=== PATIENT | male | born 1970 | race Two or more races ===

== ENCOUNTER 2024-07-15 14:35 | Inpatient (IN) | payer MEDICAID, OTHER ==
[~2024-07-15] VITALS: Ht 180.3 cm; Wt 121.4 kg
[2024-07-15 14:35] VITALS: PULSE 90; RESP 20; O2SAT 99
--- NOTE | 2024-07-15 16:02 | ED.PDOC ---
History of Present Illness HPI Comments 54Y M with PMHx DM and CABG x3 presents to ED via EMS for chief complaint hyperglycemia. Additional symptoms include headache, nausea, fatigue, intermittent chest pain, and weakness x1wk. Upon EMS arrival, pt's BP was 505. Pt is currently taking Metformin and insulin 45U tid. Pt states it seems he is "unable to control his blood sugar". Chief Complaint: Hyperglycemia Time Seen by MD: 15:46 Reviewed Notes: Medications, Allergies Allergies: Coded Allergies: NO KNOWN ALLERGIES (Unverified , 07/15/24) Information Source: Patient, Emergency Med Personnel Mode of Arrival: EMS Severity: Moderate Timing: Hours Duration: Hours Prehospital treatment: Other Past Medical History PAST MEDICAL HISTORY: DM Surgical History: CABG Family History Family History: Unknown Social History Smoker: Unknown Alcohol: Sober Drugs: Unknown Lives In: Home Constitutional: reports: fatigue, weakness; denies: chills, diaphoresis, fever, malaise, sweats, others EENTM: denies: blurred vision, double vision, ear bleeding, ear discharge, ear drainage, ear pain, ear ringing, eye pain, eye redness, hearing loss, mouth pain, mouth swelling, nasal discharge, nose bleeding, nose congestion, nose pain, photophobia, tearing, throat pain, throat swelling, voice changes, others Respiratory: denies: cough, hemoptysis, orthopnea, SOB at rest, shortness of breath, SOB with excertion, stridor, wheezing, others Cardiovascular: reports: chest pain; denies: dizzy spells, diaphoresis, Dyspnea on exertion, edema, irregular heart beat, left arm pain, lightheadedness, palpitations, PND, syncope, others Gastrointestinal: reports: nausea; denies: abdomen distended, abdominal pain, blood streaked bowels, constipated, diarrhea, dysphagia, difficulty swallowing, hematemesis, melena, poor appetite, poor fluid intake, rectal bleeding, rectal pain, vomiting, others Genitourinary: denies: burning, dysuria, flank pain, frequency, hematuria, incontinence, penile discharge, penile sore, pain, testicle pain, testicle swelling, urgency, others Neurological: reports: headache; denies: dizziness, fainting, left sided numbness, left sided weakness, numbness, paresthesia, pre-existing deficit, right sided numbness, right sided weakness, seizure, speech problems, tingling, tremors, weakness, others Musculoskeletal: denies: back pain, gout, joint pain, joint swelling, muscle pain, muscle stiffness, neck pain, others Integumetry: denies: bruises, change in color, change in hair/nails, dryness, laceration, lesions, lumps, rash, wounds, others Allergic/Immunocompromised: denies: Difficulty Healing, Frequent Infections, Hives, Itching, others Hematologic/Lymphatic: denies: anemia, blood clots, easy bleeding, easy bruising, swollen glands, others Endocrine: denies: excessive hunger, excessive sweating, excessive thirst, excessive urination, flushing, intolerance to cold, intolerance to heat, unexplained weight gain, unexplained weight loss, others Psychiatric: denies: anxiety, bipolar disorder, depression, hopeless, panic disorder, schizophrenia, sleepless, suicidal, others All Other Systems: Reviewed and Negative Physical Exam General Appearance: No Apparent Distress, Normal HEENT: Normal ENT Inspection, Pharynx Normal, TMs Normal Neck: Full Range of Motion, Non-Tender, Normal, Normal Inspection Respiratory: Chest Non-Tender, Lungs Clear, No Accessory Muscle Use, No Respiratory Distress, Normal Breath Sounds Cardiovascular: No Edema, No JVD, No Murmur, No Gallop, Normal Peripheral Pulses, Regular Rate/Rhythm Breast Exam: Deferred Gastrointestinal: No Organomegaly, Non Tender, No Pulsatile Mass, Normal Bowel Sounds, Soft Genitalia: Deferred Pelvic: Deferred Rectal: Deferred Extremities: No calf tenderness, Normal capillary refill, Normal inspection, Normal range of motion, Non-tender, No pedal edema Musculoskeletal : Apperance: Normal Neurologic: Alert, 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 Was a procedure done?: No Differential Dx Considerations may include: DKA, HHONC, poorly controlled DM X-Ray, Labs, Meds, VS Vital Signs Date Time Temp Pulse Resp B/P (MAP) Pulse Ox O2 Delivery O2 Flow Rate FiO2 07/15/24 15:37 98.5 90 20 123/74 (90) 99 07/15/24 14:35 90 20 99 Room Air* 0 21 07/15/24 14:35 98.5 90 20 123/74 (90) 99 98.5 Lab Test 07/15/24 16:46 07/15/24 16:30 Range/Units Blood Gas Specimen Type Arterial Blood Gas Sample Site Right radial Blood Gas Patient Temperature 37.0 Arterial Blood Date Drawn [id number] Arterial Blood pH 7.421 7.350-7.450 Arterial Blood Partial Pressure CO2 36.7 35.0-48.0 mmHg Arterial Blood Partial Pressure O2 69.5 L 83.0-108.0 mmHg Arterial Blood HCO3 23.3 21.0-28.0 mmol/L Arterial Blood Oxygen Saturation 94.5 94.0-98.0 % Arterial Blood Base Excess -0.7 -2.0-3.0 mmol/L Arterial Blood Oxyhemoglobin 88.6 L 94.0-98.0 % Arterial Blood Carboxyhemoglobin 5.9 H 0.5-1.5 % Arterial Blood Methemoglobin 0.3 0.0-1.5 % Óscar Test Yes Blood Gas Total Hemoglobin 15.80 13.5-17.5 g/dL Blood Gas Modality Room air FiO2 % 21.0 White Blood Count 7.1 4.4-10.8 10^3/uL Red Blood Count 5.45 4.5-5.90 10^6/uL Hemoglobin 15.5 13.5-17.5 g/dL Hematocrit 46.5 41.0-53.0 % Mean Corpuscular Volume 85.3 80.0-100.0 fL Mean Corpuscular Hemoglobin 28.5 28.0-32.0 pg Mean Corpuscular Hemoglobin Concent 33.4 32.0-36.0 g/dL Red Cell Distribution Width 14.8 H 11.8-14.3 % Platelet Count 200 140-450 10^3/uL Mean Platelet Volume 9.6 6.9-10.8 fL Neutrophils (%) (Auto) 46.1 37.0-80.0 % Lymphocytes (%) (Auto) 37.4 10.0-50.0 % Monocytes (%) (Auto) 7.2 0.0-12.0 % Eosinophils (%) (Auto) 8.8 H 0.0-7.0 % Basophils (%) (Auto) 0.5 0.0-2.0 % Neutrophils # (Auto) 3.2 1.6-8.6 10 ^3/uL Lymphocytes # (Auto) 2.6 0.4-5.4 10 ^3/uL Monocytes # (Auto) 0.5 0-1.3 10 ^3/uL Eosinophils # (Auto) 0.6 0-0.8 10 ^3/uL Basophils # (Auto) 0 0-0.2 10 ^3/uL Nucleated Red Blood Cells 0.0 % Prothrombin Time 10.9 9.3-11.8 sec Prothrombin Time INR 1.03 0.9-1.15 Activated Partial Thromboplast Time 28.2 24.5-34.5 SEC D-Dimer, Quantitative 0.19 0.0-0.49 mg/L FEU Sodium Level 134 L 136-145 mmol/L Potassium Level 4.4 3.5-5.1 mmol/L Chloride Level 101 98-107 mmol/L Carbon Dioxide Level 27 20-31 mmol/L Anion Gap 6 5-15 Blood Urea Nitrogen 9 9-23 mg/dL Creatinine 0.99 0.700-1.30 mg/dL Glomerular Filtration Rate Calc 89 >90 mL/min BUN/Creatinine Ratio 9.1 L 10.0-20.0 Serum Glucose 403 *H 74-106 mg/dL Calcium Level 9.7 8.7-10.4 mg/dL Magnesium Level 1.7 1.6-2.6 mg/dL Total Bilirubin 0.4 0.2-1.0 mg/dL Aspartate Amino Transferase (AST) 15 13-40 U/L Alanine Aminotransferase (ALT) 36 7-40 U/L Alkaline Phosphatase 153 H 46-116 U/L Troponin I High Sensitivity 7 </=54 ng/L B-Type Natriuretic Peptide Pending Total Protein 6.1 5.7-8.2 g/dL Albumin 3.8 3.2-4.8 g/dL Beta-Hydroxybutyric Acid 0.079 < 0.4 mmol/L Blood Oxycodone Screen Pending Blood Methadone Screen Pending Blood Amphetamines Screen Pending Drugs of Abuse Source Pending Plasma/Serum Blood Alcohol 4.7 <10 mg/dL Current Medications Medications (Trade) Dose Ordered Sig/Lj Route Start Time Stop Time Status Last Admin Sodium Chloride 1,000 ml @ 1,000 mls/hr Q1H ONCE IV 07/15/24 16:15 07/15/24 17:14 DC 07/15/24 16:24 Gabapentin (Neurontin Capsule) 300 mg ONCE ONCE PO 07/15/24 17:15 07/15/24 17:16 DC 07/15/24 17:[address] [address] Ph: [phone] DIAGNOSTIC IMAGING Diagnostic Imaging Report : [id number] Signed PATIENT: MITZY MOORE ACCT: [id number] UNIT: [id number] : 1970 LOC: ER ROOM / BED: / AGE / SEX: 54 / M ADM STATUS: REG ER SERVICE 1602 ORDERING PHYSICIAN: BRUNILDA SELBY MD PROCEDURE(s): CXRP - CHEST PORTABLE REASON: chest pain and cough ORDER NUMBER(s): [id number], ACCESSION NUMBER(s): [id number] CHEST RADIOGRAPH Indication: chest pain and cough Technique: Single frontal view of the chest was obtained Comparison: None FINDINGS: Lines and Tubes: None Lungs: No focal consolidation. Pleura: No effusion. No pneumothorax. Cardiomediastinal contours: Unremarkable Bones: No acute osseous abnormality. IMPRESSION: No acute cardiopulmonary disease. ATED BY: MERCEDES MAIN MD DICTATED DATE/TIME: 07/15/24 1630 SIGNED BY: MERCEDES MAIN MD SIGNED DATE/TIME: 07/15/24 1630 CC: X-Ray, Labs, Meds, VS Comment This 54-year-old male presents emergency room secondary to hyperglycemia, and general malaise. He states he is on 40 units of insulin multiple times a day. Since despite the high amount of insulin, he was unable to get his diabetes under control. He states he was trying. However, he feels as if issues give up and just . He denies SI or HI but endorses being frustrated with his poorly controlled diabetes. Here, he was noted to have blood glucose in the 400s. His CO2 is within normal limits. He had a normal pH/ABG and normal serum hydroxybutyrate. However, secondary to his poorly controlled diabetes mellitus despite maximum temperature control, the patient for improved management. Time of 1ST Reevaluation: :16 Reevaluation 1ST: Unchanged Patient Education/Counseling: Diagnosis, Treatment Family Education/Counseling: No Family Present Departure 1 Departure Time of Disposition: 17:46 Impression: Primary Impression: Hyperglycemia due to diabetes mellitus Additional Impressions: Malaise and fatigue Depression Disposition: 09 ADMITTED INPATIENT Admit to: Med Surg Condition: Serious Critical Care Note Critical Care Time?: No Stability Stability form required: No Heart Score Heart Score: Heart Score Response (Comments) Value History N/A 0 EKG N/A 0 Age N/A 0 Risk Factors N/A 0 Troponin N/A 0 Total 0 I personally scribed for BRUNILDA SELBY MD ([email or web address]) on 07/15/24 at 16:02. Electronically submitted by Hallie Bird ([facility]). I personally scribed for BRUNILDA SELBY MD ([email or web address]) on 07/15/24 at 16:58. Electronically submitted by Hallie Bird ([facility]). BRUNILDA SELBY MD Jul 15, 2024 16:02
[2024-07-15] MEDS: SODIUM CHLORIDE 0.9% 1,000 ML IV ONE ×2 (16:24→18:01)
--- NOTE | 2024-07-15 16:33 | DVH ---
CHEST RADIOGRAPH Indication: chest pain and cough Technique: Single frontal view of the chest was obtained Comparison: None FINDINGS: Lines and Tubes: None Lungs: No focal consolidation. Pleura: No effusion. No pneumothorax. Cardiomediastinal contours: Unremarkable Bones: No acute osseous abnormality. IMPRESSION: No acute cardiopulmonary disease.
[2024-07-15 16:45] LABS: Basophils # (auto) 0 10 ^3/uL (0-0.2); Basophils % (auto) 0.5 % (0.0-2.0); Eosinophils # (auto) 0.6 10 ^3/uL (0-0.8); Eosinophils % (auto) 8.8 % (0.0-7.0); Hematocrit 46.5 % (41.0-53.0); Hemoglobin 15.5 g/dL (13.5-17.5); Lymphocytes # (auto) 2.6 10 ^3/uL (0.4-5.4); Lymphocytes % (auto) 37.4 % (10.0-50.0); Mean Corpuscular Hemoglobin 28.5 pg (28.0-32.0); Mean Corpuscular Hgb Conc. 33.4 g/dL (32.0-36.0); Mean Corpuscular Volume 85.3 fL (80.0-100.0); Monocytes # (auto) 0.5 10 ^3/uL (0-1.3); Monocytes % (auto) 7.2 % (0.0-12.0); Neutrophils # (auto) 3.2 10 ^3/uL (1.6-8.6); Neutrophils % (auto) 46.1 % (37.0-80.0); Platelet Count (auto) 200 10^3/uL (140-450); Red Blood Cells 5.45 10^6/uL (4.5-5.90); Red Cell Distribution Width 14.8 % (11.8-14.3); White Blood Cell 7.1 10^3/uL (4.4-10.8)
[2024-07-15 16:51] LABS: Base Excess -0.7 mmol/L (-2.0-3.0)
[2024-07-15 17:03] LABS: INR 1.03 (0.9-1.15); Partial Thromboplastin Time 28.2 SEC (24.5-34.5); Prothrombin Time 10.9 sec (9.3-11.8)
[2024-07-15 17:04] LABS: Alanine Aminotransferase 36 U/L (7-40); Albumin 3.8 g/dL (3.2-4.8); Anion Gap 6 (5-15); Aspartate Aminotransferase 15 U/L (13-40); BUN/Creatinine Ratio 9.1 (10.0-20.0); Bilirubin, Total 0.4 mg/dL (0.2-1.0); Blood Alcohol 4.7 mg/dL (<10); Blood Urea Nitrogen 9 mg/dL (9-23); Calcium 9.7 mg/dL (8.7-10.4); Carbon Dioxide 27 mmol/L (20-31); Chloride 101 mmol/L (98-107); Magnesium 1.7 mg/dL (1.6-2.6); Potassium 4.4 mmol/L (3.5-5.1); Total Protein 6.1 g/dL (5.7-8.2)
[2024-07-15 17:19] LABS: Alkaline Phosphatase 153 U/L (46-116); Sodium 134 mmol/L (136-145)
[2024-07-15 17:31] LABS: Glucose 403 mg/dL (74-106)
[2024-07-15] MEDS: GABAPENTIN 300 MG CAP PO ONE (17:32)
[2024-07-15 18:20] LABS: Urine Bacteria None Seen /hpf (None Seen)
[2024-07-15 18:54] LABS: Urine Blood Negative /uL (Negative); Urine Clarity Clear (Clear); Urine Color Light-Yellow (Yellow); Urine Protein, UAD Negative (Negative); Urine Specific Gravity 1.029 (1.001-1.035); Urine Urobilinogen Normal (Negative); Urine WBC <1 /hpf (0 - 3); Urine pH 6.5 (5.0-9.0)
--- NOTE | 2024-07-15 19:14 | DVHHP2 ---
History of Present Illness Reason for Visit: weakness History of Present Illness 54-year-old morbidly obese male with a past medical history of diabetes CABG comes to the ED with symptoms described with hyperglycemia patient on evaluation had glucose greater than 500 states that he is currently taking insulin 3 times a day and also takes metformin but he is unable to control his blood pressure unable to confirm if patient is actually compliant with medications however patient is grossly hyperglycemic and was recommended for admission and further evaluation and management Cardiovascular: HTN Endocrine: Diabetes Review of Systems Constitutional: Yes: Weakness Eyes: No: Pain, Vision change, Conjunctivae inflammation, Eyelid inflammation, Other, Redness ENT: No: Ear pain, Ear discharge, Nose pain, Nose discharge, Nose congestion, Mouth pain, Mouth swelling, Throat pain, Throat swelling, Other Respiratory: No: Cough, Dry, Shortness of breath, SOB with excertion, Wheezing, Hemoptysis, Pleuritic Pain, Sputum, Wheezing, Other Cardiovascular: Palpitations; No: Chest Pain, Orthopnea, Paroxysmal Noc. Dyspnea, Edema, Lt Headedness, Other Gastrointestinal: Nausea, Vomiting; No: Abdominal Pain, Diarrhea, Constipation, Melena, Hematochezia, Other Musculoskeletal: No: other, neck pain, shoulder pain, arm pain, back pain, hand pain, leg pain, foot pain Skin: No: Rash, Lesions, Jaundice, Bruising, Other Neurological: No: Weakness, Numbness, Incoordination, Change in speech, Confusion, Seizures, Other Allergies: Coded Allergies: NO KNOWN ALLERGIES (Unverified , 07/15/24) Exam Vital Signs Vital Signs Date Time Temp Pulse Resp B/P (MAP) Pulse Ox O2 Delivery O2 Flow Rate FiO2 07/15/24 15:37 98.5 90 20 123/74 (90) 99 07/15/24 14:35 Room Air* 0 21 General Appearance: Alert, Oriented X3, Cooperative HEENT: Atraumatic, PERRLA, EOMI Respiratory: Clear to auscultation, Normal air movement Cardiovascular: Regular rate, Normal S1, Normal S2 Abdominal: Normal bowel sounds, Soft, No tenderness Extremities: No clubbing, No cyanosis, No edema Skin: No rashes, No breakdown, No significant lesion Neuro: Normal gait, Normal speech Psych/Mental Status: Mood NL Labs/Xrays Labs Test 07/15/24 17:28 07/15/24 16:46 07/15/24 16:30 07/15/24 16:20 Range/Units Troponin I High Sensitivity 8 </=54 ng/L Blood Gas Specimen Type Arterial Blood Gas Sample Site Right radial Blood Gas Patient Temperature 37.0 Arterial Blood Date Drawn [id number] Arterial Blood pH 7.421 7.350-7.450 Arterial Blood Partial Pressure CO2 36.7 35.0-48.0 mmHg Arterial Blood Partial Pressure O2 69.5 L 83.0-108.0 mmHg Arterial Blood HCO3 23.3 21.0-28.0 mmol/L Arterial Blood Oxygen Saturation 94.5 94.0-98.0 % Arterial Blood Base Excess -0.7 -2.0-3.0 mmol/L Arterial Blood Oxyhemoglobin 88.6 L 94.0-98.0 % Arterial Blood Carboxyhemoglobin 5.9 H 0.5-1.5 % Arterial Blood Methemoglobin 0.3 0.0-1.5 % Óscar Test Yes Blood Gas Total Hemoglobin 15.80 13.5-17.5 g/dL Blood Gas Modality Room air FiO2 % 21.0 White Blood Count 7.1 4.4-10.8 10^3/uL Red Blood Count 5.45 4.5-5.90 10^6/uL Hemoglobin 15.5 13.5-17.5 g/dL Hematocrit 46.5 41.0-53.0 % Mean Corpuscular Volume 85.3 80.0-100.0 fL Mean Corpuscular Hemoglobin 28.5 28.0-32.0 pg Mean Corpuscular Hemoglobin Concent 33.4 32.0-36.0 g/dL Red Cell Distribution Width 14.8 H 11.8-14.3 % Platelet Count 200 140-450 10^3/uL Mean Platelet Volume 9.6 6.9-10.8 fL Neutrophils (%) (Auto) 46.1 37.0-80.0 % Lymphocytes (%) (Auto) 37.4 10.0-50.0 % Monocytes (%) (Auto) 7.2 0.0-12.0 % Eosinophils (%) (Auto) 8.8 H 0.0-7.0 % Basophils (%) (Auto) 0.5 0.0-2.0 % Neutrophils # (Auto) 3.2 1.6-8.6 10 ^3/uL Lymphocytes # (Auto) 2.6 0.4-5.4 10 ^3/uL Monocytes # (Auto) 0.5 0-1.3 10 ^3/uL Eosinophils # (Auto) 0.6 0-0.8 10 ^3/uL Basophils # (Auto) 0 0-0.2 10 ^3/uL Nucleated Red Blood Cells 0.0 % Prothrombin Time 10.9 9.3-11.8 sec Prothrombin Time INR 1.03 0.9-1.15 Activated Partial Thromboplast Time 28.2 24.5-34.5 SEC D-Dimer, Quantitative 0.19 0.0-0.49 mg/L FEU Sodium Level 134 L 136-145 mmol/L Potassium Level 4.4 3.5-5.1 mmol/L Chloride Level 101 98-107 mmol/L Carbon Dioxide Level 27 20-31 mmol/L Anion Gap 6 5-15 Blood Urea Nitrogen 9 9-23 mg/dL Creatinine 0.99 0.700-1.30 mg/dL Glomerular Filtration Rate Calc 89 >90 mL/min BUN/Creatinine Ratio 9.1 L 10.0-20.0 Serum Glucose 403 *H 74-106 mg/dL Calcium Level 9.7 8.7-10.4 mg/dL Magnesium Level 1.7 1.6-2.6 mg/dL Total Bilirubin 0.4 0.2-1.0 mg/dL Aspartate Amino Transferase (AST) 15 13-40 U/L Alanine Aminotransferase (ALT) 36 7-40 U/L Alkaline Phosphatase 153 H 46-116 U/L B-Type Natriuretic Peptide 47.81 0-100 pg/mL Total Protein 6.1 5.7-8.2 g/dL Albumin 3.8 3.2-4.8 g/dL Beta-Hydroxybutyric Acid 0.079 < 0.4 mmol/L Plasma/Serum Blood Alcohol 4.7 <10 mg/dL Urine Color Light-yellow Yellow Urine Clarity Clear Clear Urine pH 6.5 5.0-9.0 Urine Specific [place] 1.029 1.001-1.035 Urine Protein Negative Negative Urine Ketones Negative Negative Urine Blood Negative Negative /uL Urine Nitrite Negative Negative Urine Bilirubin Negative Negative Urine Urobilinogen Normal Negative mg/dL Urine Leukocyte Esterase Negative Negative /uL Urine RBC 1 0 - 3 /hpf Urine WBC <1 0 - 3 /hpf Urine Squamous Epithelial Cells None seen <5 /hpf Urine Bacteria None seen None Seen /hpf Urine Glucose 4+ H Normal mg/dL Assessment/Plan Assessment/Plan Admit to [facility] Severe hyperglycemia due to type 2 diabetes uncontrolled Insulin sliding scale aggressive Insulin t.i.d. with 15 units 3 Long-acting insulin per night Adjust as required utilizing all insulin plus insulin sliding scale Aggressive IV hydration No acute signs of infection noted at this point in time Patient with severe hyperglycemia Suspected noncompliance to any medications ABG completed with a normal pH in no anion gap noted we will continue to monitor patient closely Plan discussed with: Patient My Orders Orders - ERICKA ADAMES MD Procedure Category Date Status Time Glucose Blood PHA 07/16/24 Verified (Accu-Chek Comfort 00:00 Agressive Insulin Ss PHA 07/16/24 Verified 00:00 Dextrose 50% Syringe PHA 07/15/24 Verified 19:15 Insulin Lispro PHA 07/16/24 Verified (Human) (Humalog) 07:00 Insulin Lantus PHA 07/15/24 Verified (Glargine) (Lantus) 22:00 Gabapentin Capsule PHA 07/15/24 Verified (Neurontin Capsule) 22:00 Admit ADMIT 07/15/24 Verified 19:06 Code Status CODE 07/15/24 Verified 19:06 Vital Signs [facility] 07/15/24 Verified 19:06 Review Orders With GABBY 07/15/24 Verified Adm. 19:06 Consistent DIET 07/16/24 Verified Carb(Ccho)Diabetes Breakfast Sodium Chloride 0.9% PHA 07/15/24 Verified 19:15 Lorazepam Tablet PHA 07/15/24 Verified (Ativan Tablet) 19:15 Alum & Mag PHA 07/15/24 Verified Hydrox-Simethicone 19:15 Docusate Sodium PHA 07/15/24 Verified Capsule (Colace 19:15 Acetaminophen Tablet PHA 07/15/24 Verified (Tylenol Tablet) 19:15 Temazepam (Restoril) PHA 07/15/24 Verified 19:15 Notify Of Changes [facility] 07/15/24 Verified From Base 19:06 Advance Directive [facility] 07/15/24 Verified 19:06 Basic Metabolic Panel LAB 07/16/24 Verified 04:00 Complete Blood Count LAB 07/16/24 Verified 04:00 Patient Condition ORDERS 07/15/24 Verified 19:06 Allergies [facility] 07/15/24 Verified 19:06 Hydrocodone-Acet PHA 07/15/24 Verified 5/325mg Tab ([place] 19:15 Ondansetron Hcl PHA 07/15/24 Verified (Zofran) 19:15 Morphine 2mg Iv Q4hprn PHA 07/15/24 Verified 19:15 Notify Md Of Changes GABBY 07/15/24 Verified From Base 19:06 Oxygen By Nasal RT 07/15/24 Verified Cannula 19:06 Problem List: (1) Malaise and fatigue (2) Hyperglycemia due to diabetes mellitus Date of Service: Jul 15, 2024 Billing Provider: ERICKA ADAMES MD Common Visit Codes: [id number] INP/OBS CARE (HIGH) ERICKA ADAMES MD Jul 15, 2024 19:14
[2024-07-15] MEDS ORDERED: DOCUSATE SOD 100 MG CAP PO PRN (19:15)
[2024-07-15] MEDS ORDERED: ONDANSETRON HCL 4 MG/2 ML VIAL IV PRN (19:15)
[2024-07-15] MEDS ORDERED: MAALOX PLUS or MAALOX 30 ML PO PRN (19:15)
[2024-07-15] MEDS ORDERED: ACETAMINOPHEN 325 MG TAB PO PRN (19:15)
[2024-07-15] MEDS ORDERED: LORazepam 0.5 MG TAB PO PRN (19:15)
[2024-07-15] MEDS ORDERED: DEXTROSE (50%) 50ML SYRG IV PRN (19:15)
[2024-07-15] MEDS ORDERED: TEMAZEPAM 15 MG CAP PO PRN (19:15)
[2024-07-15 19:30] VITALS: PULSE 79; RESP 20; O2SAT 93
[2024-07-15] MEDS: SODIUM CHLORIDE 0.9% 1,000 ML IV SCH (19:37)
[2024-07-15 22:04] LABS: COVID19 ANTIGEN SOFIA FIA NEGATIVE (NEGATIVE)
[2024-07-15 22:05] LABS: Rapid Influenza A Negative (Negative); Rapid Influenza B Negative (Negative)
[2024-07-15] MEDS: INSULIN LANTUS (GLARGINE) 1 /0.01ml (100units/ml) SC SCH (22:14)
[2024-07-15] MEDS: GABAPENTIN 300 MG CAP PO SCH (22:14)
[2024-07-15] MEDS: ACCU-CHEK COMFORT CURVE STRIP VI SCH (23:52)
[2024-07-15] MEDS: InsuLIN REG 1unit/0.01ml Soln (100units/ml) SC SCH (23:56)
[2024-07-16] VITALS (7 sets, daily range): BP systolic 102–144; BP diastolic 57–88; PULSE 71–80; RESP 17–20; TEMP 97.2–98.5; O2SAT 93–95
[2024-07-16] MEDS: MORPHINE SULFATE INJ 2 MG/ml SYRG IV PRN (06:16)
[2024-07-16] MEDS: INSULIN LISPRO (HUMAN) 100 UNITS/ML ML SC SCH (06:18)
[2024-07-16 08:19] LABS: Chloride 105 mmol/L (98-107); Potassium 4.2 mmol/L (3.5-5.1); Sodium 138 mmol/L (136-145)
[2024-07-16 08:20] LABS: Anion Gap 4 (5-15); Calcium 9.4 mg/dL (8.7-10.4); Carbon Dioxide 29 mmol/L (20-31)
[2024-07-16 08:25] LABS: BUN/Creatinine Ratio 8.7 (10.0-20.0); Blood Urea Nitrogen 8 mg/dL (9-23); Glucose 203 mg/dL (74-106)
[2024-07-16 08:26] LABS: Basophils # (auto) 0.1 10 ^3/uL (0-0.2); Basophils % (auto) 1.2 % (0.0-2.0); Eosinophils # (auto) 0.6 10 ^3/uL (0-0.8); Eosinophils % (auto) 10.6 % (0.0-7.0); Hematocrit 45.7 % (41.0-53.0); Hemoglobin 15.6 g/dL (13.5-17.5); Lymphocytes # (auto) 2.3 10 ^3/uL (0.4-5.4); Lymphocytes % (auto) 41.6 % (10.0-50.0); Mean Corpuscular Hemoglobin 29.2 pg (28.0-32.0); Mean Corpuscular Hgb Conc. 34.2 g/dL (32.0-36.0); Mean Corpuscular Volume 85.5 fL (80.0-100.0); Monocytes # (auto) 0.4 10 ^3/uL (0-1.3); Monocytes % (auto) 6.6 % (0.0-12.0); Neutrophils # (auto) 2.2 10 ^3/uL (1.6-8.6); Platelet Count (auto) 194 10^3/uL (140-450); Red Blood Cells 5.35 10^6/uL (4.5-5.90); Red Cell Distribution Width 14.9 % (11.8-14.3); White Blood Cell 5.4 10^3/uL (4.4-10.8)
--- NOTE | 2024-07-16 18:20 | DVHPN2 ---
Subjective I am assuming the care of the patient from today onwards. Detailed sign out obtained. This is a 54-year-old male with a known history of CAD status post CABG, diabetes mellitus type 2 insulin dependent presented to the hospital with a high blood sugars. Patient is complaining of muscle soreness. Reviewed: Care Plan Changes from previous H/P or p: No Changes Eyes: No Pain, No Vision change, No Conjunctivae inflammation, No Eyelid inflammation, No Other, No Redness ENT: No Ear pain, No Ear discharge, No Nose pain, No Nose discharge, No Nose congestion, No Mouth pain, No Mouth swelling, No Throat pain, No Throat swelling, No Other Cardiovascular: No Chest Pain; Palpitations; No Orthopnea, No Paroxysmal Noc. Dyspnea, No Edema, No Lt Headedness, No Other Respiratory: No Cough, No Dry, No Shortness of breath, No SOB with excertion, No Wheezing, No Hemoptysis, No Pleuritic Pain, No Sputum, No Other Gastrointestinal: Nausea, Vomiting; No Abdominal Pain, No Diarrhea, No Constipation, No Melena, No Hematochezia, No Other Musculoskeletal: No other, No neck pain, No shoulder pain, No arm pain, No back pain, No hand pain, No leg pain, No foot pain Skin: No Rash, No Lesions, No Jaundice, No Bruising, No Other Objective Vitals Vital Signs Date Time Temp Pulse Resp B/P (MAP) Pulse Ox O2 Delivery O2 Flow Rate FiO2 07/16/24 17:34 71 17 127/60 07/16/24 17:00 97.2 95 97.2 07/16/24 08:00 Room Air* 0 21 Intake/Output Intake and Output 07/16/24 07:00 Intake Total 600 ml Output Total 0 ml Balance 600 ml Intake Oral 0 ml IV Total 600 ml Output Urine Total 0 ml Exam HEENT pupils are reactive Neck is supple CV is S1-S2 regular rate and rhythm Respiratory bilateral clear GI positive bowel sound Extremity no edema [employer]INTE[employer]CE [employer]CH[employer] 2ND SHIFT no motor deficit Medications Current Medications Medications Dose Ordered Sig/Lj Route Start Time Stop Time Status Last Admin Dose Admin Diagnostic Test (Pha) 1 strip Q6HR 07/16/24 00:00 07/16/24 17:47 1 STRIP Insulin Human Regular Q6HR SC 07/16/24 00:00 07/16/24 17:33 12 UNITS Dextrose 50 ml UD PRN IV 07/15/24 19:15 Insulin Human Lispro 15 units AC SC 07/16/24 07:00 07/16/24 17:00 15 UNITS Insulin Glargine 20 units HS SC 07/15/24 22:00 07/15/24 22:14 20 UNITS Gabapentin 300 mg Q8HR PO 07/15/24 22:00 07/16/24 14:00 300 MG Sodium Chloride 1,000 ml @ 200 mls/hr Q5H IV 07/15/24 19:15 07/16/24 10:15 200 MLS/HR Lorazepam 0.5 mg Q6HP PRN PO 07/15/24 19:15 Al Hydrox/Mg Hydrox/Simethicone 30 ml Q6HP PRN PO 07/15/24 19:15 Docusate Sodium 100 mg BIDPRN PRN PO 07/15/24 19:15 Acetaminophen 650 mg Q6HP PRN PO 07/15/24 19:15 Temazepam 15 mg QHSP PRN PO 07/15/24 19:15 Acetaminophen/ Hydrocodone Bitart 1 tab Q4HP PRN PO 07/15/24 19:15 Ondansetron HCl 4 mg Q4HP PRN IV 07/15/24 19:15 Morphine Sulfate 2 mg Q4HPRN PRN IV 07/15/24 19:15 07/16/24 17:34 2 MG Laboratory Results Laboratory Tests 07/16/24 07:35 Chemistry Test 07/16/24 07:35 Calcium Level 9.4 mg/dL (8.7-10.4) HgA1c, TSH Test 07/16/24 07:35 Hemoglobin A1c 9.5 % A1C (<5.7) H Urinalysis Test 07/15/24 16:20 Urine Color Light-yellow (Yellow) Urine Clarity Clear (Clear) Urine pH 6.5 (5.0-9.0) Urine Specific [place] 1.029 (1.001-1.035) Urine Protein Negative (Negative) Urine Ketones Negative (Negative) Urine Blood Negative /uL (Negative) Urine Nitrite Negative (Negative) Urine Bilirubin Negative (Negative) Urine Urobilinogen Normal mg/dL (Negative) Urine Leukocyte Esterase Negative /uL (Negative) Urine RBC 1 /hpf (0 - 3) Urine WBC <1 /hpf (0 - 3) Urine Squamous Epithelial Cells None seen /hpf (<5) Urine Bacteria None seen /hpf (None Seen) Urine Glucose 4+ mg/dL (Normal) H Assessment/Plan Assessment/Plan 54-year-old male with a known history of coronary artery disease status post CABG, insulin-dependent diabetes mellitus presented to the hospital with a high blood sugar found to have 1. Uncontrolled hyperglycemia in the setting of diabetes mellitus type 2, hemoglobin A1c 9.5 2. Insulin-dependent diabetes mellitus type 2 3. Coronary artery disease status post CABG 4. Generalized body soreness -long-acting insulin, insulin sliding scale, discharge plan. Plan discussed with: Patient Problem List: (1) Hyperglycemia due to diabetes mellitus Date of Service: Jul 16, 2024 Billing Provider: MARK KABA MD Common Visit Codes: [id number] INP/OBS CARE(HIGH) MARK KABA MD Jul 16, 2024 18:20
[2024-07-16] MEDS: HYDROcodone-ACET 5/325MG TAB PO PRN (20:33)
[2024-07-17 05:00] VITALS: BP 184/81; PULSE 63; RESP 20; TEMP 98; O2SAT 93
[2024-07-17 08:00] VITALS: PULSE 87; RESP 18; O2SAT 96
[2024-07-17 08:27] VITALS: BP 144/86; PULSE 87; RESP 20; TEMP 98.2; O2SAT 96
== END 2024-07-17 09:54 | disposition left against medical advice (07) | DRG 420 ==
LOC: ER 14:35 → EDBD 14:35 → OVERFLOW 19:16 → EAST 07-16 02:25
PROVIDERS: ADMIT Hospitalist; ATTEND Hospitalist
DX: E11.65 Type 2 diabetes mellitus with hyperglycemia (principal); E66.01 Morbid (severe) obesity due to excess calories; Z20.822 Contact with and (suspected) exposure to COVID-19; I25.10 Atherosclerotic heart disease of native coronary artery without angina pectoris; I10 Essential (primary) hypertension; Z53.29 Procedure and treatment not carried out because of patient's decision for other reasons; F32.A Depression, unspecified; Z95.1 Presence of aortocoronary bypass graft; Z79.4 Long term (current) use of insulin; Z68.37 Body mass index [BMI] 37.0-37.9, adult; Z79.84 Long term (current) use of oral hypoglycemic drugs
CPT/HCPCS: 36415; 36600; 71045; 80048; 80053; 80307; 80320; 81001; 82010; 82805; 82962; 83036; 83735; 83880; 84484; 85025; 85379; 85610; 85730; 87426; 87804; 96360; 96361; G0378; J1815

== ENCOUNTER 2024-12-26 14:34 | Inpatient (IN) | payer MEDICAID ==
[~2024-12-26] VITALS: Ht 180.3 cm; Wt 99.2 kg
[~2024-12-26 14:34] MED LIST: ARIP20TA4 PO; ATOR20TA50 PO; CHL25C PO; FOLI-119 PO; GABA-1250 PO; HYDR-4069 PO; INSU100I49 SC; INSU100I51 SC; INSU1INJ19 SC; LISI20TA56 PO; LORA-1123 PO; METF-370 PO; MIRT1TAB38 PO; MULTTAB99 PO; PREG75CA PO; QUET1TAB11 PO; SERT50TA PO; THIA100T10 PO; TRAZ1TAB12 PO
[2024-12-26] MEDS: MIDAZOLAM HCL 5 MG/ML-1ML VIAL ONE ×2 (14:41→15:19)
[2024-12-26] MEDS: MIDAZOLAM HCL 5 MG/ML-1ML VIAL IV ONE ×2 (14:45→14:57)
[2024-12-26] MEDS: ROCURONIUM 10MG/ML 10ML VIAL IV ONE ×2 (14:46→14:58)
[2024-12-26] MEDS: MIDAZOLAM DRIP 50 mg/50mL 50 ML IV ONE (14:46)
[2024-12-26] MEDS: NOREPINEPHRINE 8 MG/250ML KIT 250 ML IV ONE (14:46)
[2024-12-26] MEDS: PROPOFOL 100 ML IV ONE (14:46)
[2024-12-26] MEDS: NOREPINEPHRINE 8 MG/250ML KIT 250 ML IV SCH (14:52)
--- NOTE | 2024-12-26 14:54 | ED.PDOC ---
Altered Mental Status HPI Comments 54 year old male presents to the ED with a chief complaint of ALOC onset today (12/26/24). Per EMS, patient is from a group him, was shaking, unresponsive, 911 was called. Upon EMS arrival, patient was bradycardic, hypotensive, 500 cc fluids were given in route. Patient became agitated, pulled out his IV, appears confused. No other symptoms or modifying factors present at this time. Chief Complaint: ALOC Time Seen by MD: 14:35 Reviewed Notes: Medications, Allergies Allergies: Coded Allergies: NO KNOWN ALLERGIES (Unverified , 07/15/24) Information Source: Emergency Med Personnel Mode of Arrival: EMS Severity: Moderate Timing: Hours Duration: Since onset Prehospital treatment: IVF Quality: Decreased Alertness, Change in Behavior Past Medical History PAST MEDICAL HISTORY: DM, Unknown Surgical History: CABG, Unknown Family History Family History: Unknown Social History Smoker: Unknown Alcohol: Heavy Drugs: Unknown Lives In: Home Neurological: reports: others (syncope) Unable to Obtain due to: Altered Mental Status Physical Exam General Appearance: Moderate Distress HEENT: Normal ENT Inspection, Pharynx Normal, TMs Normal Neck: Full Range of Motion, Non-Tender, Normal, Normal Inspection Respiratory: Chest Non-Tender, Lungs Clear, No Accessory Muscle Use, No Respiratory Distress, Normal Breath Sounds Cardiovascular: No Edema, No JVD, No Murmur, No Gallop, Normal Peripheral Pulses, Regular Rate/Rhythm Breast Exam: Deferred Gastrointestinal: No Organomegaly, Non Tender, No Pulsatile Mass, Normal Bowel Sounds, Soft Genitalia: Deferred Pelvic: Deferred Rectal: Deferred Extremities: No calf tenderness, Normal capillary refill, Normal inspection, Normal range of motion, Non-tender, No pedal edema Musculoskeletal : Apperance: Normal Neurologic: Other (Patient is minimally responsive, not tolerating secretions) Cerebellar Function: NOT DONE Reflexes: Normal Skin: Dry, Normal Color, Warm Lymphatic: No Adenopathy Was a procedure done? Was a procedure done?: Yes Sedation Sedation?: No Sedation total time: Central Line Recorder of insertion practice: Meeting Specialist Occupation of design inserter: Attending Physician Indication: Hypotension Room prepared for procedure: Yes Meeting Specialist performed hand hygien: Yes Maximal sterile barrier precau: Mask/Eye shield, Sterile gown, Cap, Sterlie gloves, Large sterlie drape Skin Preparation: Chlorhexidine gluconate, Providine iodine, Alcohol Skin preparation completely dr: Yes Insertion site: Right, Femoral Central line catheter type: Wqg-vjulhmhz-lgu dialysis Number of lumens: 3 Antiseptic ointment applied to: Yes Post Assessment: Chest X-Ray, Proper placement Intubation Indication: Altered Mental Status Prep: Preoxygenation Pretreated with: Sedation Medicated with: Other (versed 20 mg, Rocuronium 100 mg) Differential Diagnosis (ALOC) Differential Diagnosis: Hypoglycemia, Encephalopathy, Sepsis, CVA, Mass Lesion, SAH, Drug Overdose, ETOH Intoxication X-Ray, Labs, Meds, VS Vital Signs Date Time Temp Pulse Resp B/P (MAP) Pulse Ox O2 Delivery O2 Flow Rate FiO2 12/26/24 17:16 130/75 12/26/24 17:10 49 12/26/24 16:49 65 16 145/89 (107) 99 100 12/26/24 16:30 67 16 121/83 (96) 95 12/26/24 16:15 65 16 110/68 (82) 97 12/26/24 16:00 62 16 137/86 (103) 99 12/26/24 15:45 66 16 109/70 (83) 99 12/26/24 15:30 60 16 136/77 (96) 99 12/26/24 15:26 62 16 213/105 (141) 99 100 12/26/24 15:20 60 16 101/67 (78) 99 12/26/24 15:00 137/60 12/26/24 14:58 137/60 12/26/24 14:52 80/41 12/26/24 14:35 66 17 86/40 (55) 93 12/26/24 14:34 66 Lab Test 12/26/24 16:56 12/26/24 16:45 12/26/24 15:56 12/26/24 15:20 Range/Units Lactic Acid Level 2.9 *H 3.1 *H 0.4-2.0 mmol/L Troponin I High Sensitivity 7 4 </=54 ng/L Urine Color Yellow Yellow Urine Clarity Turbid H Clear Urine pH 5.5 5.0-9.0 Urine Specific [place] 1.025 1.001-1.035 Urine Protein Trace H Negative Urine Ketones 1+ H Negative Urine Blood Negative Negative /uL Urine Nitrite Negative Negative Urine Bilirubin Negative Negative Urine Urobilinogen 4 H Negative mg/dL Urine Leukocyte Esterase Trace Negative /uL Urine RBC 1 0 - 3 /hpf Urine Microscopic WBC 9 H 0-3 /HPF Urine Squamous Epithelial Cells Few <5 /hpf Urine Bacteria None seen None Seen /hpf Urine Hyaline Casts Mod 0 - 2 /lpf Urine Mucus Moderate None Seen Urine Glucose 1+ H Normal mg/dL Urine Opiates Screen Neg NEGATIVE Urine Fentanyl Screen Neg NEGATIVE Urine Barbiturates Screen Neg NEGATIVE Urine Phencyclidine Screen Neg NEGATIVE Urine Amphetamines Screen Neg NEGATIVE Urine Benzodiazepines Screen Pos NEGATIVE Urine Cocaine Screen Neg NEGATIVE Urine Cannabinoids Screen Pos NEGATIVE Blood Gas Specimen Type Arterial Blood Gas Sample Site Left radial Blood Gas Patient Temperature 37.0 Arterial Blood Date Drawn [id number] Arterial Blood pH 7.295 L 7.350-7.450 Arterial Blood Partial Pressure CO2 33.6 L 35.0-48.0 mmHg Arterial Blood Partial Pressure O2 464.6 *H 83.0-108.0 mmHg Arterial Blood HCO3 16.0 L 21.0-28.0 mmol/L Arterial Blood Oxygen Saturation 99.9 H 94.0-98.0 % Arterial Blood Base Excess -9.3 L -2.0-3.0 mmol/L Arterial Blood Oxyhemoglobin 95.0 94.0-98.0 % Arterial Blood Carboxyhemoglobin 4.1 H 0.5-1.5 % Arterial Blood Methemoglobin 0.8 0.0-1.5 % Óscar Test Modified Blood Gas Total Hemoglobin 16.90 13.5-17.5 g/dL Blood Gas Set Respiration Rate 16.0 Blood Gas Modality Vent - ac FiO2 % 100.0 Blood Gas Tidal Volume 500.0 Blood Gas PEEP or CPAP 5.0 Blood Gas Critical Value Read Back Yes Blood Gas Notified Whom Dr. gomes Blood Gas Notified Time [id number] Blood Gas Notified By Robbin roy, mukesh White Blood Count 8.6 4.4-10.8 10^3/uL Red Blood Count 5.59 4.5-5.90 10^6/uL Hemoglobin 17.1 13.5-17.5 g/dL Hematocrit 50.5 41.0-53.0 % Mean Corpuscular Volume 90.5 80.0-100.0 fL Mean Corpuscular Hemoglobin 30.7 28.0-32.0 pg Mean Corpuscular Hemoglobin Concent 33.9 32.0-36.0 g/dL Red Cell Distribution Width 16.1 H 11.8-14.3 % Platelet Count 201 140-450 10^3/uL Mean Platelet Volume 10.6 6.9-10.8 fL Neutrophils (%) (Auto) 41.5 37.0-80.0 % Lymphocytes (%) (Auto) 44.3 10.0-50.0 % Monocytes (%) (Auto) 6.8 0.0-12.0 % Eosinophils (%) (Auto) 6.1 0.0-7.0 % Basophils (%) (Auto) 1.3 0.0-2.0 % Neutrophils # (Auto) 3.6 1.6-8.6 10 ^3/uL Lymphocytes # (Auto) 3.8 0.4-5.4 10 ^3/uL Monocytes # (Auto) 0.6 0-1.3 10 ^3/uL Eosinophils # (Auto) 0.5 0-0.8 10 ^3/uL Basophils # (Auto) 0.1 0-0.2 10 ^3/uL Nucleated Red Blood Cells 0.3 % D-Dimer, Quantitative 0.72 H 0.0-0.49 mg/L FEU Sodium Level 139 136-145 mmol/L Potassium Level 3.0 L 3.5-5.1 mmol/L Chloride Level 106 98-107 mmol/L Carbon Dioxide Level 20 20-31 mmol/L Anion Gap 13 5-15 Blood Urea Nitrogen 7 L 9-23 mg/dL Creatinine 0.96 0.700-1.30 mg/dL Glomerular Filtration Rate Calc 93 >90 mL/min BUN/Creatinine Ratio 7.3 L 10.0-20.0 Serum Glucose 221 H 74-106 mg/dL Calcium Level 9.2 8.7-10.4 mg/dL Magnesium Level 1.8 1.6-2.6 mg/dL Total Bilirubin 0.5 0.2-1.0 mg/dL Aspartate Amino Transferase (AST) 16 13-40 U/L Alanine Aminotransferase (ALT) 19 7-40 U/L Alkaline Phosphatase 107 46-116 U/L Total Protein 6.8 5.7-8.2 g/dL Albumin 4.2 3.2-4.8 g/dL Plasma/Serum Blood Alcohol 276.4 H <10 mg/dL Current Medications Medications (Trade) Dose Ordered Sig/Lj Route Start Time Stop Time Status Last Admin Propofol 100 ml @ 2.85 mls/hr Q24H IV 12/26/24 15:15 12/26/24 15:00 Fentanyl Citrate 250 ml @ 2.5 mls/hr Q24H IV 12/26/24 15:15 12/26/24 17:16 Norepinephrine Bitartrate 250 ml @ 3.75 mls/hr Q24H IV 12/26/24 15:15 12/26/24 14:52 Midazolam HCl (Versed Injection) 10 mg ONCE ONCE IV 12/26/24 15:15 12/26/24 15:16 DC 12/26/24 14:45 Midazolam HCl (Versed Injection) 10 mg ONCE ONCE IV 12/26/24 15:15 12/26/24 15:16 DC 12/26/24 14:57 Rocuronium Douglas 100 mg ONCE ONCE IV 12/26/24 15:15 12/26/24 15:16 DC 12/26/24 14:58 Sodium Chloride 1,000 ml @ 60 mls/hr [id number] IV 12/26/24 16:45 12/26/24 17:00 Atropine Sulfate (Atropine Sulfate) 1 mg ONCE ONCE IV 12/26/24 17:12 12/26/24 17:16 DC 12/26/24 17:14 [place] [id number] Ph: [phone] DIAGNOSTIC IMAGING Diagnostic Imaging Report : [id number] Signed PATIENT: MITZY MOORE ACCT: [id number] UNIT: [id number] : 1970 LOC: ER ROOM / BED: / AGE / SEX: 54 / M ADM STATUS: REG ER SERVICE 2332 ORDERING PHYSICIAN: SHAI GOMES MD PROCEDURE(s): CXRP - CHEST PORTABLE REASON: POST INTUBATION ORDER NUMBER(s): [id number], ACCESSION NUMBER(s): [id number] CHEST RADIOGRAPH Indication: POST INTUBATION Technique: Single frontal view of the chest was obtained COMPARISON: XY CHEST PORTABLE on DOS: 07/15/24 FINDINGS: Lines and Tubes: Median sternotomy. Endotracheal tube and enteric catheter in satisfactory position. Lungs: Congestion Pleura: No effusion. No pneumothorax. Cardiomediastinal contours: Unremarkable Bones: Unremarkable IMPRESSION: Endotracheal tube and enteric catheter in satisfactory position. ATED BY: FRANKO VASQUEZ MD DICTATED DATE/TIME: 12/26/241528 SIGNED BY: FRANKO VASQUEZ MD SIGNED DATE/TIME: 12/26/241528 CC: Time of 1ST Reevaluation: 15:05 Reevaluation 1ST: Unchanged Patient Education/Counseling: Diagnosis, Treatment, Prognosis Family Education/Counseling: No Family Present Additional Information The following tests were ordered, and results were reviewed by me: TROP-x3, CBC, CMP, LA W/ RELFEX, UA, XY CHEST, DRUG SCREEEN, D-DIMER, BLOOD CULTURE, URINE BACTERIAL CULTURE, MAGNESIUM, EKG, BLOOD ALCOHOL Additional Information was gathered from interviewing the following independent historians: EMS I reviewed and agreed with the following test results read by other providers: XY CHEST I discussed treatment and results with medical personnel and: patient Comprehensive systems review obtained and negative except for what is stated in the HPI. Departure 1 Departure Time of Disposition: 17:43 (Patient presented after a syncopal episode with hypotension, bradycardia, and unresponsiveness and patient has not tolerating secretions and began aspirate. Patient was intubated and central line was placed. Patient was started on pressors. Patient will be admitted to the ICU for further workup) Impression: Primary Impression: Metabolic encephalopathy Additional Impressions: Bradycardia Hypokalemia Alcohol intoxication Qualified Codes: F10.921 - Alcohol use, unspecified with intoxication delirium Hypotension Qualified Codes: I95.9 - Hypotension, unspecified Syncope and collapse Disposition: ADMITTED INPATIENT Admit to: ICU Condition: Critical Critical Care Note Critical Care Time?: Yes Critical care comment: Unresponsive patient Authorized and Performed by: Shai Gomes MD Total critical care time: Approximately 47 minutes Due to a high probability of clinically significant, life threatening deterioration, the patient required my highest level of preparedness to intervene emergently and I personally spent this critical care time directly and personally managing the patient. This critical care time included obtaining a history; examining the patient; pulse oximetry; ordering and review of studies; arranging urgent treatment with development of a management plan; evaluation of patient's response to treatment; frequent reassessment; and, discussions with other providers. This critical care time was performed to assess and manage the high probability of imminent, life-threatening deterioration that could result in multi-organ failure. It was exclusive of separately billable procedures and treating other patients and teaching time. Please see my other sections and the rest of the note for further information on patient assessment and treatment. Stability Stability form required: No I personally scribed for SHAI GOMES MD ([email or web address]) on 12/26/24 at 14:54. Electronically submitted by Alina Salinas ([email or web address]). I personally scribed for SHAI GOMES MD ([email or web address]) on 12/26/24 at 15:03. Electronically submitted by Alina Salinas ([email or web address]). I personally scribed for SHAI GOMES MD ([email or web address]) on 12/26/24 at 15:05. Electronically submitted by Alina Salinas ([email or web address]). I personally scribed for SHAI GOMES MD ([email or web address]) on 12/26/24 at 15:07. Electronically submitted by Alina Salinas ([email or web address]). I personally scribed for SHAI GOMES MD ([email or web address]) on 12/26/24 at 15:42. E lectronically submitted by Alina Salinas ([email or web address]). I personally scribed for SHAI GOMES MD ([email or web address]) on 12/26/24 at 15:48. Elect ronically submitted by Alina Salinas ([email or web address]). SHAI GOMES MD December 26, 2024 14:54
[2024-12-26] MEDS: PROPOFOL 100 ML IV SCH (15:00)
--- NOTE | 2024-12-26 15:13 | ECG ---
[facility] Test Date: 2024-12-26 Test Time: 14:33:44 Pat Name: MITZY MOORE Department: ED Room: [address] [place] [address] Gender: M Principal Strategist: CRISTINE : 1970 Requested By: SHAI PARIKH Order Number: [id number] Reading MD: Shahid Baker Measurements Intervals [place] Rate: 66 P: 6 [place]: 135 QRS: 91 QRSD: 112 T: -13 QT: 430 QTc: 451 Interpretive Statements Sinus rhythm Inferior infarct, age indeterminate Lateral leads are also involved Electronically Signed On 01-02-2025 11:08:44 PDT by Shahid Baker Please click the below link to view image of tracing.
[2024-12-26] MEDS: fentaNYL Drip 2500mCg/250mlNS 250 ML IV ONE (15:19)
--- NOTE | 2024-12-26 15:32 | DVH ---
CHEST RADIOGRAPH Indication: POST INTUBATION Technique: Single frontal view of the chest was obtained COMPARISON: XY CHEST PORTABLE on DOS: 07/15/24 FINDINGS: Lines and Tubes: Median sternotomy. Endotracheal tube and enteric catheter in satisfactory position. Lungs: Congestion Pleura: No effusion. No pneumothorax. Cardiomediastinal contours: Unremarkable Bones: Unremarkable IMPRESSION: Endotracheal tube and enteric catheter in satisfactory position.
[2024-12-26] MEDS: MIDAZOLAM DRIP 50 mg/50mL 50 ML IV SCH (15:35)
[2024-12-26 15:40] LABS: Basophils # (auto) 0.1 10 ^3/uL (0-0.2); Basophils % (auto) 1.3 % (0.0-2.0); Eosinophils # (auto) 0.5 10 ^3/uL (0-0.8); Eosinophils % (auto) 6.1 % (0.0-7.0); Hematocrit 50.5 % (41.0-53.0); Hemoglobin 17.1 g/dL (13.5-17.5); Lymphocytes # (auto) 3.8 10 ^3/uL (0.4-5.4); Lymphocytes % (auto) 44.3 % (10.0-50.0); Mean Corpuscular Hemoglobin 30.7 pg (28.0-32.0); Mean Corpuscular Hgb Conc. 33.9 g/dL (32.0-36.0); Mean Corpuscular Volume 90.5 fL (80.0-100.0); Monocytes # (auto) 0.6 10 ^3/uL (0-1.3); Monocytes % (auto) 6.8 % (0.0-12.0); Neutrophils # (auto) 3.6 10 ^3/uL (1.6-8.6); Neutrophils % (auto) 41.5 % (37.0-80.0); Nucleated Red Blood Cells % 0.3 %; Platelet Count (auto) 201 10^3/uL (140-450); Red Blood Cells 5.59 10^6/uL (4.5-5.90); Red Cell Distribution Width 16.1 % (11.8-14.3); White Blood Cell 8.6 10^3/uL (4.4-10.8)
[2024-12-26 15:58] LABS: Alanine Aminotransferase 19 U/L (7-40); Albumin 4.2 g/dL (3.2-4.8); Alkaline Phosphatase 107 U/L (46-116); Anion Gap 13 (5-15); Aspartate Aminotransferase 16 U/L (13-40); BUN/Creatinine Ratio 7.3 (10.0-20.0); Bilirubin, Total 0.5 mg/dL (0.2-1.0); Blood Alcohol 276.4 mg/dL (<10); Calcium 9.2 mg/dL (8.7-10.4); Carbon Dioxide 20 mmol/L (20-31); Chloride 106 mmol/L (98-107); Magnesium 1.8 mg/dL (1.6-2.6); Sodium 139 mmol/L (136-145); Total Protein 6.8 g/dL (5.7-8.2)
[2024-12-26 15:59] LABS: Blood Urea Nitrogen 7 mg/dL (9-23); Glucose 221 mg/dL (74-106)
[2024-12-26 16:00] LABS: Lactic Acid w/Reflex 3.1 mmol/L (0.4-2.0)
[2024-12-26 16:02] LABS: Base Excess -9.3 mmol/L (-2.0-3.0)
[2024-12-26] MEDS ORDERED: MORPHINE SULFATE INJ 2 MG/ml SYRG IV PRN (16:45)
[2024-12-26] MEDS ORDERED: POTASSIUM CHL 20MEQ/100ML 100 ML IV SCH (16:45)
[2024-12-26] MEDS ORDERED: NITROGLYCERIN 0.4 MG SL TAB SL PRN (16:45)
[2024-12-26] MEDS ORDERED: DEXTROSE (50%) 50ML SYRG IV PRN (16:45)
[2024-12-26] MEDS ORDERED: ONDANSETRON HCL 4 MG/2 ML VIAL IV PRN (16:45)
[2024-12-26 16:53] LABS: Urine Bacteria None Seen /hpf (None Seen)
[2024-12-26] MEDS: SODIUM CHLORIDE 0.9% 1,000 ML IV SCH (17:00)
[2024-12-26 17:02] LABS: Urine Blood Negative /uL (Negative); Urine Clarity Turbid (Clear); Urine Color Yellow (Yellow); Urine Hyaline Cast MOD /lpf (0 - 2); Urine Mucus MODERATE (None Seen); Urine Protein, UAD TRACE (Negative); Urine Specific Gravity 1.025 (1.001-1.035); Urine Squamous Epithelial Cell FEW /hpf (<5); Urine Urobilinogen 4 mg/dL (Negative); Urine WBC 9 /HPF (0-3); Urine pH 5.5 (5.0-9.0)
[2024-12-26] MEDS: fentaNYL Drip 2500mCg/250mlNS 250 ML IV SCH (17:05)
[2024-12-26] MEDS: ATROPINE SULF 1 MG/10ml SYR IV ONE (17:14)
[2024-12-26] MEDS: ATROPINE SULF 1 MG/10ml SYR ONE (17:16)
--- NOTE | 2024-12-26 17:17 | DVHHP2 ---
History of Present Illness Reason for Visit: Altered level of consciousness History of Present Illness The patient is a 54-year-old male with past medical history of hyperlipidemia and diabetes mellitus who presented to [facility] ED for evaluation of altered level of consciousness. As reported by EMS, patient is from a custodial, was shaking, unresponsive so 911 was called. When EMS arrived on the scene, the patient was bradycardia, hypotensive, and was given 500 cc of normal saline fluid EN route to our facility ED. Patient was seen and evaluated in the ED appears confused, agitated, pulling out his IV line, desaturating on oxygen at 86%, hypotensive 86/40, and was subsequently intubated. Laboratory data shows WBC 8.6, platelets 201, sodium 139, potassium 3.0, BUN 7, creatinine 0.96, GFR 93, glucose 221, D-dimer 0.72, lactic acid 3.1, troponin 4, serum alcohol 276.4, blood pressure improved to 121/83, heart rate 68, temperature 97.6 F, O2 saturation 99% on ventilator. Patient was given banana bag, please see medication orders section in the computer. On my assessment, patient remains fully intubated, no diaphoresis, no vomiting, no diarrhea, no fever, no chills. Patient was admitted for further evaluation and medical management. Past Medical History Diabetes mellitus, HLD. Past Surgical History CABG Family History Reviewed, noncontributory to the management of this case. Past Social History Patient lives at home, drinks alcohol heavily, no history of smoking or illicit drugs abuse on file Review of Systems Constitutional: Yes: Weakness; No: Fever, Chills, Sweats, Malaise, Other Eyes: No: Pain, Vision change, Conjunctivae inflammation, Eyelid inflammation, Other, Redness ENT: No: Ear pain, Ear discharge, Nose pain, Nose discharge, Nose congestion, Mouth pain, Mouth swelling, Throat pain, Throat swelling, Other Respiratory: Shortness of breath; No: Cough, Dry, SOB with excertion, Wheezing, Hemoptysis, Pleuritic Pain, Sputum, Wheezing, Other Cardiovascular: No: Chest Pain, Palpitations, Orthopnea, Paroxysmal Noc. Dyspnea, Edema, Lt Headedness, Other Gastrointestinal: No: Nausea, Vomiting, Abdominal Pain, Diarrhea, Constipation, Melena, Hematochezia, Other Genitourinary: No Dysuria, No Frequency, No Incontinence, No Hematuria, No Retention; Other (Perkins catheter in place) Musculoskeletal: No: other, neck pain, shoulder pain, arm pain, back pain, hand pain, leg pain, foot pain Skin: No: Rash, Lesions, Jaundice, Bruising, Other Neurological: Confusion, Other (Altered level of consciousness); No: Weakness, Numbness, Incoordination, Change in speech, Seizures Allergies: Coded Allergies: NO KNOWN ALLERGIES (Unverified , 07/15/24) Medications Current Medications Medications Dose Ordered Sig/Lj Route Start Time Stop Time Status Last Admin Dose Admin Propofol 100 ml @ 2.85 mls/hr Q24H IV 12/26/24 15:15 UNV Midazolam HCl 50 ml @ 1 mls/hr Q24H IV 12/26/24 15:15 UNV Fentanyl Citrate 250 ml @ 2.5 mls/hr Q24H IV 12/26/24 15:15 UNV Norepinephrine Bitartrate 250 ml @ 3.75 mls/hr Q24H IV 12/26/24 15:15 UNV Exam Vital Signs Vital Signs Date Time Temp Pulse Resp B/P (MAP) Pulse Ox O2 Delivery O2 Flow Rate FiO2 12/26/24 16:30 67 16 121/83 (96) 95 12/26/24 15:26 100 General Appearance: No acute distress, Other (Fully intubated) HEENT: Atraumatic, PERRLA, EOMI, Mucous membr. moist/pink Respiratory: Normal air movement, Other (On ventilator) Cardiovascular: Regular rate, Normal S1, Normal S2, No murmurs Abdominal: Normal bowel sounds, Soft, No tenderness, No hepatospenomegaly, No masses Extremities: No clubbing, No cyanosis, No edema, Normal pulses, No tenderness/swelling Skin: No rashes, No breakdown Neuro: Normal tone, Other (Generalized weakness) Psych/Mental Status: Other (Altered mental status) Labs/Xrays Labs Test 12/26/24 15:56 12/26/24 15:20 Range/Units Blood Gas Specimen Type Arterial Blood Gas Sample Site Left radial Blood Gas Patient Temperature 37.0 Arterial Blood Date Drawn [id number] Arterial Blood pH 7.295 L 7.350-7.450 Arterial Blood Partial Pressure CO2 33.6 L 35.0-48.0 mmHg Arterial Blood Partial Pressure O2 464.6 *H 83.0-108.0 mmHg Arterial Blood HCO3 16.0 L 21.0-28.0 mmol/L Arterial Blood Oxygen Saturation 99.9 H 94.0-98.0 % Arterial Blood Base Excess -9.3 L -2.0-3.0 mmol/L Arterial Blood Oxyhemoglobin 95.0 94.0-98.0 % Arterial Blood Carboxyhemoglobin 4.1 H 0.5-1.5 % Arterial Blood Methemoglobin 0.8 0.0-1.5 % Óscar Test Modified Blood Gas Total Hemoglobin 16.90 13.5-17.5 g/dL Blood Gas Set Respiration Rate 16.0 Blood Gas Modality Vent - ac FiO2 % 100.0 Blood Gas Tidal Volume 500.0 Blood Gas PEEP or CPAP 5.0 Blood Gas Critical Value Read Back Yes Blood Gas Notified Whom Dr. gomes Blood Gas Notified Time [id number] Blood Gas Notified By Robbin roy rrt White Blood Count 8.6 4.4-10.8 10^3/uL Red Blood Count 5.59 4.5-5.90 10^6/uL Hemoglobin 17.1 13.5-17.5 g/dL Hematocrit 50.5 41.0-53.0 % Mean Corpuscular Volume 90.5 80.0-100.0 fL Mean Corpuscular Hemoglobin 30.7 28.0-32.0 pg Mean Corpuscular Hemoglobin Concent 33.9 32.0-36.0 g/dL Red Cell Distribution Width 16.1 H 11.8-14.3 % Platelet Count 201 140-450 10^3/uL Mean Platelet Volume 10.6 6.9-10.8 fL Neutrophils (%) (Auto) 41.5 37.0-80.0 % Lymphocytes (%) (Auto) 44.3 10.0-50.0 % Monocytes (%) (Auto) 6.8 0.0-12.0 % Eosinophils (%) (Auto) 6.1 0.0-7.0 % Basophils (%) (Auto) 1.3 0.0-2.0 % Neutrophils # (Auto) 3.6 1.6-8.6 10 ^3/uL Lymphocytes # (Auto) 3.8 0.4-5.4 10 ^3/uL Monocytes # (Auto) 0.6 0-1.3 10 ^3/uL Eosinophils # (Auto) 0.5 0-0.8 10 ^3/uL Basophils # (Auto) 0.1 0-0.2 10 ^3/uL Nucleated Red Blood Cells 0.3 % D-Dimer, Quantitative 0.72 H 0.0-0.49 mg/L FEU Sodium Level 139 136-145 mmol/L Potassium Level 3.0 L 3.5-5.1 mmol/L Chloride Level 106 98-107 mmol/L Carbon Dioxide Level 20 20-31 mmol/L Anion Gap 13 5-15 Blood Urea Nitrogen 7 L 9-23 mg/dL Creatinine 0.96 0.700-1.30 mg/dL Glomerular Filtration Rate Calc 93 >90 mL/min BUN/Creatinine Ratio 7.3 L 10.0-20.0 Serum Glucose 221 H 74-106 mg/dL Lactic Acid Level 3.1 *H 0.4-2.0 mmol/L Calcium Level 9.2 8.7-10.4 mg/dL Magnesium Level 1.8 1.6-2.6 mg/dL Total Bilirubin 0.5 0.2-1.0 mg/dL Aspartate Amino Transferase (AST) 16 13-40 U/L Alanine Aminotransferase (ALT) 19 7-40 U/L Alkaline Phosphatase 107 46-116 U/L Troponin I High Sensitivity 4 </=54 ng/L Total Protein 6.8 5.7-8.2 g/dL Albumin 4.2 3.2-4.8 g/dL Plasma/Serum Blood Alcohol 276.4 H <10 mg/dL PATIENT: MITZY MOORE ACCT: [id number] UNIT: [id number] : 1970 LOC: ER ROOM / BED: / AGE / SEX: 54 / M ADM STATUS: REG ER SERVICE 1502 ORDERING PHYSICIAN: SHAI GOMES MD PROCEDURE(s): CXRP - CHEST PORTABLE REASON: POST INTUBATION ORDER NUMBER(s): [id number], ACCESSION NUMBER(s): [id number] CHEST RADIOGRAPH Indication: POST INTUBATION Technique: Single frontal view of the chest was obtained COMPARISON: XY CHEST PORTABLE on DOS: 07/15/24 FINDINGS: Lines and Tubes: Median sternotomy. Endotracheal tube and enteric catheter in satisfactory position. Lungs: Congestion Pleura: No effusion. No pneumothorax. Cardiomediastinal contours: Unremarkable Bones: Unremarkable IMPRESSION: Endotracheal tube and enteric catheter in satisfactory position. Assessment/Plan Assessment/Plan Altered level of consciousness Acute respiratory failure Alcohol intoxication Hypokalemia Elevated lactic acid level Elevated D-dimer Hyperglycemia due to diabetes mellitus Generalized weakness Plan 1. Admit to intensive care unit 2. Breathing treatment 3. Pain control management 4. IV antibiotic management 5. Management of fluids and electrolytes 6. Consultation for pulmonology/hospitalist 7. Diagnostic test chest x-ray 8. DVT prophylaxis-on SCDs 9. Repeat labs CBC, CMP in a.m. 10. Home medication reviewed and reconciled 11. Continue with current medical management 12. Treatment plan discussed with patient and RN. Patient will need reinstatement of information given mental status. Plan discussed with: Patient, Other (RN) My Orders Orders - LINDA NDIAYE DNP Procedure Category Date Status Time Thiamine Inj PHA 12/27/24 Transmitted 10:00 Thiamine Inj PHA 12/26/24 Transmitted 16:45 Folic Acid Ivpb PHA 12/27/24 Transmitted 10:00 Folic Acid Ivpb PHA 12/26/24 Transmitted 16:45 Multiple Vitamin PHA 12/26/24 Transmitted Tablet (Mvi Tab) 16:45 Multiple Vitamin PHA 12/27/24 Transmitted Tablet (Mvi Tab) 10:00 Glucose Blood PHA 12/26/24 Transmitted (Accu-Chek Comfort 18:00 Mild Sliding Scale PHA 12/26/24 Transmitted Npo - Q6hr 18:00 Dextrose 50% Syringe PHA 12/26/24 Transmitted 16:45 Admit ADMIT 12/26/24 Transmitted 16:36 Allergies GABBY 12/26/24 Transmitted 16:36 Code Status CODE 12/26/24 Transmitted 16:36 0.9% Ns 1000 Ml PHA 12/26/24 Transmitted 16:45 Oxygen Per Hour RT 12/26/24 Transmitted 16:36 Ondansetron Hcl PHA 12/26/24 Transmitted (Zofran) 16:45 Fall Risk Precautions GABBY 12/26/[address] 16:36 Complete Blood Count LAB 12/27/24 Verified 04:00 Comprehensive LAB 12/27/24 Verified Metabolic Panel 04:00 Npo (Nothing By DIET 12/26/24 Transmitted Mouth) Diet Dinner Condition: Critical GABBY 12/26/24 Transmitted 16:36 Maintain Bed Rest GABBY 12/26/24 Transmitted 16:36 Sequential GABBY 12/26/24 Transmitted Compression Device Nitroglycerin [facility] 12/26/24 Transmitted Sublingual (Ntrostat 16:45 Morphine Sulfate [facility] 12/26/24 Transmitted Injection 16:45 Stat Ekg For Chest [facility] 12/26/24 Transmitted Pain 16:36 Notify Md Of Changes [facility] 12/26/24 Transmitted From Base 16:36 Busgirl For [facility] 12/26/24 Transmitted 24 Hours 16:36 Emergency Dysrhythmia [facility] 12/26/24 Transmitted Protocol 16:36 Rhythm Strips Once [facility] 12/26/24 Transmitted Every Shift 16:36 Oxygen By Nasal 12/26/24 Transmitted Cannula 16:36 Potassium Chl Salbador [facility] 12/26/24 Transmitted KCL 16:45 Problem List: (1) Altered level of consciousness (2) Acute respiratory failure (3) Elevated lactic acid level (4) Alcohol intoxication (5) Hypokalemia (6) Elevated d-dimer (7) Hyperglycemia due to diabetes mellitus (8) Generalized weakness Date of Service: December 26, 2024 Billing Provider: LINDA NDIAYE DNP Common Visit Codes: [id number] INP/OBS CARE (HIGH) LINDA NDIAYE DNP December 26, 2024 17:17
[2024-12-26 17:33] LABS: Amphetamine Screen, Urine Neg (NEGATIVE)
[2024-12-26 17:34] LABS: Barbiturate Scree,Urine Neg (NEGATIVE); Benzodiazephine Screen, Urine Pos (NEGATIVE); Cannabinoid Screen, Urine Pos (NEGATIVE); Cocaine Screen, Urine Neg (NEGATIVE); Opiate Scree,Urine Neg (NEGATIVE); Phencyclidine Screen, Urine Neg (NEGATIVE)
--- NOTE | 2024-12-26 17:59 | DVH ---
CT HEAD WITHOUT CONTRAST INDICATION: ams COMPARISON: None TECHNIQUE: CT of the head without intravenous contrast. RADIATION DOSE: CTDIvol: 65.26 mGy, DLP: 1285.81 mGy*cm FINDINGS: There is no evidence of acute intracranial hemorrhage, extra-axial collection, mass effect, midline s hift, herniation or hydrocephalus. The ventricles, sulci and cisterns are age appropriate. The barcenas -white differentiation is intact. Scattered opacification of the ethmoid air cells The surrounding s oft tissues and osseous structures are unremarkable. IMPRESSION: 1. No evidence of acute intracranial hemorrhage, mass effect or hydrocephalus.
[2024-12-26 18:00] VITALS: BP 120/60; PULSE 61; RESP 23; O2SAT 97
--- NOTE | 2024-12-26 18:09 | DVH ---
CTA Chest with intravenous contrast INDICATION: Rule out pulmonary embolism COMPARISON: None TECHNIQUE: Multidetector spiral CTA of the chest was performed of the chest with intravenous contrast . PULMONARY ANGIOGRAPHY PROTOCOL was utilized using a bolus-tracking technique centered on the main p ulmonary artery. Axial, coronal and sagittal multiplanar and MIP reformats were performed. Radiation Dose : 1. Chest: CTDI volume is 27.1 mGy. Dose-length product is 807.62 mGy*cm The dose indicators for CT are the volume Computed Tomography (CT) Dose Index (CTDIvol) and the Dose Length Product (DLP), and are measured in units of mGy and mGy-cm, respectively. These indicators are not patient dose, but values generated from the CT scanner acquisition factors. The report includes radiation exposure data for exposures received during this examination. Findings: Pulmonary artery: No pulmonary embolism Lower neck: Normal thyroid. Lungs: Dense left lower lobe pneumonia Heart/Vascular Structures: Normal heart size. No pericardial effusion. Lymph Nodes: Mediastinum lymphadenopathy, likely reactive Pleura: No pleural effusion or significant pneumothorax. Musculoskeletal: No acute osseous abnormality. Soft tissues: Normal. Upper abdomen: Limited portions of the upper abdomen are unremarkable. IMPRESSION: 1. No pulmonary embolism. 2. Dense left lower lobe pneumonia. 3. Mediastinal lymphadenopathy, likely reactive
[2024-12-26] MEDS: ACCU-CHEK COMFORT CURVE STRIP VI SCH (18:24)
[2024-12-26 20:00] VITALS: BP 132/78; PULSE 50; RESP 17; TEMP 97.6; O2SAT 97; O2SAT 99
[2024-12-26] MEDS: POTASSIUM CHL 20MEQ/100ML 100 ML IV SCH (20:30)
[2024-12-26 21:13] LABS: Lactic Acid w/Reflex 2.4 mmol/L (0.4-2.0)
[2024-12-26 21:47] VITALS: PULSE 95; RESP 18; O2SAT 97
[2024-12-26 22:08] VITALS: BP 118/68; PULSE 51; RESP 17; O2SAT 98
[2024-12-26] MEDS: SODIUM CHLORIDE 0.9% 500 ML IV ONE (22:52)
[2024-12-26] MEDS: THIAMINE 100mg/ml INJ (200mg/2ml VIAL) IV ONE (23:04)
[2024-12-26] MEDS: cefTRIAXone 1GM/50ML D5W 50 ML IV ONE (23:05)
[2024-12-26] MEDS: InsuLIN REG 1unit/0.01ml Soln (100units/ml) SC SCH (23:53)
[2024-12-27] VITALS (73 sets, daily range): BP systolic 88–140; BP diastolic 7–82; PULSE 46–96; RESP 16–61; TEMP 98.1–99.2; O2SAT 90–97
[2024-12-27] MEDS: FOLIC ACID 1 MG in D5W 5% 50 ML INJ ONE (03:21)
[2024-12-27] MEDS: MULTIPLE VITAMIN TAB NG ONE (03:21)
[2024-12-27] MEDS: POTASSIUM CHL 20MEQ/100ML 100 ML IV SCH (06:03)
[2024-12-27 06:27] LABS: Basophils # (auto) 0.1 10 ^3/uL (0-0.2); Basophils % (auto) 1.4 % (0.0-2.0); Eosinophils # (auto) 0.8 10 ^3/uL (0-0.8); Eosinophils % (auto) 9.8 % (0.0-7.0); Hematocrit 49.7 % (41.0-53.0); Hemoglobin 16.9 g/dL (13.5-17.5); Lymphocytes % (auto) 38.5 % (10.0-50.0); Mean Corpuscular Hemoglobin 30.8 pg (28.0-32.0); Mean Corpuscular Hgb Conc. 33.9 g/dL (32.0-36.0); Mean Corpuscular Volume 90.8 fL (80.0-100.0); Monocytes # (auto) 0.7 10 ^3/uL (0-1.3); Monocytes % (auto) 9.3 % (0.0-12.0); Neutrophils # (auto) 3.2 10 ^3/uL (1.6-8.6); Nucleated Red Blood Cells % 0.1 %; Platelet Count (auto) 228 10^3/uL (140-450); Red Blood Cells 5.48 10^6/uL (4.5-5.90); White Blood Cell 7.8 10^3/uL (4.4-10.8)
[2024-12-27 06:45] LABS: Alanine Aminotransferase 23 U/L (7-40); Alkaline Phosphatase 103 U/L (46-116); Anion Gap 12 (5-15); Carbon Dioxide 21 mmol/L (20-31); Potassium 4.1 mmol/L (3.5-5.1); Sodium 143 mmol/L (136-145); Total Protein 6.5 g/dL (5.7-8.2)
[2024-12-27 06:46] LABS: Albumin 3.9 g/dL (3.2-4.8); Aspartate Aminotransferase 25 U/L (13-40)
[2024-12-27 06:54] LABS: BUN/Creatinine Ratio 6.1 (10.0-20.0); Bilirubin, Total 0.3 mg/dL (0.2-1.0); Blood Urea Nitrogen < 5 mg/dL (9-23); Calcium 8.6 mg/dL (8.7-10.4); Chloride 110 mmol/L (98-107); Glucose 178 mg/dL (74-106)
[2024-12-27 08:35] LABS: Base Excess -8.5 mmol/L (-2.0-3.0)
[2024-12-27] MEDS: cefTRIAXone 1GM/50ML D5W 50 ML IV SCH (08:39)
[2024-12-27] MEDS: THIAMINE 100mg/ml INJ (200mg/2ml VIAL) IV SCH (09:49)
[2024-12-27] MEDS: MULTIPLE VITAMIN TAB NG SCH (09:49)
[2024-12-27] MEDS: FOLIC ACID 1 MG in D5W 5% 50 ML INJ SCH (10:00)
--- NOTE | 2024-12-27 17:13 | DVHPN2 ---
Subjective Chemically sedated Reviewed: Care Plan, H&P, Medications Changes from previous H/P or p: No Changes General: Per HPI Eyes: No Pain, No Vision change, No Conjunctivae inflammation, No Eyelid inflammation, No Other, No Redness ENT: No Ear pain, No Ear discharge, No Nose pain, No Nose discharge, No Nose congestion, No Mouth pain, No Mouth swelling, No Throat pain, No Throat swelling, No Other Cardiovascular: No Chest Pain, No Palpitations, No Orthopnea, No Paroxysmal Noc. Dyspnea, No Edema, No Lt Headedness, No Other Respiratory: No Cough, No Dry; Shortness of breath; No SOB with excertion, No Wheezing, No Hemoptysis, No Pleuritic Pain, No Sputum, No Other Gastrointestinal: No Nausea, No Vomiting, No Abdominal Pain, No Diarrhea, No Constipation, No Melena, No Hematochezia, No Other Genitourinary: No Dysuria, No Frequency, No Incontinence, No Hematuria, No Retention; Other (Perkins catheter in place) Musculoskeletal: No other, No neck pain, No shoulder pain, No arm pain, No back pain, No hand pain, No leg pain, No foot pain Skin: No Rash, No Lesions, No Jaundice, No Bruising, No Other Objective Vitals Vital Signs Date Time Temp Pulse Resp B/P (MAP) Pulse Ox O2 Delivery O2 Flow Rate FiO2 12/27/24 16:30 56 16 101/61 (74) 94 12/27/24 16:00 30 12/27/24 16:00 98.3 98.3 12/27/24 16:00 Mechanical Ventilator+ Intake/Output Intake and Output 12/27/24 07:00 Intake Total 1740.7331 ml Balance 1740.7331 ml Intake IV Total 1740.7331 ml General Appearance: Other (Unable to assess) HEENT: Atraumatic, PERRLA Cardiovascular: Normal S1, Normal S2 Musculoskeletal: Normal sensory function, Normal motor function Skin: Dry Psych/Mental Status: Mental status NL, Mood NL Medications Current Medications Medications Dose Ordered Sig/Lj Route Start Time Stop Time Status Last Admin Dose Admin Propofol 100 ml @ 2.85 mls/hr Q24H IV 12/26/24 15:15 12/27/24 12:20 14.25 MLS/HR Midazolam HCl 50 ml @ 1 mls/hr Q24H IV 12/26/24 15:15 12/27/24 13:44 12 MLS/HR Fentanyl Citrate 250 ml @ 2.5 mls/hr Q24H IV 12/26/24 15:15 12/26/24 17:16 2.5 MLS/HR Norepinephrine Bitartrate 250 ml @ 3.75 mls/hr Q24H IV 12/26/24 15:15 12/27/24 15:03 7.5 MLS/HR Thiamine HCl 100 mg DAILY IV 12/27/24 10:00 12/27/24 09:49 100 MG Folic Acid 1 mg/ Dextrose 50.2 ml @ 200.8 mls/ hr DAILY INJ 12/27/24 10:00 12/27/24 10:00 200.8 MLS/HR Multivitamins 1 tab DAILY NG 12/27/24 10:00 12/27/24 09:49 1 TAB Diagnostic Test (Pha) 1 strip Q6HR 12/26/24 18:00 12/27/24 16:53 1 STRIP Insulin Human Regular Q6HR SC 12/26/24 18:00 12/27/24 16:53 2 UNITS Dextrose 50 ml UD PRN IV 12/26/24 16:45 Sodium Chloride 1,000 ml @ 60 mls/hr [id number] IV 12/26/24 16:45 12/26/24 20:35 60 MLS/HR Ondansetron HCl 4 mg Q4HP PRN IV 12/26/24 16:45 Nitroglycerin 0.4 mg Q5MINP PRN SL 12/26/24 16:45 Morphine Sulfate 2 mg Q30M PRN IV 12/26/24 16:45 Acetaminophen 650 mg Q6HP PRN NV 12/26/24 17:00 Ceftriaxone Sodium 50 ml @ 100 mls/hr DAILY@09 IV 12/27/24 09:00 12/27/24 08:39 100 MLS/HR Laboratory Results Laboratory Tests 12/27/24 05:12 Chemistry Test 12/27/24 05:12 Albumin 3.9 g/dL (3.2-4.8) Calcium Level 8.6 mg/dL (8.7-10.4) L Total Protein 6.5 g/dL (5.7-8.2) LFT Test 12/27/24 05:12 Alanine Aminotransferase (ALT) 23 U/L (7-40) Alkaline Phosphatase 103 U/L (46-116) Aspartate Amino Transferase (AST) 25 U/L (13-40) Total Bilirubin 0.3 mg/dL (0.2-1.0) Urinalysis Test 12/26/24 16:45 Urine Color Yellow (Yellow) Urine Clarity Turbid (Clear) H Urine pH 5.5 (5.0-9.0) Urine Specific [place] 1.025 (1.001-1.035) Urine Protein Trace (Negative) H Urine Ketones 1+ (Negative) H Urine Blood Negative /uL (Negative) Urine Nitrite Negative (Negative) Urine Bilirubin Negative (Negative) Urine Urobilinogen 4 mg/dL (Negative) H Urine Leukocyte Esterase Trace /uL (Negative) Urine RBC 1 /hpf (0 - 3) Urine Microscopic WBC 9 /HPF (0-3) H Urine Squamous Epithelial Cells Few /hpf (<5) Urine Bacteria None seen /hpf (None Seen) Urine Hyaline Casts Mod /lpf (0 - 2) Urine Mucus Moderate (None Seen) Urine Glucose 1+ mg/dL (Normal) H Blood Gas Results Test 12/27/24 07:53 Arterial Blood pH 7.291 (7.350-7.450) FiO2 % 30.0 Microbiology Microbiology Date/Time Source Procedure Growth Status 12/26/24 16:45 Voided Urine Urine Culture - Preliminary Resulted 12/26/24 15:50 Sputum Gram Stain Pending Resulted 12/26/24 15:50 Sputum Respiratory Culture - Preliminary Resulted 12/26/24 15:29 Blood Blood Culture - Preliminary NO GROWTH AFTER 24 HOURS OF INCUBATION. Resulted Labs and/or images reviewed: Labs reviewed by me, Image(s) reviewed by me Assessment/Plan Assessment/Plan Impression: -acute hypoxic respiratory failure with mechanical ventilation -toxic metabolic encephalopathy with ETOH and benzodiazepines -history of CAD with previous CABG -history of alcoholism -diabetes mellitus -dyslipidemia -peripheral neuropathy Plan: -continue current ventilator settings -continue thiamine, MVI -regular insulin sliding scale -empiric antibiotic therapy -PUD, DVT prophylaxis -repeat labs, chest x-ray, ABG in a.m. Critical care time spent with patient discussing and formulating plan of care: 40 minutes. This does not include time spent performing procedures. This medical document was created using an electronic medical record system with Dragon computerized dictation system. Although this document has been carefully reviewed, there may still be some phonetic and typographical errors. These areas are purely typographical due to imperfections of the software programs, and do not reflect any compromise in the patient's medical care. Plan discussed with: Patient, Other (RN) My Orders Orders - MARLENY MEDINA NP Procedure Category Date Status Time Basic Metabolic Panel LAB 12/28/24 Verified 04:00 Chest Portable XY 12/28/24 Logged 04:00 Abg W/ Co-Ox RT 12/28/24 Logged 04:00 Complete Blood Count LAB 12/28/24 Verified 04:00 Date of Service: December 27, 2024 Billing Provider: MARLENY MEDINA NP Common Visit Codes: [id number] CARE 30-74 MIN MARLENY MEDINA NP December 27, 2024 17:13
--- NOTE | 2024-12-27 20:00 | DVHINCON2 ---
Date of service: December 26, 2024 Referring Physician Delfino Franz Dnp Reason for Consultation Acute respiratory failure History of Present Illness History Source: Patient, RN Notes, MD Notes Exam Limitations: Clinical condition HPI Patient is a 54-year old gentleman with a history of diabetes and hyperlipidemia who presented with altered mental status and tremors. Was seen in the emergency room where he was intubated for airway protection and placed on mechanical ventilation. CT of the brain was negative for acute abnormalities and chest x- ray demonstrated right lower lobe infiltrates consistent with pneumonia. Pulmono logy was consulted to assist in management. Past Medical History Cardiac: Hyperlipidemia Pulmonary: No pertinent Hx Central Nervous System: No pertinent Hx GI: No pertinent Hx Hemotology/Oncology: No pertinent Hx Hepatobiliary: No pertinent Hx Psychiatric: No pertinent Hx Musculoskeletal: No pertinent Hx Rheumotologic: No pertinent Hx Infectious Disease: No peritnent Hx ENT: No pertinent Hx Renal/: No pertinent Hx Endocrine: NIDDM Dermatology: No pertinent Hx Past Surgical History: No pertinent Hx Family History: No pertinent Hx Patient Family History: Patient reports no known family medical history. Smoker: No Hx (Negative) Alocohol: None Drugs: None Lives with: With family Domestic Violence: Neg Review of Systems Comments unable to perform due to patient being intubated and sedated H&P Exam Vital Signs Vital Signs Date Time Temp Pulse Resp B/P (MAP) Pulse Ox O2 Delivery O2 Flow Rate FiO2 12/27/24 19:00 55 16 105/64 (78) 95 12/27/24 18:15 35 12/27/24 18:00 Mechanical Ventilator+ 12/27/24 16:00 98.3 98.3 General Appeara: Well developed, Well nourished, Normal Appearance Head Exam: Normal inspection Neck Exam: Normal inspection, Non-tender, Normal alignment Eye Exam: bilateral eye Normal inspection, bilateral eye PERRL, bilateral eye EOMI Ear Exam: bilateral ear Auricle normal, bilateral ear Canal normal, bilateral ear TM normal Nasal Exam: Normal inspection Mouth: Normal Inspection Pulmonary/Respiratory: Decreased breath sounds Cardiovascular/Chest: Normal inspection, Regular rate, Normal Rhythm Peripheral Pulses: 4+ Radial (R), 4+ Radial (L), 4+ Brachial (R), 4+ Brachial (L) Abdominal Exam: Normal bowel sounds Labs/Xrays Labs Test 12/27/24 16:45 12/27/24 07:53 12/27/24 05:12 12/26/24 20:17 Range/Units POC Glucose 137 H 70-106 mg/dl Blood Gas Specimen Type Arterial Blood Gas Sample Site Left radial Blood Gas Patient Temperature 37.0 Arterial Blood Date Drawn [id number] Arterial Blood pH 7.291 L 7.350-7.450 Arterial Blood Partial Pressure CO2 36.4 35.0-48.0 mmHg Arterial Blood Partial Pressure O2 77.7 L 83.0-108.0 mmHg Arterial Blood HCO3 17.1 L 21.0-28.0 mmol/L Arterial Blood Oxygen Saturation 94.4 94.0-98.0 % Arterial Blood Base Excess -8.5 L -2.0-3.0 mmol/L Arterial Blood Oxyhemoglobin 92.4 L 94.0-98.0 % Arterial Blood Carboxyhemoglobin 1.5 0.5-1.5 % Arterial Blood Methemoglobin 0.6 0.0-1.5 % Óscar Test Modified Blood Gas Total Hemoglobin 17.40 13.5-17.5 g/dL Blood Gas Set Respiration Rate 16.0 Blood Gas Modality Vent - ac FiO2 % 30.0 Blood Gas Tidal Volume 500.0 Blood Gas PEEP or CPAP 5.0 White Blood Count 7.8 4.4-10.8 10^3/uL Red Blood Count 5.48 4.5-5.90 10^6/uL Hemoglobin 16.9 13.5-17.5 g/dL Hematocrit 49.7 41.0-53.0 % Mean Corpuscular Volume 90.8 80.0-100.0 fL Mean Corpuscular Hemoglobin 30.8 28.0-32.0 pg Mean Corpuscular Hemoglobin Concent 33.9 32.0-36.0 g/dL Red Cell Distribution Width 16.0 H 11.8-14.3 % Platelet Count 228 140-450 10^3/uL Mean Platelet Volume 10.5 6.9-10.8 fL Neutrophils (%) (Auto) 41.0 37.0-80.0 % Lymphocytes (%) (Auto) 38.5 10.0-50.0 % Monocytes (%) (Auto) 9.3 0.0-12.0 % Eosinophils (%) (Auto) 9.8 H 0.0-7.0 % Basophils (%) (Auto) 1.4 0.0-2.0 % Neutrophils # (Auto) 3.2 1.6-8.6 10 ^3/uL Lymphocytes # (Auto) 3.0 0.4-5.4 10 ^3/uL Monocytes # (Auto) 0.7 0-1.3 10 ^3/uL Eosinophils # (Auto) 0.8 0-0.8 10 ^3/uL Basophils # (Auto) 0.1 0-0.2 10 ^3/uL Nucleated Red Blood Cells 0.1 % Sodium Level 143 136-145 mmol/L Potassium Level 4.1 3.5-5.1 mmol/L Chloride Level 110 H 98-107 mmol/L Carbon Dioxide Level 21 20-31 mmol/L Anion Gap 12 5-15 Blood Urea Nitrogen < 5 L 9-23 mg/dL Creatinine 0.82 0.700-1.30 mg/dL Glomerular Filtration Rate Calc 103 >90 mL/min BUN/Creatinine Ratio 6.1 L 10.0-20.0 Serum Glucose 178 H 74-106 mg/dL Calcium Level 8.6 L 8.7-10.4 mg/dL Total Bilirubin 0.3 0.2-1.0 mg/dL Aspartate Amino Transferase (AST) 25 13-40 U/L Alanine Aminotransferase (ALT) 23 7-40 U/L Alkaline Phosphatase 103 46-116 U/L Total Protein 6.5 5.7-8.2 g/dL Albumin 3.9 3.2-4.8 g/dL Lactic Acid Level 2.4 *H 0.4-2.0 mmol/L Test 12/26/24 18:47 12/26/24 16:45 12/26/24 15:56 12/26/24 15:20 Range/Units Troponin I High Sensitivity 19 </=54 ng/L Urine Color Yellow Yellow Urine Clarity Turbid H Clear Urine pH 5.5 5.0-9.0 Urine Specific [place] 1.025 1.001-1.035 Urine Protein Trace H Negative Urine Ketones 1+ H Negative Urine Blood Negative Negative /uL Urine Nitrite Negative Negative Urine Bilirubin Negative Negative Urine Urobilinogen 4 H Negative mg/dL Urine Leukocyte Esterase Trace Negative /uL Urine RBC 1 0 - 3 /hpf Urine Microscopic WBC 9 H 0-3 /HPF Urine Squamous Epithelial Cells Few <5 /hpf Urine Bacteria None seen None Seen /hpf Urine Hyaline Casts Mod 0 - 2 /lpf Urine Mucus Moderate None Seen Urine Glucose 1+ H Normal mg/dL Urine Opiates Screen Neg NEGATIVE Urine Fentanyl Screen Neg NEGATIVE Urine Barbiturates Screen Neg NEGATIVE Urine Phencyclidine Screen Neg NEGATIVE Urine Amphetamines Screen Neg NEGATIVE Urine Benzodiazepines Screen Pos NEGATIVE Urine Cocaine Screen Neg NEGATIVE Urine Cannabinoids Screen Pos NEGATIVE Blood Gas Critical Value Read Back Yes Blood Gas Notified Whom Dr. gomes Blood Gas Notified Time [id number] Blood Gas Notified By Robbin roy, mukesh D-Dimer, Quantitative 0.72 H 0.0-0.49 mg/L FEU Magnesium Level 1.8 1.6-2.6 mg/dL Plasma/Serum Blood Alcohol 276.4 H <10 mg/dL Microbiology Date/Time Source Procedure Growth Status 12/26/24 16:45 Voided Urine Urine Culture - Preliminary Resulted 12/26/24 15:50 Sputum Gram Stain Pending Resulted 12/26/24 15:50 Sputum Respiratory Culture - Preliminary Resulted 12/26/24 15:29 Blood Blood Culture - Preliminary NO GROWTH AFTER 24 HOURS OF INCUBATION. Resulted Assessment/Plan Plan Impression Acute hypoxemic respiratory failure Altered mental status Pneumonia Atelectasis Patient seen and examined Events On mechanical ventilation S/p intubation PEEP 5, FiO2 100% Labs and imaging reviewed CT of the brain negative for acute abnormalities Chest x-ray shows right lower lobe infiltrates consistent with pneumonia Serum alcohol level 276 ABG reviewed pH 7.29, pCO2 33, pO2 464 Management Vent support Titrate to maintain sats 90% or above Sedation for vent synchrony Antibiotics Bronchodilators Monitor renal function Monitor electrolytes Supplement as needed Pressors as needed for hemodynamic support To maintain a mean arterial pressure of 65 mmHg DVT prophylaxis Critical care time 35 minutes Plan discussed with: Other (Rn) AMANDO WHITE MD December 27, 2024 20:00
--- NOTE | 2024-12-27 20:02 | DVHPN2 ---
Progress Note - Dictate Date Seen: December 27, 2024 Medical Necessity Reason Pt with a Central, PICC or Fol: Yes The following are medically ne: Central Line vital signs Vital Sign Date Time Temp Pulse Resp B/P (MAP) Pulse Ox O2 Delivery O2 Flow Rate FiO2 12/27/24 19:00 55 16 105/64 (78) 95 12/27/24 18:15 35 12/27/24 18:00 Mechanical Ventilator+ 12/27/24 16:00 98.3 98.3 Total Intake and Output 12/26/24 12/26/24 12/27/24 15:00 23:00 07:00 Intake Total 697.9331 ml 1042.80 ml Balance 697.9331 ml 1042.80 ml medications Current Medications Medications Dose Ordered Sig/Lj Route Start Time Stop Time Status Last Admin Dose Admin Propofol 100 ml @ 2.85 mls/hr Q24H IV 12/26/24 15:15 12/27/24 17:34 14.25 MLS/HR Midazolam HCl 50 ml @ 1 mls/hr Q24H IV 12/26/24 15:15 12/27/24 17:31 10 MLS/HR Fentanyl Citrate 250 ml @ 2.5 mls/hr Q24H IV 12/26/24 15:15 12/26/24 17:16 2.5 MLS/HR Norepinephrine Bitartrate 250 ml @ 3.75 mls/hr Q24H IV 12/26/24 15:15 12/27/24 15:03 7.5 MLS/HR Thiamine HCl 100 mg DAILY IV 12/27/24 10:00 12/27/24 09:49 100 MG Folic Acid 1 mg/ Dextrose 50.2 ml @ 200.8 mls/ hr DAILY INJ 12/27/24 10:00 12/27/24 10:00 200.8 MLS/HR Multivitamins 1 tab DAILY NG 12/27/24 10:00 12/27/24 09:49 1 TAB Diagnostic Test (Pha) 1 strip Q6HR 12/26/24 18:00 12/27/24 16:53 1 STRIP Insulin Human Regular Q6HR SC 12/26/24 18:00 12/27/24 16:53 2 UNITS Dextrose 50 ml UD PRN IV 12/26/24 16:45 Sodium Chloride 1,000 ml @ 60 mls/hr [id number] IV 12/26/24 16:45 12/26/24 20:35 60 MLS/HR Ondansetron HCl 4 mg Q4HP PRN IV 12/26/24 16:45 Nitroglycerin 0.4 mg Q5MINP PRN SL 12/26/24 16:45 Morphine Sulfate 2 mg Q30M PRN IV 12/26/24 16:45 Acetaminophen 650 mg Q6HP PRN OR 12/26/24 17:00 Ceftriaxone Sodium 50 ml @ 100 mls/hr DAILY@09 IV 12/27/24 09:00 12/27/24 08:39 100 MLS/HR laboratory and microbiology Laboratory Tests 12/27/24 05:12 Test 12/27/24 05:12 Range/Units Serum Glucose 178 H 74-106 mg/dL Assessment/Plan Impression Acute hypoxemic respiratory failure Altered mental status Pneumonia Atelectasis Patient seen and examined in the ER Events On mechanical ventilation S/p intubation PEEP 5, FiO2 30% Labs and imaging reviewed CT of the brain negative for acute abnormalities Chest x-ray shows right lower lobe infiltrates consistent with pneumonia ABG reviewed Management Vent support Titrate to maintain sats 90% or above Sedation holiday daily If patient follows commands, proceed to weaning trial Pressure support 02/11, extubate when ready Okay to use Precedex as needed Continue antibiotics F/u cultures Bronchodilators Monitor renal function Monitor electrolytes Supplement as needed Pressors as needed for hemodynamic support To maintain a mean arterial pressure of 65 mmHg Start Librium 25mg BID to help facilitate weaning from ventilator DVT prophylaxis Critical care time 35 minutes Plan discussed with: Other (Rn) AMANDO WHITE MD December 27, 2024 20:02
[2024-12-28] VITALS (111 sets, daily range): BP systolic 84–230; BP diastolic 49–198; PULSE 43–191; RESP 13–32; TEMP 98.7–99.2; O2SAT 30–100
[2024-12-28] MEDS: chlordiazePOXIDE HCL 25 MG CAP PO ONE (01:02)
[2024-12-28 05:00] LABS: Basophils # (auto) 0.1 10 ^3/uL (0-0.2); Basophils % (auto) 1.2 % (0.0-2.0); Eosinophils # (auto) 0.6 10 ^3/uL (0-0.8); Eosinophils % (auto) 7.7 % (0.0-7.0); Hematocrit 48.1 % (41.0-53.0); Hemoglobin 15.8 g/dL (13.5-17.5); Lymphocytes # (auto) 2.5 10 ^3/uL (0.4-5.4); Lymphocytes % (auto) 30.5 % (10.0-50.0); Mean Corpuscular Hemoglobin 30.5 pg (28.0-32.0); Mean Corpuscular Hgb Conc. 32.9 g/dL (32.0-36.0); Mean Corpuscular Volume 92.6 fL (80.0-100.0); Monocytes # (auto) 0.7 10 ^3/uL (0-1.3); Monocytes % (auto) 8.2 % (0.0-12.0); Neutrophils # (auto) 4.2 10 ^3/uL (1.6-8.6); Neutrophils % (auto) 52.4 % (37.0-80.0); Nucleated Red Blood Cells % 0.4 %; Platelet Count (auto) 167 10^3/uL (140-450); Red Cell Distribution Width 16.8 % (11.8-14.3); White Blood Cell 8.1 10^3/uL (4.4-10.8)
[2024-12-28 05:01] LABS: Potassium 3.9 mmol/L (3.5-5.1); Sodium 143 mmol/L (136-145)
[2024-12-28 05:02] LABS: Anion Gap 9 (5-15); Carbon Dioxide 24 mmol/L (20-31)
[2024-12-28 05:04] LABS: Calcium 8.6 mg/dL (8.7-10.4); Chloride 110 mmol/L (98-107)
[2024-12-28 05:51] LABS: BUN/Creatinine Ratio 6.1 (10.0-20.0); Blood Urea Nitrogen < 5 mg/dL (9-23); Glucose 144 mg/dL (74-106)
[2024-12-28 06:31] LABS: Base Excess -4.1 mmol/L (-2.0-3.0)
--- NOTE | 2024-12-28 06:37 | DVH ---
EXAM: XR Chest, 1 View CLINICAL INDICATION: pna TECHNIQUE: Frontal view of the chest. COMPARISON: XY CHEST PORTABLE on DOS: 12/26/24, XY CHEST PORTABLE on DOS: 07/15/24 FINDINGS: LUNGS AND PLEURAL SPACES: Stable interstitial and patchy airspace disease. No consolidation. No p neumothorax. HEART: Unremarkable. No cardiomegaly. MEDIASTINUM: Unremarkable. Normal mediastinal contour. BONES/JOINTS: Unremarkable. No acute fracture. TUBES, LINES AND DEVICES: Stable tubes and lines. OTHER FINDINGS: . . . IMPRESSION: No significant change from the prior exam.
--- NOTE | 2024-12-28 08:36 | DVHPN2 ---
Subjective Chemically sedated Reviewed: Care Plan, H&P, Medications Changes from previous H/P or p: No Changes General: Per HPI Eyes: No Pain, No Vision change, No Conjunctivae inflammation, No Eyelid inflammation, No Other, No Redness ENT: No Ear pain, No Ear discharge, No Nose pain, No Nose discharge, No Nose congestion, No Mouth pain, No Mouth swelling, No Throat pain, No Throat swelling, No Other Cardiovascular: No Chest Pain, No Palpitations, No Orthopnea, No Paroxysmal Noc. Dyspnea, No Edema, No Lt Headedness, No Other Respiratory: No Cough, No Dry; Shortness of breath; No SOB with excertion, No Wheezing, No Hemoptysis, No Pleuritic Pain, No Sputum, No Other Gastrointestinal: No Nausea, No Vomiting, No Abdominal Pain, No Diarrhea, No Constipation, No Melena, No Hematochezia, No Other Genitourinary: No Dysuria, No Frequency, No Incontinence, No Hematuria, No Retention; Other (Perkins catheter in place) Musculoskeletal: No other, No neck pain, No shoulder pain, No arm pain, No back pain, No hand pain, No leg pain, No foot pain Skin: No Rash, No Lesions, No Jaundice, No Bruising, No Other Objective Vitals Vital Signs Date Time Temp Pulse Resp B/P (MAP) Pulse Ox O2 Delivery O2 Flow Rate FiO2 12/28/24 07:00 55 16 102/61 (75) 96 12/28/24 06:00 Mechanical Ventilator+ 30 30 12/28/24 00:00 99.0 99.0 Intake/Output Intake and Output 12/28/24 07:00 Intake Total 2399.00 ml Output Total 1100 ml Balance 1299.00 ml Intake Oral 20 ml IV Total 2379.00 ml Output Urine Total 1100 ml Stool Total 0 ml General Appearance: Other (Unable to assess) HEENT: Atraumatic, PERRLA Cardiovascular: Normal S1, Normal S2, Other (Sinus bradycardia) Musculoskeletal: Normal sensory function, Normal motor function Skin: Dry Psych/Mental Status: Mental status NL, Mood NL Medications Current Medications Medications Dose Ordered Sig/Lj Route Start Time Stop Time Status Last Admin Dose Admin Propofol 100 ml @ 2.85 mls/hr Q24H IV 12/26/24 15:15 12/28/24 05:04 8.55 MLS/HR Midazolam HCl 50 ml @ 1 mls/hr Q24H IV 12/26/24 15:15 12/28/24 05:04 8 MLS/HR Fentanyl Citrate 250 ml @ 2.5 mls/hr Q24H IV 12/26/24 15:15 12/27/24 19:50 2.5 MLS/HR Norepinephrine Bitartrate 250 ml @ 3.75 mls/hr Q24H IV 12/26/24 15:15 12/27/24 15:03 7.5 MLS/HR Thiamine HCl 100 mg DAILY IV 12/27/24 10:00 12/27/24 09:49 100 MG Folic Acid 1 mg/ Dextrose 50.2 ml @ 200.8 mls/ hr DAILY INJ 12/27/24 10:00 12/27/24 10:00 200.8 MLS/HR Multivitamins 1 tab DAILY NG 12/27/24 10:00 12/27/24 09:49 1 TAB Diagnostic Test (Pha) 1 strip Q6HR 12/26/24 18:00 12/28/24 05:56 1 STRIP Insulin Human Regular Q6HR SC 12/26/24 18:00 12/28/24 06:09 2 UNITS Dextrose 50 ml UD PRN IV 12/26/24 16:45 Sodium Chloride 1,000 ml @ 60 mls/hr [id number] IV 12/26/24 16:45 12/28/24 05:05 60 MLS/HR Ondansetron HCl 4 mg Q4HP PRN IV 12/26/24 16:45 Nitroglycerin 0.4 mg Q5MINP PRN SL 12/26/24 16:45 Morphine Sulfate 2 mg Q30M PRN IV 12/26/24 16:45 Acetaminophen 650 mg Q6HP PRN [place] 12/26/24 17:00 Ceftriaxone Sodium 50 ml @ 100 mls/hr DAILY@09 IV 12/27/24 09:00 12/27/24 08:39 100 MLS/HR Laboratory Results Laboratory Tests 12/28/24 03:34 Chemistry Test 12/28/24 03:34 Calcium Level 8.6 mg/dL (8.7-10.4) L Urinalysis Test 12/26/24 16:45 Urine Color Yellow (Yellow) Urine Clarity Turbid (Clear) H Urine pH 5.5 (5.0-9.0) Urine Specific [place] 1.025 (1.001-1.035) Urine Protein Trace (Negative) H Urine Ketones 1+ (Negative) H Urine Blood Negative /uL (Negative) Urine Nitrite Negative (Negative) Urine Bilirubin Negative (Negative) Urine Urobilinogen 4 mg/dL (Negative) H Urine Leukocyte Esterase Trace /uL (Negative) Urine RBC 1 /hpf (0 - 3) Urine Microscopic WBC 9 /HPF (0-3) H Urine Squamous Epithelial Cells Few /hpf (<5) Urine Bacteria None seen /hpf (None Seen) Urine Hyaline Casts Mod /lpf (0 - 2) Urine Mucus Moderate (None Seen) Urine Glucose 1+ mg/dL (Normal) H Blood Gas Results Test 12/28/24 06:25 Arterial Blood pH 7.343 (7.350-7.450) FiO2 % 35.0 Microbiology Microbiology Date/Time Source Procedure Growth Status 12/26/24 16:45 Voided Urine Urine Culture - Preliminary Resulted 12/26/24 15:50 Sputum Gram Stain Pending Resulted 12/26/24 15:50 Sputum Respiratory Culture - Preliminary Resulted 12/26/24 15:29 Blood Blood Culture - Preliminary NO GROWTH AFTER 24 HOURS OF INCUBATION. Resulted Labs and/or images reviewed: Labs reviewed by me, Image(s) reviewed by me Assessment/Plan Assessment/Plan Impression: -acute hypoxic respiratory failure with mechanical ventilation -toxic metabolic encephalopathy with ETOH and benzodiazepines -history of CAD with previous CABG -history of alcoholism -diabetes mellitus -dyslipidemia -peripheral neuropathy Plan: Events: Weaned sedation and proceed with spontaneous breathing trial once appropriate -continue current ventilator settings -continue thiamine, MVI -regular insulin sliding scale -empiric antibiotic therapy -PUD, DVT prophylaxis -repeat labs, chest x-ray, ABG in a.m. Critical care time spent with patient discussing and formulating plan of care: 40 minutes. This does not include time spent performing procedures. This medical document was created using an electronic medical record system with [employer] dictation system. Although this document has been carefully reviewed, there may still be some phonetic and typographical errors. These areas are purely typographical due to imperfections of the software programs, and do not reflect any compromise in the patient's medical care. Plan discussed with: Patient, Other (RN) My Orders Orders - MARLENY MEDINA BOARD DESIGN ENGINEER Procedure Category Date Status Time Chest Portable XY 5/21/25 Resulted 04:00 Abg W/ Co-Ox RT 12/28/24 Logged 04:00 Cpap/Sed Vacation Med ORDERS 12/28/24 Transmitted Weaning 07:34 Basic Metabolic Panel LAB 12/29/24 Verified 04:00 Chest Portable XY 12/29/24 Logged 04:00 Abg W/ Co-Ox RT 12/29/24 Logged 04:00 Date of Service: December 28, 2024 Billing Provider: MARLENY MEDINA NP Common Visit Codes: [id number] CARE 30-74 MIN MARLENY MEDINA NP December 28, 2024 08:36
[2024-12-28] MEDS: DEXMEDETOMIDINE HCL IN D5W 100 ML IV SCH ×2 (10:15→15:15)
--- NOTE | 2024-12-28 10:39 | DVHPN2 ---
Progress Note - Dictate Date Seen: December 28, 2024 Medical Necessity Reason Pt with a Central, PICC or Fol: Yes The following are medically ne: Central Line vital signs Vital Sign Date Time Temp Pulse Resp B/P (MAP) Pulse Ox O2 Delivery O2 Flow Rate FiO2 12/28/24 07:00 55 16 102/61 (75) 96 12/28/24 06:00 Mechanical Ventilator+ 30 30 12/28/24 00:00 99.0 99.0 Total Intake and Output 12/27/24 12/27/24 12/28/24 15:00 23:00 07:00 Intake Total 845.00 ml 854.20 ml 699.80 ml Output Total 800 ml 300 ml Balance 845.00 ml 54.20 ml 399.80 ml medications Current Medications Medications Dose Ordered Sig/Lj Route Start Time Stop Time Status Last Admin Dose Admin Propofol 100 ml @ 2.85 mls/hr Q24H IV 12/26/24 15:15 12/28/24 05:04 8.55 MLS/HR Midazolam HCl 50 ml @ 1 mls/hr Q24H IV 12/26/24 15:15 12/28/24 05:04 8 MLS/HR Fentanyl Citrate 250 ml @ 2.5 mls/hr Q24H IV 12/26/24 15:15 12/27/24 19:50 2.5 MLS/HR Norepinephrine Bitartrate 250 ml @ 3.75 mls/hr Q24H IV 12/26/24 15:15 12/27/24 15:03 7.5 MLS/HR Thiamine HCl 100 mg DAILY IV 12/27/24 10:00 12/28/24 10:06 100 MG Folic Acid 1 mg/ Dextrose 50.2 ml @ 200.8 mls/ hr DAILY INJ 12/27/24 10:00 12/27/24 10:00 200.8 MLS/HR Multivitamins 1 tab DAILY NG 12/27/24 10:00 12/28/24 10:05 1 TAB Diagnostic Test (Pha) 1 strip Q6HR 12/26/24 18:00 12/28/24 05:56 1 STRIP Insulin Human Regular Q6HR SC 12/26/24 18:00 12/28/24 06:09 2 UNITS Dextrose 50 ml UD PRN IV 12/26/24 16:45 Sodium Chloride 1,000 ml @ 60 mls/hr [id number] IV 12/26/24 16:45 12/28/24 05:05 60 MLS/HR Ondansetron HCl 4 mg Q4HP PRN IV 12/26/24 16:45 Nitroglycerin 0.4 mg Q5MINP PRN SL 12/26/24 16:45 Morphine Sulfate 2 mg Q30M PRN IV 12/26/24 16:45 Acetaminophen 650 mg Q6HP PRN [place] 12/26/24 17:00 Ceftriaxone Sodium 50 ml @ 100 mls/hr DAILY@09 IV 12/27/24 09:00 12/28/24 10:06 100 MLS/HR Chlordiazepoxide HCl 25 mg Q6HR PO 12/28/24 12:00 laboratory and microbiology Laboratory Tests 12/28/24 03:34 Test 12/28/24 03:34 Range/Units Serum Glucose 144 H 74-106 mg/dL Assessment/Plan Impression Acute hypoxemic respiratory failure Altered mental status Pneumonia Atelectasis Patient seen and examined in the ER Events PT withdrawing shivers requires sedation started on librium On mechanical ventilation S/p intubation PEEP 5, FiO2 30% Labs and imaging reviewed CT of the brain negative for acute abnormalities Chest x-ray shows right lower lobe infiltrates consistent with pneumonia ABG reviewed Management continue Vent support Titrate to maintain sats 90% or above librium for withdrawal vitamins/banana bag Continue antibiotics F/u cultures Bronchodilators Monitor renal function Monitor electrolytes Supplement as needed Pressors as needed for hemodynamic support To maintain a mean arterial pressure of 65 mmHg DVT prophylaxis Critical care time 35 minutes Plan discussed with: Other (rn) AMANDO WHITE MD December 28, 2024 10:39
[2024-12-28] MEDS: chlordiazePOXIDE HCL 25 MG CAP PO SCH (12:14)
[2024-12-28] MEDS: EPINEPHrine HCL 250 ML IV ONE (13:27)
[2024-12-28 13:33] LABS: Base Excess -18.6 mmol/L (-2.0-3.0)
[2024-12-28] MEDS: SODIUM BICARB 8.4% 50Meq/50ml SYR INJ ONE (13:39)
--- NOTE | 2024-12-28 13:39 | ECG ---
[facility] Test Date: 2024-12-28 Test Time: 13:38:56 Pat Name: MITZY MOORE Department: ER Room: [address] [place] [address] Gender: M Recenterer: CRISTINE : 1970 Requested By: MARLENY MEDINA Order Number: [id number] Reading MD: Shahid Baker Measurements Intervals [place] Rate: 75 P: 0 CO: 0 QRS: 112 QRSD: 168 T: 11 QT: 391 QTc: 437 Interpretive Statements Accelerated junctional rhythm RBBB and LPFB Electronically Signed On 01-02-2025 11:41:07 PDT by Shahid Baker Please click the below link to view image of tracing.
[2024-12-28] MEDS ORDERED: DOPamine 1600MCG/ML D5W 250 ML IV SCH (13:45)
[2024-12-28 13:51] LABS: Basophils # (auto) 0.1 10 ^3/uL (0-0.2); Basophils % (auto) 0.7 % (0.0-2.0); Eosinophils # (auto) 0.4 10 ^3/uL (0-0.8); Eosinophils % (auto) 3.6 % (0.0-7.0); Hematocrit 47.4 % (41.0-53.0); Hemoglobin 15.4 g/dL (13.5-17.5); Lymphocytes # (auto) 4.3 10 ^3/uL (0.4-5.4); Mean Corpuscular Hemoglobin 30.7 pg (28.0-32.0); Mean Corpuscular Hgb Conc. 32.4 g/dL (32.0-36.0); Mean Corpuscular Volume 94.6 fL (80.0-100.0); Monocytes # (auto) 0.9 10 ^3/uL (0-1.3); Neutrophils % (auto) 50.7 % (37.0-80.0); Nucleated Red Blood Cells % 0.2 %; Platelet Count (auto) 133 10^3/uL (140-450); Red Blood Cells 5.02 10^6/uL (4.5-5.90); Red Cell Distribution Width 17.1 % (11.8-14.3); White Blood Cell 11.8 10^3/uL (4.4-10.8)
[2024-12-28 13:58] LABS: Alanine Aminotransferase 26 U/L (7-40); Albumin 3.4 g/dL (3.2-4.8); Alkaline Phosphatase 119 U/L (46-116); Anion Gap 13 (5-15); Aspartate Aminotransferase 32 U/L (13-40); BUN/Creatinine Ratio 9.3 (10.0-20.0); Bilirubin, Total 0.5 mg/dL (0.2-1.0); Blood Urea Nitrogen 8 mg/dL (9-23); Calcium 8.7 mg/dL (8.7-10.4); Carbon Dioxide 19 mmol/L (20-31); Chloride 113 mmol/L (98-107); Glucose 162 mg/dL (74-106); Potassium 4.9 mmol/L (3.5-5.1); Sodium 145 mmol/L (136-145); Total Protein 5.7 g/dL (5.7-8.2)
[2024-12-28] MEDS: DOPamine 1600MCG/ML D5W 250 ML IV SCH ×2 (14:00→15:21)
[2024-12-28] MEDS: SODIUM BICARB 50mEq/50ml Vial 150 ML in D5W 5% 1,000 ML IV SCH (14:20)
--- NOTE | 2024-12-28 14:30 | CODING ---
Date of Service: December 28, 2024 Billing Provider: MARLENY MEDINA NP Common Visit Codes: PROCEDURE ONLY Procedure Codes: [id number] CODE MARLENY MCGRAW NP December 28, 2024 14:30
--- NOTE | 2024-12-28 14:38 | DVH ---
EXAM: XY CHEST XRAY 1 VIEW Indication: HYPOXIA, PNA Technique: Single frontal view of the chest was obtained Comparison: XY CHEST PORTABLE on DOS: 12/28/24, XY CHEST PORTABLE on DOS: 12/26/24, XY CHEST PORTABLE o n DOS: 07/15/24 FINDINGS: Lines and Tubes: Endotracheal tube projects 4.1 cm above the donavan. Enteric tube tip projects over the expected region of the stomach. Lungs: No focal consolidation. Pleura: No effusion. No pneumothorax. Cardiomediastinal contours: Unremarkable Bones: No acute osseous abnormality. IMPRESSION: No significant change compared to prior exam.
[2024-12-28] MEDS: EPINEPHrine HCL 250 ML IV SCH (14:44)
--- NOTE | 2024-12-28 15:01 | DVH ---
EXAM: US BILAT LOWER DVT Clinical History: dvt Comparison: None Technique: Duplex Doppler evaluation of the deep venous systems of both lower extremities from the co mmon femoral veins to the popliteal veins including color Doppler and spectral/pulsed waveform analys is was performed. Findings: RIGHT SIDE: The common femoral vein demonstrates appropriate compressibility and waveform variability. There is compressibility/patency of the great saphenous vein at the proximal thigh. The femoral vein demonstrates appropriate compressibility and waveform variability. The popliteal vein demonstrates appropriate compressibility and waveform variability. There is color flow at the tibioperoneal trunk and in the posterior tibial vein. LEFT SIDE: The common femoral vein demonstrates appropriate compressibility and waveform variability. There is compressibility/patency of the great saphenous vein at the proximal thigh. The proximal femoral vein demonstrates appropriate compressibility and waveform variability. There is lack of compressibility, augmentation and flow in mid femoral to popliteal veins. Vascular flow is not identified in the tibioperoneal trunk posterior tibialis vein. Impression: Right lower extremity: No DVT. Left lower extremity: Acute occlusive DVT in the calf extending to the popliteal and mid femoral vein s. The common femoral vein is patent. The findings were related to the nurse in charge of the patient, Ash by the radiographic technologist upon completion of the exam.
[2024-12-28 15:30] LABS: Base Excess -8.3 mmol/L (-2.0-3.0)
[2024-12-28] MEDS ORDERED: HEPARIN SODIUM (PORCINE) 5000 UNITS/ML 1ML VIAL IV ONE (15:30)
[2024-12-28] MEDS: HEPARIN DRIP/D5W 100UNITS/ML 250 ML IV SCH (16:28)
[2024-12-28] MEDS: HEPARIN SODIUM (PORCINE) 5000 UNITS/ML 1ML VIAL IV ONE (16:29)
[2024-12-28 16:43] LABS: INR 1.19 (0.9-1.15); Partial Thromboplastin Time 30.5 SEC (24.5-34.5); Prothrombin Time 12.4 sec (9.3-11.8)
--- NOTE | 2024-12-28 16:56 | CONS ---
Pharmacy Clinical Information: HEPARIN PER PHARMACY SPOKE TO LUCINDA GARCIA REGARDING NEW heparin DRIP ORDER CURRENT aPTT: 30.5 on 12/28/24 at 16:09 BOLUS: 5000 UNITS INITIAL HEPARIN DRIP RATE: 1900 UNITS/HR STARTED ON 12/28 AT 1628 BY LUCINDA GARCIA Next aPTT: 12/28/2024 AT 22:30 LUCINDA GARCIA READ BACK HEAPRIN DOSE: BOLUS 5000 UNITS IVP X1, THEN HEPARIN DRIP RATE 1900 UNITS/HR ALLISON Villanueva December 28, 2024 16:56
[2024-12-28] MEDS: IOHEXOL 350 MG/ML 100ML IJ ONE (19:10)
--- NOTE | 2024-12-28 21:43 | RESUS ---
CODE BLUE ASSESSSMENT History of Events History of Events: The patient is a 54-year-old male with past medical history of hyperlipidemia and diabetes mellitus who presented to [facility] ED for evaluation of altered level of consciousness. Patient was seen and evaluated in the ED appears confused, agitated, pulling out his IV line, desaturating on oxygen at 86%, hypotensive 86/40, and was subsequently intubated. Initial Information Date: December 28, 2024 Time: 13:07 Location of Arrest: ER Arrest Witnessed: Yes CPR started by whom: Hospital Staff Type of arrest: Cardiac, Respiratory Spontaneous Respirations: No Pulse Present: No Monitoring: ECG, Pulse Oximetry, Telemetry Airway Ventilation Breathing at Onset: Assisted O2 Sat by Pulse Oximetry: 52 Oxygen Delivery Method: Ambu-Bag Oxygen 100% Artificial Ventilation: Bag/Endo tube Intubation Size: 8.0 cuffed Tube secured at: 24 Comments: Patient already intubated prior to Code Blue Circulation Circulation #1: Time: 13:10 Pulse Rate (adult): 25 Blood Pressure Systolic: 0 Blood Pressure Diastolic: 0 Temperature (Fahrenheit): 98.6 Circulation #2: Time: 13:12 Pulse Rate (adult): 0 Blood Pressure Systolic: 0 Blood Pressure Diastolic: 0 Circulation #3: Time: 13:14 Pulse Rate (adult): 220 Blood Pressure Systolic: 0 Blood Pressure Diastolic: 0 Circulation #4: Time: 13:18 Pulse Rate (adult): 0 Blood Pressure Systolic: 0 Blood Pressure Diastolic: 0 Circulation #5: Time: 13:20 Pulse Rate (adult): 84 Blood Pressure Systolic: 66 Circulation Comment: obtained ROSC Circulation #6: Time: 13:26 Pulse Rate (adult): 88 Blood Pressure Systolic: 126 Blood Pressure Diastolic: 96 Defibrillation Defbrillation #1: Time Defibrillator Applied: 13:10 EKG Rhythm: PEA Compressions: Manual Compressions Hold/Resume: 5 seconds Time Defibrillator Shocked Pt.: 13:15 Defib. Joules: 120 Pulse Present: No EKG Rhythm: V-Fibrillation Defbrillation #2: EKG Rhythm: V-Fibrillation Compressions: Manual Compressions Hold/Resume: 5 sec Time Defibrillator Shocked Pt.: 13:18 Defib. Joules: 200 Pulse Present: Yes EKG Rhythm: Sinus Rhythm Medications & Response Medications and Responses #1: Medication Time: 13:10 ADULT Medications Given ADULT: Atropine 1 mg Route of Administration: IV Heart Rate: 25 EKG Rhythm: Agonal Blood Pressure Systolic: 0 Blood Pressure Diastolic: 0 O2 Sat by Pulse Oximetry: 77 EKG Rhythm: Agonal Medications and Responses #2: ADULT Medications Given ADULT: Epinephrine 1 mg Route of Administration: IV Heart Rate: 0 EKG Rhythm: PEA Blood Pressure Systolic: 0 Blood Pressure Diastolic: 0 O2 Sat by Pulse Oximetry: 55 EKG Rhythm: PEA Medications and Responses #3: Medication Time: 13:12 ADULT Medications Given ADULT: 2 Amps Na Bicarb Route of Administration: IV Heart Rate: 0 EKG Rhythm: PEA Blood Pressure Systolic: 0 Blood Pressure Diastolic: 0 O2 Sat by Pulse Oximetry: 52 Medications and Responses #4: Medication Time: 13:14 ADULT Medications Given ADULT: Epinephrine 1 mg Route of Administration: IV Heart Rate: 220 EKG Rhythm: V-Fibrillation Blood Pressure Systolic: 0 Blood Pressure Diastolic: 0 EKG Rhythm: V-Fibrillation Medications and Responses #5: Medication Time: 13:16 ADULT Medications Given ADULT: Epinephrine 1 mg Route of Administration: IV Heart Rate: 220 EKG Rhythm: V-Fibrillation Blood Pressure Systolic: 0 Blood Pressure Diastolic: 0 O2 Sat by Pulse Oximetry: 50 Medications and Responses #6: Medication Time: 13:17 ADULT Medications Given ADULT: Amiodarone 300 mg Route of Administration: IV Heart Rate: 220 EKG Rhythm: V-Fibrillation Blood Pressure Systolic: 0 Blood Pressure Diastolic: 0 EKG Rhythm: V-Fibrillation Medications and Responses #7: Medication Time: 13:24 ADULT Medications Given ADULT: Epinephrine 1 mg Route of Administration: IV Heart Rate: 70 EKG Rhythm: Sinus Rhythm Blood Pressure Systolic: 126 Blood Pressure Diastolic: 96 O2 Sat by Pulse Oximetry: 90 EKG Rhythm: Sinus Rhythm Medications and Responses #8: Medication Time: 13:28 ADULT Medications Given ADULT: 2 Amps Na Bicarb Route of Administration: IV Heart Rate: 72 EKG Rhythm: Sinus Rhythm Medications and Responses #9: Medication Time: 13:30 ADULT Medications Given ADULT: Epinephrine 1 mg Route of Administration: IV Heart Rate: 71 EKG Rhythm: Sinus Rhythm EKG Rhythm: Sinus Rhythm Medications and Responses #10: Medication Time: 13:32 ADULT Medications Given ADULT: Epinephrine Gtt Route of Administration: IV Medication Comment: maxxed at 10mcg Heart Rate: 72 EKG Rhythm: Sinus Rhythm Procedure - NG/OG Tube Procedure - NG/OG Tube : Type of gastric tube placed: OG GI Tube Secured: Yes Gastric Tube Suction Type/Desc: Low, Wall, Intermittant Gastric Content Description: None Comment OG tube already in place prior to Code Blue Procedure - Central Venous Cat Central venous catheter site: Rt Femoral Comment: right fem TLC already in place prior to Code Blue Procedure - Perkins Catheter Urinary Catheter Type/Location: Uretheral (Perkins) Urine Appearance: Cloudy Urine Color: Yellow Comment: Perkins catheter already in place prior to Code Blue Nurses Notes Lakshmi Coma Scale Eye Opening: None (1) [place] Coma Scale Verbal: None (1) Lakshmi Coma Scale Motor: None (1) Pupil Reaction: Non Reactive Bedside Blood Glucose: 136 Time Code Ended Time Code Ended: 13:34 Post Arrest Status: Ventilated Outcome of code: Successful Code Team Present: Laz Jones VALVER, Cailin RN, Abigail RN, Luis King RN, Ekaterina Ibarra RN, Landen ERT, Carrie RN ROSC Time of ROSC: 13:24 Pt Meets Criteria for Therapeu: Tasia Soto December 28, 2024 21:43
[2024-12-28 23:12] LABS: INR 1.25 (0.9-1.15)
[2024-12-28 23:15] LABS: Partial Thromboplastin Time > 139.0 SEC (24.5-34.5)
[2024-12-29] VITALS (115 sets, daily range): BP systolic 84–161; BP diastolic 58–97; PULSE 61–85; RESP 9–28; TEMP 97–100.4; O2SAT 92–100
[2024-12-29] MEDS: HEPARIN DRIP/D5W 100UNITS/ML 250 ML IV SCH ×2 (00:34→08:57)
[2024-12-29] MEDS: ACETAMINOPHEN 650 MG RECT SUPP PR PRN (00:35)
[2024-12-29] MEDS: SODIUM BICARB 50mEq/50ml Vial 150 ML in SOD CHL 0.45% 1,000 ML IV SCH (01:55)
[2024-12-29] MEDS: SODIUM BICARB 8.4% 50Meq/50ml SYR INJ ONE (01:55)
[2024-12-29 04:36] LABS: Anion Gap 9 (5-15); Carbon Dioxide 28 mmol/L (20-31); Chloride 104 mmol/L (98-107); Potassium 3.8 mmol/L (3.5-5.1); Sodium 141 mmol/L (136-145)
[2024-12-29 04:43] LABS: BUN/Creatinine Ratio 9.5 (10.0-20.0); Blood Urea Nitrogen 13 mg/dL (9-23)
[2024-12-29 04:49] LABS: Calcium 8.3 mg/dL (8.7-10.4)
[2024-12-29 04:50] LABS: Glucose 430 mg/dL (74-106)
--- NOTE | 2024-12-29 05:38 | DVH ---
EXAM: XR Chest, 1 View CLINICAL INDICATION: line placement TECHNIQUE: Frontal view of the chest. COMPARISON: XY CHEST XRAY 1 VIEW on DOS: 12/28/24, XY CHEST PORTABLE on DOS: 12/28/24, XY CHEST TEJAS BLE on DOS: 12/26/24, XY CHEST PORTABLE on DOS: 07/15/24 FINDINGS: LUNGS AND PLEURAL SPACES: Pulmonary venous congestion. No consolidation. No pneumothorax. HEART: Unremarkable. No cardiomegaly. MEDIASTINUM: Unremarkable. Normal mediastinal contour. BONES/JOINTS: Unremarkable. No acute fracture. TUBES, LINES AND DEVICES: The endotracheal tube (ETT) is in satisfactory position. Enteric tube ti p in the stomach. OTHER FINDINGS: . . . IMPRESSION: Pulmonary venous congestion.
[2024-12-29 07:23] LABS: INR 1.25 (0.9-1.15)
[2024-12-29 07:29] LABS: Partial Thromboplastin Time 113.5 SEC (24.5-34.5)
[2024-12-29 08:04] LABS: Base Excess 3.2 mmol/L (-2.0-3.0)
[2024-12-29] MEDS ORDERED: DEXTROSE (50%) 50ML SYRG IV PRN (08:30)
[2024-12-29 08:34] LABS: Basophils # (auto) 0 10 ^3/uL (0-0.2); Basophils % (auto) 0.4 % (0.0-2.0); Eosinophils # (auto) 0 10 ^3/uL (0-0.8); Eosinophils % (auto) 0.1 % (0.0-7.0); Hematocrit 46.6 % (41.0-53.0); Hemoglobin 15.5 g/dL (13.5-17.5); Lymphocytes # (auto) 0.6 10 ^3/uL (0.4-5.4); Lymphocytes % (auto) 10.1 % (10.0-50.0); Mean Corpuscular Hemoglobin 30.6 pg (28.0-32.0); Mean Corpuscular Hgb Conc. 33.3 g/dL (32.0-36.0); Mean Corpuscular Volume 91.7 fL (80.0-100.0); Monocytes # (auto) 0.5 10 ^3/uL (0-1.3); Neutrophils # (auto) 4.9 10 ^3/uL (1.6-8.6); Neutrophils % (auto) 81.4 % (37.0-80.0); Nucleated Red Blood Cells % 0.3 %; Platelet Count (auto) 107 10^3/uL (140-450); Red Blood Cells 5.08 10^6/uL (4.5-5.90); Red Cell Distribution Width 16.3 % (11.8-14.3)
--- NOTE | 2024-12-29 09:26 | CONS ---
Pharmacy Clinical Information: HEP RATE DECREASED FROM 1600 UNITS/HR TO 1300 UNITS/HR OR 13 ML/HR SINCE APTT = 113.5 @0630 12/29. NEXT APTT KEN @1500 12/29 PER RX PROTOCOL LA JANE AWARE AND REPEAT BACK ORDER 13 ML/HR BLAISE CANCINO PHARMACIST December 29, 2024 09:26
[2024-12-29] MEDS: PANTOPRAZOLE 40 MG/10 ML VIAL INJ IV SCH (09:42)
--- NOTE | 2024-12-29 09:51 | DVHPN2 ---
Subjective Encephalopathic Reviewed: Care Plan, H&P, Medications Changes from previous H/P or p: Changes General: Per HPI Eyes: No Pain, No Vision change, No Conjunctivae inflammation, No Eyelid inflammation, No Other, No Redness ENT: No Ear pain, No Ear discharge, No Nose pain, No Nose discharge, No Nose congestion, No Mouth pain, No Mouth swelling, No Throat pain, No Throat swelling, No Other Cardiovascular: No Chest Pain, No Palpitations, No Orthopnea, No Paroxysmal Noc. Dyspnea, No Edema, No Lt Headedness, No Other Respiratory: No Cough, No Dry; Shortness of breath; No SOB with excertion, No Wheezing, No Hemoptysis, No Pleuritic Pain, No Sputum, No Other Gastrointestinal: No Nausea, No Vomiting, No Abdominal Pain, No Diarrhea, No Constipation, No Melena, No Hematochezia, No Other Genitourinary: No Dysuria, No Frequency, No Incontinence, No Hematuria, No Retention; Other (Perkins catheter in place) Musculoskeletal: No other, No neck pain, No shoulder pain, No arm pain, No back pain, No hand pain, No leg pain, No foot pain Skin: No Rash, No Lesions, No Jaundice, No Bruising, No Other Objective Vitals Vital Signs Date Time Temp Pulse Resp B/P (MAP) Pulse Ox O2 Delivery O2 Flow Rate FiO2 12/29/24 06:57 67 26 112/73 (86) 100 30 12/29/24 06:00 Mechanical Ventilator+ 12/29/24 04:10 98.7 98.7 Intake/Output Intake and Output 12/29/24 07:00 Intake Total 2873.95 ml Output Total 525 ml Balance 2348.95 ml Intake Oral 0 ml IV Total 2873.95 ml Tube Feeding 0 ml Output Urine Total 525 ml Stool Total 0 ml General Appearance: Other (Unable to assess) HEENT: Atraumatic, PERRLA Cardiovascular: Normal S1, Normal S2, Other (Sinus bradycardia) Musculoskeletal: Normal sensory function, Normal motor function Skin: Dry Psych/Mental Status: Mental status NL, Mood NL Medications Current Medications Medications Dose Ordered Sig/Lj Route Start Time Stop Time Status Last Admin Dose Admin Propofol 100 ml @ 2.85 mls/hr Q24H IV 12/26/24 15:15 12/28/24 05:04 8.55 MLS/HR Midazolam HCl 50 ml @ 1 mls/hr Q24H IV 12/26/24 15:15 12/28/24 12:04 6 MLS/HR Fentanyl Citrate 250 ml @ 2.5 mls/hr Q24H IV 12/26/24 15:15 12/28/24 12:05 10 MLS/HR Norepinephrine Bitartrate 250 ml @ 3.75 mls/hr Q24H IV 12/26/24 15:15 12/27/24 15:03 7.5 MLS/HR Thiamine HCl 100 mg DAILY IV 12/27/24 10:00 12/29/24 09:03 100 MG Folic Acid 1 mg/ Dextrose 50.2 ml @ 200.8 mls/ hr DAILY INJ 12/27/24 10:00 12/28/24 10:53 200.8 MLS/HR Multivitamins 1 tab DAILY NG 12/27/24 10:00 12/29/24 09:03 1 TAB Dextrose 50 ml UD PRN IV 12/26/24 16:45 Cancel Nitroglycerin 0.4 mg Q5MINP PRN SL 12/26/24 16:45 Morphine Sulfate 2 mg Q30M PRN IV 12/26/24 16:45 Acetaminophen 650 mg Q6HP PRN [place] 12/26/24 17:00 12/29/24 00:35 650 MG Ceftriaxone Sodium 50 ml @ 100 mls/hr DAILY@09 IV 12/27/24 09:00 12/29/24 09:04 100 MLS/HR Epinephrine HCl 250 ml @ 7.5 mls/hr Q24H IV 12/28/24 14:15 12/28/24 14:44 37.5 MLS/HR Dopamine HCl/ Dextrose 250 ml @ 19.444 mls/ hr [id number] IV 12/28/24 15:15 12/28/24 15:21 19.444 MLS/HR Heparin Sodium/ Dextrose 250 ml @ 13 mls/hr [id number] IV 12/29/24 08:30 12/29/24 08:57 13 MLS/HR Diagnostic Test (Pha) 1 strip IQ4HR 12/29/24 12:00 Insulin Human Regular IQ4HR SC 12/29/24 12:00 Dextrose 50 ml UD PRN IV 12/29/24 08:30 Pantoprazole Sodium 40 mg BID IV 12/29/24 10:00 12/29/24 09:42 40 MG Laboratory Results Laboratory Tests 12/29/24 03:19 Chemistry Test 12/28/24 13:14 12/29/24 03:19 Albumin 3.4 g/dL (3.2-4.8) Calcium Level 8.7 mg/dL (8.7-10.4) 8.3 mg/dL (8.7-10.4) L Total Protein 5.7 g/dL (5.7-8.2) Coagulation Test 12/28/24 13:14 12/28/24 16:09 12/28/24 22:26 12/29/24 06:30 D-Dimer, Quantitative 22.37 mg/L FEU (0.0-0.49) H Prothrombin Time 12.4 sec (9.3-11.8) H 13.0 sec (9.3-11.8) H 13.0 sec (9.3-11.8) H Prothrombin Time INR 1.19 (0.9-1.15) H 1.25 (0.9-1.15) H 1.25 (0.9-1.15) H Activated Partial Thromboplast Time 30.5 SEC (24.5-34.5) > 139.0 SEC (24.5-34.5) *H 113.5 SEC (24.5-34.5) *H LFT Test 12/28/24 13:14 Alanine Aminotransferase (ALT) 26 U/L (7-40) Alkaline Phosphatase 119 U/L (46-116) H Aspartate Amino Transferase (AST) 32 U/L (13-40) Total Bilirubin 0.5 mg/dL (0.2-1.0) Urinalysis Test 12/26/24 16:45 Urine Color Yellow (Yellow) Urine Clarity Turbid (Clear) H Urine pH 5.5 (5.0-9.0) Urine Specific [place] 1.025 (1.001-1.035) Urine Protein Trace (Negative) H Urine Ketones 1+ (Negative) H Urine Blood Negative /uL (Negative) Urine Nitrite Negative (Negative) Urine Bilirubin Negative (Negative) Urine Urobilinogen 4 mg/dL (Negative) H Urine Leukocyte Esterase Trace /uL (Negative) Urine RBC 1 /hpf (0 - 3) Urine Microscopic WBC 9 /HPF (0-3) H Urine Squamous Epithelial Cells Few /hpf (<5) Urine Bacteria None seen /hpf (None Seen) Urine Hyaline Casts Mod /lpf (0 - 2) Urine Mucus Moderate (None Seen) Urine Glucose 1+ mg/dL (Normal) H Blood Gas Results Test 12/28/24 13:25 12/28/24 15:17 12/29/24 07:53 Arterial Blood pH 6.902 (7.350-7.450) 7.239 (7.350-7.450) 7.471 (7.350-7.450) FiO2 % 100.0 100.0 30.0 Microbiology Microbiology Date/Time Source Procedure Growth Status 12/26/24 16:45 Voided Urine Urine Culture - Final Complete 12/26/24 15:50 Sputum Gram Stain - Final Resulted 12/26/24 15:50 Sputum Respiratory Culture - Preliminary Resulted 12/26/24 15:29 Blood Blood Culture - Preliminary NO GROWTH AFTER 48 HOURS OF INCUBATION. Resulted Labs and/or images reviewed: Labs reviewed by me, Image(s) reviewed by me Assessment/Plan Assessment/Plan Impression: -acute hypoxic respiratory failure with mechanical ventilation -toxic metabolic encephalopathy with ETOH and benzodiazepines -history of CAD with previous CABG -history of alcoholism -diabetes mellitus -dyslipidemia -peripheral neuropathy Plan: Events: Patient had cardiopulmonary arrest yesterday. ROSC successful. Off vasopressors today. Dopamine gtt for bradycardia -12 lead ECG -DVT study of lower extremity positive for DVT. Patient was placed on heparin drip yesterday. -start Glucerna tube feeding -FiO2 now down to 30%. Patient no longer acidotic. Stop sodium bicarbonate drip. -cardiology consultation for bradycardia and VFib during arrest -continue current ventilator settings -continue thiamine, MVI -regular insulin sliding scale -empiric antibiotic therapy -PUD, DVT prophylaxis -repeat labs, chest x-ray, ABG in a.m. Critical care time spent with patient discussing and formulating plan of care: 40 minutes. This does not include time spent performing procedures. This medical document was created using an electronic medical record system with [employer] system. Although this document has been carefully reviewed, there may still be some phonetic and typographical errors. These areas are purely typographical due to imperfections of the software programs, and do not reflect any compromise in the patient's medical care. Plan discussed with: Patient, Other (RN) My Orders Orders - MARLENY MEDINA NP Procedure Category Date Status Time Abg W/ Co-Ox RT 12/28/24 Logged 12:59 Ventilator Orders RT 12/28/24 Transmitted 13:35 Abg W/ Co-Ox RT 12/28/24 Logged 14:30 Bilat Lower Dvt US 12/28/24 Resulted 13:35 Chest Xray 1 View XY 12/28/24 Resulted 13:37 Epinephrine Hcl PHA 12/28/24 In Process 14:15 Communication Order ORDERS 12/28/24 Transmitted 14:09 Mrsa Screen MICHELLE 12/28/24 In Process 14:53 Dopamine 1600mcg/Ml PHA 12/28/24 In Process D5W 15:15 Platelet Monitoring GABBY 12/28/24 In Process 15:24 Vte Protocol Initiated GABBY 12/28/24 In Process 15:24 Heparin Per GABBY 12/28/24 In Process Standardized Proce 15:24 Discontinue All Im GABBY 12/28/24 In Process Injections 15:24 Heparin Protocol GABBY 12/28/24 In Process 23:49 Heparin Drip/D5w PHA 12/29/24 In Process 100units/Ml 08:30 Glucose Blood PHA 12/29/24 In Process (Accu-Chek Comfort 12:00 Insulin R (Human) PHA 12/29/24 In Process (Insulin R) 12:00 Dextrose 50% Syringe PHA 12/29/24 In Process 08:30 Basic Metabolic Panel LAB 12/30/24 Verified 05:00 Basic Metabolic Panel LAB 12/31/24 Verified 05:00 Basic Metabolic Panel LAB 01/01/25 Verified 05:00 Complete Blood Count LAB 12/30/24 Verified 05:00 Complete Blood Count LAB 12/31/24 Verified 05:00 Complete Blood Count LAB 01/01/25 Verified 05:00 Chest Portable XY 12/30/24 Logged 05:00 Chest Portable XY 12/31/24 Logged 05:00 Chest Portable XY 01/01/25 Logged 05:00 Abg W/ Co-Ox RT 12/30/24 Logged 05:00 Abg W/ Co-Ox RT 12/31/24 Logged 05:00 Abg W/ Co-Ox RT 01/01/25 Logged 05:00 Pantoprazole PHA 5/22/25 In Process (Protonix) 10:00 PTPTT LAB 12/29/24 Logged 15:00 Heparin Per Pharmacy GABBY 12/29/24 In Process Protocol 09:22 Date of Service: December 29, 2024 Billing Provider: MARLENY MEDINA NP Common Visit Codes: [id number] CARE 30-74 MIN MARLENY MEDINA NP December 29, 2024 09:51
[2024-12-29] MEDS ORDERED: ENOXAPARIN SOD 30 MG/0.3 ML SYRINGE SC SCH (10:00)
--- NOTE | 2024-12-29 11:11 | DVHINCON2 ---
Date Seen: December 29, 2024 Referring Physician PAZ Jones Reason for Consultation Status post cardiac arrest History of Present Illness This is a 54-year-old male with past medical history of hypertension, dyslipidemia, diabetes, CAD (status post CABG in July 2024 at [facility]), bipolar disorder, and alcohol use disorder brought to the hospital 4 days back due to altered mental status (possible alcohol intoxication). Yesterday, patient collapsed (PEA and subsequently VFib, defibrillated 3 times) CPR was performed for 17 minutes and the patient gain ROSC. Cardiology consulted due to cardiac arrest. PMHx: hypertension, dyslipidemia, diabetes, CAD (status post CABG in July 2024 at [facility]), bipolar disorder, and alcohol use disorder PSHx: Status post CABG Family history: Noncontributory Social history: Current smoker, vaping, alcohol use disorder, marijuana use disorder Home medication: Aspirin, carvedilol, metformin, atorvastatin, gabapentin and bipolar medicine, but the patient is nonadherence with the medicine Allergic history: No known allergy Patient seen and examined at the bedside. Patient is intubated and on mechanical ventilation. Patient is off from sedation. Past Medical History Per H&P Past Surgical History Per H&P Family History: Patient reports no known family medical history. Family History Per H&P Social History Per H&P Allergies: Coded Allergies: NO KNOWN ALLERGIES (Unverified , 07/15/24) Allergies Per H&P Home Meds Per H&P Current Medications Current Medications Medications (Trade) Dose Ordered Sig/Lj Route PRN Reason Start Time Stop Time Status Last Admin Chlordiazepoxide HCl (Librium Capsule) 25 mg Q6HR PO 12/28/24 12:00 12/28/24 15:26 DC 12/28/24 12:14 Sodium Bicarbonate 150 ml/Dextrose 1,150 ml @ 100 mls/hr [id number] IV 12/28/24 13:45 12/29/24 01:26 DC 12/28/24 14:20 Dopamine HCl/ Dextrose 250 ml @ 90.375 mls/ hr Q2H46M IV 12/28/24 13:45 12/28/24 14:35 DC Enoxaparin Sodium (Lovenox) 30 mg DAILY SC 12/29/24 10:00 12/28/24 15:26 DC Dopamine HCl/ Dextrose 250 ml @ 90.375 mls/ hr Q2H46M IV 12/28/24 14:00 12/28/24 15:13 DC 12/28/24 14:00 Epinephrine HCl 250 ml @ 7.5 mls/hr Q24H IV 12/28/24 14:15 12/28/24 14:44 Dopamine HCl/ Dextrose 250 ml @ 19.444 mls/ hr [id number] IV 12/28/24 15:15 12/28/24 15:21 Heparin Sodium/ Dextrose 250 ml @ 19 mls/hr [id number] IV 12/28/24 15:30 12/28/24 23:28 DC 12/28/24 16:28 Heparin Sodium/ Dextrose 250 ml @ 16 mls/hr [id number] IV 12/29/24 00:30 12/29/24 08:16 DC 12/29/24 00:34 Sodium Bicarbonate 150 ml/Sodium Chloride 1,150 ml @ 100 mls/hr [id number] IV 12/29/24 01:15 12/29/24 09:12 DC 12/29/24 01:55 Heparin Sodium/ Dextrose 250 ml @ 13 mls/hr [id number] IV 12/29/24 08:30 12/29/24 08:57 Diagnostic Test (Pha) (Accu-Chek Comfort Curve T) 1 strip IQ4HR 12/29/24 12:00 Insulin Human Regular (InsuLIN R) IQ4HR SC 12/29/24 12:00 Dextrose 50 ml UD PRN IV Blood Sugar LESS THAN 60 12/29/24 08:30 Pantoprazole Sodium (Protonix) 40 mg BID IV 12/29/24 10:00 12/29/24 09:42 Enteral Nutritional Formula (Glucerna 1.2 Vasquez) 1,000 ml 30ML/HR GT 12/29/24 09:45 Review of Systems Per H&P Vital Signs Vital Signs Date Time Temp Pulse Resp B/P (MAP) Pulse Ox O2 Delivery O2 Flow Rate FiO2 12/29/24 10:10 71 26 117/74 (88) 99 30 12/29/24 06:00 Mechanical Ventilator+ 12/29/24 04:10 98.7 98.7 Physical Exam General: RASS -4, afebrile, mucosae are moist Cardiovascular: Normal S1 and S2. No murmurs, gallops or rubs Respiratory: Mechanically assisted ventilation, sluggish bilateral pupil response. Clear lung sounds on auscultation Abdomen: Soft, nontender, no organomegaly, normal bowel sounds MSK/skin: Mobilization of limbs cannot be evaluated. Skin is dry and warm. Neurological: Orientation cannot be assessed. No apparent motor no sensitive deficits. Pupils are isocoric and has sluggish response to the light, gag reflex present Labs/Diagnostic Data Labs Test 12/29/24 07:53 12/29/24 06:30 12/29/24 05:03 12/29/24 03:19 Range/Units Blood Gas Specimen Type Arterial Blood Gas Sample Site Left radial Blood Gas Patient Temperature 37.0 Arterial Blood Date Drawn [id number] Arterial Blood pH 7.471 H 7.350-7.450 Arterial Blood Partial Pressure CO2 37.5 35.0-48.0 mmHg Arterial Blood Partial Pressure O2 70.2 L 83.0-108.0 mmHg Arterial Blood HCO3 26.7 21.0-28.0 mmol/L Arterial Blood Oxygen Saturation 94.4 94.0-98.0 % Arterial Blood Base Excess 3.2 H -2.0-3.0 mmol/L Arterial Blood Oxyhemoglobin 93.7 L 94.0-98.0 % Arterial Blood Carboxyhemoglobin 0.2 L 0.5-1.5 % Arterial Blood Methemoglobin 0.5 0.0-1.5 % Óscar Test Modified Blood Gas Total Hemoglobin 16.80 13.5-17.5 g/dL Blood Gas Set Respiration Rate 26.0 Blood Gas Modality Vent - ac Blood Gas Spontaneous Rate 26 FiO2 % 30.0 Blood Gas Tidal Volume 500.0 Blood Gas PEEP or CPAP 10.0 Prothrombin Time 13.0 H 9.3-11.8 sec Prothrombin Time INR 1.25 H 0.9-1.15 Activated Partial Thromboplast Time 113.5 *H 24.5-34.5 SEC POC Glucose 351 H 70-106 mg/dl White Blood Count 6.0 # 4.4-10.8 10^3/uL Red Blood Count 5.08 4.5-5.90 10^6/uL Hemoglobin 15.5 13.5-17.5 g/dL Hematocrit 46.6 41.0-53.0 % Mean Corpuscular Volume 91.7 80.0-100.0 fL Mean Corpuscular Hemoglobin 30.6 28.0-32.0 pg Mean Corpuscular Hemoglobin Concent 33.3 32.0-36.0 g/dL Red Cell Distribution Width 16.3 H 11.8-14.3 % Platelet Count 107 L 140-450 10^3/uL Mean Platelet Volume 11.3 H 6.9-10.8 fL Neutrophils (%) (Auto) 81.4 H 37.0-80.0 % Lymphocytes (%) (Auto) 10.1 10.0-50.0 % Monocytes (%) (Auto) 8.0 0.0-12.0 % Eosinophils (%) (Auto) 0.1 0.0-7.0 % Basophils (%) (Auto) 0.4 0.0-2.0 % Neutrophils # (Auto) 4.9 1.6-8.6 10 ^3/uL Lymphocytes # (Auto) 0.6 0.4-5.4 10 ^3/uL Monocytes # (Auto) 0.5 0-1.3 10 ^3/uL Eosinophils # (Auto) 0 0-0.8 10 ^3/uL Basophils # (Auto) 0 0-0.2 10 ^3/uL Nucleated Red Blood Cells 0.3 % Sodium Level 141 136-145 mmol/L Potassium Level 3.8 3.5-5.1 mmol/L Chloride Level 104 98-107 mmol/L Carbon Dioxide Level 28 20-31 mmol/L Anion Gap 9 5-15 Blood Urea Nitrogen 13 9-23 mg/dL Creatinine 1.37 H 0.700-1.30 mg/dL Glomerular Filtration Rate Calc 61 >90 mL/min BUN/Creatinine Ratio 9.5 L 10.0-20.0 Serum Glucose 430 #*H 74-106 mg/dL Calcium Level 8.3 L 8.7-10.4 mg/dL Magnesium Level 1.5 L 1.6-2.6 mg/dL Test 12/28/24 15:17 12/28/24 13:14 12/26/24 20:17 12/26/24 16:45 Range/Units Blood Gas Critical Value Read Back Yes Blood Gas Notified Whom Robert delgado Blood Gas Notified Time [id number] Blood Gas Notified By Ceci mayorga D-Dimer, Quantitative 22.37 H 0.0-0.49 mg/L FEU Total Bilirubin 0.5 0.2-1.0 mg/dL Aspartate Amino Transferase (AST) 32 13-40 U/L Alanine Aminotransferase (ALT) 26 7-40 U/L Alkaline Phosphatase 119 H 46-116 U/L Total Protein 5.7 5.7-8.2 g/dL Albumin 3.4 3.2-4.8 g/dL Lactic Acid Level 2.4 *H 0.4-2.0 mmol/L Urine Color Yellow Yellow Urine Clarity Turbid H Clear Urine pH 5.5 5.0-9.0 Urine Specific [place] 1.025 1.001-1.035 Urine Protein Trace H Negative Urine Ketones 1+ H Negative Urine Blood Negative Negative /uL Urine Nitrite Negative Negative Urine Bilirubin Negative Negative Urine Urobilinogen 4 H Negative mg/dL Urine Leukocyte Esterase Trace Negative /uL Urine RBC 1 0 - 3 /hpf Urine Microscopic WBC 9 H 0-3 /HPF Urine Squamous Epithelial Cells Few <5 /hpf Urine Bacteria None seen None Seen /hpf Urine Hyaline Casts Mod 0 - 2 /lpf Urine Mucus Moderate None Seen Urine Glucose 1+ H Normal mg/dL Urine Opiates Screen Neg NEGATIVE Urine Fentanyl Screen Neg NEGATIVE Urine Barbiturates Screen Neg NEGATIVE Urine Phencyclidine Screen Neg NEGATIVE Urine Amphetamines Screen Neg NEGATIVE Urine Benzodiazepines Screen Pos NEGATIVE Urine Cocaine Screen Neg NEGATIVE Urine Cannabinoids Screen Pos NEGATIVE Test 12/26/24 15:20 Range/Units Plasma/Serum Blood Alcohol 276.4 H <10 mg/dL Microbiology Date/Time Source Procedure Growth Status 12/26/24 16:45 Voided Urine Urine Culture - Final Complete 12/26/24 15:50 Sputum Gram Stain - Final Resulted 12/26/24 15:50 Sputum Respiratory Culture - Preliminary Resulted 12/26/24 15:29 Blood Blood Culture - Preliminary NO GROWTH AFTER 48 HOURS OF INCUBATION. Resulted Assessment Acute toxic encephalopathy, likely due to alcohol intoxication/aspiration pneumonia Acute hypoxic respiratory failure, likely due to aspiration pneumonia/alcohol intoxication, on mechanical ventilation Status post cardiac arrest (PEA and VFib) ? Pulmonary emboli NSTEMI, likely type 2, due to above Left lower extremity DVT History of coronary artery disease (status post CABG) Hypertension Dyslipidemia Diabetes mellitus KADI, likely VMN Bipolar disorder Alcohol use disorder Obesity Nonadherence to medication * Echocardiogram shows hypokinetic, dilated right ventricle with doming of interventricular septum, suggestive of pressure overload * EKGs shows, ST depression and T-wave inversion at inferior leads * Trop I is raised at at 1100s * Ultrasound shows acute occlusive DVT in the calf extending to the popliteal and mid femoral vein Plan/Recommendation (Case discussed with Dr. Jiang) * Considering patient's current clinical status, we recommend medical management, once patient's wake up we may perform mechanical thrombectomy/further cardiology workup * Anticoagulation, therapeutic Lovenox * Aspirin * Keep K above 4, and Mag above 2 * Rest of plan, per primary team Patient's status discussed with patient's ex-, daughter, and stepdaughter. Thank you for allowing us to participate in this patient's care. Please call if you have any questions or concerns. Plan discussed with: Patient, Spouse, Daughter (RN), Other NYHA Physical activity limitations: NA Date of Service: December 29, 2024 Billing Provider: BROOKLYN JIANG Sr., MD Cardiology Common Codes: [id number] INP/OBS CARE (High) JEREMY OCONNOR RESDIENT December 29, 2024 11:10
[2024-12-29] MEDS: ACCU-CHEK COMFORT CURVE STRIP VI SCH (11:40)
[2024-12-29] MEDS: InsuLIN REG 1unit/0.01ml Soln (100units/ml) SC SCH (11:40)
--- NOTE | 2024-12-29 14:45 | ECG ---
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
[2024-12-29] MEDS: MAGNESIUM SULFATE 1GM/100ML 100 ML IV SCH (14:52)
[2024-12-29] MEDS: ASPirin 81 mg TAB PO ONE (16:46)
[2024-12-29] MEDS: ENOXAPARIN SOD 120 MG/0.8 ML SYRINGE SC ONE (16:47)
--- NOTE | 2024-12-29 21:59 | DVHPN2 ---
Progress Note - Dictate Date Seen: December 29, 2024 Medical Necessity Reason Pt with a Central, PICC or Fol: Yes The following are medically ne: Central Line vital signs Vital Sign Date Time Temp Pulse Resp B/P (MAP) Pulse Ox O2 Delivery O2 Flow Rate FiO2 12/29/24 20:32 70 26 120/83 (95) 100 30 12/29/24 18:25 98.3 98.3 12/29/24 18:00 Mechanical Ventilator+ Total Intake and Output 12/28/24 12/28/24 12/29/24 15:00 23:00 07:00 Intake Total 891.75 ml 1124.15 ml 981.828 ml Output Total 25 ml 500 ml Balance 891.75 ml 1099.15 ml 481.828 ml medications Current Medications Medications Dose Ordered Sig/Lj Route Start Time Stop Time Status Last Admin Dose Admin Propofol 100 ml @ 2.85 mls/hr Q24H IV 12/26/24 15:15 12/28/24 05:04 8.55 MLS/HR Fentanyl Citrate 250 ml @ 2.5 mls/hr Q24H IV 12/26/24 15:15 12/28/24 12:05 10 MLS/HR Norepinephrine Bitartrate 250 ml @ 3.75 mls/hr Q24H IV 12/26/24 15:15 12/27/24 15:03 7.5 MLS/HR Thiamine HCl 100 mg DAILY IV 12/27/24 10:00 12/29/24 09:03 100 MG Folic Acid 1 mg/ Dextrose 50.2 ml @ 200.8 mls/ hr DAILY INJ 12/27/24 10:00 12/29/24 10:21 200.8 MLS/HR Multivitamins 1 tab DAILY NG 12/27/24 10:00 12/29/24 09:03 1 TAB Dextrose 50 ml UD PRN IV 12/26/24 16:45 Cancel Nitroglycerin 0.4 mg Q5MINP PRN SL 12/26/24 16:45 Morphine Sulfate 2 mg Q30M PRN IV 12/26/24 16:45 Acetaminophen 650 mg Q6HP PRN NM 12/26/24 17:00 12/29/24 00:35 650 MG Ceftriaxone Sodium 50 ml @ 100 mls/hr DAILY@09 IV 12/27/24 09:00 12/29/24 09:04 100 MLS/HR Epinephrine HCl 250 ml @ 7.5 mls/hr Q24H IV 12/28/24 14:15 12/28/24 14:44 37.5 MLS/HR Dopamine HCl/ Dextrose 250 ml @ 19.444 mls/ hr [id number] IV 12/28/24 15:15 12/29/24 14:44 7.778 MLS/HR Diagnostic Test (Pha) 1 strip IQ4HR 12/29/24 12:00 12/29/24 20:23 1 STRIP Insulin Human Regular IQ4HR SC 12/29/24 12:00 12/29/24 20:25 6 UNITS Dextrose 50 ml UD PRN IV 12/29/24 08:30 Pantoprazole Sodium 40 mg BID IV 12/29/24 10:00 12/29/24 09:42 40 MG Enteral Nutritional Formula 1,000 ml 30ML/HR GT 12/29/24 09:45 Enoxaparin Sodium 110 mg Q12HR SC 12/29/24 23:59 Aspirin 81 mg DAILY PO 12/30/24 10:00 laboratory and microbiology Laboratory Tests 12/29/24 03:19 Test 12/29/24 03:19 Range/Units Serum Glucose 430 #*H 74-106 mg/dL Assessment/Plan Impression Acute hypoxemic respiratory failure Altered mental status Pneumonia Atelectasis Patient seen and examined in the ER Events Patient observed overnight Developed episode of cardiac arrest requiring approximately 27 minutes of CPR per ACLS protocols Placed back on mechanical ventilation upon ROSC PEEP 5, FiO2 30% Concern raised for anoxic brain injury Labs and imaging reviewed Troponin trending up ABG reviewed Severe metabolic acidosis Several ventilator changes made Management Vent support Titrate to maintain sats 90% or above librium for withdrawal vitamins/banana bag Continue antibiotics F/u cultures Bronchodilators Monitor renal function Monitor electrolytes Supplement as needed Pressors as needed for hemodynamic support To maintain a mean arterial pressure of 65 mmHg F/u cardiology DVT prophylaxis Critical care time 35 minutes Dietary Evaluation Review Comments: 1) TF Vital AF 1.2 Vasquez @ 75ml/hr x 24 hr (goal). Start @ 20ml/hr, increase 10ml/hr Q4H until goal rate is reached. TF at goal volume provides 100% energy & protein needs - 2160 kcal, 135 gm protein, 1460ml free water 2) Water flush 200ml Q6H if allowed 3) TPN if NPO>7 days 4) Monitor BW, lab values and skin integrity Expected Outcomes/Goals: To meet >75% estimated needs lab values to improve Fu 2-3 days Plan discussed with: Other (RN) AMANDO WHITE MD December 29, 2024 21:59
[2024-12-29] MEDS: ENOXAPARIN SOD 120 MG/0.8 ML SYRINGE SC SCH (23:34)
[2024-12-30] VITALS (122 sets, daily range): BP systolic 97–220; BP diastolic 62–118; PULSE 51–77; RESP 0–30; TEMP 97.8–99.9; O2SAT 94–100
[2024-12-30] MEDS: Glucerna 1.2 Cal 1Liter BOTTLE GT SCH (00:52)
[2024-12-30 04:03] LABS: Chloride 105 mmol/L (98-107); Sodium 142 mmol/L (136-145)
[2024-12-30 04:04] LABS: Anion Gap 7 (5-15); Carbon Dioxide 30 mmol/L (20-31)
[2024-12-30 04:09] LABS: BUN/Creatinine Ratio 14.5 (10.0-20.0); Blood Urea Nitrogen 11 mg/dL (9-23)
[2024-12-30 04:12] LABS: Basophils # (auto) 0 10 ^3/uL (0-0.2); Basophils % (auto) 0.4 % (0.0-2.0); Eosinophils # (auto) 0.1 10 ^3/uL (0-0.8); Eosinophils % (auto) 0.7 % (0.0-7.0); Hematocrit 44.3 % (41.0-53.0); Hemoglobin 15.4 g/dL (13.5-17.5); Lymphocytes # (auto) 1.6 10 ^3/uL (0.4-5.4); Lymphocytes % (auto) 16.9 % (10.0-50.0); Mean Corpuscular Hemoglobin 31.1 pg (28.0-32.0); Mean Corpuscular Hgb Conc. 34.8 g/dL (32.0-36.0); Mean Corpuscular Volume 89.3 fL (80.0-100.0); Monocytes # (auto) 0.5 10 ^3/uL (0-1.3); Monocytes % (auto) 5.9 % (0.0-12.0); Neutrophils # (auto) 7.1 10 ^3/uL (1.6-8.6); Neutrophils % (auto) 76.1 % (37.0-80.0); Nucleated Red Blood Cells % 0.2 %; Platelet Count (auto) 128 10^3/uL (140-450); Red Blood Cells 4.97 10^6/uL (4.5-5.90); Red Cell Distribution Width 16.1 % (11.8-14.3); White Blood Cell 9.3 10^3/uL (4.4-10.8)
[2024-12-30 04:16] LABS: Calcium 8.3 mg/dL (8.7-10.4); Glucose 203 mg/dL (74-106); Potassium 3.3 mmol/L (3.5-5.1)
--- NOTE | 2024-12-30 05:51 | DVH ---
EXAM: XR Chest, 1 View CLINICAL INDICATION: chf TECHNIQUE: Frontal view of the chest. COMPARISON: XY CHEST PORTABLE on DOS: 12/29/24, XY CHEST XRAY 1 VIEW on DOS: 12/28/24, XY CHEST TEJAS BLE on DOS: 12/28/24, XY CHEST PORTABLE on DOS: 12/26/24, XY CHEST PORTABLE on DOS: 07/15/24 FINDINGS: LUNGS AND PLEURAL SPACES: Stable interstitial opacity. No pneumothorax. HEART: Unremarkable. No cardiomegaly. MEDIASTINUM: Unremarkable. Normal mediastinal contour. BONES/JOINTS: Unremarkable. No acute fracture. TUBES, LINES AND DEVICES: The endotracheal tube (ETT) is in satisfactory position. OTHER FINDINGS: . . . . IMPRESSION: No significant change from the prior exam.
[2024-12-30 06:11] LABS: Base Excess 2.2 mmol/L (-2.0-3.0)
[2024-12-30] MEDS ORDERED: DEXTROSE (50%) 50ML SYRG IV PRN (06:30)
--- NOTE | 2024-12-30 06:42 | DVHPN2 ---
Subjective Encephalopathic Reviewed: Care Plan, H&P, Medications Changes from previous H/P or p: No Changes General: Per HPI Eyes: No Pain, No Vision change, No Conjunctivae inflammation, No Eyelid inflammation, No Other, No Redness ENT: No Ear pain, No Ear discharge, No Nose pain, No Nose discharge, No Nose congestion, No Mouth pain, No Mouth swelling, No Throat pain, No Throat swelling, No Other Cardiovascular: No Chest Pain, No Palpitations, No Orthopnea, No Paroxysmal Noc. Dyspnea, No Edema, No Lt Headedness, No Other Respiratory: No Cough, No Dry; Shortness of breath; No SOB with excertion, No Wheezing, No Hemoptysis, No Pleuritic Pain, No Sputum, No Other Gastrointestinal: No Nausea, No Vomiting, No Abdominal Pain, No Diarrhea, No Constipation, No Melena, No Hematochezia, No Other Genitourinary: No Dysuria, No Frequency, No Incontinence, No Hematuria, No Retention; Other (Perkins catheter in place) Musculoskeletal: No other, No neck pain, No shoulder pain, No arm pain, No back pain, No hand pain, No leg pain, No foot pain Skin: No Rash, No Lesions, No Jaundice, No Bruising, No Other Objective Vitals Vital Signs Date Time Temp Pulse Resp B/P (MAP) Pulse Ox O2 Delivery O2 Flow Rate FiO2 12/30/24 06:00 107/73 12/30/24 05:51 65 26 100 30 12/30/24 04:00 Mechanical Ventilator+ 12/30/24 00:00 99.1 99.1 Intake/Output Intake and Output 12/30/24 07:00 Intake Total 1090.082 ml Output Total 475 ml Balance 615.082 ml Intake Oral 0 ml IV Total 1049.082 ml Tube Feeding 41 ml Output Urine Total 475 ml General Appearance: severe distress, Other (Encephalopathic. Noted to be over breathing the event, moving upper extremities.) HEENT: Atraumatic, PERRLA Cardiovascular: Normal S1, Normal S2, Other (Sinus bradycardia) Abdomen: Other (Hypoactive bowel sounds, increase residuals with tube feeding) Musculoskeletal: Normal sensory function, Normal motor function Skin: Dry Psych/Mental Status: Mental status NL, Mood NL Medications Current Medications Medications Dose Ordered Sig/Lj Route Start Time Stop Time Status Last Admin Dose Admin Propofol 100 ml @ 2.85 mls/hr Q24H IV 12/26/24 15:15 12/30/24 00:46 2.85 MLS/HR Fentanyl Citrate 250 ml @ 2.5 mls/hr Q24H IV 12/26/24 15:15 12/28/24 12:05 10 MLS/HR Norepinephrine Bitartrate 250 ml @ 3.75 mls/hr Q24H IV 12/26/24 15:15 12/27/24 15:03 7.5 MLS/HR Thiamine HCl 100 mg DAILY IV 12/27/24 10:00 12/29/24 09:03 100 MG Folic Acid 1 mg/ Dextrose 50.2 ml @ 200.8 mls/ hr DAILY INJ 12/27/24 10:00 12/29/24 10:21 200.8 MLS/HR Multivitamins 1 tab DAILY NG 12/27/24 10:00 12/29/24 09:03 1 TAB Dextrose 50 ml UD PRN IV 12/26/24 16:45 Cancel Nitroglycerin 0.4 mg Q5MINP PRN SL 12/26/24 16:45 Morphine Sulfate 2 mg Q30M PRN IV 12/26/24 16:45 Acetaminophen 650 mg Q6HP PRN SD 12/26/24 17:00 12/29/24 00:35 650 MG Ceftriaxone Sodium 50 ml @ 100 mls/hr DAILY@09 IV 12/27/24 09:00 12/29/24 09:04 100 MLS/HR Epinephrine HCl 250 ml @ 7.5 mls/hr Q24H IV 12/28/24 14:15 12/28/24 14:44 37.5 MLS/HR Dopamine HCl/ Dextrose 250 ml @ 19.444 mls/ hr [id number] IV 12/28/24 15:15 12/29/24 14:44 7.778 MLS/HR Pantoprazole Sodium 40 mg BID IV 12/29/24 10:00 12/29/24 22:03 40 MG Enteral Nutritional Formula 1,000 ml 30ML/HR GT 12/29/24 09:45 12/30/24 00:52 1,000 ML Enoxaparin Sodium 110 mg Q12HR SC 12/29/24 23:59 12/29/24 23:34 110 MG Aspirin 81 mg DAILY PO 12/30/24 10:00 Diagnostic Test (Pha) 1 strip Q6HR 12/30/24 12:00 Insulin Human Regular Q6HR SC 12/30/24 12:00 Dextrose 50 ml UD PRN IV 12/30/24 06:30 Laboratory Results Laboratory Tests 12/30/24 03:24 Chemistry Test 12/30/24 03:24 Calcium Level 8.3 mg/dL (8.7-10.4) L Magnesium Level Pending Urinalysis Test 12/26/24 16:45 Urine Color Yellow (Yellow) Urine Clarity Turbid (Clear) H Urine pH 5.5 (5.0-9.0) Urine Specific [place] 1.025 (1.001-1.035) Urine Protein Trace (Negative) H Urine Ketones 1+ (Negative) H Urine Blood Negative /uL (Negative) Urine Nitrite Negative (Negative) Urine Bilirubin Negative (Negative) Urine Urobilinogen 4 mg/dL (Negative) H Urine Leukocyte Esterase Trace /uL (Negative) Urine RBC 1 /hpf (0 - 3) Urine Microscopic WBC 9 /HPF (0-3) H Urine Squamous Epithelial Cells Few /hpf (<5) Urine Bacteria None seen /hpf (None Seen) Urine Hyaline Casts Mod /lpf (0 - 2) Urine Mucus Moderate (None Seen) Urine Glucose 1+ mg/dL (Normal) H Blood Gas Results Test 12/29/24 07:53 12/30/24 06:02 Arterial Blood pH 7.471 (7.350-7.450) 7.550 (7.350-7.450) FiO2 % 30.0 30.0 Microbiology Microbiology Date/Time Source Procedure Growth Status 12/28/24 14:50 Nose MRSA Screen - Final Complete 12/26/24 16:45 Voided Urine Urine Culture - Final Complete 12/26/24 15:50 Sputum Gram Stain - Final Resulted 12/26/24 15:50 Sputum Respiratory Culture - Preliminary Resulted 12/26/24 15:29 Blood Blood Culture - Preliminary NO GROWTH AFTER 72 HOURS OF INCUBATION. Resulted Labs and/or images reviewed: Labs reviewed by me, Image(s) reviewed by me Assessment/Plan Assessment/Plan Impression: -acute hypoxic respiratory failure with mechanical ventilation -toxic metabolic encephalopathy with ETOH and benzodiazepines -history of CAD with previous CABG -history of alcoholism -diabetes mellitus -dyslipidemia -peripheral neuropathy Plan: Events: No events overnight. Patient beginning to have neurological signs with upper extremity movement, tachypnea. Fentanyl drip restarted. Patient does have persistent bradycardia with dopamine being weaned down. Increase residuals -continue tube feeding, add IV Reglan -IV fluids with potassium replacement -decrease PEEP to eight Cardiology consultation: Recommendations reviewed -continue thiamine, MVI -continue full-dose anticoagulation with Lovenox -regular insulin sliding scale -empiric antibiotic therapy -PUD, DVT prophylaxis -repeat labs, chest x-ray, ABG in a.m. Critical care time spent with patient discussing and formulating plan of care: 40 minutes. This does not include time spent performing procedures. This medical document was created using an electronic medical record system with [employer] dictation system. Although this document has been carefully reviewed, there may still be some phonetic and typographical errors. These areas are purely typographical due to imperfections of the software programs, and do not reflect any compromise in the patient's medical care. Plan discussed with: Patient, Other (RN) My Orders Orders - MARLENY MEDINA BRAIDER TENDER Procedure Category Date Status Time Basic Metabolic Panel LAB 12/31/24 Verified 05:00 Basic Metabolic Panel LAB 01/01/25 Verified 05:00 Complete Blood Count LAB 12/31/24 Verified 05:00 Complete Blood Count LAB 01/01/25 Verified 05:00 Chest Portable XY 12/30/24 Resulted 05:00 Chest Portable XY 12/31/24 Logged 05:00 Chest Portable XY 01/01/25 Logged 05:00 Abg W/ Co-Ox RT 12/30/24 Logged 05:00 Abg W/ Co-Ox RT 12/31/24 Logged 05:00 Abg W/ Co-Ox RT 01/01/25 Logged 05:00 Pantoprazole PHA 12/29/24 In Process (Protonix) 10:00 * Cardiology Consult CONS 12/29/24 Transmitted 09:44 Nutritional PHA 12/29/24 In Process Supplements (Glucerna 09:45 Magnesium LAB 12/30/24 In Process 06:23 Glucose Blood PHA 12/30/24 In Process (Accu-Chek Comfort 12:00 Insulin R (Human) PHA 12/30/24 In Process (Insulin R) 12:00 Dextrose 50% Syringe PHA 12/30/24 In Process 06:30 Ventilator Orders RT 12/30/24 Verified 06:36 Date of Service: December 30, 2024 Billing Provider: MARLENY MEDINA NP Common Visit Codes: [id number] CARE 30-74 MIN MARLENY MEDINA NP December 30, 2024 06:42
[2024-12-30] MEDS: SOD CHL 0.9%/ KCL 40MEQ 1,000 ML IV ONE (08:50)
[2024-12-30] MEDS: ASPirin 81 mg TAB PO SCH (08:52)
--- NOTE | 2024-12-30 11:00 | DVHPNRES ---
Progress Note Date Seen: December 30, 2024 Resident Creating Document: JEREMY OCONNOR RESDIENT Medical Necessity Reason Pt with a Central, PICC or Fol: Yes The following are medically ne: Central Line Subjective Review of Systems Patient seen and examined at the bedside. Patient is sedated and on mechanical ventilation. Patient reports: No new complaints Changes from previous H/P or p: No Changes Objective vital signs Vital Sign Date Time Temp Pulse Resp B/P (MAP) Pulse Ox O2 Delivery O2 Flow Rate FiO2 12/30/24 10:03 61 28 124/78 (93) 98 12/30/24 09:04 30 12/30/24 09:02 99.3 99.3 12/30/24 08:00 Mechanical Ventilator+ Total Intake and Output 12/29/24 12/29/24 12/30/24 15:00 23:00 07:00 Intake Total 641.024 ml 364.724 ml 92.112 ml Output Total 250 ml 225 ml Balance 641.024 ml 114.724 ml -132.888 ml medications Current Medications Medications Dose Ordered Sig/Lj Route Start Time Stop Time Status Last Admin Dose Admin Propofol 100 ml @ 2.85 mls/hr Q24H IV 12/26/24 15:15 12/30/24 00:46 2.85 MLS/HR Fentanyl Citrate 250 ml @ 2.5 mls/hr Q24H IV 12/26/24 15:15 12/28/24 12:05 10 MLS/HR Norepinephrine Bitartrate 250 ml @ 3.75 mls/hr Q24H IV 12/26/24 15:15 12/27/24 15:03 7.5 MLS/HR Thiamine HCl 100 mg DAILY IV 12/27/24 10:00 12/30/24 08:51 100 MG Folic Acid 1 mg/ Dextrose 50.2 ml @ 200.8 mls/ hr DAILY INJ 12/27/24 10:00 12/30/24 09:48 200.8 MLS/HR Multivitamins 1 tab DAILY NG 12/27/24 10:00 12/30/24 08:51 1 TAB Dextrose 50 ml UD PRN IV 12/26/24 16:45 Cancel Nitroglycerin 0.4 mg Q5MINP PRN SL 12/26/24 16:45 Morphine Sulfate 2 mg Q30M PRN IV 12/26/24 16:45 Acetaminophen 650 mg Q6HP PRN RI 12/26/24 17:00 12/29/24 00:35 650 MG Ceftriaxone Sodium 50 ml @ 100 mls/hr DAILY@09 IV 12/27/24 09:00 12/30/24 08:50 100 MLS/HR Epinephrine HCl 250 ml @ 7.5 mls/hr Q24H IV 12/28/24 14:15 12/28/24 14:44 37.5 MLS/HR Dopamine HCl/ Dextrose 250 ml @ 19.444 mls/ hr [id number] IV 12/28/24 15:15 12/29/24 14:44 7.778 MLS/HR Pantoprazole Sodium 40 mg BID IV 12/29/24 10:00 12/30/24 08:51 40 MG Enteral Nutritional Formula 1,000 ml 30ML/HR GT 12/29/24 09:45 12/30/24 00:52 1,000 ML Enoxaparin Sodium 110 mg Q12HR SC 12/29/24 23:59 12/30/24 08:52 110 MG Aspirin 81 mg DAILY PO 12/30/24 10:00 12/30/24 08:52 81 MG Diagnostic Test (Pha) 1 strip Q6HR 12/30/24 12:00 Insulin Human Regular Q6HR SC 12/30/24 12:00 Dextrose 50 ml UD PRN IV 12/30/24 06:30 Metoclopramide HCl 10 mg Q8HR IV 12/30/24 14:00 12/31/24 06:01 Examination General: RASS -4, afebrile, mucosae are moist Cardiovascular: Normal S1 and S2. No murmurs, gallops or rubs Respiratory: Mechanically assisted ventilation, sluggish bilateral pupil response. Clear lung sounds on auscultation Abdomen: Soft, nontender, no organomegaly, normal bowel sounds MSK/skin: Mobilization of limbs cannot be evaluated. Skin is dry and warm. Neurological: Orientation cannot be assessed. No apparent motor no sensitive deficits. Pupils are isocoric and has sluggish response to the light, gag reflex present laboratory and microbiology Laboratory Tests 12/30/24 03:24 Test 12/30/24 03:24 Range/Units Serum Glucose 203 #H 74-106 mg/dL Microbiology Date/Time Source Procedure Growth Status 12/28/24 14:50 Nose MRSA Screen - Final Complete 12/26/24 16:45 Voided Urine Urine Culture - Final Complete 12/26/24 15:50 Sputum Gram Stain - Final Complete 12/26/24 15:50 Sputum Respiratory Culture - Final Complete 12/26/24 15:29 Blood Blood Culture - Preliminary NO GROWTH AFTER 72 HOURS OF INCUBATION. Resulted Labs and/or images reviewed: Labs reviewed by me, Image(s) reviewed by me Problem List/Assessment/Plan Problem List/Assessment/Plan Acute toxic encephalopathy, likely due to alcohol intoxication/aspiration pneumonia Acute hypoxic respiratory failure, likely due to aspiration pneumonia/alcohol intoxication, on mechanical ventilation Status post cardiac arrest (PEA and VFib) ? Pulmonary emboli NSTEMI, likely type 2, due to above Left lower extremity DVT History of coronary artery disease (status post CABG) Hypertension Dyslipidemia Diabetes mellitus KADI, likely VMN Bipolar disorder Alcohol use disorder Obesity Nonadherence to medication * Echocardiogram shows hypokinetic, dilated right ventricle with doming of interventricular septum, suggestive of pressure overload * EKGs shows, ST depression and T-wave inversion at inferior leads * Trop I is raised at at 1100s * Ultrasound shows acute occlusive DVT in the calf extending to the popliteal and mid femoral vein Plan/Recommendation (Case discussed with Dr. Baker) * Considering patient's current clinical status, we recommend medical management, once patient's wake up we may perform mechanical thrombectomy/further cardiology workup * Continue therapeutic Lovenox and aspirin * Keep K above 4, and Mag above 2 * Rest of plan, per primary team Thank you for allowing us to participate in this patient's care. Please call if you have any questions or concerns. Plan discussed with: Patient, Other (RN) My Orders My Orders Orders - JEREMY OCONNOR RESDIHEATHER Procedure Category Date Status Time Aspirin Tablet PHA 12/30/24 In Process 10:00 Enoxaparin Sodium PHA 12/29/24 In Process (Lovenox) 23:59 Dietary Evaluation Review Comments: 1) TF Vital AF 1.2 Vasquez @ 75ml/hr x 24 hr (goal). Start @ 20ml/hr, increase 10ml/hr Q4H until goal rate is reached. TF at goal volume provides 100% energy & protein needs - 2160 kcal, 135 gm protein, 1460ml free water 2) Water flush 200ml Q6H if allowed 3) TPN if NPO>7 days 4) Monitor BW, lab values and skin integrity Expected Outcomes/Goals: To meet >75% estimated needs lab values to improve Fu 2-3 days Visit Coding Cardiology RES Date of Service: December 30, 2024 Billing Provider: BROOKLYN BAKER Sr., MD Cardiology Common Codes: [id number] INP/OBS CARE (High) JEREMY OCONNOR RESDIENT December 30, 2024 11:00
[2024-12-30] MEDS: ACCU-CHEK COMFORT CURVE STRIP VI SCH (11:24)
[2024-12-30] MEDS: InsuLIN REG 1unit/0.01ml Soln (100units/ml) SC SCH (11:25)
[2024-12-30] MEDS: MIDAZOLAM DRIP 50 mg/50mL 50 ML IV SCH (12:05)
[2024-12-30] MEDS: MIDAZOLAM DRIP 50 mg/50mL 50 ML IV ONE (12:05)
--- NOTE | 2024-12-30 12:27 | ECG ---
[facility] Test Date: 2024-12-28 Test Time: 13:23:04 Pat Name: MITZY MOORE Department: ER Room: [address] [place] [address] A Gender: M Data Services Developer: CRISTINE : 1970 Requested By: MARLENY MEDINA Order Number: [id number] Reading MD: Shahid Baker Measurements Intervals [place] Rate: 77 P: 0 CA: 0 QRS: 106 QRSD: 214 T: -65 QT: 470 QTc: 533 Interpretive Statements Complete AV block with wide QRS complex RBBB and LPFB Electronically Signed On 01-02-2025 11:40:47 PDT by Shahid Baker Please click the below link to view image of tracing.
[2024-12-30] MEDS: METOCLOPRAMIDE HCL 5MG/ml INJ 2ml VIAL IV SCH (14:39)
--- NOTE | 2024-12-30 15:11 | DVHPN2 ---
Progress Note - Dictate Date Seen: December 30, 2024 Medical Necessity Reason Pt with a Central, PICC or Fol: Yes The following are medically ne: Central Line vital signs Vital Sign Date Time Temp Pulse Resp B/P (MAP) Pulse Ox O2 Delivery O2 Flow Rate FiO2 12/30/24 14:44 128/75 12/30/24 14:18 55 16 99 12/30/24 14:03 99.3 99.3 12/30/24 14:00 30 12/30/24 14:00 Mechanical Ventilator+ Total Intake and Output 12/29/24 12/29/24 12/30/24 15:00 23:00 07:00 Intake Total 641.024 ml 364.724 ml 104.890 ml Output Total 250 ml 225 ml Balance 641.024 ml 114.724 ml -120.110 ml medications Current Medications Medications Dose Ordered Sig/Lj Route Start Time Stop Time Status Last Admin Dose Admin Propofol 100 ml @ 2.85 mls/hr Q24H IV 12/26/24 15:15 12/30/24 00:46 2.85 MLS/HR Fentanyl Citrate 250 ml @ 2.5 mls/hr Q24H IV 12/26/24 15:15 12/30/24 14:44 12.5 MLS/HR Norepinephrine Bitartrate 250 ml @ 3.75 mls/hr Q24H IV 12/26/24 15:15 12/27/24 15:03 7.5 MLS/HR Thiamine HCl 100 mg DAILY IV 12/27/24 10:00 12/30/24 08:51 100 MG Folic Acid 1 mg/ Dextrose 50.2 ml @ 200.8 mls/ hr DAILY INJ 12/27/24 10:00 12/30/24 09:48 200.8 MLS/HR Multivitamins 1 tab DAILY NG 12/27/24 10:00 12/30/24 08:51 1 TAB Dextrose 50 ml UD PRN IV 12/26/24 16:45 Cancel Nitroglycerin 0.4 mg Q5MINP PRN SL 12/26/24 16:45 Morphine Sulfate 2 mg Q30M PRN IV 12/26/24 16:45 Acetaminophen 650 mg Q6HP PRN OK 12/26/24 17:00 12/29/24 00:35 650 MG Ceftriaxone Sodium 50 ml @ 100 mls/hr DAILY@09 IV 12/27/24 09:00 12/30/24 08:50 100 MLS/HR Epinephrine HCl 250 ml @ 7.5 mls/hr Q24H IV 12/28/24 14:15 12/28/24 14:44 37.5 MLS/HR Dopamine HCl/ Dextrose 250 ml @ 19.444 mls/ hr [id number] IV 12/28/24 15:15 12/30/24 14:39 7.778 MLS/HR Pantoprazole Sodium 40 mg BID IV 12/29/24 10:00 12/30/24 08:51 40 MG Enteral Nutritional Formula 1,000 ml 30ML/HR GT 12/29/24 09:45 12/30/24 00:52 1,000 ML Enoxaparin Sodium 110 mg Q12HR SC 12/29/24 23:59 12/30/24 08:52 110 MG Aspirin 81 mg DAILY PO 12/30/24 10:00 12/30/24 08:52 81 MG Diagnostic Test (Pha) 1 strip Q6HR 12/30/24 12:00 12/30/24 11:24 1 STRIP Insulin Human Regular Q6HR SC 12/30/24 12:00 12/30/24 11:25 3 UNITS Dextrose 50 ml UD PRN IV 12/30/24 06:30 Metoclopramide HCl 10 mg Q8HR IV 12/30/24 14:00 12/31/24 06:01 12/30/24 14:39 10 MG Midazolam HCl 50 ml @ 1 mls/hr Q24H IV 12/30/24 12:15 12/30/24 12:05 1 MLS/HR laboratory and microbiology Laboratory Tests 12/30/24 03:24 Test 12/30/24 03:24 Range/Units Serum Glucose 203 #H 74-106 mg/dL Assessment/Plan Impression Acute hypoxemic respiratory failure Altered mental status Pneumonia Atelectasis Patient seen and examined in the ICU Events On mechanical ventilation S/p cardiac arrest PEEP 5, FiO2 30% Patient off sedation Beginning to wake up Labs and imaging reviewed Echo shows concern for PE CTA of the chest from 12/26 shows no evidence of clots Ultrasound of the lower extremities shows extensive DVT of LLE ABG reviewed Management Vent support Titrate to maintain sats 90% or above librium for withdrawal vitamins/banana bag Sedation holiday daily If patient follows commands, proceed to weaning trial Pressure support 02/11, extubate when ready Continue antibiotics F/u cultures Bronchodilators Monitor renal function Monitor electrolytes Supplement as needed Pressors as needed for hemodynamic support To maintain a mean arterial pressure of 65 mmHg Echo report reviewed Suggestive of PE F/u cardiology F/u cardiology Critical care time 35 minutes Dietary Evaluation Review Comments: 1) TF Vital AF 1.2 Vasquez @ 75ml/hr x 24 hr (goal). Start @ 20ml/hr, increase 10ml/hr Q4H until goal rate is reached. TF at goal volume provides 100% energy & protein needs - 2160 kcal, 135 gm protein, 1460ml free water 2) Water flush 200ml Q6H if allowed 3) TPN if NPO>7 days 4) Monitor BW, lab values and skin integrity Expected Outcomes/Goals: To meet >75% estimated needs lab values to improve Fu 2-3 days Plan discussed with: Other (Rn) AMANDO WHITE MD December 30, 2024 15:11
--- NOTE | 2024-12-30 17:08 | DVHSR ---
APPROVED REPORT EXAM: LIMITED Two-dimensional and M-mode echocardiogram with Doppler and color Doppler. Blood Pressure: 119/64 mmHg INDICATION S/P Cardiopulmonary Arrest RISK FACTORS Height: 6' 5", Weight: 300 DIMENSIONS LVDd3.9 (3.8-5.7cm)LA (2D)3.6 (1.9-4.0cm)Aortic Root3.7 (2.0-3.7cm) LVDs2.5 (2.5-4.0cm)LA (MM) (1.9-4.0cm)Aortic Cusp Exc1.3 (1.5-2.0cm) EF (%) 66.0 (55-70%)Rt. Atrium4.3 (1.9-4.0cm)Asc. Aorta cm IVSd1.5 (0.7-1.1cm)RV (D) (1.8-2.4cm) PWd1.0 (0.7-1.1cm) Mitral Valve MitralMitral Stenosis E wave0.40m/sMV Mean GR.mmHg A wave0.90m/sMV Peak GR.mmHg E/A ratio0.42D MVAcm2 Aortic Valve Aortic ValveAortic Stenosis V10.90m/Rene Mean GR.3mmHg V21.20m/Rene Peak GR.6mmHg LVOT Diameter2.2 (1.8-2.4cm)Doppler AVA2.85cm2 Pulmonic Valve V20.60m/s Tricuspid Valve TR Velocity2.60m/s [id number] Other Information Quality : Technically LimitedRhythm : Technically limited study due to body habitus, patient position and on vent. Conclusion Sinus rhythm. Concentric LVH with a right atrial enlargement. Dilation of the sinuses of Valsalva. Mild aortic sclerosis. EF of 60% with normal RV function. Doppler reveals no significant regurgitant jets No pericardial effusion masses or vegetations.
--- NOTE | 2024-12-30 22:53 | DVHPN2 ---
Consult Progress Note Subjective Other Systems: Patient was seen and evaluated in follow-up in the ICU. Patient is intubated and sedated on ventilator. FiO2 30%. K 3.3, CA 8.3. Chest x-ray is unchanged. Objective vital signs Vital Sign Date Time Temp Pulse Resp B/P (MAP) Pulse Ox O2 Delivery O2 Flow Rate FiO2 12/30/24 21:07 125/81 12/30/24 20:11 56 16 100 30 12/30/24 18:40 Mechanical Ventilator+ 12/30/24 16:03 99.0 99.0 Total Intake and Output 12/29/24 12/29/24 12/30/24 15:00 23:00 07:00 Intake Total 641.024 ml 364.724 ml 104.890 ml Output Total 250 ml 225 ml Balance 641.024 ml 114.724 ml -120.110 ml medications Current Medications Medications Dose Ordered Sig/Lj Route Start Time Stop Time Status Last Admin Dose Admin Propofol 100 ml @ 2.85 mls/hr Q24H IV 12/26/24 15:15 12/30/24 00:46 2.85 MLS/HR Fentanyl Citrate 250 ml @ 2.5 mls/hr Q24H IV 12/26/24 15:15 12/30/24 14:44 12.5 MLS/HR Norepinephrine Bitartrate 250 ml @ 3.75 mls/hr Q24H IV 12/26/24 15:15 12/27/24 15:03 7.5 MLS/HR Thiamine HCl 100 mg DAILY IV 12/27/24 10:00 12/30/24 08:51 100 MG Folic Acid 1 mg/ Dextrose 50.2 ml @ 200.8 mls/ hr DAILY INJ 12/27/24 10:00 12/30/24 09:48 200.8 MLS/HR Multivitamins 1 tab DAILY NG 12/27/24 10:00 12/30/24 08:51 1 TAB Dextrose 50 ml UD PRN IV 12/26/24 16:45 Cancel Nitroglycerin 0.4 mg Q5MINP PRN SL 12/26/24 16:45 Morphine Sulfate 2 mg Q30M PRN IV 12/26/24 16:45 Acetaminophen 650 mg Q6HP PRN CA 12/26/24 17:00 12/29/24 00:35 650 MG Ceftriaxone Sodium 50 ml @ 100 mls/hr DAILY@09 IV 12/27/24 09:00 12/30/24 08:50 100 MLS/HR Epinephrine HCl 250 ml @ 7.5 mls/hr Q24H IV 12/28/24 14:15 12/28/24 14:44 37.5 MLS/HR Dopamine HCl/ Dextrose 250 ml @ 19.444 mls/ hr [id number] IV 12/28/24 15:15 12/30/24 14:39 7.778 MLS/HR Pantoprazole Sodium 40 mg BID IV 12/29/24 10:00 12/30/24 08:51 40 MG Enteral Nutritional Formula 1,000 ml 30ML/HR GT 12/29/24 09:45 12/30/24 00:52 1,000 ML Enoxaparin Sodium 110 mg Q12HR SC 12/29/24 23:59 12/30/24 08:52 110 MG Aspirin 81 mg DAILY PO 12/30/24 10:00 12/30/24 08:52 81 MG Diagnostic Test (Pha) 1 strip Q6HR 12/30/24 12:00 12/30/24 17:50 1 STRIP Insulin Human Regular Q6HR SC 12/30/24 12:00 12/30/24 17:52 2 UNITS Dextrose 50 ml UD PRN IV 12/30/24 06:30 Metoclopramide HCl 10 mg Q8HR IV 12/30/24 14:00 12/31/24 06:01 12/30/24 14:39 10 MG Midazolam HCl 50 ml @ 1 mls/hr Q24H IV 12/30/24 12:15 12/30/24 19:39 3 MLS/HR Examination: GENERAL:Abnormal (Intubated ), HEENT:Normal, LUNGS:Normal, ABDOMEN:Normal, SKIN:Normal, NEURO:Abnormal (Sedated ) laboratory and microbiology Laboratory Tests 12/30/24 03:24 Test 12/30/24 03:24 Range/Units Serum Glucose 203 #H 74-106 mg/dL Problem List/Assessment/Plan Problem List/Assessment/Plan Problem List/Assessment/Plan Acute toxic encephalopathy, likely due to alcohol intoxication/aspiration pneumonia. Acute hypoxic respiratory failure, likely due to aspiration pneumonia/alcohol intoxication, on mechanical ventilation. Status post cardiac arrest (PEA and VFib). ? Pulmonary emboli. NSTEMI, likely type 2, due to above. Left lower extremity DVT. History of coronary artery disease (status post CABG). Hypertension. Dyslipidemia. Diabetes mellitus. KADI, likely VMN. Bipolar disorder. Alcohol use disorder. Obesity. Nonadherence to medication. Plan/Recommendation Continued all current supportive medical care. Patient has been seen by Sissy Gottliebmiguel Resident, we have discussed the plan with the patient. Echocardiogram shows hypokinetic, dilated right ventricle with doming of interventricular septum, suggestive of pressure overload. EKGs shows, ST depression and T-wave inversion at inferior leads. Trop I is raised at at 1100s. Ultrasound shows acute occlusive DVT in the calf extending to the popliteal and mid femoral vein. Considering patient's current clinical status, we recommend medical management, once patient's wake up we may perform mechanical thrombectomy/further cardiology workup. Continue therapeutic Lovenox and aspirin. Keep K above 4, and Mag above 2. Rest of plan, per primary team . Additional plan as per the hospital course. Plan discussed with: Other Dietary Evaluation Review Comments: 1) TF Vital AF 1.2 Vasquez @ 75ml/hr x 24 hr (goal). Start @ 20ml/hr, increase 10ml/hr Q4H until goal rate is reached. TF at goal volume provides 100% energy & protein needs - 2160 kcal, 135 gm protein, 1460ml free water 2) Water flush 200ml Q6H if allowed 3) TPN if NPO>7 days 4) Monitor BW, lab values and skin integrity Expected Outcomes/Goals: To meet >75% estimated needs lab values to improve Fu 2-3 days Date of Service: December 30, 2024 Billing Provider: AMBER JACKSON MD Cardiology Common Codes: [id number] HOSPITAL CARE AMBER JACKSON MD December 30, 2024 21:47
[2024-12-31] VITALS (119 sets, daily range): BP systolic 81–168; BP diastolic 46–104; PULSE 51–104; RESP 11–25; TEMP 98–99.2; O2SAT 92–100
[2024-12-31 03:53] LABS: Basophils # (auto) 0 10 ^3/uL (0-0.2); Basophils % (auto) 0.6 % (0.0-2.0); Eosinophils # (auto) 0.3 10 ^3/uL (0-0.8); Eosinophils % (auto) 4.1 % (0.0-7.0); Hematocrit 43.9 % (41.0-53.0); Hemoglobin 14.7 g/dL (13.5-17.5); Lymphocytes % (auto) 25.8 % (10.0-50.0); Mean Corpuscular Hemoglobin 30.5 pg (28.0-32.0); Mean Corpuscular Hgb Conc. 33.5 g/dL (32.0-36.0); Mean Corpuscular Volume 91.1 fL (80.0-100.0); Monocytes # (auto) 0.5 10 ^3/uL (0-1.3); Monocytes % (auto) 6.9 % (0.0-12.0); Neutrophils # (auto) 4.9 10 ^3/uL (1.6-8.6); Neutrophils % (auto) 62.6 % (37.0-80.0); Nucleated Red Blood Cells % 0.1 %; Platelet Count (auto) 130 10^3/uL (140-450); Red Blood Cells 4.82 10^6/uL (4.5-5.90); Red Cell Distribution Width 16.3 % (11.8-14.3); White Blood Cell 7.9 10^3/uL (4.4-10.8)
[2024-12-31 04:07] LABS: Anion Gap 7 (5-15); Carbon Dioxide 30 mmol/L (20-31); Chloride 106 mmol/L (98-107); Potassium 3.4 mmol/L (3.5-5.1); Sodium 143 mmol/L (136-145)
[2024-12-31 04:09] LABS: Calcium 8.6 mg/dL (8.7-10.4)
[2024-12-31 04:13] LABS: BUN/Creatinine Ratio 17.5 (10.0-20.0); Blood Urea Nitrogen 10 mg/dL (9-23)
[2024-12-31 04:17] LABS: Glucose 138 mg/dL (74-106); Magnesium 1.4 mg/dL (1.6-2.6)
[2024-12-31] MEDS: MAGNESIUM SULFATE 1GM/100ML 100 ML IV ONE ×2 (05:43→14:54)
[2024-12-31] MEDS: POTASSIUM CHL 20MEQ/100ML 100 ML IV ONE (05:43)
--- NOTE | 2024-12-31 06:06 | DVH ---
EXAM: XY CHEST PORTABLE Indication: chf Technique: Single frontal view of the chest was obtained Comparison: XY CHEST PORTABLE on DOS: 12/30/24, XY CHEST PORTABLE on DOS: 12/29/24, XY CHEST XRAY 1 VIE W on DOS: 12/28/24, XY CHEST PORTABLE on DOS: 12/28/24, XY CHEST PORTABLE on DOS: 12/26/24 FINDINGS: Lines and Tubes: Lines and tubes are unchanged. Lungs: Slight worsening in pulmonary edema. Pleura: No effusion. No pneumothorax. Cardiomediastinal contours: Cardiomegaly. Bones: No acute osseous abnormality. IMPRESSION: Slight worsening of pulmonary edema compared to prior exam.
[2024-12-31 07:35] LABS: Base Excess -0.1 mmol/L (-2.0-3.0)
[2024-12-31] MEDS: POTASSIUM CHL 20MEQ/100ML 100 ML IV SCH (10:59)
--- NOTE | 2024-12-31 11:00 | ECG ---
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
--- NOTE | 2024-12-31 11:01 | ECG ---
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
--- NOTE | 2024-12-31 11:27 | DVHPN2 ---
Subjective INTUBATED AND SEDATED Reviewed: Care Plan, H&P, Medications, Previous Orders, Radiology, Other (Consultants) Changes from previous H/P or p: No Changes General: Per HPI Objective Vitals Vital Signs Date Time Temp Pulse Resp B/P (MAP) Pulse Ox O2 Delivery O2 Flow Rate FiO2 12/31/24 11:03 68 16 86/53 (64) 96 12/31/24 09:57 Mechanical Ventilator+ 30 30 12/31/24 08:03 98.8 98.8 Intake/Output Intake and Output 12/31/24 07:00 Intake Total 2419.492 ml Output Total 1275 ml Balance 1144.492 ml Intake Oral 110 ml IV Total 2062.492 ml Tube Feeding 247 ml Output Urine Total 1275 ml General Appearance: Other (Intubated and sedated) HEENT: Atraumatic, Other (Pupils equal round reactive to light) Lungs: Other (Few crackles bilateral lungs with good air entry) Cardiovascular: Regular rate Abdomen: Soft Medications Current Medications Medications Dose Ordered Sig/Lj Route Start Time Stop Time Status Last Admin Dose Admin Propofol 100 ml @ 2.85 mls/hr Q24H IV 12/26/24 15:15 12/31/24 10:25 2.85 MLS/HR Fentanyl Citrate 250 ml @ 2.5 mls/hr Q24H IV 12/26/24 15:15 12/31/24 05:44 17.5 MLS/HR Norepinephrine Bitartrate 250 ml @ 3.75 mls/hr Q24H IV 12/26/24 15:15 12/27/24 15:03 7.5 MLS/HR Thiamine HCl 100 mg DAILY IV 12/27/24 10:00 12/31/24 09:12 100 MG Folic Acid 1 mg/ Dextrose 50.2 ml @ 200.8 mls/ hr DAILY INJ 12/27/24 10:00 12/31/24 10:30 200.8 MLS/HR Multivitamins 1 tab DAILY NG 12/27/24 10:00 12/31/24 09:11 1 TAB Dextrose 50 ml UD PRN IV 12/26/24 16:45 Cancel Nitroglycerin 0.4 mg Q5MINP PRN SL 12/26/24 16:45 Morphine Sulfate 2 mg Q30M PRN IV 12/26/24 16:45 Acetaminophen 650 mg Q6HP PRN WA 12/26/24 17:00 12/29/24 00:35 650 MG Ceftriaxone Sodium 50 ml @ 100 mls/hr DAILY@09 IV 12/27/24 09:00 12/31/24 09:11 100 MLS/HR Epinephrine HCl 250 ml @ 7.5 mls/hr Q24H IV 12/28/24 14:15 12/28/24 14:44 37.5 MLS/HR Dopamine HCl/ Dextrose 250 ml @ 19.444 mls/ hr [id number] IV 12/28/24 15:15 12/30/24 14:39 7.778 MLS/HR Pantoprazole Sodium 40 mg BID IV 12/29/24 10:00 12/31/24 09:11 40 MG Enteral Nutritional Formula 1,000 ml 30ML/HR GT 12/29/24 09:45 12/30/24 00:52 1,000 ML Enoxaparin Sodium 110 mg Q12HR SC 12/29/24 23:59 12/31/24 09:11 110 MG Aspirin 81 mg DAILY PO 12/30/24 10:00 12/31/24 09:12 81 MG Diagnostic Test (Pha) 1 strip Q6HR 12/30/24 12:00 12/31/24 06:04 1 STRIP Insulin Human Regular Q6HR SC 12/30/24 12:00 12/31/24 06:04 2 UNITS Dextrose 50 ml UD PRN IV 12/30/24 06:30 Midazolam HCl 50 ml @ 1 mls/hr Q24H IV 12/30/24 12:15 12/31/24 07:28 5 MLS/HR Potassium Chloride 100 ml @ 50 mls/hr Q2H IV 12/31/24 10:15 12/31/24 14:14 12/31/24 10:59 50 MLS/HR Laboratory Results Laboratory Tests 12/31/24 03:02 Chemistry Test 12/31/24 03:02 Calcium Level 8.6 mg/dL (8.7-10.4) L Magnesium Level 1.4 mg/dL (1.6-2.6) L Urinalysis Test 12/26/24 16:45 Urine Color Yellow (Yellow) Urine Clarity Turbid (Clear) H Urine pH 5.5 (5.0-9.0) Urine Specific [place] 1.025 (1.001-1.035) Urine Protein Trace (Negative) H Urine Ketones 1+ (Negative) H Urine Blood Negative /uL (Negative) Urine Nitrite Negative (Negative) Urine Bilirubin Negative (Negative) Urine Urobilinogen 4 mg/dL (Negative) H Urine Leukocyte Esterase Trace /uL (Negative) Urine RBC 1 /hpf (0 - 3) Urine Microscopic WBC 9 /HPF (0-3) H Urine Squamous Epithelial Cells Few /hpf (<5) Urine Bacteria None seen /hpf (None Seen) Urine Hyaline Casts Mod /lpf (0 - 2) Urine Mucus Moderate (None Seen) Urine Glucose 1+ mg/dL (Normal) H Blood Gas Results Test 12/31/24 07:15 Arterial Blood pH 7.396 (7.350-7.450) FiO2 % 40.0 Microbiology Microbiology Date/Time Source Procedure Growth Status 12/28/24 14:50 Nose MRSA Screen - Final Complete 12/26/24 16:45 Voided Urine Urine Culture - Final Complete 12/26/24 15:50 Sputum Gram Stain - Final Complete 12/26/24 15:50 Sputum Respiratory Culture - Final Complete 12/26/24 15:29 Blood Blood Culture - Preliminary NO GROWTH AFTER 72 HOURS OF INCUBATION. Resulted Assessment/Plan Assessment/Plan Acute respiratory failure /pulmonary edema Altered level of consciousness Coronary artery disease and history of CABG Peripheral neuropathy Diabetes Dyslipidemia Hypokalemia Thrombocytopenia History of cannabinoid and alcohol and benzodiazepine use Plan: Replace potassium. Repeat chest x-ray and ABG. Monitor blood pressure and heart rate. Oxygenation. Further plan per orders. Total critical care time 40 minutes Plan discussed with: Other (Nursing) My Orders Orders - JEFFRY BERMUDEZ MD Procedure Category Date Status Time Chest Portable XY 01/01/25 Logged 06:00 Abg W/ Co-Ox RT 01/01/25 Logged 06:00 Potassium Chl PHA 12/31/24 In Process 20meq/100ml 10:15 Date of Service: December 31, 2024 Billing Provider: JEFFRY BERMUDEZ MD Common Visit Codes: [id number] CARE 30-74 MIN JEFFRY BERMUDEZ MD December 31, 2024 11:27
[2024-12-31 12:41] LABS: Potassium 4.2 mmol/L (3.5-5.1)
[2024-12-31 12:49] LABS: Magnesium 1.6 mg/dL (1.6-2.6)
--- NOTE | 2024-12-31 14:39 | DVHPN2 ---
Consult Progress Note Date Seen: December 31, 2024 Subjective Other Systems: No overnight cardiac events reported Objective vital signs Vital Sign Date Time Temp Pulse Resp B/P (MAP) Pulse Ox O2 Delivery O2 Flow Rate FiO2 12/31/24 14:30 85/64 12/31/24 12:48 75 16 97 12/31/24 12:36 30 12/31/24 12:03 98.7 98.7 12/31/24 12:00 Mechanical Ventilator+ Total Intake and Output 12/30/24 12/30/24 12/31/24 15:00 23:00 07:00 Intake Total 994.024 ml 980.224 ml 445.244 ml Output Total 650 ml 625 ml Balance 994.024 ml 330.224 ml -179.756 ml medications Current Medications Medications Dose Ordered Sig/Lj Route Start Time Stop Time Status Last Admin Dose Admin Propofol 100 ml @ 2.85 mls/hr Q24H IV 12/26/24 15:15 12/31/24 10:25 2.85 MLS/HR Fentanyl Citrate 250 ml @ 2.5 mls/hr Q24H IV 12/26/24 15:15 12/31/24 05:44 17.5 MLS/HR Norepinephrine Bitartrate 250 ml @ 3.75 mls/hr Q24H IV 12/26/24 15:15 12/31/24 14:30 3.75 MLS/HR Thiamine HCl 100 mg DAILY IV 12/27/24 10:00 12/31/24 09:12 100 MG Folic Acid 1 mg/ Dextrose 50.2 ml @ 200.8 mls/ hr DAILY INJ 12/27/24 10:00 12/31/24 10:30 200.8 MLS/HR Multivitamins 1 tab DAILY NG 12/27/24 10:00 12/31/24 09:11 1 TAB Dextrose 50 ml UD PRN IV 12/26/24 16:45 Cancel Nitroglycerin 0.4 mg Q5MINP PRN SL 12/26/24 16:45 Morphine Sulfate 2 mg Q30M PRN IV 12/26/24 16:45 Acetaminophen 650 mg Q6HP PRN [place] 12/26/24 17:00 12/29/24 00:35 650 MG Ceftriaxone Sodium 50 ml @ 100 mls/hr DAILY@09 IV 12/27/24 09:00 12/31/24 09:11 100 MLS/HR Epinephrine HCl 250 ml @ 7.5 mls/hr Q24H IV 12/28/24 14:15 12/28/24 14:44 37.5 MLS/HR Dopamine HCl/ Dextrose 250 ml @ 19.444 mls/ hr [id number] IV 12/28/24 15:15 12/30/24 14:39 7.778 MLS/HR Pantoprazole Sodium 40 mg BID IV 12/29/24 10:00 12/31/24 09:11 40 MG Enteral Nutritional Formula 1,000 ml 30ML/HR GT 12/29/24 09:45 12/30/24 00:52 1,000 ML Enoxaparin Sodium 110 mg Q12HR SC 12/29/24 23:59 12/31/24 09:11 110 MG Aspirin 81 mg DAILY PO 12/30/24 10:00 12/31/24 09:12 81 MG Diagnostic Test (Pha) 1 strip Q6HR 12/30/24 12:00 12/31/24 11:54 1 STRIP Insulin Human Regular Q6HR SC 12/30/24 12:00 12/31/24 06:04 2 UNITS Dextrose 50 ml UD PRN IV 12/30/24 06:30 Midazolam HCl 50 ml @ 1 mls/hr Q24H IV 12/30/24 12:15 12/31/24 07:28 5 MLS/HR Examination: GENERAL:Abnormal, LUNGS:Abnormal (Endotracheally intubated 30% FiO2 ), CVS:Abnormal (NSR. On dual low-dose vasopressor), NEURO:Abnormal (Chemically sedated) laboratory and microbiology Laboratory Tests 12/31/24 12:28 12/31/24 03:02 Test 12/31/24 03:02 Range/Units Serum Glucose 138 H 74-106 mg/dL Problem List/Assessment/Plan Problem List/Assessment/Plan Acute toxic encephalopathy, likely due to alcohol intoxication/benzodiazepines/aspiration pneumonia Acute hypoxic respiratory failure, likely due to aspiration pneumonia/alcohol intoxication, on mechanical ventilation Status post cardiac arrest (PEA and VFib) Extendive left lower extremity DVT Pulmonary emboli ruled out NSTEMI, likely type 2, due to above History of coronary artery disease (status post CABG) Hypertension Dyslipidemia Diabetes mellitus KADI, likely VMN Bipolar disorder Alcohol use disorder Obesity Nonadherence to medication * Echocardiogram shows hypokinetic, dilated right ventricle with doming of interventricular septum, suggestive of pressure overload * EKGs shows, ST depression and T-wave inversion at inferior leads * Trop I is raised at at 1100s * Ultrasound shows acute occlusive DVT in the calf extending to the popliteal and mid femoral vein Plan/Recommendation (Dr. Baker) * Considering patient's current clinical status, we recommend medical management, once patient's wake up we may perform mechanical thrombectomy/further cardiology workup. * Continue therapeutic Lovenox and aspirin * Continue dopamine drip for HR support * Keep K above 4, and Mag above 2 * Rest of plan, per primary team Please call once patient's status stable for invasive cardiac intervention if necessary. Thank you for allowing us to participate in this patient's care. Critical care time: 30 min. This medical document was created using an electronic medical record system with voice recognition software and computerized dictation system. Although this document has been carefully reviewed, there might still be some phonetic and typographical errors. Occasional wrong-word or ``sound-alike substitutions may have occurred due to the inherent limitations of voice recognition software. These areas are purely typographical due to imperfections of the software programs and do not reflect any compromise in the patient's medical care. Please read the chart carefully and recognize, using context, where these substitutions have occurred. Plan discussed with: Other Dietary Evaluation Review Comments: 1) TF Vital AF 1.2 Vasquez @ 75ml/hr x 24 hr (goal). Start @ 20ml/hr, increase 10ml/hr Q4H until goal rate is reached. TF at goal volume provides 100% energy & protein needs - 2160 kcal, 135 gm protein, 1460ml free water 2) Water flush 200ml Q6H if allowed 3) TPN if NPO>7 days 4) Monitor BW, lab values and skin integrity Expected Outcomes/Goals: To meet >75% estimated needs lab values to improve Fu 2-3 days Date of Service: December 31, 2024 Billing Provider: CAROL GONZALEZ Cardiology Common Codes: [id number] CARE 30-74 MIN CAROL GONZALEZ December 31, 2024 14:39
--- NOTE | 2024-12-31 17:22 | DVHPN2 ---
Progress Note - Dictate Date Seen: December 31, 2024 Medical Necessity Reason Pt with a Central, PICC or Fol: Yes The following are medically ne: Central Line vital signs Vital Sign Date Time Temp Pulse Resp B/P (MAP) Pulse Ox O2 Delivery O2 Flow Rate FiO2 12/31/24 16:29 73 16 93/51 (65) 98 30 12/31/24 16:03 98.7 98.7 12/31/24 16:00 Mechanical Ventilator+ Total Intake and Output 12/30/24 12/30/24 12/31/24 15:00 23:00 07:00 Intake Total 994.024 ml 980.224 ml 445.244 ml Output Total 650 ml 625 ml Balance 994.024 ml 330.224 ml -179.756 ml medications Current Medications Medications Dose Ordered Sig/Lj Route Start Time Stop Time Status Last Admin Dose Admin Propofol 100 ml @ 2.85 mls/hr Q24H IV 12/26/24 15:15 12/31/24 10:25 2.85 MLS/HR Fentanyl Citrate 250 ml @ 2.5 mls/hr Q24H IV 12/26/24 15:15 12/31/24 05:44 17.5 MLS/HR Norepinephrine Bitartrate 250 ml @ 3.75 mls/hr Q24H IV 12/26/24 15:15 12/31/24 14:30 3.75 MLS/HR Thiamine HCl 100 mg DAILY IV 12/27/24 10:00 12/31/24 09:12 100 MG Folic Acid 1 mg/ Dextrose 50.2 ml @ 200.8 mls/ hr DAILY INJ 12/27/24 10:00 12/31/24 10:30 200.8 MLS/HR Multivitamins 1 tab DAILY NG 12/27/24 10:00 12/31/24 09:11 1 TAB Dextrose 50 ml UD PRN IV 12/26/24 16:45 Cancel Nitroglycerin 0.4 mg Q5MINP PRN SL 12/26/24 16:45 Morphine Sulfate 2 mg Q30M PRN IV 12/26/24 16:45 Acetaminophen 650 mg Q6HP PRN ME 12/26/24 17:00 12/29/24 00:35 650 MG Ceftriaxone Sodium 50 ml @ 100 mls/hr DAILY@09 IV 12/27/24 09:00 12/31/24 09:11 100 MLS/HR Epinephrine HCl 250 ml @ 7.5 mls/hr Q24H IV 12/28/24 14:15 12/28/24 14:44 37.5 MLS/HR Dopamine HCl/ Dextrose 250 ml @ 19.444 mls/ hr [id number] IV 12/28/24 15:15 12/30/24 14:39 7.778 MLS/HR Pantoprazole Sodium 40 mg BID IV 12/29/24 10:00 12/31/24 09:11 40 MG Enteral Nutritional Formula 1,000 ml 30ML/HR GT 12/29/24 09:45 12/30/24 00:52 1,000 ML Enoxaparin Sodium 110 mg Q12HR SC 12/29/24 23:59 12/31/24 09:11 110 MG Aspirin 81 mg DAILY PO 12/30/24 10:00 12/31/24 09:12 81 MG Diagnostic Test (Pha) 1 strip Q6HR 12/30/24 12:00 12/31/24 11:54 1 STRIP Insulin Human Regular Q6HR SC 12/30/24 12:00 12/31/24 06:04 2 UNITS Dextrose 50 ml UD PRN IV 12/30/24 06:30 Midazolam HCl 50 ml @ 1 mls/hr Q24H IV 12/30/24 12:15 12/31/24 07:28 5 MLS/HR laboratory and microbiology Laboratory Tests 12/31/24 12:28 12/31/24 03:02 Test 12/31/24 03:02 Range/Units Serum Glucose 138 H 74-106 mg/dL Assessment/Plan Impression Acute hypoxemic respiratory failure Altered mental status Pneumonia Atelectasis Patient seen and examined in the ICU Events On mechanical ventilation S/p cardiac arrest PEEP 5, FiO2 30% Off sedation since yesterday Concern raised for anoxic brain injury Labs and imaging reviewed Echo shows concern for PE CTA of the chest from 12/26 shows no evidence of clots Ultrasound of the lower extremities shows extensive DVT of LLE ABG reviewed Management Vent support Titrate to maintain sats 90% or above librium for withdrawal vitamins/banana bag When patient is more awake, proceed to weaning trial Pressure support 02/11, extubate when ready Continue antibiotics F/u cultures Bronchodilators Monitor renal function Monitor electrolytes Supplement as needed Pressors as needed for hemodynamic support To maintain a mean arterial pressure of 65 mmHg Echo report reviewed Suggestive of PE F/u cardiology F/u cardiology Critical care time 35 minutes Dietary Evaluation Review Comments: 1) TF Vital AF 1.2 Vasquez @ 75ml/hr x 24 hr (goal). Start @ 20ml/hr, increase 10ml/hr Q4H until goal rate is reached. TF at goal volume provides 100% energy & protein needs - 2160 kcal, 135 gm protein, 1460ml free water 2) Water flush 200ml Q6H if allowed 3) TPN if NPO>7 days 4) Monitor BW, lab values and skin integrity Expected Outcomes/Goals: To meet >75% estimated needs lab values to improve Fu 2-3 days Plan discussed with: Other (Rn) AMANDO WHITE MD December 31, 2024 17:22
[2025-01-01] VITALS (114 sets, daily range): BP systolic 89–183; BP diastolic 48–100; PULSE 49–84; RESP 0–55; TEMP 96.3–99.3; O2SAT 89–100
[2025-01-01 03:51] LABS: Anion Gap 7 (5-15); Carbon Dioxide 29 mmol/L (20-31); Chloride 104 mmol/L (98-107); Potassium 3.7 mmol/L (3.5-5.1); Sodium 140 mmol/L (136-145)
[2025-01-01 03:57] LABS: BUN/Creatinine Ratio 14.8 (10.0-20.0)
[2025-01-01 03:58] LABS: Magnesium 1.7 mg/dL (1.6-2.6)
[2025-01-01 04:02] LABS: Basophils # (auto) 0 10 ^3/uL (0-0.2); Basophils % (auto) 0.6 % (0.0-2.0); Eosinophils # (auto) 0.5 10 ^3/uL (0-0.8); Hematocrit 42.4 % (41.0-53.0); Hemoglobin 14.2 g/dL (13.5-17.5); Lymphocytes # (auto) 1.9 10 ^3/uL (0.4-5.4); Lymphocytes % (auto) 26.9 % (10.0-50.0); Mean Corpuscular Hemoglobin 30.6 pg (28.0-32.0); Mean Corpuscular Hgb Conc. 33.4 g/dL (32.0-36.0); Mean Corpuscular Volume 91.4 fL (80.0-100.0); Monocytes # (auto) 0.5 10 ^3/uL (0-1.3); Monocytes % (auto) 6.7 % (0.0-12.0); Neutrophils # (auto) 4.1 10 ^3/uL (1.6-8.6); Neutrophils % (auto) 58.8 % (37.0-80.0); Platelet Count (auto) 137 10^3/uL (140-450); Red Blood Cells 4.64 10^6/uL (4.5-5.90); Red Cell Distribution Width 15.5 % (11.8-14.3)
[2025-01-01 04:27] LABS: Blood Urea Nitrogen 9 mg/dL (9-23); Calcium 8.3 mg/dL (8.7-10.4); Glucose 119 mg/dL (74-106)
[2025-01-01] MEDS: MAGNESIUM SULFATE 1GM/100ML 100 ML IV ONE (05:52)
--- NOTE | 2025-01-01 07:05 | DVH ---
INDICATION: fu TECHNIQUE: Single frontal view of the chest was obtained COMPARISON: XY CHEST PORTABLE on DOS: 12/31/24, XY CHEST PORTABLE on DOS: 12/30/24, XY CHEST PORTABLE o n DOS: 12/29/24, XY CHEST XRAY 1 VIEW on DOS: 12/28/24, XY CHEST PORTABLE on DOS: 12/28/24, XY CHEST POR TABLE on DOS: 12/31/24 FINDINGS: Lines and Tubes: Lines and tubes are unchanged. Lungs: Slight worsening in pulmonary edema. Pleura: No effusion. No pneumothorax. Cardiomediastinal contours: Cardiomegaly. Bones: No acute osseous abnormality. IMPRESSION: Slight worsening of pulmonary edema compared to prior exam.
[2025-01-01 07:21] LABS: Base Excess -1.8 mmol/L (-2.0-3.0)
--- NOTE | 2025-01-01 09:26 | DVHPN2 ---
Subjective INTUBATED AND SEDATED Reviewed: Care Plan, H&P, Medications, Previous Orders, Radiology, Other (Consultants) Changes from previous H/P or p: No Changes General: Per HPI Objective Vitals Vital Signs Date Time Temp Pulse Resp B/P (MAP) Pulse Ox O2 Delivery O2 Flow Rate FiO2 01/01/25 08:20 60 20 116/70 (85) 98 30 01/01/25 08:00 99.3 210.7 01/01/25 07:30 Mechanical Ventilator+ Intake/Output Intake and Output 01/01/25 07:00 Intake Total 1109.844 ml Output Total 800 ml Balance 309.844 ml Intake Oral 110 ml IV Total 921.844 ml Tube Feeding 78 ml Output Urine Total 800 ml General Appearance: Other (Intubated and sedated) HEENT: Atraumatic, Other (Pupils equal round reactive to light) Lungs: Other (Few crackles bilateral lungs with good air entry) Cardiovascular: Regular rate Abdomen: Soft Medications Current Medications Medications Dose Ordered Sig/Lj Route Start Time Stop Time Status Last Admin Dose Admin Propofol 100 ml @ 2.85 mls/hr Q24H IV 12/26/24 15:15 01/01/25 01:50 2.85 MLS/HR Fentanyl Citrate 250 ml @ 2.5 mls/hr Q24H IV 12/26/24 15:15 01/01/25 03:05 25 MLS/HR Norepinephrine Bitartrate 250 ml @ 3.75 mls/hr Q24H IV 12/26/24 15:15 12/31/24 14:30 3.75 MLS/HR Thiamine HCl 100 mg DAILY IV 12/27/24 10:00 12/31/24 09:12 100 MG Folic Acid 1 mg/ Dextrose 50.2 ml @ 200.8 mls/ hr DAILY INJ 12/27/24 10:00 12/31/24 10:30 200.8 MLS/HR Multivitamins 1 tab DAILY NG 12/27/24 10:00 12/31/24 09:11 1 TAB Dextrose 50 ml UD PRN IV 12/26/24 16:45 Cancel Nitroglycerin 0.4 mg Q5MINP PRN SL 12/26/24 16:45 Morphine Sulfate 2 mg Q30M PRN IV 12/26/24 16:45 Acetaminophen 650 mg Q6HP PRN RI 12/26/24 17:00 12/29/24 00:35 650 MG Ceftriaxone Sodium 50 ml @ 100 mls/hr DAILY@09 IV 12/27/24 09:00 12/31/24 09:11 100 MLS/HR Epinephrine HCl 250 ml @ 7.5 mls/hr Q24H IV 12/28/24 14:15 12/28/24 14:44 37.5 MLS/HR Dopamine HCl/ Dextrose 250 ml @ 19.444 mls/ hr [id number] IV 12/28/24 15:15 01/01/25 00:47 7.778 MLS/HR Pantoprazole Sodium 40 mg BID IV 12/29/24 10:00 12/31/24 22:02 40 MG Enteral Nutritional Formula 1,000 ml 30ML/HR GT 12/29/24 09:45 12/30/24 00:52 1,000 ML Enoxaparin Sodium 110 mg Q12HR SC 12/29/24 23:59 12/31/24 22:03 110 MG Aspirin 81 mg DAILY PO 12/30/24 10:00 12/31/24 09:12 81 MG Diagnostic Test (Pha) 1 strip Q6HR 12/30/24 12:00 01/01/25 05:52 1 STRIP Insulin Human Regular Q6HR SC 12/30/24 12:00 12/31/24 17:27 2 UNITS Dextrose 50 ml UD PRN IV 12/30/24 06:30 Midazolam HCl 50 ml @ 1 mls/hr Q24H IV 12/30/24 12:15 12/31/24 07:28 5 MLS/HR Potassium Chloride 100 ml @ 50 mls/hr Q2H IV 01/01/25 08:30 01/01/25 12:29 Laboratory Results Laboratory Tests 01/01/25 03:05 Chemistry Test 12/31/24 12:28 01/01/25 03:05 Magnesium Level 1.6 mg/dL (1.6-2.6) 1.7 mg/dL (1.6-2.6) Calcium Level 8.3 mg/dL (8.7-10.4) L Urinalysis Test 12/26/24 16:45 Urine Color Yellow (Yellow) Urine Clarity Turbid (Clear) H Urine pH 5.5 (5.0-9.0) Urine Specific [place] 1.025 (1.001-1.035) Urine Protein Trace (Negative) H Urine Ketones 1+ (Negative) H Urine Blood Negative /uL (Negative) Urine Nitrite Negative (Negative) Urine Bilirubin Negative (Negative) Urine Urobilinogen 4 mg/dL (Negative) H Urine Leukocyte Esterase Trace /uL (Negative) Urine RBC 1 /hpf (0 - 3) Urine Microscopic WBC 9 /HPF (0-3) H Urine Squamous Epithelial Cells Few /hpf (<5) Urine Bacteria None seen /hpf (None Seen) Urine Hyaline Casts Mod /lpf (0 - 2) Urine Mucus Moderate (None Seen) Urine Glucose 1+ mg/dL (Normal) H Blood Gas Results Test 01/01/25 07:10 Arterial Blood pH 7.331 (7.350-7.450) FiO2 % 30.0 Microbiology Microbiology Date/Time Source Procedure Growth Status 12/28/24 14:50 Nose MRSA Screen - Final Complete 12/26/24 16:45 Voided Urine Urine Culture - Final Complete 12/26/24 15:50 Sputum Gram Stain - Final Complete 12/26/24 15:50 Sputum Respiratory Culture - Final Complete 12/26/24 15:29 Blood Blood Culture - Final NO GROWTH AFTER 5 DAYS OF INCUBATION. Complete Assessment/Plan Assessment/Plan Acute respiratory failure /worsening pulmonary edema Altered level of consciousness Coronary artery disease and history of CABG Peripheral neuropathy Diabetes Dyslipidemia Hypokalemia Thrombocytopenia History of cannabinoid and alcohol and benzodiazepine use Nursing noted some clenching/rigidity/ Plan: Head CT. Try one dose of Lasix 40 mg IV today for the worsening pulmonary edema. Potassium with the Lasix. Repeat chest x-ray and labs. Check BNP. Monitor vital signs and oxygenation. Vasopressors. Further plan per orders. Total critical care time 35 minutes. Plan discussed with: Other (Nursing) My Orders Orders - JEFFRY BERMUDEZ MD Procedure Category Date Status Time Chest Portable XY 01/01/25 Resulted 06:00 Abg W/ Co-Ox RT 01/01/25 Logged 06:00 Potassium Chl PHA 01/01/25 In Process 20meq/100ml 08:30 Comprehensive LAB 01/02/25 Verified Metabolic Panel 06:00 Chest Portable XY 01/02/25 Logged 06:00 Abg W/ Co-Ox RT 01/02/25 Logged 06:00 B-Type Natriuretic LAB 01/02/25 Verified Peptide 06:[address] 01/01/25 Logged 08:58 Date of Service: January 01, 2025 Billing Provider: JEFFRY BERMUDEZ MD Common Visit Codes: [id number] CARE 30-74 MIN JEFFRY BERMUDEZ MD January 01, 2025 09:26
[2025-01-01] MEDS: POTASSIUM CHL 20MEQ/100ML 100 ML IV SCH (10:14)
[2025-01-01] MEDS: FUROSEMIDE 40 MG/4 ML VIAL IV ONE (10:15)
[2025-01-01] MEDS ORDERED: METOCLOPRAMIDE HCL 5MG/ml INJ 2ml VIAL IV PRN (10:15)
--- NOTE | 2025-01-01 10:23 | DVHPN2 ---
Progress Note - Dictate Date Seen: January 01, 2025 Medical Necessity Reason Pt with a Central, PICC or Fol: Yes The following are medically ne: Central Line vital signs Vital Sign Date Time Temp Pulse Resp B/P (MAP) Pulse Ox O2 Delivery O2 Flow Rate FiO2 01/01/25 10:15 97/63 01/01/25 10:00 56 16 98 30 01/01/25 09:33 Mechanical Ventilator+ 01/01/25 09:29 99.0 210.2 Total Intake and Output 12/31/24 12/31/24 01/01/25 15:00 23:00 07:00 Intake Total 377.424 ml 342.524 ml 389.896 ml Output Total 400 ml 400 ml Balance 377.424 ml -57.476 ml -10.104 ml medications Current Medications Medications Dose Ordered Sig/Lj Route Start Time Stop Time Status Last Admin Dose Admin Propofol 100 ml @ 2.85 mls/hr Q24H IV 12/26/24 15:15 01/01/25 01:50 2.85 MLS/HR Fentanyl Citrate 250 ml @ 2.5 mls/hr Q24H IV 12/26/24 15:15 01/01/25 03:05 25 MLS/HR Norepinephrine Bitartrate 250 ml @ 3.75 mls/hr Q24H IV 12/26/24 15:15 12/31/24 14:30 3.75 MLS/HR Thiamine HCl 100 mg DAILY IV 12/27/24 10:00 01/01/25 10:11 100 MG Folic Acid 1 mg/ Dextrose 50.2 ml @ 200.8 mls/ hr DAILY INJ 12/27/24 10:00 12/31/24 10:30 200.8 MLS/HR Multivitamins 1 tab DAILY NG 12/27/24 10:00 01/01/25 10:11 1 TAB Dextrose 50 ml UD PRN IV 12/26/24 16:45 Cancel Nitroglycerin 0.4 mg Q5MINP PRN SL 12/26/24 16:45 Morphine Sulfate 2 mg Q30M PRN IV 12/26/24 16:45 Acetaminophen 650 mg Q6HP PRN OK 12/26/24 17:00 12/29/24 00:35 650 MG Ceftriaxone Sodium 50 ml @ 100 mls/hr DAILY@09 IV 12/27/24 09:00 01/01/25 10:15 100 MLS/HR Epinephrine HCl 250 ml @ 7.5 mls/hr Q24H IV 12/28/24 14:15 12/28/24 14:44 37.5 MLS/HR Dopamine HCl/ Dextrose 250 ml @ 19.444 mls/ hr [id number] IV 12/28/24 15:15 01/01/25 00:47 7.778 MLS/HR Pantoprazole Sodium 40 mg BID IV 12/29/24 10:00 01/01/25 10:12 40 MG Enteral Nutritional Formula 1,000 ml 30ML/HR GT 12/29/24 09:45 12/30/24 00:52 1,000 ML Enoxaparin Sodium 110 mg Q12HR SC 12/29/24 23:59 01/01/25 10:12 110 MG Aspirin 81 mg DAILY PO 12/30/24 10:00 01/01/25 10:11 81 MG Diagnostic Test (Pha) 1 strip Q6HR 12/30/24 12:00 01/01/25 05:52 1 STRIP Insulin Human Regular Q6HR SC 12/30/24 12:00 12/31/24 17:27 2 UNITS Dextrose 50 ml UD PRN IV 12/30/24 06:30 Midazolam HCl 50 ml @ 1 mls/hr Q24H IV 12/30/24 12:15 12/31/24 07:28 5 MLS/HR Potassium Chloride 100 ml @ 50 mls/hr Q2H IV 01/01/25 08:30 01/01/25 12:29 01/01/25 10:14 50 MLS/HR Metoclopramide HCl 5 mg Q8HPRN PRN IV 01/01/25 10:15 UNV laboratory and microbiology Laboratory Tests 01/01/25 03:05 Test 01/01/25 03:05 Range/Units Serum Glucose 119 H 74-106 mg/dL Assessment/Plan Impression Acute hypoxemic respiratory failure Altered mental status Pneumonia Atelectasis Patient seen and examined in the ICU Events On mechanical ventilation S/p cardiac arrest PEEP 5, FiO2 30% Off sedation since >24 hours Concern raised for anoxic brain injury Labs and imaging reviewed Echo shows concern for PE CTA of the chest from 12/26 shows no evidence of clots Ultrasound of the lower extremities shows extensive DVT of LLE ABG reviewed Management Vent support Titrate to maintain sats 90% or above librium for withdrawal vitamins/banana bag When patient is more awake, proceed to weaning trial Pressure support 02/11, extubate when ready Continue antibiotics F/u cultures Bronchodilators Monitor renal function Monitor electrolytes Supplement as needed Pressors as needed for hemodynamic support To maintain a mean arterial pressure of 65 mmHg Echo report reviewed F/u cardiology Critical care time 35 minutes Dietary Evaluation Review Comments: 1) TF Vital AF 1.2 Vasquez @ 75ml/hr x 24 hr (goal). Start @ 20ml/hr, increase 10ml/hr Q4H until goal rate is reached. TF at goal volume provides 100% energy & protein needs - 2160 kcal, 135 gm protein, 1460ml free water 2) Water flush 200ml Q6H if allowed 3) TPN if NPO>7 days 4) Monitor BW, lab values and skin integrity Expected Outcomes/Goals: To meet >75% estimated needs lab values to improve Fu 2-3 days Plan discussed with: Other (Rn) AMANDO WHITE MD January 01, 2025 10:23
[2025-01-01] MEDS ORDERED: METOCLOPRAMIDE HCL 5MG/ml INJ 2ml VIAL IV SCH (14:00)
[2025-01-01] MEDS: METOCLOPRAMIDE HCL 5MG/ml INJ 2ml VIAL IV SCH (14:02)
[2025-01-01] MEDS ORDERED: DOPamine 1600MCG/ML D5W 250 ML IV SCH (15:30)
--- NOTE | 2025-01-01 16:40 | DVH ---
CT HEAD WITHOUT CONTRAST INDICATION: fu EXAM DATE: 01/01/2025 03:54 PM COMPARISON: CT HEAD WITHOUT CONTRAST on DOS: 12/26/24 RADIATION DOSE: CTDIvol: 59.19 mGy, DLP: 948.76 mGy*cm PROCEDURE: CT scans of the head were obtained from the vertex to the skull base. Sagittal and coronal reconstructions were provided. All CT scans at this medical facility are performed using dose modulation techniques as appropriate t o a performed exam including the following: Automated exposure control was utilized; adjustment of th e MA and/or KV according to patient size; and use of iterative reconstruction technique. FINDINGS: There is sulcal and ventricular prominence. The brainshows normal morphology and barcenas-whi te matter differentiation, without intracranial hemorrhage, extra-axial fluid collection, mass effect or acute large vessel infarct. The ventricles are normal in size. The basal cisterns are patent. The skull and visible facial bones are intact. paranasal sinusitis, mild. The , mastoid air cells and mi ddle ear cavities are well-aerated. The soft tissues of the scalp are unremarkable. IMPRESSION: No acute intracranial abnormality.
[2025-01-01] MEDS: DOPamine 1600MCG/ML D5W 250 ML IV SCH (17:09)
[2025-01-02] VITALS (107 sets, daily range): BP systolic 85–176; BP diastolic 52–100; PULSE 54–113; RESP 12–80; TEMP 96.8–100.4; O2SAT 90–100
[2025-01-02 04:24] LABS: Alanine Aminotransferase 15 U/L (7-40); Albumin 3.3 g/dL (3.2-4.8); Alkaline Phosphatase 98 U/L (46-116); Anion Gap 9 (5-15); Aspartate Aminotransferase 16 U/L (13-40); BUN/Creatinine Ratio 15.3 (10.0-20.0); Blood Urea Nitrogen 9 mg/dL (9-23); Calcium 9.4 mg/dL (8.7-10.4); Carbon Dioxide 28 mmol/L (20-31); Chloride 101 mmol/L (98-107); Potassium 3.8 mmol/L (3.5-5.1); Sodium 138 mmol/L (136-145); Total Protein 5.7 g/dL (5.7-8.2)
[2025-01-02 04:25] LABS: Bilirubin, Total 0.7 mg/dL (0.2-1.0); Phosphorus 3.1 mg/dL (2.4-5.1)
[2025-01-02 04:33] LABS: Glucose 141 mg/dL (74-106); Magnesium 1.5 mg/dL (1.6-2.6)
--- NOTE | 2025-01-02 05:54 | DVH ---
INDICATION: fu TECHNIQUE: Single frontal view of the chest was obtained COMPARISON: XY CHEST PORTABLE on DOS: 01/01/25, XY CHEST PORTABLE on DOS: 12/31/24, XY CHEST PORTABLE o n DOS: 12/30/24, XY CHEST PORTABLE on DOS: 12/29/24, XY CHEST XRAY 1 VIEW on DOS: 12/28/24, XY CHEST POR TABLE on DOS: 01/01/25 FINDINGS: Lines and Tubes: Lines and tubes are unchanged. Lungs: Slight worsening in pulmonary edema. Pleura: No effusion. No pneumothorax. Cardiomediastinal contours: Cardiomegaly. Bones: No acute osseous abnormality. IMPRESSION: Slight worsening of pulmonary edema compared to prior exam.
[2025-01-02] MEDS: MAGNESIUM SULFATE 1GM/100ML 100 ML IV SCH ×2 (06:09→20:00)
[2025-01-02] MEDS: POTASSIUM CHL 20MEQ/100ML 100 ML IV ONE (07:33)
[2025-01-02 07:52] LABS: Base Excess -1.2 mmol/L (-2.0-3.0)
--- NOTE | 2025-01-02 09:08 | DVHPN2 ---
Subjective Chemically sedated Reviewed: Care Plan, H&P, Medications, Previous Orders, Radiology, Other (Consultants) Changes from previous H/P or p: No Changes General: Per HPI Objective Vitals Vital Signs Date Time Temp Pulse Resp B/P (MAP) Pulse Ox O2 Delivery O2 Flow Rate FiO2 01/02/25 07:39 88 19 152/96 (114) 98 30 01/01/25 18:15 Mechanical Ventilator+ 01/01/25 18:15 99.0 210.2 Intake/Output Intake and Output 01/02/25 07:00 Intake Total 716.174 ml Output Total 1550 ml Balance -833.826 ml IV Total 574.174 ml Tube Feeding 42 ml Other 100 ml Output Urine Total 1550 ml General Appearance: Other (Intubated and sedated) HEENT: Atraumatic, Other (Pupils equal round reactive to light) Lungs: Normal air movement, Other (Few crackles bilateral lungs with good air entry) Cardiovascular: Regular rate, Normal S1, Normal S2, Other (Junctional rhythm) Abdomen: Soft Skin: Dry, Intact Medications Current Medications Medications Dose Ordered Sig/Lj Route Start Time Stop Time Status Last Admin Dose Admin Propofol 100 ml @ 2.85 mls/hr Q24H IV 12/26/24 15:15 01/01/25 23:07 8.55 MLS/HR Fentanyl Citrate 250 ml @ 2.5 mls/hr Q24H IV 12/26/24 15:15 01/01/25 11:06 27.5 MLS/HR Norepinephrine Bitartrate 250 ml @ 3.75 mls/hr Q24H IV 12/26/24 15:15 12/31/24 14:30 3.75 MLS/HR Thiamine HCl 100 mg DAILY IV 12/27/24 10:00 01/01/25 10:11 100 MG Folic Acid 1 mg/ Dextrose 50.2 ml @ 200.8 mls/ hr DAILY INJ 12/27/24 10:00 01/01/25 11:08 200.8 MLS/HR Multivitamins 1 tab DAILY NG 12/27/24 10:00 01/01/25 10:11 1 TAB Dextrose 50 ml UD PRN IV 12/26/24 16:45 Cancel Nitroglycerin 0.4 mg Q5MINP PRN SL 12/26/24 16:45 Morphine Sulfate 2 mg Q30M PRN IV 12/26/24 16:45 Acetaminophen 650 mg Q6HP PRN NH 12/26/24 17:00 12/29/24 00:35 650 MG Ceftriaxone Sodium 50 ml @ 100 mls/hr DAILY@09 IV 12/27/24 09:00 01/01/25 10:15 100 MLS/HR Epinephrine HCl 250 ml @ 7.5 mls/hr Q24H IV 12/28/24 14:15 12/28/24 14:44 37.5 MLS/HR Pantoprazole Sodium 40 mg BID IV 12/29/24 10:00 01/01/25 23:08 40 MG Enteral Nutritional Formula 1,000 ml 30ML/HR GT 12/29/24 09:45 01/01/25 23:24 1,000 ML Enoxaparin Sodium 110 mg Q12HR SC 12/29/24 23:59 01/01/25 23:08 110 MG Aspirin 81 mg DAILY PO 12/30/24 10:00 01/01/25 10:11 81 MG Diagnostic Test (Pha) 1 strip Q6HR 12/30/24 12:00 01/02/25 06:10 1 STRIP Insulin Human Regular Q6HR SC 12/30/24 12:00 01/01/25 11:11 2 UNITS Dextrose 50 ml UD PRN IV 12/30/24 06:30 Midazolam HCl 50 ml @ 1 mls/hr Q24H IV 12/30/24 12:15 12/31/24 07:28 5 MLS/HR Metoclopramide HCl 5 mg Q8HR IV 01/01/25 14:00 01/02/25 06:10 5 MG Dopamine HCl/ Dextrose 250 ml @ 19.875 mls/ hr [id number] IV 01/01/25 16:45 01/02/25 06:09 59.625 MLS/HR Laboratory Results Laboratory Tests 01/01/25 03:05 01/02/25 03:29 Chemistry Test 01/02/25 03:29 Albumin 3.3 g/dL (3.2-4.8) Calcium Level 9.4 mg/dL (8.7-10.4) Magnesium Level 1.5 mg/dL (1.6-2.6) L Phosphorus Level 3.1 mg/dL (2.4-5.1) Total Protein 5.7 g/dL (5.7-8.2) Cardiac Markers Test 01/02/25 03:29 B-Type Natriuretic Peptide 111.63 pg/mL (0-100) LFT Test 01/02/25 03:29 Alanine Aminotransferase (ALT) 15 U/L (7-40) Alkaline Phosphatase 98 U/L (46-116) Aspartate Amino Transferase (AST) 16 U/L (13-40) Total Bilirubin 0.7 mg/dL (0.2-1.0) Urinalysis Test 12/26/24 16:45 Urine Color Yellow (Yellow) Urine Clarity Turbid (Clear) H Urine pH 5.5 (5.0-9.0) Urine Specific [place] 1.025 (1.001-1.035) Urine Protein Trace (Negative) H Urine Ketones 1+ (Negative) H Urine Blood Negative /uL (Negative) Urine Nitrite Negative (Negative) Urine Bilirubin Negative (Negative) Urine Urobilinogen 4 mg/dL (Negative) H Urine Leukocyte Esterase Trace /uL (Negative) Urine RBC 1 /hpf (0 - 3) Urine Microscopic WBC 9 /HPF (0-3) H Urine Squamous Epithelial Cells Few /hpf (<5) Urine Bacteria None seen /hpf (None Seen) Urine Hyaline Casts Mod /lpf (0 - 2) Urine Mucus Moderate (None Seen) Urine Glucose 1+ mg/dL (Normal) H Blood Gas Results Test 01/02/25 07:17 Arterial Blood pH 7.353 (7.350-7.450) FiO2 % 30.0 Microbiology Microbiology Date/Time Source Procedure Growth Status 12/28/24 14:50 Nose MRSA Screen - Final Complete 12/26/24 16:45 Voided Urine Urine Culture - Final Complete 12/26/24 15:50 Sputum Gram Stain - Final Complete 12/26/24 15:50 Sputum Respiratory Culture - Final Complete 12/26/24 15:29 Blood Blood Culture - Final NO GROWTH AFTER 5 DAYS OF INCUBATION. Complete Labs and/or images reviewed: Labs reviewed by me, Image(s) reviewed by me Assessment/Plan Assessment/Plan Impression: -acute hypoxic respiratory failure with mechanical ventilation -toxic metabolic encephalopathy with ETOH and benzodiazepines -history of CAD with previous CABG -history of alcoholism -diabetes mellitus -dyslipidemia -peripheral neuropathy Plan: Events: No events overnight. Electrolytes repleted. No events overnight. Continues to be on low-dose dopamine. Spontaneous breathing trial once sedation has been weaned and patient is neurologically appropriate. CT scan of the head negative for any acute pathology. -continue tube feeding, add IV Reglan -IV fluids with potassium replacement -decrease PEEP to eight Cardiology consultation: Recommendations reviewed -continue thiamine, MVI -continue full-dose anticoagulation with Lovenox -regular insulin sliding scale -empiric antibiotic therapy -PUD, DVT prophylaxis -repeat labs, chest x-ray, ABG in a.m. Critical care time spent with patient discussing and formulating plan of care: 40 minutes. This does not include time spent performing procedures. This medical document was created using an electronic medical record system with [employer] dictation system. Although this document has been carefully reviewed, there may still be some phonetic and typographical errors. These areas are purely typographical due to imperfections of the software programs, and do not reflect any compromise in the patient's medical care. Plan discussed with: Patient, Other (RN) My Orders Orders - MARLENY MEDINA NP Procedure Category Date Status Time * Wound Consult CONS 01/02/25 Transmitted Cpap/Sed Vacation Med ORDERS 01/02/25 Transmitted Weaning 09:03 Cpap Trial For Am ORDERS 01/02/25 Transmitted 09:03 Basic Metabolic Panel LAB 01/03/25 Verified 04:00 Chest Portable XY 01/03/25 Logged 04:00 Abg W/ Co-Ox RT 01/03/25 Logged 04:00 Date of Service: January 02, 2025 Billing Provider: MARLENY MEDINA NP Common Visit Codes: 79519-[id number] CARE 30-74 MIN MARLENY MEDINA NP January 02, 2025 09:08
[2025-01-02] MEDS ORDERED: TPN PER PHARMACY 0 ML IV SCH (10:00)
[2025-01-02] MEDS: MAGNESIUM SULFATE 1GM/100ML 100 ML IV ONE (13:44)
--- NOTE | 2025-01-02 16:08 | DVH ---
Exam: CT CT AB PEL WO CON-NO ORAL OR IV History: obstruction vs ileus Comparison Study: None TECHNIQUE: Multidetector CT of the abdomen and pelvis without IV contrast. Axial, coronal and sagitta l multiplanar reformats were obtained from the axial data set by the technologist. Radiation Dose Information: CT Dose: CTDI volume is 24.37 mGy. Dose-length product is 1608.7 mGy*cm FINDINGS: Small bilateral pleural effusions with bibasilar opacities. Partially visualized heart is unremarkab le. The gallbladder is mildly distended and appears slightly hyperdense which may be due to sludge within the gallbladder. Gallbladder is otherwise unremarkable. Liver, spleen, pancreas and adrenal glands a re unremarkable. Mild to moderate nonspecific bilateral perinephric fat stranding. Otherwise,Kidneys, and ureters are unremarkable. Urinary bladder is decompressed with Perkins catheter in place. Prostate is unremarkable . Enteric tube is noted in satisfactory position. Stomach is decompressed limiting evaluation. Small bowel loops unremarkable. Appendix is unremarkable. Small to moderate amount of fecal material within the colon. Mild perirectal edema. Mild rectal wall thickening. Sigmoid diverticulosis without divert iculitis.. Rectal tube in place. No evidence of intraperitoneal free air. No evidence of aortic aneurysm . Moderate to heavy atherosclerotic calcification of the aorta and bi lateral iliacs. Small fat containing umbilical hernia. Mild body wall edema. Minimal subcutaneous emphysema over the left ventral mid and lower abdominal subcutaneous fat with associated fat stranding. Correlate for re cent surgical procedure/injury Anterior wedge deformity of L1 which may be chronic with anterior bridging osteophyte of T12 and L1. Diffuse demineralization. There appears to be soft tissue edema of the visualized hands. Chronic righ t posterolateral 8th rib fracture IMPRESSION: Small bilateral pleural effusions with bibasilar atelectasis /pneumonia. Mild rectal wall thickening with mild perirectal edema. Correlate for proctitis. Sigmoid diverticulosis without diverticulitis. Small to moderate amount of fecal material within the colon. No evidence of bowel obstruction or ileus. Additional findings as above.
--- NOTE | 2025-01-02 16:24 | DVHPN2 ---
Progress Note - Dictate Date Seen: January 02, 2025 Medical Necessity Reason Pt with a Central, PICC or Fol: Yes The following are medically ne: Central Line vital signs Vital Sign Date Time Temp Pulse Resp B/P (MAP) Pulse Ox O2 Delivery O2 Flow Rate FiO2 01/02/25 16:12 67 16 91/61 (71) 100 30 01/01/25 18:15 Mechanical Ventilator+ 01/01/25 18:15 99.0 210.2 Total Intake and Output 01/01/25 01/01/25 01/02/25 15:00 23:00 07:00 Intake Total 514.474 ml 475.575 ml 55.875 ml Output Total 1550 ml Balance 514.474 ml -1074.425 ml 55.875 ml medications Current Medications Medications Dose Ordered Sig/Lj Route Start Time Stop Time Status Last Admin Dose Admin Fentanyl Citrate 250 ml @ 2.5 mls/hr Q24H IV 12/26/24 15:15 01/02/25 13:54 2.5 MLS/HR Norepinephrine Bitartrate 250 ml @ 3.75 mls/hr Q24H IV 12/26/24 15:15 12/31/24 14:30 3.75 MLS/HR Thiamine HCl 100 mg DAILY IV 12/27/24 10:00 01/02/25 11:01 100 MG Folic Acid 1 mg/ Dextrose 50.2 ml @ 200.8 mls/ hr DAILY INJ 12/27/24 10:00 01/02/25 11:14 200.8 MLS/HR Multivitamins 1 tab DAILY NG 12/27/24 10:00 01/02/25 11:01 1 TAB Dextrose 50 ml UD PRN IV 12/26/24 16:45 Cancel Nitroglycerin 0.4 mg Q5MINP PRN SL 12/26/24 16:45 Morphine Sulfate 2 mg Q30M PRN IV 12/26/24 16:45 Acetaminophen 650 mg Q6HP PRN NE 12/26/24 17:00 12/29/24 00:35 650 MG Ceftriaxone Sodium 50 ml @ 100 mls/hr DAILY@09 IV 12/27/24 09:00 01/02/25 11:01 100 MLS/HR Epinephrine HCl 250 ml @ 7.5 mls/hr Q24H IV 12/28/24 14:15 12/28/24 14:44 37.5 MLS/HR Pantoprazole Sodium 40 mg BID IV 12/29/24 10:00 01/02/25 11:01 40 MG Enoxaparin Sodium 110 mg Q12HR SC 12/29/24 23:59 01/02/25 11:02 110 MG Aspirin 81 mg DAILY PO 12/30/24 10:00 01/02/25 11:01 81 MG Diagnostic Test (Pha) 1 strip Q6HR 12/30/24 12:00 01/02/25 11:23 1 STRIP Insulin Human Regular Q6HR SC 12/30/24 12:00 01/02/25 11:24 2 UNITS Dextrose 50 ml UD PRN IV 12/30/24 06:30 Midazolam HCl 50 ml @ 1 mls/hr Q24H IV 12/30/24 12:15 12/31/24 07:28 5 MLS/HR Metoclopramide HCl 5 mg Q8HR IV 01/01/25 14:00 01/02/25 13:43 5 MG Dopamine HCl/ Dextrose 250 ml @ 19.875 mls/ hr [id number] IV 01/01/25 16:45 01/02/25 06:09 13.913 MLS/HR Amino Acids 0 ml @ 0 mls/hr PER PHARMACY IV 01/02/25 10:00 Sodium Chloride 20 meq/Sodium Phosphate 12 meq/ Potassium Chloride 20 meq/ Magnesium Sulfate 8 meq/ Multivitamins 10 ml/Chromium/ Copper/Manganese/ Zinc 1 ml/Insulin Human Regular 8 units/Amino Acids/ Dextrose/Purified Water 1,131.08 ml @ 47 mls/hr Q24H4M IV 01/02/25 22:00 01/03/25 21:59 laboratory and microbiology Laboratory Tests 01/02/25 03:29 01/01/25 03:05 Test 01/02/25 03:29 Range/Units Serum Glucose 141 H 74-106 mg/dL Assessment/Plan Impression Acute hypoxemic respiratory failure Altered mental status Pneumonia Atelectasis Patient seen and examined in the ICU Events On mechanical ventilation S/p cardiac arrest PEEP 5, FiO2 30% Mental status prohibitive Bronchoscopy was performed at the bedside See separate note for procedure in detail Labs and imaging reviewed ABG reviewed Management Vent support Titrate to maintain sats 90% or above librium for withdrawal vitamins/banana bag When patient is more awake, proceed to weaning trial Pressure support 02/11, extubate when ready Continue antibiotics F/u cultures Bronchodilators Monitor renal function Monitor electrolytes Supplement as needed Pressors as needed for hemodynamic support To maintain a mean arterial pressure of 65 mmHg Echo report reviewed F/u cardiology Critical care time 35 minutes Dietary Evaluation Review Comments: 1) TF Vital AF 1.2 Vasquez @ 75ml/hr x 24 hr (goal). Start @ 20ml/hr, increase 10ml/hr Q4H until goal rate is reached. TF at goal volume provides 100% energy & protein needs - 2160 kcal, 135 gm protein, 1460ml free water 2) Water flush 200ml Q6H if allowed 3) TPN if NPO>7 days 4) Monitor BW, lab values and skin integrity Expected Outcomes/Goals: To meet >75% estimated needs lab values to improve Fu 2-3 days Plan discussed with: Other (Rn) AMANDO WHITE MD January 02, 2025 16:24
--- NOTE | 2025-01-02 16:25 | DVHNC2 ---
Procedure - Procedure- Bronchoscopy and bronchial washings Indication- Secretions Procedure in detail Consent was obtained and timeout performed per protocol. The patient was placed on 100% FiO2. Olympus bronchoscope was used and passed through the endotracheal tube, tracheobronchial tree was examined. There was copious nonpurulent secretions in the airways bilaterally that were loosened up with approximately 50 cc of normal saline and thoroughly suctioned into a separate specimen container. There were no endobronchial lesions however, mucosa appeared inflamed and easily friable. After the procedure, the scope was removed. Patient tolerated the procedure well. AMANDO WHITE MD January 02, 2025 16:25
[2025-01-02 17:37] LABS: Magnesium 1.5 mg/dL (1.6-2.6)
[2025-01-02] MEDS: PROPOFOL 100 ML IV SCH (21:06)
[2025-01-02] MEDS: TPN PER PHARMACY IV NR (22:07)
[2025-01-03] VITALS (115 sets, daily range): BP systolic 72–179; BP diastolic 47–150; PULSE 57–105; RESP 9–24; TEMP 98.1–98.9; O2SAT 91–100
[2025-01-03 04:18] LABS: Alanine Aminotransferase 10 U/L (7-40); Alkaline Phosphatase 110 U/L (46-116); Anion Gap 8 (5-15); BUN/Creatinine Ratio 11.5 (10.0-20.0); Calcium 9.2 mg/dL (8.7-10.4); Carbon Dioxide 28 mmol/L (20-31); Chloride 100 mmol/L (98-107); Potassium 3.7 mmol/L (3.5-5.1); Sodium 136 mmol/L (136-145)
[2025-01-03 04:19] LABS: Magnesium 1.9 mg/dL (1.6-2.6)
[2025-01-03 04:20] LABS: Albumin 3.2 g/dL (3.2-4.8); Aspartate Aminotransferase 21 U/L (13-40)
--- NOTE | 2025-01-03 04:20 | DVH ---
INDICATION: pna TECHNIQUE: Single frontal view of the chest was obtained COMPARISON: XY CHEST PORTABLE on DOS: 01/02/25, XY CHEST PORTABLE on DOS: 01/01/25, XY CHEST PORTABLE o n DOS: 12/31/24, XY CHEST PORTABLE on DOS: 12/30/24, XY CHEST PORTABLE on DOS: 12/29/24, XY CHEST PORTAB LE on DOS: 01/02/25 FINDINGS: Lines and Tubes: Lines and tubes are unchanged. Lungs: Slight worsening in pulmonary edema. Pleura: No effusion. No pneumothorax. Cardiomediastinal contours: Cardiomegaly. Bones: No acute osseous abnormality. IMPRESSION: Slight worsening of pulmonary edema compared to prior exam.
[2025-01-03 04:21] LABS: Bilirubin, Total 0.7 mg/dL (0.2-1.0)
[2025-01-03 04:35] LABS: Blood Urea Nitrogen 7 mg/dL (9-23); Glucose 220 mg/dL (74-106); Total Protein 5.6 g/dL (5.7-8.2)
[2025-01-03] MEDS: MAGNESIUM SULFATE 1GM/100ML 100 ML IV ONE (05:49)
[2025-01-03] MEDS: POTASSIUM CHL 20MEQ/100ML 100 ML IV ONE ×2 (05:49→10:48)
[2025-01-03 07:18] LABS: Base Excess 2.1 mmol/L (-2.0-3.0)
[2025-01-03] MEDS ORDERED: Glucerna 1.2 Cal 1Liter BOTTLE GT SCH (08:15)
--- NOTE | 2025-01-03 10:17 | DVHPN2 ---
Subjective Chemically sedated Reviewed: Care Plan, H&P, Medications, Previous Orders, Radiology, Other (Consultants) Changes from previous H/P or p: No Changes General: Per HPI Objective Vitals Vital Signs Date Time Temp Pulse Resp B/P (MAP) Pulse Ox O2 Delivery O2 Flow Rate FiO2 01/03/25 09:52 102 16 130/81 (97) 96 60 01/03/25 08:30 98.9 98.9 01/03/25 06:00 Mechanical Ventilator+ Intake/Output Intake and Output 01/03/25 07:00 Intake Total 1316.839 ml Output Total 1950 ml Balance -633.161 ml Intake Oral 0 ml IV Total 1266.839 ml Tube Feeding 50 ml Output Urine Total 1550 ml Gastric Drainage Total 400 ml General Appearance: Other (Intubated and sedated) HEENT: Atraumatic, Other (Pupils equal round reactive to light) Lungs: Normal air movement, Other (Few crackles bilateral lungs with good air entry) Cardiovascular: Regular rate, Normal S1, Normal S2, Other (Junctional rhythm) Abdomen: Soft Skin: Dry, Intact Medications Current Medications Medications Dose Ordered Sig/Lj Route Start Time Stop Time Status Last Admin Dose Admin Fentanyl Citrate 250 ml @ 2.5 mls/hr Q24H IV 12/26/24 15:15 01/02/25 13:54 2.5 MLS/HR Norepinephrine Bitartrate 250 ml @ 3.75 mls/hr Q24H IV 12/26/24 15:15 01/02/25 21:39 3.75 MLS/HR Thiamine HCl 100 mg DAILY IV 12/27/24 10:00 01/02/25 11:01 100 MG Folic Acid 1 mg/ Dextrose 50.2 ml @ 200.8 mls/ hr DAILY INJ 12/27/24 10:00 01/02/25 11:14 200.8 MLS/HR Multivitamins 1 tab DAILY NG 12/27/24 10:00 01/02/25 11:01 1 TAB Dextrose 50 ml UD PRN IV 12/26/24 16:45 Cancel Nitroglycerin 0.4 mg Q5MINP PRN SL 12/26/24 16:45 Morphine Sulfate 2 mg Q30M PRN IV 12/26/24 16:45 Acetaminophen 650 mg Q6HP PRN [place] 12/26/24 17:00 12/29/24 00:35 650 MG Ceftriaxone Sodium 50 ml @ 100 mls/hr DAILY@09 IV 12/27/24 09:00 01/03/25 09:33 100 MLS/HR Epinephrine HCl 250 ml @ 7.5 mls/hr Q24H IV 12/28/24 14:15 12/28/24 14:44 37.5 MLS/HR Pantoprazole Sodium 40 mg BID IV 12/29/24 10:00 01/02/25 21:51 40 MG Enoxaparin Sodium 110 mg Q12HR SC 12/29/24 23:59 01/02/25 21:42 110 MG Aspirin 81 mg DAILY PO 12/30/24 10:00 01/02/25 11:01 81 MG Diagnostic Test (Pha) 1 strip Q6HR 12/30/24 12:00 01/03/25 05:54 1 STRIP Insulin Human Regular Q6HR SC 12/30/24 12:00 01/02/25 11:24 2 UNITS Dextrose 50 ml UD PRN IV 12/30/24 06:30 Midazolam HCl 50 ml @ 1 mls/hr Q24H IV 12/30/24 12:15 12/31/24 07:28 5 MLS/HR Metoclopramide HCl 5 mg Q8HR IV 01/01/25 14:00 01/03/25 06:09 5 MG Dopamine HCl/ Dextrose 250 ml @ 19.875 mls/ hr [id number] IV 01/01/25 16:45 01/02/25 06:09 13.913 MLS/HR Amino Acids 0 ml @ 0 mls/hr PER PHARMACY IV 01/02/25 10:00 Sodium Chloride 20 meq/Sodium Phosphate 12 meq/ Potassium Chloride 20 meq/ Magnesium Sulfate 8 meq/ Multivitamins 10 ml/Chromium/ Copper/Manganese/ Zinc 1 ml/Insulin Human Regular 8 units/Amino Acids/ Dextrose/Purified Water 1,131.08 ml @ 47 mls/hr Q24H4M IV 01/02/25 22:00 01/03/25 21:59 01/02/25 22:07 47 MLS/HR Propofol 100 ml @ 3.18 mls/hr Q24H IV 01/02/25 17:00 01/03/25 03:21 15.9 MLS/HR Enteral Nutritional Formula 1,000 ml 30ML/HR GT 01/03/25 08:15 Laboratory Results Laboratory Tests 01/01/25 03:05 01/03/25 03:00 Chemistry Test 01/02/25 17:00 01/03/25 03:00 Magnesium Level 1.5 mg/dL (1.6-2.6) L 1.9 mg/dL (1.6-2.6) Albumin 3.2 g/dL (3.2-4.8) Calcium Level 9.2 mg/dL (8.7-10.4) Phosphorus Level 3.0 mg/dL (2.4-5.1) Total Protein 5.6 g/dL (5.7-8.2) L LFT Test 01/03/25 03:00 Alanine Aminotransferase (ALT) 10 U/L (7-40) Alkaline Phosphatase 110 U/L (46-116) Aspartate Amino Transferase (AST) 21 U/L (13-40) Total Bilirubin 0.7 mg/dL (0.2-1.0) Urinalysis Test 12/26/24 16:45 Urine Color Yellow (Yellow) Urine Clarity Turbid (Clear) H Urine pH 5.5 (5.0-9.0) Urine Specific [place] 1.025 (1.001-1.035) Urine Protein Trace (Negative) H Urine Ketones 1+ (Negative) H Urine Blood Negative /uL (Negative) Urine Nitrite Negative (Negative) Urine Bilirubin Negative (Negative) Urine Urobilinogen 4 mg/dL (Negative) H Urine Leukocyte Esterase Trace /uL (Negative) Urine RBC 1 /hpf (0 - 3) Urine Microscopic WBC 9 /HPF (0-3) H Urine Squamous Epithelial Cells Few /hpf (<5) Urine Bacteria None seen /hpf (None Seen) Urine Hyaline Casts Mod /lpf (0 - 2) Urine Mucus Moderate (None Seen) Urine Glucose 1+ mg/dL (Normal) H Blood Gas Results Test 01/03/25 07:05 Arterial Blood pH 7.411 (7.350-7.450) FiO2 % 60.0 Microbiology Microbiology Date/Time Source Procedure Growth Status 12/28/24 14:50 Nose MRSA Screen - Final Complete 12/26/24 16:45 Voided Urine Urine Culture - Final Complete 12/26/24 15:50 Sputum Gram Stain - Final Complete 12/26/24 15:50 Sputum Respiratory Culture - Final Complete 12/26/24 15:29 Blood Blood Culture - Final NO GROWTH AFTER 5 DAYS OF INCUBATION. Complete Labs and/or images reviewed: Labs reviewed by me, Image(s) reviewed by me Assessment/Plan Assessment/Plan Impression: -acute hypoxic respiratory failure with mechanical ventilation -toxic metabolic encephalopathy with ETOH and benzodiazepines -history of CAD with previous CABG -history of alcoholism -diabetes mellitus -dyslipidemia -peripheral neuropathy Plan: Events: Patient with increased O2 demands. FIO2 at 60%. CXR with mild pulmonary vascular congestion. Sedation vacation -continue tube feeding, add IV Reglan, stop TPN -IV fluids with potassium replacement -decrease PEEP to eight Cardiology consultation: Recommendations reviewed -continue thiamine, MVI -continue full-dose anticoagulation with Lovenox -regular insulin sliding scale -empiric antibiotic therapy -PUD, DVT prophylaxis -repeat labs, chest x-ray, ABG in a.m. Critical care time spent with patient discussing and formulating plan of care: 40 minutes. This does not include time spent performing procedures. This medical document was created using an electronic medical record system with [employer] dictation system. Although this document has been carefully reviewed, there may still be some phonetic and typographical errors. These areas are purely typographical due to imperfections of the software programs, and do not reflect any compromise in the patient's medical care. Plan discussed with: Patient, Other (RN) My Orders Orders - MARLENY MEDINA STUDENT SUPPORT COUNSELOR Procedure Category Date Status Time Amino Acid PHA 01/02/25 In Process Infusion... W/Sodium 22:00 Tpn Per Pharmacy GABBY 01/02/25 In Process 22:00 Propofol (Diprivan) PHA 01/02/25 In Process 17:00 Nutritional PHA 01/03/25 In Process Supplements (Glucerna 08:15 Basic Metabolic Panel LAB 01/04/25 Verified 05:00 Basic Metabolic Panel LAB 01/05/25 Verified 05:00 Basic Metabolic Panel LAB 01/06/25 Verified 05:00 Cpap/Sed Vacation Med ORDERS 01/03/25 Transmitted Weaning 08:06 Cpap Trial For Am ORDERS 01/03/25 Transmitted 08:06 Furosemide Injection PHA 01/03/25 Logged (Lasix Injection) 10:15 Potassium Chl PHA 01/03/25 Logged 20meq/100ml 10:15 Date of Service: January 03, 2025 Billing Provider: MARLENY MEDINA NP Common Visit Codes: [id number] CARE 30-74 MIN MARLENY MEDINA NP January 03, 2025 10:17
[2025-01-03] MEDS: FUROSEMIDE 40 MG/4 ML VIAL IV ONE (10:48)
--- NOTE | 2025-01-03 13:40 | ECG ---
[facility] Test Date: 2025-01-02 Test Time: 02:50:20 Pat Name: MITZY MOORE Department: ICU Room: [address] [place] [address] A Gender: M Lead Care Manager: PEYTON : 1970 Requested By: RYLAND TRUONG Order Number: [id number] Reading MD: Shahid Baker Measurements Intervals [place] Rate: 57 P: -54 [place]: 94 QRS: 0 QRSD: 98 T: -37 QT: 492 QTc: 479 Interpretive Statements Sinus or ectopic atrial rhythm Short [place] interval Abnormal R-wave progression, late transition Inferior infarct, age indeterminate Electronically Signed On 01-08-2025 22:44:08 PDT by Shahid Baker Please click the below link to view image of tracing.
--- NOTE | 2025-01-03 20:18 | DVHPN2 ---
Progress Note - Dictate Date Seen: January 03, 2025 Medical Necessity Reason Pt with a Central, PICC or Fol: Yes The following are medically ne: Central Line vital signs Vital Sign Date Time Temp Pulse Resp B/P (MAP) Pulse Ox O2 Delivery O2 Flow Rate FiO2 01/03/25 19:25 92 16 145/83 (103) 99 01/03/25 18:07 35 01/03/25 18:00 Mechanical Ventilator+ 01/03/25 16:10 98.4 98.4 Total Intake and Output 01/02/25 01/02/25 01/03/25 15:00 23:00 07:00 Intake Total 1030.189 ml 171.25 ml 115.4 ml Output Total 600 ml 1350 ml Balance 1030.189 ml -428.75 ml -1234.6 ml medications Current Medications Medications Dose Ordered Sig/Lj Route Start Time Stop Time Status Last Admin Dose Admin Fentanyl Citrate 250 ml @ 2.5 mls/hr Q24H IV 12/26/24 15:15 01/03/25 11:31 12.5 MLS/HR Norepinephrine Bitartrate 250 ml @ 3.75 mls/hr Q24H IV 12/26/24 15:15 01/02/25 21:39 3.75 MLS/HR Thiamine HCl 100 mg DAILY IV 12/27/24 10:00 01/03/25 10:29 100 MG Folic Acid 1 mg/ Dextrose 50.2 ml @ 200.8 mls/ hr DAILY INJ 12/27/24 10:00 01/03/25 10:48 200.8 MLS/HR Multivitamins 1 tab DAILY NG 12/27/24 10:00 01/03/25 10:29 1 TAB Dextrose 50 ml UD PRN IV 12/26/24 16:45 Cancel Nitroglycerin 0.4 mg Q5MINP PRN [place] 12/26/24 16:45 Morphine Sulfate 2 mg Q30M PRN IV 12/26/24 16:45 Acetaminophen 650 mg Q6HP PRN [place] 12/26/24 17:00 12/29/24 00:35 650 MG Ceftriaxone Sodium 50 ml @ 100 mls/hr DAILY@09 IV 12/27/24 09:00 01/03/25 09:33 100 MLS/HR Epinephrine HCl 250 ml @ 7.5 mls/hr Q24H IV 12/28/24 14:15 12/28/24 14:44 37.5 MLS/HR Pantoprazole Sodium 40 mg BID IV 12/29/24 10:00 01/03/25 10:29 40 MG Enoxaparin Sodium 110 mg Q12HR SC 12/29/24 23:59 01/03/25 10:29 110 MG Aspirin 81 mg DAILY PO 12/30/24 10:00 01/03/25 10:29 81 MG Diagnostic Test (Pha) 1 strip Q6HR 12/30/24 12:00 01/03/25 17:35 1 STRIP Insulin Human Regular Q6HR SC 12/30/24 12:00 01/03/25 17:34 12 UNITS Dextrose 50 ml UD PRN IV 12/30/24 06:30 Midazolam HCl 50 ml @ 1 mls/hr Q24H IV 12/30/24 12:15 12/31/24 07:28 5 MLS/HR Metoclopramide HCl 5 mg Q8HR IV 01/01/25 14:00 01/03/25 17:44 5 MG Dopamine HCl/ Dextrose 250 ml @ 19.875 mls/ hr [id number] IV 01/01/25 16:45 01/02/25 06:09 13.913 MLS/HR Amino Acids 0 ml @ 0 mls/hr PER PHARMACY IV 01/02/25 10:00 Sodium Chloride 20 meq/Sodium Phosphate 12 meq/ Potassium Chloride 20 meq/ Magnesium Sulfate 8 meq/ Multivitamins 10 ml/Chromium/ Copper/Manganese/ Zinc 1 ml/Insulin Human Regular 8 units/Amino Acids/ Dextrose/Purified Water 1,131.08 ml @ 47 mls/hr Q24H4M IV 01/02/25 22:00 01/03/25 21:59 01/02/25 22:07 47 MLS/HR Propofol 100 ml @ 3.18 mls/hr Q24H IV 01/02/25 17:00 01/03/25 17:44 3.18 MLS/HR Enteral Nutritional Formula 1,000 ml 30ML/HR GT 01/03/25 08:15 laboratory and microbiology Laboratory Tests 01/03/25 03:00 01/01/25 03:05 Test 01/03/25 03:00 Range/Units Serum Glucose 220 H 74-106 mg/dL Assessment/Plan Impression Acute hypoxemic respiratory failure Altered mental status Pneumonia Atelectasis Patient seen and examined in the ICU Events On mechanical ventilation S/p cardiac arrest PEEP 5, FiO2 30% S/p bronchoscopy Off sedation, not waking up Not following commands Labs and imaging reviewed ABG reviewed Management Vent support Titrate to maintain sats 90% or above librium for withdrawal vitamins/banana bag When patient is more awake, proceed to weaning trial Pressure support /, extubate when ready Continue antibiotics F/u cultures Bronchodilators Monitor renal function Monitor electrolytes Supplement as needed Pressors as needed for hemodynamic support To maintain a mean arterial pressure of 65 mmHg Echo report reviewed F/u cardiology Critical care time 35 minutes Dietary Evaluation Review Comments: 1) TF Vital AF 1.2 Vasquez @ 75ml/hr x 24 hr (goal). Start @ 20ml/hr, increase 10ml/hr Q4H until goal rate is reached. TF at goal volume provides 100% energy & protein needs - 2160 kcal, 135 gm protein, 1460ml free water 2) Water flush 200ml Q6H if allowed 3) TPN if NPO>7 days 4) Monitor BW, lab values and skin integrity Expected Outcomes/Goals: To meet >75% estimated needs lab values to improve Fu 2-3 days Plan discussed with: Other (Rn) AMANDO WHITE MD January 03, 2025 20:18
[2025-01-04] VITALS (98 sets, daily range): BP systolic 88–161; BP diastolic 56–96; PULSE 68–99; RESP 14–30; TEMP 98.2–100.2; O2SAT 94–100
[2025-01-04 04:17] LABS: Basophils # (auto) 0 10 ^3/uL (0-0.2); Basophils % (auto) 0.8 % (0.0-2.0); Eosinophils # (auto) 0.4 10 ^3/uL (0-0.8); Eosinophils % (auto) 6.4 % (0.0-7.0); Hematocrit 42.4 % (41.0-53.0); Hemoglobin 14.4 g/dL (13.5-17.5); Lymphocytes # (auto) 1.2 10 ^3/uL (0.4-5.4); Lymphocytes % (auto) 19.6 % (10.0-50.0); Mean Corpuscular Hemoglobin 30.5 pg (28.0-32.0); Mean Corpuscular Hgb Conc. 33.9 g/dL (32.0-36.0); Mean Corpuscular Volume 89.9 fL (80.0-100.0); Monocytes # (auto) 0.7 10 ^3/uL (0-1.3); Neutrophils # (auto) 3.7 10 ^3/uL (1.6-8.6); Neutrophils % (auto) 62.2 % (37.0-80.0); Nucleated Red Blood Cells % 0.1 %; Platelet Count (auto) 202 10^3/uL (140-450); Red Blood Cells 4.72 10^6/uL (4.5-5.90); Red Cell Distribution Width 15.2 % (11.8-14.3); White Blood Cell 5.9 10^3/uL (4.4-10.8)
[2025-01-04 04:30] LABS: Chloride 99 mmol/L (98-107); Potassium 3.4 mmol/L (3.5-5.1); Sodium 137 mmol/L (136-145)
[2025-01-04 04:31] LABS: Anion Gap 6 (5-15)
[2025-01-04 04:32] LABS: Calcium 8.7 mg/dL (8.7-10.4); Carbon Dioxide 32 mmol/L (20-31)
[2025-01-04 04:36] LABS: BUN/Creatinine Ratio 14.9 (10.0-20.0); Blood Urea Nitrogen 10 mg/dL (9-23)
[2025-01-04 04:37] LABS: Magnesium 1.7 mg/dL (1.6-2.6)
[2025-01-04 04:53] LABS: Glucose 217 mg/dL (74-106)
--- NOTE | 2025-01-04 05:16 | DVH ---
CHEST RADIOGRAPH Indication: INTUBATION Technique: Single frontal view of the chest was obtained Comparison: XY CHEST PORTABLE on DOS: 01/03/25 FINDINGS: Lines and Tubes: The endotracheal tube terminates 5.9 cm above the [place]. The enteric tube courses b elow the left hemidiaphragm and the tip extends outside the field of view. Lungs: Increased bilateral opacities since prior study. Pleura: No effusion. No pneumothorax. Cardiomediastinal contours: Unremarkable Bones: Status post median sternotomy. No acute osseous abnormality. IMPRESSION: 1. Increased bilateral opacities may reflect worsening edema or pneumonia.
[2025-01-04] MEDS: MAGNESIUM SULFATE 1GM/100ML 100 ML IV ONE (06:07)
[2025-01-04] MEDS: POTASSIUM CHL 20MEQ/100ML 100 ML IV ONE (06:08)
[2025-01-04 06:59] LABS: Base Excess 5.7 mmol/L (-2.0-3.0)
[2025-01-04] MEDS: POTASSIUM EFFERVESENT TAB 25 MEQ PO ONE (08:50)
[2025-01-04] MEDS: FUROSEMIDE 40 MG/4 ML VIAL IV ONE (09:02)
--- NOTE | 2025-01-04 09:07 | DVHPN2 ---
Subjective Chemically sedated Reviewed: Care Plan, H&P, Medications, Previous Orders, Radiology, Other (Consultants) Changes from previous H/P or p: No Changes General: Per HPI Objective Vitals Vital Signs Date Time Temp Pulse Resp B/P (MAP) Pulse Ox O2 Delivery O2 Flow Rate FiO2 01/04/25 09:02 129/84 01/04/25 07:44 78 19 96 30 01/04/25 05:46 Mechanical Ventilator+ 01/04/25 00:00 98.3 98.3 Intake/Output Intake and Output 01/04/25 07:00 Intake Total 1337.42 ml Output Total 3400 ml Balance -2062.58 ml Intake Oral 80 ml IV Total 967.42 ml Tube Feeding 290 ml Output Urine Total 3325 ml Stool Total 0 ml Gastric Drainage Total 75 ml General Appearance: mild distress, Other (Intubated and sedated) HEENT: Atraumatic, Other (Pupils equal round reactive to light) Lungs: Normal air movement, Other (Few crackles bilateral lungs with good air entry) Cardiovascular: Regular rate, Normal S1, Normal S2, Other (Junctional rhythm) Abdomen: Soft Neuro: Other (Unable to assess) Skin: Dry, Intact Psych/Mental Status: Other (Unable to assess) Medications Current Medications Medications Dose Ordered Sig/Lj Route Start Time Stop Time Status Last Admin Dose Admin Fentanyl Citrate 250 ml @ 2.5 mls/hr Q24H IV 12/26/24 15:15 01/04/25 06:45 2.5 MLS/HR Norepinephrine Bitartrate 250 ml @ 3.75 mls/hr Q24H IV 12/26/24 15:15 01/02/25 21:39 3.75 MLS/HR Thiamine HCl 100 mg DAILY IV 12/27/24 10:00 01/03/25 10:29 100 MG Folic Acid 1 mg/ Dextrose 50.2 ml @ 200.8 mls/ hr DAILY INJ 12/27/24 10:00 01/03/25 10:48 200.8 MLS/HR Multivitamins 1 tab DAILY NG 12/27/24 10:00 01/03/25 10:29 1 TAB Dextrose 50 ml UD PRN IV 12/26/24 16:45 Cancel Nitroglycerin 0.4 mg Q5MINP PRN SL 12/26/24 16:45 Morphine Sulfate 2 mg Q30M PRN IV 12/26/24 16:45 Acetaminophen 650 mg Q6HP PRN [place] 12/26/24 17:00 12/29/24 00:35 650 MG Ceftriaxone Sodium 50 ml @ 100 mls/hr DAILY@09 IV 12/27/24 09:00 01/04/25 08:50 100 MLS/HR Epinephrine HCl 250 ml @ 7.5 mls/hr Q24H IV 12/28/24 14:15 12/28/24 14:44 37.5 MLS/HR Pantoprazole Sodium 40 mg BID IV 12/29/24 10:00 01/03/25 22:04 40 MG Enoxaparin Sodium 110 mg Q12HR SC 12/29/24 23:59 01/03/25 22:05 110 MG Aspirin 81 mg DAILY PO 12/30/24 10:00 01/03/25 10:29 81 MG Diagnostic Test (Pha) 1 strip Q6HR 12/30/24 12:00 01/04/25 06:07 1 STRIP Insulin Human Regular Q6HR SC 12/30/24 12:00 01/03/25 06:00 6 UNITS Dextrose 50 ml UD PRN IV 12/30/24 06:30 Midazolam HCl 50 ml @ 1 mls/hr Q24H IV 12/30/24 12:15 12/31/24 07:28 5 MLS/HR Metoclopramide HCl 5 mg Q8HR IV 01/01/25 14:00 01/04/25 06:07 5 MG Dopamine HCl/ Dextrose 250 ml @ 19.875 mls/ hr [id number] IV 01/01/25 16:45 01/02/25 06:09 13.913 MLS/HR Amino Acids 0 ml @ 0 mls/hr PER PHARMACY IV 01/02/25 10:00 Propofol 100 ml @ 3.18 mls/hr Q24H IV 01/02/25 17:00 01/04/25 06:45 9.54 MLS/HR Enteral Nutritional Formula 1,000 ml 30ML/HR GT 01/03/25 08:15 Insulin Glargine 10 units HS SC 01/04/25 22:00 Laboratory Results Laboratory Tests 01/04/25 03:30 Chemistry Test 01/04/25 03:30 Calcium Level 8.7 mg/dL (8.7-10.4) Magnesium Level 1.7 mg/dL (1.6-2.6) Urinalysis Test 12/26/24 16:45 Urine Color Yellow (Yellow) Urine Clarity Turbid (Clear) H Urine pH 5.5 (5.0-9.0) Urine Specific [place] 1.025 (1.001-1.035) Urine Protein Trace (Negative) H Urine Ketones 1+ (Negative) H Urine Blood Negative /uL (Negative) Urine Nitrite Negative (Negative) Urine Bilirubin Negative (Negative) Urine Urobilinogen 4 mg/dL (Negative) H Urine Leukocyte Esterase Trace /uL (Negative) Urine RBC 1 /hpf (0 - 3) Urine Microscopic WBC 9 /HPF (0-3) H Urine Squamous Epithelial Cells Few /hpf (<5) Urine Bacteria None seen /hpf (None Seen) Urine Hyaline Casts Mod /lpf (0 - 2) Urine Mucus Moderate (None Seen) Urine Glucose 1+ mg/dL (Normal) H Blood Gas Results Test 01/04/25 06:54 Arterial Blood pH 7.480 (7.350-7.450) FiO2 % 30.0 Microbiology Microbiology Date/Time Source Procedure Growth Status 01/02/25 13:06 Sputum Gram Stain - Final Resulted 01/02/25 13:06 Sputum Respiratory Culture - Preliminary Resulted 12/28/24 14:50 Nose MRSA Screen - Final Complete 12/26/24 16:45 Voided Urine Urine Culture - Final Complete 12/26/24 15:29 Blood Blood Culture - Final NO GROWTH AFTER 5 DAYS OF INCUBATION. Complete Labs and/or images reviewed: Labs reviewed by me, Image(s) reviewed by me Assessment/Plan Assessment/Plan Impression: -acute hypoxic respiratory failure with mechanical ventilation -toxic metabolic encephalopathy with ETOH and benzodiazepines -history of CAD with previous CABG -history of alcoholism -diabetes mellitus -dyslipidemia -peripheral neuropathy Plan: Events: Patient now on 30% FiO2. Chest x-ray reviewed. Patient will receive additional IV diuretics with potassium replacement. Continues to be on sedation, instructed primary nurse to weaned off. Unable to perform MRI of the brain given patient had previous CABG with sternal wires. Further course of treatment based off patient's neurological status. -continue tube feeding, add IV Reglan, stop TPN -IV fluids with potassium replacement -decrease PEEP to eight Cardiology consultation: Recommendations reviewed -continue thiamine, MVI -continue full-dose anticoagulation with Lovenox -regular insulin sliding scale -empiric antibiotic therapy -PUD, DVT prophylaxis -repeat labs, chest x-ray, ABG in a.m. Critical care time spent with patient discussing and formulating plan of care: 40 minutes. This does not include time spent performing procedures. This medical document was created using an electronic medical record system with [employer] dictation system. Although this document has been carefully reviewed, there may still be some phonetic and typographical errors. These areas are purely typographical due to imperfections of the software programs, and do not reflect any compromise in the patient's medical care. Plan discussed with: Patient, Other (RN) My Orders Orders - MARLENY MEDINA NP Procedure Category Date Status Time Chest Portable XY 01/04/25 Resulted 04:00 Abg W/ Co-Ox RT 01/04/25 Logged 05:00 Insulin Lantus PHA 01/04/25 In Process (Glargine) (Lantus) 22:00 Magnesium LAB 01/05/25 Verified 04:00 Chest Portable XY 01/05/25 Logged 04:00 Abg W/ Co-Ox RT 01/05/25 Logged 04:00 Communication Order ORDERS 01/04/25 Transmitted 08:30 Date of Service: January 04, 2025 Billing Provider: MARLENY MEDINA NP Common Visit Codes: [id number] CARE 30-74 MIN MARLENY MEDINA NP January 04, 2025 09:07
--- NOTE | 2025-01-04 12:50 | MEDREC ---
[facility] Intervention Section I [facility] Intervention: Deescalate AB based on CS (PLEASE CONSIDER DE-ESCALATION BASED ON CULTURE RESULTS (MSSA)) DEVON RIGGS PHARMACIST January 04, 2025 12:50
--- NOTE | 2025-01-04 14:09 | DVHPN2 ---
Progress Note - Dictate Date Seen: January 04, 2025 Medical Necessity Reason Pt with a Central, PICC or Fol: Yes The following are medically ne: Central Line vital signs Vital Sign Date Time Temp Pulse Resp B/P (MAP) Pulse Ox O2 Delivery O2 Flow Rate FiO2 01/04/25 14:00 17 100 Mechanical Ventilator+ 30 30 01/04/25 14:00 76 01/04/25 12:10 136/86 (103) 01/04/25 00:00 98.3 98.3 Total Intake and Output 01/03/25 01/03/25 01/04/25 15:00 23:00 07:00 Intake Total 648.89 ml 416.49 ml 272.04 ml Output Total 0 ml 3000 ml 400 ml Balance 648.89 ml -2583.51 ml -127.96 ml medications Current Medications Medications Dose Ordered Sig/Lj Route Start Time Stop Time Status Last Admin Dose Admin Fentanyl Citrate 250 ml @ 2.5 mls/hr Q24H IV 12/26/24 15:15 01/04/25 06:45 2.5 MLS/HR Norepinephrine Bitartrate 250 ml @ 3.75 mls/hr Q24H IV 12/26/24 15:15 01/02/25 21:39 3.75 MLS/HR Thiamine HCl 100 mg DAILY IV 12/27/24 10:00 01/04/25 10:40 100 MG Folic Acid 1 mg/ Dextrose 50.2 ml @ 200.8 mls/ hr DAILY INJ 12/27/24 10:00 01/04/25 10:40 200.8 MLS/HR Multivitamins 1 tab DAILY NG 12/27/24 10:00 01/04/25 10:40 1 TAB Dextrose 50 ml UD PRN IV 12/26/24 16:45 Cancel Nitroglycerin 0.4 mg Q5MINP PRN SL 12/26/24 16:45 Morphine Sulfate 2 mg Q30M PRN IV 12/26/24 16:45 Acetaminophen 650 mg Q6HP PRN [place] 12/26/24 17:00 12/29/24 00:35 650 MG Ceftriaxone Sodium 50 ml @ 100 mls/hr DAILY@09 IV 12/27/24 09:00 01/04/25 08:50 100 MLS/HR Epinephrine HCl 250 ml @ 7.5 mls/hr Q24H IV 12/28/24 14:15 12/28/24 14:44 37.5 MLS/HR Pantoprazole Sodium 40 mg BID IV 12/29/24 10:00 01/04/25 10:40 40 MG Enoxaparin Sodium 110 mg Q12HR SC 12/29/24 23:59 01/04/25 10:41 110 MG Aspirin 81 mg DAILY PO 12/30/24 10:00 01/04/25 10:40 81 MG Diagnostic Test (Pha) 1 strip Q6HR 12/30/24 12:00 01/04/25 12:10 1 STRIP Insulin Human Regular Q6HR SC 12/30/24 12:00 01/04/25 12:17 9 UNITS Dextrose 50 ml UD PRN IV 12/30/24 06:30 Midazolam HCl 50 ml @ 1 mls/hr Q24H IV 12/30/24 12:15 12/31/24 07:28 5 MLS/HR Metoclopramide HCl 5 mg Q8HR IV 01/01/25 14:00 01/04/25 06:07 5 MG Dopamine HCl/ Dextrose 250 ml @ 19.875 mls/ hr [id number] IV 01/01/25 16:45 01/02/25 06:09 13.913 MLS/HR Amino Acids 0 ml @ 0 mls/hr PER PHARMACY IV 01/02/25 10:00 Propofol 100 ml @ 3.18 mls/hr Q24H IV 01/02/25 17:00 01/04/25 06:45 9.54 MLS/HR Enteral Nutritional Formula 1,000 ml 30ML/HR GT 01/03/25 08:15 Insulin Glargine 10 units HS SC 01/04/25 22:00 laboratory and microbiology Laboratory Tests 01/04/25 03:30 Test 01/04/25 03:30 Range/Units Serum Glucose 217 H 74-106 mg/dL Assessment/Plan Impression Acute hypoxemic respiratory failure Altered mental status Pneumonia Atelectasis Patient seen and examined in the ICU Events On mechanical ventilation S/p cardiac arrest PEEP 5, FiO2 30% S/p bronchoscopy Off sedation, not waking up Not following commands Labs and imaging reviewed ABG reviewed Management Vent support Titrate to maintain sats 90% or above librium for withdrawal vitamins/banana bag When patient is more awake, proceed to weaning trial Pressure support 7/5, extubate when ready Continue antibiotics F/u cultures Bronchodilators Monitor renal function Monitor electrolytes Supplement as needed Pressors as needed for hemodynamic support To maintain a mean arterial pressure of 65 mmHg Echo report reviewed F/u cardiology Critical care time 35 minutes Dietary Evaluation Review Comments: 1) TF Vital AF 1.2 Vasquez @ 75ml/hr x 24 hr (goal). Start @ 20ml/hr, increase 10ml/hr Q4H until goal rate is reached. TF at goal volume provides 100% energy & protein needs - 2160 kcal, 135 gm protein, 1460ml free water 2) Water flush 200ml Q6H if allowed 3) TPN if NPO>7 days 4) Monitor BW, lab values and skin integrity Expected Outcomes/Goals: To meet >75% estimated needs lab values to improve Fu 2-3 days Plan discussed with: Other (rn) AMANDO WHITE MD January 04, 2025 14:09
[2025-01-04] MEDS: GLYCOPYRROLATE 0.2 MG/ML 1ML VIAL IV PRN (17:54)
[2025-01-04] MEDS: INSULIN LANTUS (GLARGINE) 1 /0.01ml (100units/ml) SC SCH (22:51)
[2025-01-05] VITALS (110 sets, daily range): BP systolic 110–151; BP diastolic 53–92; PULSE 67–95; RESP 13–26; TEMP 99.1–99.8; O2SAT 91–100
[2025-01-05 04:09] LABS: Basophils # (auto) 0 10 ^3/uL (0-0.2); Basophils % (auto) 0.4 % (0.0-2.0); Eosinophils # (auto) 0.1 10 ^3/uL (0-0.8); Eosinophils % (auto) 2.1 % (0.0-7.0); Hematocrit 44.8 % (41.0-53.0); Hemoglobin 15.2 g/dL (13.5-17.5); Lymphocytes # (auto) 1.2 10 ^3/uL (0.4-5.4); Lymphocytes % (auto) 17.6 % (10.0-50.0); Mean Corpuscular Hemoglobin 30.5 pg (28.0-32.0); Mean Corpuscular Hgb Conc. 33.8 g/dL (32.0-36.0); Mean Corpuscular Volume 90.2 fL (80.0-100.0); Monocytes # (auto) 0.8 10 ^3/uL (0-1.3); Monocytes % (auto) 11.7 % (0.0-12.0); Neutrophils # (auto) 4.6 10 ^3/uL (1.6-8.6); Neutrophils % (auto) 68.2 % (37.0-80.0); Platelet Count (auto) 249 10^3/uL (140-450); Red Blood Cells 4.97 10^6/uL (4.5-5.90); Red Cell Distribution Width 15.4 % (11.8-14.3); White Blood Cell 6.8 10^3/uL (4.4-10.8)
[2025-01-05 04:23] LABS: Sodium 139 mmol/L (136-145)
[2025-01-05 04:24] LABS: Anion Gap 9 (5-15); Calcium 9.1 mg/dL (8.7-10.4)
[2025-01-05 04:29] LABS: BUN/Creatinine Ratio 15.9 (10.0-20.0); Blood Urea Nitrogen 11 mg/dL (9-23)
[2025-01-05 04:30] LABS: Magnesium 1.7 mg/dL (1.6-2.6)
[2025-01-05 04:38] LABS: Carbon Dioxide 33 mmol/L (20-31); Chloride 97 mmol/L (98-107); Glucose 205 mg/dL (74-106); Potassium 3.4 mmol/L (3.5-5.1)
--- NOTE | 2025-01-05 05:28 | DVH ---
EXAM: XR Chest, 1 View CLINICAL INDICATION: pna TECHNIQUE: Frontal view of the chest. COMPARISON: XY CHEST PORTABLE on DOS: 01/04/25, XY CHEST PORTABLE on DOS: 01/03/25, XY CHEST PORTABLE on DOS: 01/02/25, XY CHEST PORTABLE on DOS: 01/01/25, XY CHEST PORTABLE on DOS: 12/31/24 FINDINGS: LUNGS AND PLEURAL SPACES: Pulmonary congestion. No consolidation. No pneumothorax. HEART: Unremarkable. No cardiomegaly. MEDIASTINUM: Unremarkable. Normal mediastinal contour. BONES/JOINTS: Unremarkable. No acute fracture. TUBES, LINES AND DEVICES: The endotracheal tube (ETT) is in satisfactory position. Enteric tube ti p cannot be seen but is below the diaphragm. OTHER FINDINGS: . IMPRESSION: Pulmonary congestion.
[2025-01-05 06:34] LABS: Base Excess 6.1 mmol/L (-2.0-3.0)
[2025-01-05] MEDS: POTASSIUM CHL 20MEQ/100ML 100 ML IV ONE (06:41)
[2025-01-05] MEDS: MAGNESIUM SULFATE 1GM/100ML 100 ML IV ONE (06:41)
--- NOTE | 2025-01-05 09:06 | DVHPN2 ---
Subjective Patient encephalopathic Reviewed: Care Plan, H&P, Medications, Previous Orders, Radiology, Other (Consultants) Changes from previous H/P or p: Changes General: Per HPI Objective Vitals Vital Signs Date Time Temp Pulse Resp B/P (MAP) Pulse Ox O2 Delivery O2 Flow Rate FiO2 01/05/25 08:59 86 24 127/81 (96) 99 30 01/05/25 08:00 Mechanical Ventilator+ 01/05/25 04:11 99.1 99.1 Intake/Output Intake and Output 01/05/25 07:00 Intake Total 683.24 ml Output Total 2180 ml Balance -1496.76 ml Intake Oral 300 ml IV Total 212.24 ml Tube Feeding 171 ml Output Urine Total 2180 ml General Appearance: mild distress, Other (Intubated and sedated) HEENT: Atraumatic, Other (Pupils equal round reactive to light) Lungs: Normal air movement, Other (Few crackles bilateral lungs with good air entry) Cardiovascular: Regular rate, Normal S1, Normal S2, Other (Junctional rhythm) Abdomen: Soft Neuro: Other (Unable to assess) Skin: Dry, Intact Psych/Mental Status: Other (Unable to assess) Medications Current Medications Medications Dose Ordered Sig/Lj Route Start Time Stop Time Status Last Admin Dose Admin Fentanyl Citrate 250 ml @ 2.5 mls/hr Q24H IV 12/26/24 15:15 01/04/25 06:45 2.5 MLS/HR Norepinephrine Bitartrate 250 ml @ 3.75 mls/hr Q24H IV 12/26/24 15:15 01/02/25 21:39 3.75 MLS/HR Folic Acid 1 mg/ Dextrose 50.2 ml @ 200.8 mls/ hr DAILY INJ 12/27/24 10:00 01/04/25 10:40 200.8 MLS/HR Dextrose 50 ml UD PRN IV 12/26/24 16:45 Cancel Nitroglycerin 0.4 mg Q5MINP PRN SL 12/26/24 16:45 Morphine Sulfate 2 mg Q30M PRN IV 12/26/24 16:45 Acetaminophen 650 mg Q6HP PRN MI 12/26/24 17:00 12/29/24 00:35 650 MG Ceftriaxone Sodium 50 ml @ 100 mls/hr DAILY@09 IV 12/27/24 09:00 01/04/25 08:50 100 MLS/HR Epinephrine HCl 250 ml @ 7.5 mls/hr Q24H IV 12/28/24 14:15 12/28/24 14:44 37.5 MLS/HR Pantoprazole Sodium 40 mg BID IV 12/29/24 10:00 01/04/25 22:32 40 MG Enoxaparin Sodium 110 mg Q12HR SC 12/29/24 23:59 01/04/25 22:33 110 MG Aspirin 81 mg DAILY PO 12/30/24 10:00 01/04/25 10:40 81 MG Diagnostic Test (Pha) 1 strip Q6HR 12/30/24 12:00 01/05/25 05:20 1 STRIP Insulin Human Regular Q6HR SC 12/30/24 12:00 01/05/25 05:26 6 UNITS Dextrose 50 ml UD PRN IV 12/30/24 06:30 Midazolam HCl 50 ml @ 1 mls/hr Q24H IV 12/30/24 12:15 12/31/24 07:28 5 MLS/HR Metoclopramide HCl 5 mg Q8HR IV 01/01/25 14:00 01/05/25 05:28 5 MG Dopamine HCl/ Dextrose 250 ml @ 19.875 mls/ hr [id number] IV 01/01/25 16:45 01/02/25 06:09 13.913 MLS/HR Propofol 100 ml @ 3.18 mls/hr Q24H IV 01/02/25 17:00 01/04/25 06:45 9.54 MLS/HR Insulin Glargine 10 units HS SC 01/04/25 22:00 01/04/25 22:51 10 UNITS Glycopyrrolate 0.2 mg Q8HPRN PRN IV 01/04/25 22:00 01/04/25 17:54 0.2 MG Enteral Nutritional Formula 1,000 ml 50ML/HR GT 01/05/25 09:00 UNV Potassium Bicarbonate 50 meq DAILY GT 01/05/25 10:00 UNV Laboratory Results Laboratory Tests 01/05/25 03:10 Chemistry Test 01/05/25 03:10 Calcium Level 9.1 mg/dL (8.7-10.4) Magnesium Level 1.7 mg/dL (1.6-2.6) Urinalysis Test 12/26/24 16:45 Urine Color Yellow (Yellow) Urine Clarity Turbid (Clear) H Urine pH 5.5 (5.0-9.0) Urine Specific [place] 1.025 (1.001-1.035) Urine Protein Trace (Negative) H Urine Ketones 1+ (Negative) H Urine Blood Negative /uL (Negative) Urine Nitrite Negative (Negative) Urine Bilirubin Negative (Negative) Urine Urobilinogen 4 mg/dL (Negative) H Urine Leukocyte Esterase Trace /uL (Negative) Urine RBC 1 /hpf (0 - 3) Urine Microscopic WBC 9 /HPF (0-3) H Urine Squamous Epithelial Cells Few /hpf (<5) Urine Bacteria None seen /hpf (None Seen) Urine Hyaline Casts Mod /lpf (0 - 2) Urine Mucus Moderate (None Seen) Urine Glucose 1+ mg/dL (Normal) H Blood Gas Results Test 01/05/25 06:30 Arterial Blood pH 7.477 (7.350-7.450) FiO2 % 30.0 Microbiology Microbiology Date/Time Source Procedure Growth Status 01/02/25 13:06 Sputum Gram Stain - Final Complete 01/02/25 13:06 Respiratory Culture - Final Staphylococcus aureus Complete 12/28/24 14:50 Nose MRSA Screen - Final Complete 12/26/24 16:45 Voided Urine Urine Culture - Final Complete 12/26/24 15:29 Blood Blood Culture - Final NO GROWTH AFTER 5 DAYS OF INCUBATION. Complete Labs and/or images reviewed: Labs reviewed by me, Image(s) reviewed by me Assessment/Plan Assessment/Plan Impression: -acute hypoxic respiratory failure with mechanical ventilation -toxic metabolic encephalopathy with ETOH and benzodiazepines -history of CAD with previous CABG -history of alcoholism -diabetes mellitus -dyslipidemia -peripheral neuropathy Plan: Events: Patient has been off sedation for over 24 hours. No purposeful movement noted with a neurological assessment. Cranial nerves not intact. Positive gag and cough when noxious stimuli. -increase tube feeding -potassium replacement -continue current ventilator settings -neurology consultation -continue full-dose anticoagulation with Lovenox -regular insulin sliding scale -empiric antibiotic therapy -PUD, DVT prophylaxis -repeat labs, chest x-ray, ABG in a.m. Critical care time spent with patient discussing and formulating plan of care: 40 minutes. This does not include time spent performing procedures. This medical document was created using an electronic medical record system with [employer] dictation system. Although this document has been carefully reviewed, there may still be some phonetic and typographical errors. These areas are purely typographical due to imperfections of the software programs, and do not reflect any compromise in the patient's medical care. Plan discussed with: Patient, Other (RN) My Orders Orders - MARLENY MEDINA NP Procedure Category Date Status Time Glycopyrrolate PHA 01/04/25 In Process Injection (Robinul 22:00 Nutritional PHA 01/05/25 Logged Supplements (Glucerna 09:00 Potassium Effervesent PHA 01/05/25 Logged Tab (Klor-Con/Ef) 10:00 [place] [facility] Consult CONS 01/05/25 Verified 09:01 Date of Service: January 05, 2025 Billing Provider: MARLENY MEDINA NP Common Visit Codes: [id number] CARE 30-74 MIN MARLENY MEDINA NP January 05, 2025 09:05
[2025-01-05] MEDS: POTASSIUM EFFERVESENT TAB 25 MEQ GT SCH (10:52)
--- NOTE | 2025-01-05 11:59 | DVHPN2 ---
Progress Note - Dictate Date Seen: January 05, 2025 Medical Necessity Reason Pt with a Central, PICC or Fol: Yes The following are medically ne: Central Line vital signs Vital Sign Date Time Temp Pulse Resp B/P (MAP) Pulse Ox O2 Delivery O2 Flow Rate FiO2 01/05/25 11:10 86 21 131/85 (100) 96 30 01/05/25 08:00 Mechanical Ventilator+ 01/05/25 04:11 99.1 99.1 Total Intake and Output 01/04/25 01/04/25 01/05/25 15:00 23:00 07:00 Intake Total 212.24 ml 321 ml 150 ml Output Total 1900 ml 280 ml Balance 212.24 ml -1579 ml -130 ml medications Current Medications Medications Dose Ordered Sig/Lj Route Start Time Stop Time Status Last Admin Dose Admin Fentanyl Citrate 250 ml @ 2.5 mls/hr Q24H IV 12/26/24 15:15 01/04/25 06:45 2.5 MLS/HR Norepinephrine Bitartrate 250 ml @ 3.75 mls/hr Q24H IV 12/26/24 15:15 01/02/25 21:39 3.75 MLS/HR Dextrose 50 ml UD PRN IV 12/26/24 16:45 Cancel Nitroglycerin 0.4 mg Q5MINP PRN SL 12/26/24 16:45 Morphine Sulfate 2 mg Q30M PRN IV 12/26/24 16:45 Acetaminophen 650 mg Q6HP PRN MS 12/26/24 17:00 12/29/24 00:35 650 MG Ceftriaxone Sodium 50 ml @ 100 mls/hr DAILY@09 IV 12/27/24 09:00 01/05/25 09:14 100 MLS/HR Epinephrine HCl 250 ml @ 7.5 mls/hr Q24H IV 12/28/24 14:15 12/28/24 14:44 37.5 MLS/HR Pantoprazole Sodium 40 mg BID IV 12/29/24 10:00 01/05/25 09:14 40 MG Enoxaparin Sodium 110 mg Q12HR SC 12/29/24 23:59 01/05/25 09:14 110 MG Aspirin 81 mg DAILY PO 12/30/24 10:00 01/05/25 09:14 81 MG Diagnostic Test (Pha) 1 strip Q6HR 12/30/24 12:00 01/05/25 10:52 1 STRIP Insulin Human Regular Q6HR SC 12/30/24 12:00 01/05/25 11:04 6 UNITS Dextrose 50 ml UD PRN IV 12/30/24 06:30 Metoclopramide HCl 5 mg Q8HR IV 01/01/25 14:00 01/05/25 10:52 5 MG Dopamine HCl/ Dextrose 250 ml @ 19.875 mls/ hr [id number] IV 01/01/25 16:45 01/02/25 06:09 13.913 MLS/HR Insulin Glargine 10 units HS SC 01/04/25 22:00 01/04/25 22:51 10 UNITS Glycopyrrolate 0.2 mg Q8HPRN PRN IV 01/04/25 22:00 01/04/25 17:54 0.2 MG Enteral Nutritional Formula 1,000 ml 50ML/HR GT 01/05/25 09:00 Potassium Bicarbonate 50 meq DAILY GT 01/05/25 10:00 01/05/25 10:52 50 MEQ laboratory and microbiology Laboratory Tests 01/05/25 03:10 Test 01/05/25 03:10 Range/Units Serum Glucose 205 H 74-106 mg/dL Assessment/Plan Impression Acute hypoxemic respiratory failure Altered mental status Pneumonia Atelectasis Patient seen and examined in the ICU Events Off sedation, not waking up s/p CPR >20 min suspected JASON On mechanical ventilation S/p cardiac arrest PEEP 5, FiO2 30% S/p bronchoscopy Labs and imaging reviewed ABG reviewed Management Vent support Titrate to maintain sats 90% or above neuro input for JASON Continue antibiotics F/u cultures Bronchodilators Monitor renal function Monitor electrolytes Supplement as needed Pressors as needed for hemodynamic support To maintain a mean arterial pressure of 65 mmHg Echo report reviewed F/u cardiology Critical care time 35 minutes Dietary Evaluation Review Comments: 1) TF Vital AF 1.2 Vasquez @ 75ml/hr x 24 hr (goal). Start @ 20ml/hr, increase 10ml/hr Q4H until goal rate is reached. TF at goal volume provides 100% energy & protein needs - 2160 kcal, 135 gm protein, 1460ml free water 2) Water flush 200ml Q6H if allowed 3) TPN if NPO>7 days 4) Monitor BW, lab values and skin integrity Expected Outcomes/Goals: To meet >75% estimated needs lab values to improve Fu 2-3 days Plan discussed with: Other (rn) AMANDO WHITE MD January 05, 2025 11:59
[2025-01-05 13:44] LABS: Potassium 4.3 mmol/L (3.5-5.1)
[2025-01-05 13:50] LABS: Magnesium 1.7 mg/dL (1.6-2.6)
--- NOTE | 2025-01-05 18:54 | BSKYNEURO ---
[place] [facility] Note # Demographics Consult Type: General Neurology Patient Location: Inpatient First Name: Glenn Last Name: flaquita Date of : 1970 Age: 54 Gender: Male Facility: [facility] Time of Initial Page (): 01/05/2025 14:45 Time of Return Call ( Time): 01/05/2025 14:46 # HPI History: 54 y/o M with Hx of DM, CAD and ETOH use disorder admitted 12/17 with AMS, ETOH intoxication and pneumonia. Hospital course c/b cardiac arrest 12/28. CPR performed for [address] head 01/01 negative. Patient has received fentanyl today. # Exam Time of Exam (): 01/05/2025 18:35 Mental Status: - does not follow commands intubated Language: nonverbal Cranial Nerves: - PERRLA spontaneous eye opening with suctioning Motor: extensor posturing # Assessment Impression: Severe Anoxic Brain Injury # Plan Imaging: (urgency: routine): - MRI Brain without contrast Diagnostic Test: - EEG Other: - If patient has any neurological deterioration please call me back immediately Additional Recommendations: Hold fentanyl and all sedative medication Follow clinical exam for 72 hrs off all sedation to assess for increased signs of responsiveness and purposeful movment. # Logistics Attestation of consult completion: The patient is located at: [facility]. Facility staff participated in the visit. I performed this telemedi cine visit from my offsite office utilizing interactive 2 way audio and visual telecommunication technology. Total time spent in telemedicine encounter: I spent 35 minutes reviewing clinical data and/or imaging, obtaining history, examining the patient, c ommunicating with the onsite care team, and in preparation of this report. # Demographics First Name: Glenn Last Name: flaquita Facility: [facility] Electronically signed at 01/05/2025 18:54 ( Time) by DO Lai Aguilar ELIZABETH A DO January 05, 2025 18:54
[2025-01-06] VITALS (111 sets, daily range): BP systolic 100–148; BP diastolic 72–99; PULSE 68–87; RESP 6–29; TEMP 98.3–99.9; O2SAT 89–98
[2025-01-06 03:51] LABS: Anion Gap 8 (5-15); Chloride 99 mmol/L (98-107); Potassium 3.5 mmol/L (3.5-5.1); Sodium 139 mmol/L (136-145)
[2025-01-06 03:52] LABS: Calcium 9.3 mg/dL (8.7-10.4)
[2025-01-06 03:57] LABS: BUN/Creatinine Ratio 19.4 (10.0-20.0); Blood Urea Nitrogen 13 mg/dL (9-23)
[2025-01-06 04:10] LABS: Carbon Dioxide 32 mmol/L (20-31); Glucose 212 mg/dL (74-106)
[2025-01-06 04:37] LABS: Basophils # (auto) 0.1 10 ^3/uL (0-0.2); Basophils % (auto) 0.9 % (0.0-2.0); Eosinophils # (auto) 0.2 10 ^3/uL (0-0.8); Eosinophils % (auto) 2.8 % (0.0-7.0); Hematocrit 44.3 % (41.0-53.0); Lymphocytes # (auto) 1.6 10 ^3/uL (0.4-5.4); Lymphocytes % (auto) 21.2 % (10.0-50.0); Mean Corpuscular Hemoglobin 30.5 pg (28.0-32.0); Mean Corpuscular Hgb Conc. 33.7 g/dL (32.0-36.0); Mean Corpuscular Volume 90.4 fL (80.0-100.0); Monocytes # (auto) 0.8 10 ^3/uL (0-1.3); Monocytes % (auto) 10.9 % (0.0-12.0); Neutrophils # (auto) 4.8 10 ^3/uL (1.6-8.6); Neutrophils % (auto) 64.2 % (37.0-80.0); Platelet Count (auto) 254 10^3/uL (140-450); Red Blood Cells 4.91 10^6/uL (4.5-5.90); Red Cell Distribution Width 15.2 % (11.8-14.3); White Blood Cell 7.4 10^3/uL (4.4-10.8)
[2025-01-06] MEDS: POTASSIUM CHL 20MEQ/100ML 100 ML IV ONE (05:00)
--- NOTE | 2025-01-06 05:37 | DVH ---
EXAM: XR Chest, 1 View CLINICAL INDICATION: ACUTE RESP FAILURE TECHNIQUE: Frontal view of the chest. COMPARISON: XY CHEST PORTABLE on DOS: 01/05/25, XY CHEST PORTABLE on DOS: 01/04/25, XY CHEST PORTABLE on DOS: 01/03/25, XY CHEST PORTABLE on DOS: 01/02/25, XY CHEST PORTABLE on DOS: 01/01/25 FINDINGS: LUNGS AND PLEURAL SPACES: Mild pulmonary congestion. No consolidation. No pneumothorax. HEART: Unremarkable. No cardiomegaly. MEDIASTINUM: Unremarkable. Normal mediastinal contour. BONES/JOINTS: Probable old fracture deformity of the right ribs. TUBES, LINES AND DEVICES: The endotracheal tube (ETT) is in satisfactory position. OTHER FINDINGS: . . IMPRESSION: Mild pulmonary congestion.
[2025-01-06 06:46] LABS: Base Excess 6.8 mmol/L (-2.0-3.0)
[2025-01-06] MEDS ORDERED: BISACODYL 10 MG RECT SUPP PR PRN (08:15)
--- NOTE | 2025-01-06 08:15 | MEDREC ---
[facility] ASP Intervention Section I [facility] ASP Intervention: Review courses of therapy (The Final Sputum culture showed MSSA. Please consider switching Ceftriaxone to Nafcillin 2 grams IV q4h OR Cefazolin 2 grams IV q8h for better coverage) CIRILO JOHNSON January 06, 2025 08:15
--- NOTE | 2025-01-06 08:20 | DVHPN2 ---
Subjective Patient encephalopathic Reviewed: Care Plan, H&P, Medications, Previous Orders, Radiology, Other (Consultants) Changes from previous H/P or p: No Changes General: Per HPI Objective Vitals Vital Signs Date Time Temp Pulse Resp B/P (MAP) Pulse Ox O2 Delivery O2 Flow Rate FiO2 01/06/25 06:25 78 19 136/95 (109) 95 30 01/06/25 06:00 Mechanical Ventilator+ 01/06/25 03:45 98.6 209.5 Intake/Output Intake and Output 01/06/25 07:00 Intake Total 492.5 ml Output Total 700 ml Balance -207.5 ml IV Total 107.5 ml Tube Feeding 385 ml Output Urine Total 700 ml # Bowel Movements 1 General Appearance: mild distress, Other (Intubated and sedated) HEENT: Atraumatic, Other (Pupils equal round reactive to light) Lungs: Normal air movement, Other (Few crackles bilateral lungs with good air entry) Cardiovascular: Regular rate, Normal S1, Normal S2, Other (Junctional rhythm) Abdomen: Soft Neuro: Other (Purposeful movement. Patient with noted decorticate posturing with suctioning.) Skin: Dry, Intact Psych/Mental Status: Other (Unable to assess) Medications Current Medications Medications Dose Ordered Sig/Lj Route Start Time Stop Time Status Last Admin Dose Admin Norepinephrine Bitartrate 250 ml @ 3.75 mls/hr Q24H IV 12/26/24 15:15 01/02/25 21:39 3.75 MLS/HR Dextrose 50 ml UD PRN IV 12/26/24 16:45 Cancel Nitroglycerin 0.4 mg Q5MINP PRN SL 12/26/24 16:45 Morphine Sulfate 2 mg Q30M PRN IV 12/26/24 16:45 Acetaminophen [address] 12/26/24 17:00 12/29/24 00:35 650 MG Ceftriaxone Sodium 50 ml @ 100 mls/hr DAILY@09 IV 12/27/24 09:00 01/05/25 09:14 100 MLS/HR Enoxaparin Sodium 110 mg Q12HR SC 12/29/24 23:59 01/05/25 22:50 110 MG Aspirin 81 mg DAILY PO 12/30/24 10:00 01/05/25 09:14 81 MG Diagnostic Test (Pha) 1 strip Q6HR 12/30/24 12:00 01/06/25 05:56 1 STRIP Insulin Human Regular Q6HR SC 12/30/24 12:00 01/06/25 07:44 3 UNITS Dextrose 50 ml UD PRN IV 12/30/24 06:30 Dopamine HCl/ Dextrose 250 ml @ 19.875 mls/ hr [id number] IV 01/01/25 16:45 01/02/25 06:09 13.913 MLS/HR Insulin Glargine 10 units HS SC 01/04/25 22:00 01/05/25 22:55 10 UNITS Glycopyrrolate 0.2 mg Q8HPRN PRN IV 01/04/25 22:00 01/04/25 17:54 0.2 MG Enteral Nutritional Formula 1,000 ml 50ML/HR GT 01/05/25 09:00 Potassium Bicarbonate 50 meq DAILY GT 01/05/25 10:00 01/05/25 10:52 50 MEQ Bisacodyl [address] 01/06/25 08:15 UNV Lactulose 30 ml BID GT 01/06/25 10:00 UNV Laboratory Results Laboratory Tests 01/06/25 03:10 Chemistry Test 01/05/25 13:29 01/06/25 03:10 Magnesium Level 1.7 mg/dL (1.6-2.6) Calcium Level 9.3 mg/dL (8.7-10.4) Urinalysis Test 12/26/24 16:45 Urine Color Yellow (Yellow) Urine Clarity Turbid (Clear) H Urine pH 5.5 (5.0-9.0) Urine Specific [place] 1.025 (1.001-1.035) Urine Protein Trace (Negative) H Urine Ketones 1+ (Negative) H Urine Blood Negative /uL (Negative) Urine Nitrite Negative (Negative) Urine Bilirubin Negative (Negative) Urine Urobilinogen 4 mg/dL (Negative) H Urine Leukocyte Esterase Trace /uL (Negative) Urine RBC 1 /hpf (0 - 3) Urine Microscopic WBC 9 /HPF (0-3) H Urine Squamous Epithelial Cells Few /hpf (<5) Urine Bacteria None seen /hpf (None Seen) Urine Hyaline Casts Mod /lpf (0 - 2) Urine Mucus Moderate (None Seen) Urine Glucose 1+ mg/dL (Normal) H Blood Gas Results Test 01/06/25 06:38 Arterial Blood pH 7.494 (7.350-7.450) FiO2 % 30.0 Microbiology Microbiology Date/Time Source Procedure Growth Status 01/02/25 13:06 Sputum Gram Stain - Final Complete 01/02/25 13:06 Respiratory Culture - Final Staphylococcus aureus Complete 12/28/24 14:50 Nose MRSA Screen - Final Complete 12/26/24 16:45 Voided Urine Urine Culture - Final Complete 12/26/24 15:29 Blood Blood Culture - Final NO GROWTH AFTER 5 DAYS OF INCUBATION. Complete Labs and/or images reviewed: Labs reviewed by me, Image(s) reviewed by me Assessment/Plan Assessment/Plan Impression: -acute hypoxic respiratory failure with mechanical ventilation -toxic metabolic encephalopathy with ETOH and benzodiazepines -history of CAD with previous CABG -history of alcoholism -diabetes mellitus -dyslipidemia -peripheral neuropathy -community-acquired pneumonia with Staphylococcus aureus Plan: Events: Patient has been off sedation for greater than 48 hours. No changes in neurological status. Neurology consultation recommendations reviewed. Unable to do MRI of the brain given previous CABG. Patient will have EEG ordered. Continues to not have BM. -start bowel regimen with Dulcolax suppository and lactulose -continue tube feeding -continue current ventilator settings -neurology consultation -continue full-dose anticoagulation with Lovenox -regular insulin sliding scale -empiric antibiotic therapy -PUD, DVT prophylaxis -repeat labs, chest x-ray, ABG in a.m. Critical care time spent with patient discussing and formulating plan of care: 40 minutes. This does not include time spent performing procedures. This medical document was created using an electronic medical record system with [employer] dictation system. Although this document has been carefully reviewed, there may still be some phonetic and typographical errors. These areas are purely typographical due to imperfections of the software programs, and do not reflect any compromise in the patient's medical care. Plan discussed with: Patient, Other (RN) My Orders Orders - MARLENY MEDINA NP Procedure Category Date Status Time Nutritional PHA 01/05/25 In Process Supplements (Glucerna 09:00 Potassium Effervesent PHA 01/05/25 In Process Tab (Klor-Con/Ef) 10:00 [place] Neuro Consult CONS 01/05/25 Transmitted 09:01 Chest Portable XY 01/06/25 Resulted 04:00 Abg W/ Co-Ox RT 01/06/25 Logged 06:00 Bisacodyl Suppository PHA 01/06/25 Logged (Dulcolax Supposit 08:15 Bisacodyl Suppository PHA 01/06/25 Logged (Dulcolax Supposit 08:15 Lactulose Oral PHA 01/06/25 Logged 10:00 Eeg Awake/Sleep/Act EEG 01/06/25 Verified 08:16 Date of Service: January 06, 2025 Billing Provider: MARLENY MEDINA NP Common Visit Codes: [id number] CARE 30-74 MIN MARLENY MEDINA NP January 06, 2025 08:20
[2025-01-06] MEDS: BISACODYL 10 MG RECT SUPP PR ONE (09:20)
[2025-01-06] MEDS: LACTULOSE 20Gm/30ML SOLN GT SCH (09:20)
--- NOTE | 2025-01-06 15:07 | DVHPN2 ---
Progress Note - Dictate Date Seen: January 06, 2025 Medical Necessity Reason Pt with a Central, PICC or Fol: Yes The following are medically ne: Central Line vital signs Vital Sign Date Time Temp Pulse Resp B/P (MAP) Pulse Ox O2 Delivery O2 Flow Rate FiO2 01/06/25 14:28 71 17 123/83 (96) 92 01/06/25 13:41 30 01/06/25 13:41 Mechanical Ventilator+ 01/06/25 12:13 98.3 98.3 Total Intake and Output 01/05/25 01/05/25 01/06/25 13:00 21:00 05:00 Intake Total 250 ml 325 ml 7.5 ml Output Total 280 ml 450 ml Balance -30 ml -125 ml 7.5 ml medications Current Medications Medications Dose Ordered Sig/Lj Route Start Time Stop Time Status Last Admin Dose Admin Norepinephrine Bitartrate 250 ml @ 3.75 mls/hr Q24H IV 12/26/24 15:15 01/02/25 21:39 3.75 MLS/HR Dextrose 50 ml UD PRN IV 12/26/24 16:45 Cancel Nitroglycerin 0.4 mg Q5MINP PRN SL 12/26/24 16:45 Morphine Sulfate 2 mg Q30M PRN IV 12/26/24 16:45 Acetaminophen 650 mg Q6HP PRN MS 12/26/24 17:00 12/29/24 00:35 650 MG Ceftriaxone Sodium 50 ml @ 100 mls/hr DAILY@09 IV 12/27/24 09:00 01/06/25 08:50 100 MLS/HR Enoxaparin Sodium 110 mg Q12HR SC 12/29/24 23:59 01/06/25 08:48 110 MG Aspirin 81 mg DAILY PO 12/30/24 10:00 01/06/25 08:48 81 MG Diagnostic Test (Pha) 1 strip Q6HR 12/30/24 12:00 01/06/25 10:47 1 STRIP Insulin Human Regular Q6HR SC 12/30/24 12:00 01/06/25 10:48 6 UNITS Dextrose 50 ml UD PRN IV 12/30/24 06:30 Dopamine HCl/ Dextrose 250 ml @ 19.875 mls/ hr [id number] IV 01/01/25 16:45 01/02/25 06:09 13.913 MLS/HR Insulin Glargine 10 units HS SC 01/04/25 22:00 01/05/25 22:55 10 UNITS Glycopyrrolate 0.2 mg Q8HPRN PRN IV 01/04/25 22:00 01/04/25 17:54 0.2 MG Enteral Nutritional Formula 1,000 ml 50ML/HR GT 01/05/25 09:00 Potassium Bicarbonate 50 meq DAILY GT 01/05/25 10:00 01/06/25 08:49 50 MEQ Bisacodyl 10 mg DAILYP PRN MS 01/06/25 08:15 Lactulose 30 ml BID GT 01/06/25 10:00 01/06/25 09:20 30 ML laboratory and microbiology Laboratory Tests 01/06/25 03:10 Test 01/06/25 03:10 Range/Units Serum Glucose 212 H 74-106 mg/dL Assessment/Plan Impression Acute hypoxemic respiratory failure Altered mental status Pneumonia Atelectasis Patient seen and examined in the ICU Events Off sedation, not waking up s/p CPR >20 min suspected JASON On mechanical ventilation S/p cardiac arrest PEEP 5, FiO2 30% S/p bronchoscopy Labs and imaging reviewed ABG reviewed Management Vent support Titrate to maintain sats 90% or above neuro input for JASON Continue antibiotics F/u cultures Bronchodilators Monitor renal function Monitor electrolytes Supplement as needed Pressors as needed for hemodynamic support To maintain a mean arterial pressure of 65 mmHg Echo report reviewed F/u cardiology Critical care time 35 minutes Dietary Evaluation Review Comments: 1) TF Vital AF 1.2 Vasquez @ 75ml/hr x 24 hr (goal). Start @ 20ml/hr, increase 10ml/hr Q4H until goal rate is reached. TF at goal volume provides 100% energy & protein needs - 2160 kcal, 135 gm protein, 1460ml free water 2) Water flush 200ml Q6H if allowed 3) TPN if NPO>7 days 4) Monitor BW, lab values and skin integrity Expected Outcomes/Goals: To meet >75% estimated needs lab values to improve Fu 2-3 days Plan discussed with: Other (Rn) AMANDO WHITE MD January 06, 2025 15:07
[2025-01-07] VITALS (110 sets, daily range): BP systolic 108–162; BP diastolic 75–103; PULSE 62–78; RESP 10–27; TEMP 98.3–99.1; O2SAT 92–100
[2025-01-07 03:46] LABS: Basophils # (auto) 0.1 10 ^3/uL (0-0.2); Basophils % (auto) 0.6 % (0.0-2.0); Eosinophils # (auto) 0.2 10 ^3/uL (0-0.8); Eosinophils % (auto) 1.9 % (0.0-7.0); Hematocrit 46.5 % (41.0-53.0); Hemoglobin 15.4 g/dL (13.5-17.5); Lymphocytes # (auto) 1.9 10 ^3/uL (0.4-5.4); Lymphocytes % (auto) 16.7 % (10.0-50.0); Mean Corpuscular Hemoglobin 30.3 pg (28.0-32.0); Mean Corpuscular Hgb Conc. 33.1 g/dL (32.0-36.0); Mean Corpuscular Volume 91.5 fL (80.0-100.0); Monocytes # (auto) 0.9 10 ^3/uL (0-1.3); Monocytes % (auto) 8.2 % (0.0-12.0); Neutrophils # (auto) 8.1 10 ^3/uL (1.6-8.6); Neutrophils % (auto) 72.6 % (37.0-80.0); Nucleated Red Blood Cells % 0.2 %; Platelet Count (auto) 306 10^3/uL (140-450); Red Blood Cells 5.08 10^6/uL (4.5-5.90); Red Cell Distribution Width 15.4 % (11.8-14.3); White Blood Cell 11.1 10^3/uL (4.4-10.8)
[2025-01-07 04:08] LABS: Alanine Aminotransferase 12 U/L (7-40); Albumin 3.6 g/dL (3.2-4.8); Anion Gap 8 (5-15); Aspartate Aminotransferase 25 U/L (13-40); Bilirubin, Total 0.7 mg/dL (0.2-1.0); Blood Urea Nitrogen 12 mg/dL (9-23); Calcium 9.8 mg/dL (8.7-10.4); Carbon Dioxide 30 mmol/L (20-31); Chloride 102 mmol/L (98-107); Phosphorus 3.7 mg/dL (2.4-5.1); Potassium 3.5 mmol/L (3.5-5.1); Sodium 140 mmol/L (136-145); Total Protein 6.6 g/dL (5.7-8.2)
[2025-01-07 04:10] LABS: Alkaline Phosphatase 181 U/L (46-116); Glucose 190 mg/dL (74-106); Magnesium 1.6 mg/dL (1.6-2.6)
--- NOTE | 2025-01-07 06:02 | DVH ---
CHEST RADIOGRAPH Indication: Intubated Technique: Single frontal view of the chest was obtained Comparison: XY CHEST PORTABLE on DOS: 01/06/25, XY CHEST PORTABLE on DOS: 01/05/25, XY CHEST PORTABLE o n DOS: 01/04/25 IMPRESSION: Heart appears stable in size. Enteric tube tip is difficult to visualize. Endotracheal tube tip appro ximately 3 cm from the donavan. The lungs appear stable without focal airspace opacity, effusion, or pneumothorax. There is mild pulmonary vascular congestion.
[2025-01-07 07:45] LABS: Base Excess 5.7 mmol/L (-2.0-3.0)
--- NOTE | 2025-01-07 08:15 | DVHPN2 ---
Progress Note - Dictate Date Seen: January 07, 2025 Medical Necessity Reason Pt with a Central, PICC or Fol: Yes The following are medically ne: Central Line vital signs Vital Sign Date Time Temp Pulse Resp B/P (MAP) Pulse Ox O2 Delivery O2 Flow Rate FiO2 01/07/25 07:50 75 18 98 Mechanical Ventilator+ 30 30 01/07/25 07:43 150/90 (110) 01/07/25 03:58 99.0 99.0 Total Intake and Output 01/06/25 01/06/25 01/07/25 15:00 23:00 07:00 Intake Total 30 ml Output Total 300 ml 225 ml Balance -300 ml -195 ml medications Current Medications Medications Dose Ordered Sig/Lj Route Start Time Stop Time Status Last Admin Dose Admin Norepinephrine Bitartrate 250 ml @ 3.75 mls/hr Q24H IV 12/26/24 15:15 01/02/25 21:39 3.75 MLS/HR Dextrose 50 ml UD PRN IV 12/26/24 16:45 Cancel Nitroglycerin 0.4 mg Q5MINP PRN SL 12/26/24 16:45 Morphine Sulfate 2 mg Q30M PRN IV 12/26/24 16:45 Acetaminophen 650 mg Q6HP PRN AR 12/26/24 17:00 12/29/24 00:35 650 MG Ceftriaxone Sodium 50 ml @ 100 mls/hr DAILY@09 IV 12/27/24 09:00 01/07/25 07:39 100 MLS/HR Enoxaparin Sodium 110 mg Q12HR SC 12/29/24 23:59 01/07/25 07:39 110 MG Aspirin 81 mg DAILY PO 12/30/24 10:00 01/07/25 07:38 81 MG Diagnostic Test (Pha) 1 strip Q6HR 12/30/24 12:00 01/07/25 05:54 1 STRIP Insulin Human Regular Q6HR SC 12/30/24 12:00 01/07/25 00:36 6 UNITS Dextrose 50 ml UD PRN IV 12/30/24 06:30 Dopamine HCl/ Dextrose 250 ml @ 19.875 mls/ hr [id number] IV 01/01/25 16:45 01/02/25 06:09 13.913 MLS/HR Insulin Glargine 10 units HS SC 01/04/25 22:00 01/06/25 22:24 10 UNITS Glycopyrrolate 0.2 mg Q8HPRN PRN IV 01/04/25 22:00 01/04/25 17:54 0.2 MG Enteral Nutritional Formula 1,000 ml 50ML/HR GT 01/05/25 09:00 Potassium Bicarbonate 50 meq DAILY GT 01/05/25 10:00 01/07/25 07:38 50 MEQ Bisacodyl 10 mg DAILYP PRN [place] 01/06/25 08:15 laboratory and microbiology Laboratory Tests 01/07/25 03:22 Test 01/07/25 03:22 Range/Units Serum Glucose 190 H 74-106 mg/dL Assessment/Plan Impression Acute hypoxemic respiratory failure Altered mental status Pneumonia Atelectasis Patient seen and examined in the ICU Events Off sedation, not waking up s/p CPR >20 min suspected JASON prognosis v poor On mechanical ventilation S/p cardiac arrest PEEP 5, FiO2 30% S/p bronchoscopy Labs and imaging reviewed ABG reviewed Management Vent support Titrate to maintain sats 90% or above neuro input for JASON Continue antibiotics F/u cultures Bronchodilators Monitor renal function Monitor electrolytes Supplement as needed Pressors as needed for hemodynamic support To maintain a mean arterial pressure of 65 mmHg Echo report reviewed F/u cardiology compassionate wean vs trache Critical care time 35 minutes Dietary Evaluation Review Comments: 1) TF Vital AF 1.2 Vasquez @ 75ml/hr x 24 hr (goal). Start @ 20ml/hr, increase 10ml/hr Q4H until goal rate is reached. TF at goal volume provides 100% energy & protein needs - 2160 kcal, 135 gm protein, 1460ml free water 2) Water flush 200ml Q6H if allowed 3) TPN if NPO>7 days 4) Monitor BW, lab values and skin integrity Expected Outcomes/Goals: To meet >75% estimated needs lab values to improve Fu 2-3 days Plan discussed with: Other (rn) AMANDO WHITE MD January 07, 2025 08:15
--- NOTE | 2025-01-07 08:25 | DVHPN2 ---
Subjective Patient encephalopathic Reviewed: Care Plan, H&P, Medications, Previous Orders, Radiology, Other (Consultants) Changes from previous H/P or p: No Changes General: Per HPI Objective Vitals Vital Signs Date Time Temp Pulse Resp B/P (MAP) Pulse Ox O2 Delivery O2 Flow Rate FiO2 01/07/25 08:13 98.6 73 10 146/90 (108) 98 98.6 01/07/25 07:50 Mechanical Ventilator+ 30 30 Intake/Output Intake and Output 01/07/25 07:00 Intake Total 30 ml Output Total 525 ml Balance -495 ml Intake Oral 30 ml Output Urine Total 525 ml # Bowel Movements 5 General Appearance: mild distress, Other (Intubated and sedated) HEENT: Atraumatic, Other (Pupils equal round reactive to light) Lungs: Normal air movement, Other (Few crackles bilateral lungs with good air entry) Cardiovascular: Regular rate, Normal S1, Normal S2, Other (Junctional rhythm) Abdomen: Soft Neuro: Other (Purposeful movement. Patient with noted decorticate posturing with suctioning.) Skin: Dry, Intact Psych/Mental Status: Other (Unable to assess) Medications Current Medications Medications Dose Ordered Sig/Lj Route Start Time Stop Time Status Last Admin Dose Admin Norepinephrine Bitartrate 250 ml @ 3.75 mls/hr Q24H IV 12/26/24 15:15 01/02/25 21:39 3.75 MLS/HR Dextrose 50 ml UD PRN IV 12/26/24 16:45 Cancel Nitroglycerin 0.4 mg Q5MINP PRN SL 12/26/24 16:45 Morphine Sulfate 2 mg Q30M PRN IV 12/26/24 16:45 Acetaminophen 650 mg Q6HP PRN [place] 12/26/24 17:00 12/29/24 00:35 650 MG Ceftriaxone Sodium 50 ml @ 100 mls/hr DAILY@09 IV 12/27/24 09:00 01/07/25 07:39 100 MLS/HR Enoxaparin Sodium 110 mg Q12HR SC 12/29/24 23:59 01/07/25 07:39 110 MG Aspirin 81 mg DAILY PO 12/30/24 10:00 01/07/25 07:38 81 MG Diagnostic Test (Pha) 1 strip Q6HR 12/30/24 12:00 01/07/25 05:54 1 STRIP Insulin Human Regular Q6HR SC 12/30/24 12:00 01/07/25 00:36 6 UNITS Dextrose 50 ml UD PRN IV 12/30/24 06:30 Dopamine HCl/ Dextrose 250 ml @ 19.875 mls/ hr [id number] IV 01/01/25 16:45 01/02/25 06:09 13.913 MLS/HR Insulin Glargine 10 units HS SC 01/04/25 22:00 01/06/25 22:24 10 UNITS Glycopyrrolate 0.2 mg Q8HPRN PRN IV 01/04/25 22:00 01/04/25 17:54 0.2 MG Enteral Nutritional Formula 1,000 ml 50ML/HR GT 01/05/25 09:00 Potassium Bicarbonate 50 meq DAILY GT 01/05/25 10:00 01/07/25 07:38 50 MEQ Bisacodyl 10 mg DAILYP PRN [place] 01/06/25 08:15 Laboratory Results Laboratory Tests 01/07/25 03:22 Chemistry Test 01/07/25 03:22 Albumin 3.6 g/dL (3.2-4.8) Calcium Level 9.8 mg/dL (8.7-10.4) Magnesium Level 1.6 mg/dL (1.6-2.6) Phosphorus Level 3.7 mg/dL (2.4-5.1) Total Protein 6.6 g/dL (5.7-8.2) LFT Test 01/07/25 03:22 Alanine Aminotransferase (ALT) 12 U/L (7-40) Alkaline Phosphatase 181 U/L (46-116) H Aspartate Amino Transferase (AST) 25 U/L (13-40) Total Bilirubin 0.7 mg/dL (0.2-1.0) Urinalysis Test 12/26/24 16:45 Urine Color Yellow (Yellow) Urine Clarity Turbid (Clear) H Urine pH 5.5 (5.0-9.0) Urine Specific [place] 1.025 (1.001-1.035) Urine Protein Trace (Negative) H Urine Ketones 1+ (Negative) H Urine Blood Negative /uL (Negative) Urine Nitrite Negative (Negative) Urine Bilirubin Negative (Negative) Urine Urobilinogen 4 mg/dL (Negative) H Urine Leukocyte Esterase Trace /uL (Negative) Urine RBC 1 /hpf (0 - 3) Urine Microscopic WBC 9 /HPF (0-3) H Urine Squamous Epithelial Cells Few /hpf (<5) Urine Bacteria None seen /hpf (None Seen) Urine Hyaline Casts Mod /lpf (0 - 2) Urine Mucus Moderate (None Seen) Urine Glucose 1+ mg/dL (Normal) H Blood Gas Results Test 01/07/25 07:20 Arterial Blood pH 7.488 (7.350-7.450) FiO2 % 30.0 Microbiology Microbiology Date/Time Source Procedure Growth Status 01/02/25 13:06 Sputum Gram Stain - Final Complete 01/02/25 13:06 Respiratory Culture - Final Staphylococcus aureus Complete 12/28/24 14:50 Nose MRSA Screen - Final Complete 12/26/24 16:45 Voided Urine Urine Culture - Final Complete 12/26/24 15:29 Blood Blood Culture - Final NO GROWTH AFTER 5 DAYS OF INCUBATION. Complete Labs and/or images reviewed: Labs reviewed by me, Image(s) reviewed by me Assessment/Plan Assessment/Plan Impression: -acute hypoxic respiratory failure with mechanical ventilation -toxic metabolic encephalopathy with ETOH and benzodiazepines -history of CAD with previous CABG -history of alcoholism -diabetes mellitus -dyslipidemia -peripheral neuropathy -community-acquired pneumonia with Staphylococcus aureus -anoxic brain injury Plan: Events: Patient off sedation greater than 72 hours. Continues to be encephalopathic, probable vegetative state. Neurology consultation was obtained. EEG results pending. Attempted to call patient's ex- as well as son who were listed on contacts. No answer by either parties. -start bowel regimen with Dulcolax suppository and lactulose -continue tube feeding -continue current ventilator settings -neurology consultation: Recommendations reviewed -continue full-dose anticoagulation with Lovenox -regular insulin sliding scale -empiric antibiotic therapy -PUD, DVT prophylaxis -repeat labs, chest x-ray, ABG in a.m. Critical care time spent with patient discussing and formulating plan of care: 40 minutes. This does not include time spent performing procedures. This medical document was created using an electronic medical record system with [employer] system. Although this document has been carefully reviewed, there may still be some phonetic and typographical errors. These areas are purely typographical due to imperfections of the software programs, and do not reflect any compromise in the patient's medical care. Plan discussed with: Patient, Other (RN) My Orders Orders - MARLENY MEDINA NP Procedure Category Date Status Time Chest Portable XY 01/07/25 Resulted 04:00 Abg W/ Co-Ox RT 01/07/25 Logged 06:00 Basic Metabolic Panel LAB 01/08/25 Verified 04:00 Chest Portable XY 01/08/25 Logged 04:00 Abg W/ Co-Ox RT 01/08/25 Logged 04:00 Complete Blood Count LAB 01/08/25 Verified 04:00 Date of Service: January 07, 2025 Billing Provider: MARLENY MEDINA NP Common Visit Codes: [id number] CARE 30-74 MIN MARLENY MEDINA NP January 07, 2025 08:25
[2025-01-08] VITALS (113 sets, daily range): BP systolic 126–159; BP diastolic 85–108; PULSE 66–86; RESP 12–97; TEMP 98.6–99.7; O2SAT 18–99
[2025-01-08 03:47] LABS: Basophils # (auto) 0.1 10 ^3/uL (0-0.2); Basophils % (auto) 0.9 % (0.0-2.0); Eosinophils # (auto) 0.5 10 ^3/uL (0-0.8); Eosinophils % (auto) 4.7 % (0.0-7.0); Hemoglobin 16.5 g/dL (13.5-17.5); Lymphocytes # (auto) 1.9 10 ^3/uL (0.4-5.4); Lymphocytes % (auto) 18.1 % (10.0-50.0); Mean Corpuscular Hemoglobin 30.9 pg (28.0-32.0); Mean Corpuscular Hgb Conc. 34.5 g/dL (32.0-36.0); Mean Corpuscular Volume 89.7 fL (80.0-100.0); Monocytes # (auto) 1.1 10 ^3/uL (0-1.3); Monocytes % (auto) 10.9 % (0.0-12.0); Neutrophils # (auto) 6.8 10 ^3/uL (1.6-8.6); Neutrophils % (auto) 65.4 % (37.0-80.0); Nucleated Red Blood Cells % 0.3 %; Platelet Count (auto) 235 10^3/uL (140-450); Red Blood Cells 5.35 10^6/uL (4.5-5.90); Red Cell Distribution Width 14.8 % (11.8-14.3); White Blood Cell 10.3 10^3/uL (4.4-10.8)
[2025-01-08 03:57] LABS: Chloride 101 mmol/L (98-107); Potassium 3.6 mmol/L (3.5-5.1); Sodium 140 mmol/L (136-145)
[2025-01-08 03:58] LABS: Anion Gap 10 (5-15); Carbon Dioxide 29 mmol/L (20-31)
[2025-01-08 03:59] LABS: Calcium 9.1 mg/dL (8.7-10.4)
[2025-01-08 04:03] LABS: BUN/Creatinine Ratio 21.7 (10.0-20.0); Blood Urea Nitrogen 15 mg/dL (9-23)
[2025-01-08 04:06] LABS: Glucose 188 mg/dL (74-106)
--- NOTE | 2025-01-08 04:32 | DVH ---
CHEST RADIOGRAPH Indication: device placement Technique: Single frontal view of the chest was obtained Comparison: XY CHEST PORTABLE on DOS: 01/07/25, XY CHEST PORTABLE on DOS: 01/06/25, XY CHEST PORTABLE o n DOS: 01/05/25 IMPRESSION: Heart is stable in size with median sternotomy wires. Endotracheal tube and enteric tube appear unch anged in satisfactory position. Mild pulmonary vascular congestion. No sizable effusion or pneumotho rax.
[2025-01-08 07:43] LABS: Base Excess 1.4 mmol/L (-2.0-3.0)
--- NOTE | 2025-01-08 11:45 | DVHPN2 ---
Subjective Patient encephalopathic Reviewed: Care Plan, H&P, Medications, Previous Orders, Radiology, Other (Consultants) Changes from previous H/P or p: No Changes General: Per HPI Objective Vitals Vital Signs Date Time Temp Pulse Resp B/P (MAP) Pulse Ox O2 Delivery O2 Flow Rate FiO2 01/08/25 11:31 78 01/08/25 11:31 18 18 Mechanical Ventilator+ 30 30 01/08/25 10:45 136/93 (107) 01/08/25 07:45 99.7 99.7 Intake/Output Intake and Output 01/08/25 07:00 Intake Total 225 ml Output Total 525 ml Balance -300 ml Tube Feeding 225 ml Output Urine Total 525 ml # Bowel Movements 1 General Appearance: mild distress, Other (Intubated and sedated) HEENT: Atraumatic, Other (Pupils equal round reactive to light) Lungs: Normal air movement, Other (Few crackles bilateral lungs with good air entry) Cardiovascular: Regular rate, Normal S1, Normal S2, Other (Junctional rhythm) Abdomen: Soft Neuro: Other (Purposeful movement. Patient with noted decorticate posturing with suctioning.) Skin: Dry, Intact Psych/Mental Status: Other (Unable to assess) Medications Current Medications Medications Dose Ordered Sig/Lj Route Start Time Stop Time Status Last Admin Dose Admin Norepinephrine Bitartrate 250 ml @ 3.75 mls/hr Q24H IV 12/26/24 15:15 01/02/25 21:39 3.75 MLS/HR Dextrose 50 ml UD PRN IV 12/26/24 16:45 Cancel Nitroglycerin 0.4 mg Q5MINP PRN SL 12/26/24 16:45 Morphine Sulfate 2 mg Q30M PRN IV 12/26/24 16:45 Acetaminophen 650 mg Q6HP PRN [place] 12/26/24 17:00 12/29/24 00:35 650 MG Ceftriaxone Sodium 50 ml @ 100 mls/hr DAILY@09 IV 12/27/24 09:00 01/08/25 07:33 100 MLS/HR Enoxaparin Sodium 110 mg Q12HR SC 12/29/24 23:59 01/08/25 07:33 110 MG Aspirin 81 mg DAILY PO 12/30/24 10:00 01/08/25 07:33 81 MG Diagnostic Test (Pha) 1 strip Q6HR 12/30/24 12:00 01/08/25 10:59 1 STRIP Insulin Human Regular Q6HR SC 12/30/24 12:00 01/08/25 10:59 3 UNITS Dextrose 50 ml UD PRN IV 12/30/24 06:30 Dopamine HCl/ Dextrose 250 ml @ 19.875 mls/ hr [id number] IV 01/01/25 16:45 01/02/25 06:09 13.913 MLS/HR Insulin Glargine 10 units HS SC 01/04/25 22:00 01/06/25 22:24 10 UNITS Glycopyrrolate 0.2 mg Q8HPRN PRN IV 01/04/25 22:00 01/04/25 17:54 0.2 MG Enteral Nutritional Formula 1,000 ml 50ML/HR GT 01/05/25 09:00 Potassium Bicarbonate 50 meq DAILY GT 01/05/25 10:00 01/08/25 07:32 50 MEQ Bisacodyl 10 mg DAILYP PRN [place] 01/06/25 08:15 Laboratory Results Laboratory Tests 01/08/25 03:37 Chemistry Test 01/08/25 03:37 Calcium Level 9.1 mg/dL (8.7-10.4) Urinalysis Test 12/26/24 16:45 Urine Color Yellow (Yellow) Urine Clarity Turbid (Clear) H Urine pH 5.5 (5.0-9.0) Urine Specific [place] 1.025 (1.001-1.035) Urine Protein Trace (Negative) H Urine Ketones 1+ (Negative) H Urine Blood Negative /uL (Negative) Urine Nitrite Negative (Negative) Urine Bilirubin Negative (Negative) Urine Urobilinogen 4 mg/dL (Negative) H Urine Leukocyte Esterase Trace /uL (Negative) Urine RBC 1 /hpf (0 - 3) Urine Microscopic WBC 9 /HPF (0-3) H Urine Squamous Epithelial Cells Few /hpf (<5) Urine Bacteria None seen /hpf (None Seen) Urine Hyaline Casts Mod /lpf (0 - 2) Urine Mucus Moderate (None Seen) Urine Glucose 1+ mg/dL (Normal) H Blood Gas Results Test 01/08/25 07:30 Arterial Blood pH 7.484 (7.350-7.450) FiO2 % 30.0 Microbiology Microbiology Date/Time Source Procedure Growth Status 01/02/25 13:06 Sputum Gram Stain - Final Complete 01/02/25 13:06 Respiratory Culture - Final Staphylococcus aureus Complete 12/28/24 14:50 Nose MRSA Screen - Final Complete 12/26/24 16:45 Voided Urine Urine Culture - Final Complete 12/26/24 15:29 Blood Blood Culture - Final NO GROWTH AFTER 5 DAYS OF INCUBATION. Complete Labs and/or images reviewed: Labs reviewed by me, Image(s) reviewed by me Assessment/Plan Assessment/Plan Impression: -acute hypoxic respiratory failure with mechanical ventilation -toxic metabolic encephalopathy with ETOH and benzodiazepines -history of CAD with previous CABG -history of alcoholism -diabetes mellitus -dyslipidemia -peripheral neuropathy -community-acquired pneumonia with Staphylococcus aureus -anoxic brain injury Plan: Events: Long discussion made with patient's ex-, next of kin daughter, regarding plan of care. At this time they wished patient to be DNR, but continue with all treatment at this time. They are agreeable to tracheostomy and PEG tube placement. -surgical consultation -stop Lovenox once established OR time -continue tube feeding -continue current ventilator settings -neurology consultation: Recommendations reviewed -continue full-dose anticoagulation with Lovenox -regular insulin sliding scale -empiric antibiotic therapy -PUD, DVT prophylaxis -repeat labs, chest x-ray, ABG in a.m. Critical care time spent with patient discussing and formulating plan of care: 90 minutes. This does not include time spent performing procedures. This medical document was created using an electronic medical record system with [employer]ation system. Although this document has been carefully reviewed, there may still be some phonetic and typographical errors. These areas are purely typographical due to imperfections of the software programs, and do not reflect any compromise in the patient's medical care. Plan discussed with: Patient, Daughter, Other (RN, ex-) My Orders Orders - MARLENY MEDINA NP Procedure Category Date Status Time * Surgical Consult CONS 01/08/25 Verified * Gi Dvh Operational Review Sergeant CONS 01/08/25 Verified 11:41 Communication Order ORDERS 01/08/25 Verified 11:41 DNR GABBY 01/08/25 Verified 11:41 Date of Service: Jan 08, 2025 Billing Provider: MARLENY MEDINA NP Common Visit Codes: [id number] CARE 30-74 MIN, [id number] CARE-EACH +30MIN MARLENY MEDINA NP Jan 08, 2025 11:45
--- NOTE | 2025-01-08 12:03 | DVHPN2 ---
Progress Note - Dictate Date Seen: Jan 08, 2025 Medical Necessity Reason Pt with a Central, PICC or Fol: Yes The following are medically ne: Central Line vital signs Vital Sign Date Time Temp Pulse Resp B/P (MAP) Pulse Ox O2 Delivery O2 Flow Rate FiO2 01/08/25 11:31 78 01/08/25 11:31 18 18 Mechanical Ventilator+ 30 30 01/08/25 10:45 136/93 (107) 01/08/25 07:45 99.7 99.7 Total Intake and Output 01/07/25 01/07/25 01/08/25 15:00 23:00 07:00 Intake Total 225 ml Output Total 300 ml 225 ml Balance -300 ml 0 ml medications Current Medications Medications Dose Ordered Sig/Lj Route Start Time Stop Time Status Last Admin Dose Admin Norepinephrine Bitartrate 250 ml @ 3.75 mls/hr Q24H IV 12/26/24 15:15 01/02/25 21:39 3.75 MLS/HR Dextrose 50 ml UD PRN IV 12/26/24 16:45 Cancel Nitroglycerin 0.4 mg Q5MINP PRN SL 12/26/24 16:45 Morphine Sulfate 2 mg Q30M PRN IV 12/26/24 16:45 Acetaminophen 650 mg Q6HP PRN [place] 12/26/24 17:00 12/29/24 00:35 650 MG Ceftriaxone Sodium 50 ml @ 100 mls/hr DAILY@09 IV 12/27/24 09:00 01/08/25 07:33 100 MLS/HR Enoxaparin Sodium 110 mg Q12HR SC 12/29/24 23:59 01/08/25 07:33 110 MG Aspirin 81 mg DAILY PO 12/30/24 10:00 01/08/25 07:33 81 MG Diagnostic Test (Pha) 1 strip Q6HR 12/30/24 12:00 01/08/25 10:59 1 STRIP Insulin Human Regular Q6HR SC 12/30/24 12:00 01/08/25 10:59 3 UNITS Dextrose 50 ml UD PRN IV 12/30/24 06:30 Dopamine HCl/ Dextrose 250 ml @ 19.875 mls/ hr [id number] IV 01/01/25 16:45 01/02/25 06:09 13.913 MLS/HR Insulin Glargine 10 units HS SC 01/04/25 22:00 01/06/25 22:24 10 UNITS Glycopyrrolate 0.2 mg Q8HPRN PRN IV 01/04/25 22:00 01/04/25 17:54 0.2 MG Enteral Nutritional Formula 1,000 ml 50ML/HR GT 01/05/25 09:00 Potassium Bicarbonate 50 meq DAILY GT 01/05/25 10:00 01/08/25 07:32 50 MEQ Bisacodyl 10 mg DAILYP PRN [place] 01/06/25 08:15 laboratory and microbiology Laboratory Tests 01/08/25 03:37 Test 01/08/25 03:37 Range/Units Serum Glucose 188 H 74-106 mg/dL Assessment/Plan Impression Acute hypoxemic respiratory failure Altered mental status Pneumonia Atelectasis Patient seen and examined in the ICU Events Off sedation, not waking up s/p CPR >20 min suspected JASON prognosis v poor On mechanical ventilation S/p cardiac arrest PEEP 5, FiO2 30% trache vs compassionate wean discussion with family pending Labs and imaging reviewed ABG reviewed Management Vent support Titrate to maintain sats 90% or above neuro input for JASON Continue antibiotics F/u cultures Bronchodilators Monitor renal function Monitor electrolytes Supplement as needed Pressors as needed for hemodynamic support To maintain a mean arterial pressure of 65 mmHg Echo report reviewed F/u cardiology Critical care time 35 minutes Dietary Evaluation Review Comments: 1) TF Vital AF 1.2 Vasquez @ 75ml/hr x 24 hr (goal). Start @ 20ml/hr, increase 10ml/hr Q4H until goal rate is reached. TF at goal volume provides 100% energy & protein needs - 2160 kcal, 135 gm protein, 1460ml free water 2) Water flush 200ml Q6H if allowed 3) TPN if NPO>7 days 4) Monitor BW, lab values and skin integrity Expected Outcomes/Goals: To meet >75% estimated needs lab values to improve Fu 2-3 days Plan discussed with: Other (rn) AMANDO WHITE MD Jan 08, 2025 12:03
--- NOTE | 2025-01-08 15:02 | DVHINCON2 ---
Date of service: Jan 08, 2025 History of Present Illness 54-year-old male status post cardiac arrest currently intubated with anoxic encephalopathy asked to evaluate for possible tracheostomy tube placement. Past Medical History hypertension, dyslipidemia, diabetes, CAD (status post CABG in July 2024 at [facility]), bipolar disorder, and alcohol use disorder Past Surgical History CABG in July 29, 2024 Family History: Patient reports no known family medical history. Family History Noncontributory Social History History of alcohol abuse. Allergies: Coded Allergies: Dexmedetomidine (Verified Adverse Reaction, Unknown, bradycardia, 01/02/25) Uncoded Allergies: librium (Adverse Reaction, Unknown, Bradycardia, 01/02/25) Vital Signs Vital Signs Date Time Temp Pulse Resp B/P (MAP) Pulse Ox O2 Delivery O2 Flow Rate FiO2 01/08/25 14:45 98.6 73 18 130/89 (103) 96 98.6 01/08/25 14:00 Mechanical Ventilator+ 30 30 Physical Exam GEN: Age-appropriate male intubated and sedated HEENT: Normocephalic atraumatic. Moist mucous membranes. Anicteric sclerae. CV: RRR Respiratory: CTAB ABD: Soft. Labs/Diagnostic Data Labs Test 01/08/25 10:52 01/08/25 07:30 01/08/25 03:37 01/07/25 03:22 Range/Units POC Glucose 196 H 70-106 mg/dl Blood Gas Specimen Type Arterial Blood Gas Sample Site Right radial Blood Gas Patient Temperature 37.0 Arterial Blood Date Drawn [id number] Arterial Blood pH 7.484 H 7.350-7.450 Arterial Blood Partial Pressure CO2 32.8 L 35.0-48.0 mmHg Arterial Blood Partial Pressure O2 70.4 L 83.0-108.0 mmHg Arterial Blood HCO3 24.1 21.0-28.0 mmol/L Arterial Blood Oxygen Saturation 93.8 L 94.0-98.0 % Arterial Blood Base Excess 1.4 -2.0-3.0 mmol/L Arterial Blood Oxyhemoglobin 92.7 L 94.0-98.0 % Arterial Blood Carboxyhemoglobin 1.0 0.5-1.5 % Arterial Blood Methemoglobin 0.2 0.0-1.5 % Óscar Test Yes Blood Gas Total Hemoglobin 15.90 13.5-17.5 g/dL Blood Gas Set Respiration Rate 16.0 Blood Gas Modality Vent - ac FiO2 % 30.0 Blood Gas Tidal Volume 500.0 Blood Gas PEEP or CPAP 5.0 White Blood Count 10.3 4.4-10.8 10^3/uL Red Blood Count 5.35 4.5-5.90 10^6/uL Hemoglobin 16.5 13.5-17.5 g/dL Hematocrit 48.0 41.0-53.0 % Mean Corpuscular Volume 89.7 80.0-100.0 fL Mean Corpuscular Hemoglobin 30.9 28.0-32.0 pg Mean Corpuscular Hemoglobin Concent 34.5 32.0-36.0 g/dL Red Cell Distribution Width 14.8 H 11.8-14.3 % Platelet Count 235 140-450 10^3/uL Mean Platelet Volume 10.0 6.9-10.8 fL Neutrophils (%) (Auto) 65.4 37.0-80.0 % Lymphocytes (%) (Auto) 18.1 10.0-50.0 % Monocytes (%) (Auto) 10.9 0.0-12.0 % Eosinophils (%) (Auto) 4.7 0.0-7.0 % Basophils (%) (Auto) 0.9 0.0-2.0 % Neutrophils # (Auto) 6.8 1.6-8.6 10 ^3/uL Lymphocytes # (Auto) 1.9 0.4-5.4 10 ^3/uL Monocytes # (Auto) 1.1 0-1.3 10 ^3/uL Eosinophils # (Auto) 0.5 0-0.8 10 ^3/uL Basophils # (Auto) 0.1 0-0.2 10 ^3/uL Nucleated Red Blood Cells 0.3 % Sodium Level 140 136-145 mmol/L Potassium Level 3.6 3.5-5.1 mmol/L Chloride Level 101 98-107 mmol/L Carbon Dioxide Level 29 20-31 mmol/L Anion Gap 10 5-15 Blood Urea Nitrogen 15 9-23 mg/dL Creatinine 0.69 L 0.700-1.30 mg/dL Glomerular Filtration Rate Calc 109 >90 mL/min BUN/Creatinine Ratio 21.7 H 10.0-20.0 Serum Glucose 188 H 74-106 mg/dL Calcium Level 9.1 8.7-10.4 mg/dL Phosphorus Level 3.7 2.4-5.1 mg/dL Magnesium Level 1.6 1.6-2.6 mg/dL Total Bilirubin 0.7 0.2-1.0 mg/dL Aspartate Amino Transferase (AST) 25 13-40 U/L Alanine Aminotransferase (ALT) 12 7-40 U/L Alkaline Phosphatase 181 H 46-116 U/L Total Protein 6.6 5.7-8.2 g/dL Albumin 3.6 3.2-4.8 g/dL Test 01/02/25 03:29 12/29/24 14:48 12/29/24 07:53 12/29/24 06:30 Range/Units B-Type Natriuretic Peptide 111.63 0-100 pg/mL Troponin I High Sensitivity 721 *H </=54 ng/L Blood Gas Spontaneous Rate 26 Prothrombin Time 13.0 H 9.3-11.8 sec Prothrombin Time INR 1.25 H 0.9-1.15 Activated Partial Thromboplast Time 113.5 *H 24.5-34.5 SEC Thyroid Stimulating Hormone (TSH) 0.22 L 0.55-4.78 uIU/mL Test 12/28/24 15:17 12/28/24 13:14 12/26/24 20:17 12/26/24 16:45 Range/Units Blood Gas Critical Value Read Back Yes Blood Gas Notified Whom Robert delgado Blood Gas Notified Time [id number] Blood Gas Notified By Ceci mayorga D-Dimer, Quantitative 22.37 H 0.0-0.49 mg/L FEU Lactic Acid Level 2.4 *H 0.4-2.0 mmol/L Urine Color Yellow Yellow Urine Clarity Turbid H Clear Urine pH 5.5 5.0-9.0 Urine Specific [place] 1.025 1.001-1.035 Urine Protein Trace H Negative Urine Ketones 1+ H Negative Urine Blood Negative Negative /uL Urine Nitrite Negative Negative Urine Bilirubin Negative Negative Urine Urobilinogen 4 H Negative mg/dL Urine Leukocyte Esterase Trace Negative /uL Urine RBC 1 0 - 3 /hpf Urine Microscopic WBC 9 H 0-3 /HPF Urine Squamous Epithelial Cells Few <5 /hpf Urine Bacteria None seen None Seen /hpf Urine Hyaline Casts Mod 0 - 2 /lpf Urine Mucus Moderate None Seen Urine Glucose 1+ H Normal mg/dL Urine Opiates Screen Neg NEGATIVE Urine Fentanyl Screen Neg NEGATIVE Urine Barbiturates Screen Neg NEGATIVE Urine Phencyclidine Screen Neg NEGATIVE Urine Amphetamines Screen Neg NEGATIVE Urine Benzodiazepines Screen Pos NEGATIVE Urine Cocaine Screen Neg NEGATIVE Urine Cannabinoids Screen Pos NEGATIVE Test 12/26/24 15:20 Range/Units Plasma/Serum Blood Alcohol 276.4 H <10 mg/dL Microbiology Date/Time Source Procedure Growth Status 01/02/25 13:06 Sputum Gram Stain - Final Complete 01/02/25 13:06 Respiratory Culture - Final Staphylococcus aureus Complete 12/28/24 14:50 Nose MRSA Screen - Final Complete 12/26/24 16:45 Voided Urine Urine Culture - Final Complete 12/26/24 15:29 Blood Blood Culture - Final NO GROWTH AFTER 5 DAYS OF INCUBATION. Complete Assessment 1. Respiratory failure currently on ventilator support secondary to anoxic encephalopathy Plan/Recommendation 1. Tracheostomy tube placement tomorrow Informed consent: The surgery and its risks including but not limited to infection, potentially life-threatening bleeding, possible perioperative [place] or stroke were explained to the patient's daughter who has power of regulatory attorney. All questions were answered to her satisfaction. She expressed verbal understanding and wished to proceed with the surgery. Plan discussed with: Daughter MALLORYCALVIN MD Jan 08, 2025 15:02
[2025-01-09] VITALS (106 sets, daily range): BP systolic 119–166; BP diastolic 77–104; PULSE 64–116; RESP 13–28; TEMP 97.7–99.1; O2SAT 90–100
[2025-01-09 03:41] LABS: Basophils # (auto) 0.1 10 ^3/uL (0-0.2); Basophils % (auto) 1.2 % (0.0-2.0); Eosinophils # (auto) 0.4 10 ^3/uL (0-0.8); Hematocrit 46.5 % (41.0-53.0); Hemoglobin 15.6 g/dL (13.5-17.5); Lymphocytes # (auto) 1.9 10 ^3/uL (0.4-5.4); Lymphocytes % (auto) 25.9 % (10.0-50.0); Mean Corpuscular Hemoglobin 30.3 pg (28.0-32.0); Mean Corpuscular Hgb Conc. 33.6 g/dL (32.0-36.0); Monocytes # (auto) 0.6 10 ^3/uL (0-1.3); Monocytes % (auto) 7.7 % (0.0-12.0); Neutrophils # (auto) 4.3 10 ^3/uL (1.6-8.6); Neutrophils % (auto) 60.2 % (37.0-80.0); Nucleated Red Blood Cells % 1.8 %; Platelet Count (auto) 331 10^3/uL (140-450); Red Blood Cells 5.16 10^6/uL (4.5-5.90); Red Cell Distribution Width 14.9 % (11.8-14.3); White Blood Cell 7.2 10^3/uL (4.4-10.8)
[2025-01-09 03:51] LABS: Anion Gap 10 (5-15); Carbon Dioxide 29 mmol/L (20-31); Chloride 101 mmol/L (98-107); Sodium 140 mmol/L (136-145)
[2025-01-09 03:57] LABS: BUN/Creatinine Ratio 24.6 (10.0-20.0); Blood Urea Nitrogen 16 mg/dL (9-23); INR 1.12 (0.9-1.15); Magnesium 1.8 mg/dL (1.6-2.6); Partial Thromboplastin Time 30.8 SEC (24.5-34.5); Prothrombin Time 11.7 sec (9.3-11.8)
[2025-01-09 04:07] LABS: Glucose 184 mg/dL (74-106); Potassium 3.4 mmol/L (3.5-5.1)
--- NOTE | 2025-01-09 04:40 | DVH ---
CHEST RADIOGRAPH Indication: Intubated Technique: Single frontal view of the chest was obtained Comparison: XY CHEST PORTABLE on DOS: 01/08/25 FINDINGS: Lines and Tubes: The endotracheal tube terminates 5.5 cm above the donavan. The enteric tube courses b elow the left hemidiaphragm and the tip extends outside the field of view. Lungs: Pulmonary vascular congestion. No focal consolidation. Pleura: No effusion. No pneumothorax. Cardiomediastinal contours: Unremarkable Bones: No acute osseous abnormality. Status post median sternotomy. IMPRESSION: 1. Pulmonary vascular congestion.
[2025-01-09] MEDS: LIDOCAINE W/ EPINEPHRINE 1% 20ML VIAL ONE (07:20)
[2025-01-09] MEDS ORDERED: fentaNYL CITRATE 100 MCG/2 ML VL ONE (08:01)
[2025-01-09] MEDS ORDERED: HYDROmorphone HCL 2 MG/ML VL/or syr ONE (08:01)
[2025-01-09] MEDS ORDERED: ROCURONIUM 10MG/ML 10ML VIAL IV ONE (08:03)
[2025-01-09] MEDS ORDERED: PHENYLEPHRINE HCL 10 MG/ML VL ONE (08:38)
[2025-01-09] MEDS ORDERED: GLYCOPYRROLATE 0.2 MG/ML 1ML VIAL ONE (08:38)
[2025-01-09] MEDS ORDERED: ePHEDrine SULFATE 50 MG/ML AMP ONE (08:38)
[2025-01-09] MEDS ORDERED: ONDANSETRON HCL 4 MG/2 ML VIAL ONE (09:05)
[2025-01-09 09:12] LABS: Base Excess 4.3 mmol/L (-2.0-3.0)
--- NOTE | 2025-01-09 09:29 | DVHOP2 ---
Operative Report - 2 Report Details Date: 01/09/25 Preop Diagnosis: 1. Respiratory failure Postop Diagnosis: Same Surgeon: Calvin Schaffer MD Supervisor Housecleaner: None Anesthesiologist: Dr. Viramontes Anesthesia: General Drains: Shiley [id number] tracheostomy tube Consent: The surgery and its risks including but not limited to potentially life- threatening infection and bleeding, possible perioperative [place] or stroke were explained to the patient's daughter who has the power of securities attorney. She expressed verbal understanding and wished to proceed with the surgery. Complications: None Estimated Blood Loss: 5 mL Fluids: 800 mL Name of Procedure Performed Tracheostomy Procedure Details Procedure Details: After induction of general anesthesia, patient's anterior neck was prepped and draped in standard surgical fashion. A small transverse incision was made alf between the cricoid cartilage and the sternal notch. Incision extended through the platysma muscles and extended down to the strap muscles which were divided in midline. The isthmus of the thyroid gland was then identified which was cauterized and divided without complication revealing the anterior surface of the trachea. Ventilation was then briefly held and endotracheal cuff was then deflated. Upside-down T-incision was made through the 1st and 2nd tracheal ring gaining access to the lumen of the trachea. A Shiley [id number] tracheostomy tube was then inserted easily into the tracheal lumen and cuff was inflated. Patient was quickly placed back on ventilator with good return of end-tidal CO2. Interrupted 3-0 Vicryl sutures were used to reapproximate the platysmal muscle around the tracheostomy tube. Skin incision was then closed using interrupted 4-0 Monocryl sutures. Surgical site was cleaned and dried and dressings were applied. Sponge, needle, instrument count at the end of the case were reported to be correct by the nursing staff. The patient tolerated procedure well and was transferred back to ICU in stable condition. Specimen: None Condition Stable Disposition Still a Patient CALVIN SCHAFFER MD Jan 09, 2025 09:29
--- NOTE | 2025-01-09 10:16 | DVHPN2 ---
Subjective Patient encephalopathic Reviewed: Care Plan, H&P, Medications, Previous Orders, Radiology, Other (Consultants) Changes from previous H/P or p: No Changes General: Per HPI Objective Vitals Vital Signs Date Time Temp Pulse Resp B/P (MAP) Pulse Ox O2 Delivery O2 Flow Rate FiO2 01/09/25 09:42 66 16 119/77 (91) 98 30 01/09/25 06:00 Mechanical Ventilator+ 01/09/25 04:00 98.7 98.7 Intake/Output Intake and Output 01/09/25 07:00 Intake Total 100 ml Output Total 505 ml Balance -405 ml Intake Oral 0 ml Tube Feeding 100 ml Output Urine Total 505 ml # Bowel Movements 2 General Appearance: mild distress, Other (Intubated and sedated) HEENT: Atraumatic, Other (Pupils equal round reactive to light) Lungs: Normal air movement, Other (Few crackles bilateral lungs with good air entry) Cardiovascular: Regular rate, Normal S1, Normal S2, Other (Junctional rhythm) Abdomen: Soft Neuro: Other (Purposeful movement. Patient with noted decorticate posturing with suctioning.) Skin: Dry, Intact Psych/Mental Status: Other (Unable to assess) Medications Current Medications Medications Dose Ordered Sig/Lj Route Start Time Stop Time Status Last Admin Dose Admin Norepinephrine Bitartrate 250 ml @ 3.75 mls/hr Q24H IV 12/26/24 15:15 01/02/25 21:39 3.75 MLS/HR Dextrose 50 ml UD PRN IV 12/26/24 16:45 Cancel Nitroglycerin 0.4 mg Q5MINP PRN SL 12/26/24 16:45 Morphine Sulfate 2 mg Q30M PRN IV 12/26/24 16:45 Acetaminophen 650 mg Q6HP PRN TN 12/26/24 17:00 12/29/24 00:35 650 MG Ceftriaxone Sodium 50 ml @ 100 mls/hr DAILY@09 IV 12/27/24 09:00 01/08/25 07:33 100 MLS/HR Enoxaparin Sodium 110 mg Q12HR SC 12/29/24 23:59 01/08/25 07:33 110 MG Aspirin 81 mg DAILY PO 12/30/24 10:00 01/08/25 07:33 81 MG Diagnostic Test (Pha) 1 strip Q6HR 12/30/24 12:00 01/09/25 06:00 1 STRIP Insulin Human Regular Q6HR SC 12/30/24 12:00 01/08/25 17:40 3 UNITS Dextrose 50 ml UD PRN IV 12/30/24 06:30 Dopamine HCl/ Dextrose 250 ml @ 19.875 mls/ hr [id number] IV 01/01/25 16:45 01/02/25 06:09 13.913 MLS/HR Insulin Glargine 10 units HS SC 01/04/25 22:00 01/08/25 22:34 10 UNITS Glycopyrrolate 0.2 mg Q8HPRN PRN IV 01/04/25 22:00 01/04/25 17:54 0.2 MG Enteral Nutritional Formula 1,000 ml 50ML/HR GT 01/05/25 09:00 Potassium Bicarbonate 50 meq DAILY GT 01/05/25 10:00 01/08/25 07:32 50 MEQ Bisacodyl 10 mg DAILYP PRN TN 01/06/25 08:15 Laboratory Results Laboratory Tests 01/09/25 03:02 Chemistry Test 01/09/25 03:02 Calcium Level 9.0 mg/dL (8.7-10.4) Magnesium Level 1.8 mg/dL (1.6-2.6) Coagulation Test 01/09/25 03:02 Prothrombin Time 11.7 sec (9.3-11.8) Prothrombin Time INR 1.12 (0.9-1.15) Activated Partial Thromboplast Time 30.8 SEC (24.5-34.5) Urinalysis Test 12/26/24 16:45 Urine Color Yellow (Yellow) Urine Clarity Turbid (Clear) H Urine pH 5.5 (5.0-9.0) Urine Specific [place] 1.025 (1.001-1.035) Urine Protein Trace (Negative) H Urine Ketones 1+ (Negative) H Urine Blood Negative /uL (Negative) Urine Nitrite Negative (Negative) Urine Bilirubin Negative (Negative) Urine Urobilinogen 4 mg/dL (Negative) H Urine Leukocyte Esterase Trace /uL (Negative) Urine RBC 1 /hpf (0 - 3) Urine Microscopic WBC 9 /HPF (0-3) H Urine Squamous Epithelial Cells Few /hpf (<5) Urine Bacteria None seen /hpf (None Seen) Urine Hyaline Casts Mod /lpf (0 - 2) Urine Mucus Moderate (None Seen) Urine Glucose 1+ mg/dL (Normal) H Blood Gas Results Test 01/09/25 07:40 Arterial Blood pH 7.500 (7.350-7.450) FiO2 % 30.0 Microbiology Microbiology Date/Time Source Procedure Growth Status 01/02/25 13:06 Sputum Gram Stain - Final Complete 01/02/25 13:06 Respiratory Culture - Final Staphylococcus aureus Complete 12/28/24 14:50 Nose MRSA Screen - Final Complete 12/26/24 16:45 Voided Urine Urine Culture - Final Complete 12/26/24 15:29 Blood Blood Culture - Final NO GROWTH AFTER 5 DAYS OF INCUBATION. Complete Labs and/or images reviewed: Labs reviewed by me, Image(s) reviewed by me Assessment/Plan Assessment/Plan Impression: -acute hypoxic respiratory failure with mechanical ventilation -toxic metabolic encephalopathy with ETOH and benzodiazepines -history of CAD with previous CABG -history of alcoholism -diabetes mellitus -dyslipidemia -peripheral neuropathy -community-acquired pneumonia with Staphylococcus aureus -anoxic brain injury Plan: Events: Status post tracheostomy this a.m.. Hemodynamically stable. Continue to hold Lovenox. Awaiting GI consultation for PEG placement. Social service consultation for LTAC placement. -surgical consultation -GI Consult -continue tube feeding -continue current ventilator settings -neurology consultation: Recommendations reviewed -continue full-dose anticoagulation with Lovenox -regular insulin sliding scale -empiric antibiotic therapy -PUD, DVT prophylaxis -repeat labs, chest x-ray, ABG in a.m. Critical care time spent with patient discussing and formulating plan of care: 90 minutes. This does not include time spent performing procedures. This medical document was created using an electronic medical record system with [employer] dictation system. Although this document has been carefully reviewed, there may still be some phonetic and typographical errors. These areas are purely typographical due to imperfections of the software programs, and do not reflect any compromise in the patient's medical care. Plan discussed with: Patient, Daughter, Other (RN) My Orders Orders - MARLENY MEDINA NP Procedure Category Date Status Time * Surgical Consult CONS 01/08/25 Transmitted * Gi Dvh Intercell Connector Placer CONS 01/08/25 Transmitted 11:41 Communication Order ORDERS 01/08/25 Transmitted 11:41 DNR GABBY 01/08/25 In Process 11:41 Apply Barrier Cream GABBY 01/08/25 In Process 18:25 Chest Portable XY 01/09/25 Resulted 04:00 Abg W/ Co-Ox RT 01/09/25 Logged 06:00 Pantoprazole Tablet PHA 01/10/25 Transmitted (Protonix Tablet) 06:00 * Gi Dvh Intercell Connector Placer CONS 01/09/25 Transmitted 10:10 Date of Service: Jan 09, 2025 Billing Provider: MARLENY MEDINA NP Common Visit Codes: [id number] CARE 30-74 MIN MARLENY MEDINA NP Jan 09, 2025 10:16
--- NOTE | 2025-01-09 10:30 | DVHEEG2 ---
Neurology EEG Procedural Note Procedural Note Date of service: 01/06/2025 Diagnosis: Anoxic encephalopathy Patient status: Unresponsive recently sedated Conditions of recording: This is an 18 channel EEG recording with electrode placement as per the 10/20 International Classification. No activating procedure was performed. Technical summary: The predominant activity in this recording appeared to be diffuse low amplitude, low frequency delta and theta activity which appeared to be poorly reactive to external stimulation. No definite epileptiform activty or electrographic seizures were seen. Impression: This appears to be a significantly abnormal EEG recording consistent with the presence of a severe diffuse nonspecific encephalopathy and/or state of deep sedation. Clinical correlation is imperative. LUPILLO LEGER MD Jan 09, 2025 10:30
--- NOTE | 2025-01-09 10:56 | DVH ---
INDICATION: ogt placement, s/p tracheostomy TECHNIQUE: Single frontal view of the chest was obtained COMPARISON: XY CHEST PORTABLE on DOS: 01/09/25, XY CHEST PORTABLE on DOS: 01/08/25, XY CHEST PORTABLE on DOS: 01/07/25, XY CHEST PORTABLE on DOS: 01/06/25, XY CHEST PORTABLE on DOS: 01/05/25, XY CHEST PORTABLE on DOS: 01/09/25 FINDINGS: Lines and Tubes: Tracheostomy tube is noted. The enteric tube courses below the left hemidiaphragm an d the tip extends outside the field of view. Lungs: Pulmonary vascular congestion. Pleura: No effusion. No pneumothorax. Cardiomediastinal contours: Unremarkable Bones: No acute osseous abnormality. Status post median sternotomy. IMPRESSION: 1. Pulmonary vascular congestion.
--- NOTE | 2025-01-09 14:08 | DVHINCON2 ---
GI Consult Consult Note GI consult note Date of Consultation: 01/09/2025 Chief Complaint: PEG placement Referring Physician:Robert MULLEN H&P: 54-year-old male status post cardiac arrest currently intubated with anoxic encephalopathy, for possible PEG tube placement Status post tracheostomy History from chart, RN and family at bedside Past Medical History: hypertension, dyslipidemia, diabetes, CAD, bipolar disorder, and alcohol use disorder Past Surgical History: (status post CABG in July 2024 at [facility]) Social History: Patient lives at home, drinks alcohol heavily, no history of smoking or illicit drugs abuse on file Family History: Noncontributory Review of Systems: As above Physical exam: General: Patient is intubated and sedated Chest: lung negron clear to auscultation Heart: RRR, no murmur Abdomen: non-distended, +BS Labs: Chemistry Test 01/09/25 03:02 Calcium Level 9.0 mg/dL (8.7-10.4) Magnesium Level 1.8 mg/dL (1.6-2.6) Coagulation Test 01/09/25 03:02 Prothrombin Time 11.7 sec (9.3-11.8) Prothrombin Time INR 1.12 (0.9-1.15) Activated Partial Thromboplast Time 30.8 SEC (24.5-34.5) Urinalysis Test 12/26/24 16:45 Urine Color Yellow (Yellow) Urine Clarity Turbid (Clear) H Urine pH 5.5 (5.0-9.0) Urine Specific [place] 1.025 (1.001-1.035) Urine Protein Trace (Negative) H Urine Ketones 1+ (Negative) H Urine Blood Negative /uL (Negative) Urine Nitrite Negative (Negative) Urine Bilirubin Negative (Negative) Urine Urobilinogen 4 mg/dL (Negative) H Urine Leukocyte Esterase Trace /uL (Negative) Urine RBC 1 /hpf (0 - 3) Urine Microscopic WBC 9 /HPF (0-3) H Urine Squamous Epithelial Cells Few /hpf (<5) Urine Bacteria None seen /hpf (None Seen) Urine Hyaline Casts Mod /lpf (0 - 2) Urine Mucus Moderate (None Seen) Urine Glucose 1+ mg/dL (Normal) H Blood Gas Results Test 01/09/25 07:40 Arterial Blood pH 7.500 (7.350-7.450) FiO2 % 30.0 Microbiology Microbiology Date/Time Source Procedure Growth Status 01/02/25 13:06 Sputum Gram Stain - Final Complete 01/02/25 13:06 Respiratory Culture - Final Staphylococcus aureus Complete 12/28/24 14:50 Nose MRSA Screen - Final Complete 12/26/24 16:45 Voided Urine Urine Culture - Final Complete 12/26/24 15:29 Blood Blood Culture - Final NO GROWTH AFTER 5 DAYS OF INCUBATION. Complete Imaging: CT abdomen pelvis 01/02/2025 IMPRESSION: Small bilateral pleural effusions with bibasilar atelectasis /pneumonia. Mild rectal wall thickening with mild perirectal edema. Correlate for proctitis. Sigmoid diverticulosis without diverticulitis. Small to moderate amount of fecal material within the colon. No evidence of bowel obstruction or ileus. Additional findings as above. Assessment: Acute hypoxic respiratory failure Toxic metabolic encephalopathy History of alcoholism Status post CABG Anoxic brain injury Plan: Discussed with Dr. Oropeza We will schedule for EGD with PEG placement in the next few days Continue current treatment Plan discussed with family members at bedside and cook starch members agreed to consent for the procedure Thank you for this consult Date of Service: Jan 09, 2025 Billing Provider: CHRISTOPHER TOTH Common Visit Codes: CONSULT ONLY Consultation Codes: [id number] CONSULT <60MIN CHRISTOPHER TOTH Jan 09, 2025 14:08
[2025-01-09] MEDS: Glucerna 1.2 Cal 1Liter BOTTLE GT SCH (14:14)
--- NOTE | 2025-01-09 14:44 | ECG ---
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
--- NOTE | 2025-01-09 19:42 | DVHPN2 ---
Progress Note - Dictate Date Seen: Jan 09, 2025 Medical Necessity Reason Pt with a Central, PICC or Fol: Yes The following are medically ne: Central Line, Mccormack Catheter Reason for mccormack catheter: Strict I&O Subjective Patient seen and examined at bedside. On mechanical ventilator, s/p trach. Overnight events reviewed. vital signs Vital Sign Date Time Temp Pulse Resp B/P (MAP) Pulse Ox O2 Delivery O2 Flow Rate FiO2 01/09/25 18:34 77 16 139/85 (103) 95 30 01/09/25 18:00 Mechanical Ventilator+ 01/09/25 16:01 99.1 99.1 Total Intake and Output 01/08/25 01/08/25 01/09/25 15:00 23:00 07:00 Intake Total 100 ml 0 ml Output Total 300 ml 205 ml Balance -200 ml -205 ml medications Current Medications Medications Dose Ordered Sig/Lj Route Start Time Stop Time Status Last Admin Dose Admin Norepinephrine Bitartrate 250 ml @ 3.75 mls/hr Q24H IV 12/26/24 15:15 01/02/25 21:39 3.75 MLS/HR Dextrose 50 ml UD PRN IV 12/26/24 16:45 Cancel Nitroglycerin 0.4 mg Q5MINP PRN SL 12/26/24 16:45 Morphine Sulfate 2 mg Q30M PRN IV 12/26/24 16:45 Cancel Acetaminophen 650 mg Q6HP PRN KS 12/26/24 17:00 12/29/24 00:35 650 MG Ceftriaxone Sodium 50 ml @ 100 mls/hr DAILY@09 IV 12/27/24 09:00 01/09/25 10:18 100 MLS/HR Aspirin 81 mg DAILY PO 12/30/24 10:00 01/08/25 07:33 81 MG Diagnostic Test (Pha) 1 strip Q6HR 12/30/24 12:00 01/09/25 18:30 1 STRIP Insulin Human Regular Q6HR SC 12/30/24 12:00 01/09/25 18:30 3 UNITS Dextrose 50 ml UD PRN IV 12/30/24 06:30 Dopamine HCl/ Dextrose 250 ml @ 19.875 mls/ hr [id number] IV 01/01/25 16:45 01/02/25 06:09 13.913 MLS/HR Insulin Glargine 10 units HS SC 01/04/25 22:00 01/08/25 22:34 10 UNITS Glycopyrrolate 0.2 mg Q8HPRN PRN IV 01/04/25 22:00 01/04/25 17:54 0.2 MG Enteral Nutritional Formula 1,000 ml 50ML/HR GT 01/05/25 09:00 01/09/25 14:14 1,000 ML Potassium Bicarbonate 50 meq DAILY GT 01/05/25 10:00 01/09/25 13:21 50 MEQ Bisacodyl 10 mg DAILYP PRN [place] 01/06/25 08:15 Pantoprazole Sodium 40 mg DAILY@0600 PO 01/10/25 06:00 objective Gen.: Patient lying in bed in medical ICU. On mechanical ventilator, s/p trach. Head: Normocephalic, atraumatic. Eyes: PERRLA. Ears: Normal external anatomy. Throat: Endotracheal tube and orogastric tube in place. Neck: Trach in place. Chest: Transmitted breath sounds bilaterally. Decreased air entry bilaterally. No wheezing. Bibasilar crackles. Cardiovascular: Positive S1, positive S2. Regular rate and rhythm. Abdomen: Positive bowel sounds in all 4 quadrants. Soft, nontender, nondistended. : Mccormack in place. Normal external genitalia. Rectal: Deferred. Skin: Warm, dry. Intact. Extremities: 2+ radial pulses bilaterally. No lower extremity edema. Neuro: Off sedation laboratory and microbiology Laboratory Tests 01/09/25 03:02 Test 01/09/25 03:02 Range/Units Serum Glucose 184 H 74-106 mg/dL Assessment/Plan Impression: Acute hypoxemic respiratory failure On mechanical ventilator S/p tracheostomy Acute toxic metabolic encephalopathy Coronary artery disease, s/p CABG. Pneumonia w/ Staph aureus Atelectasis Altered mental status Hypokalemia Hypomagnesemia Marijuana use S/p cardiac arrest Events: Patient seen and examined in the ICU On AC mode with RR 16, VT 500, PEEP 5, FIO2 30% Remains off sedation S/p trach Trach care per RT. Chest x-ray reviewed, demonstrates pulmonary vascular congestion. Continue antibiotics Accu-Cheks, ISS Protonix for GI prophylaxis Tube feeds for nutritional support Monitor renal function Monitor electrolytes; supplement as needed Potassium supplementation Suspected JASON Prognosis very poor Labs and imaging reviewed Plan: On mechanical ventilation s/p cardiac arrest S/p tracheostomy with 5.0 Shiley cuffed trach. Titrate to maintain sats 90% or above Neuro input for JASON Trach care Continue antibiotics F/u cultures Bronchodilators Monitor renal function Monitor electrolytes Supplement as needed Pressors as needed for hemodynamic support To maintain a mean arterial pressure of 65 mmHg Echo report reviewed F/u cardiology Accu-Cheks, ISS Protonix for GI prophylaxis Tube feeds for nutritional support GI/DVT prophylaxis. Prognosis: Poor given patient's multiple co-morbidities. Condition: Critical Rest of plan per hospitalist and other consultants. A total of 35 minutes of critical care time was spent reviewing the patient record, examining the patient, making a diagnostic and therapeutic plan, discussing this plan with the medical personnel, following up on diagnostic studies and following the patient for clinical stability excluding any and all procedures. At least 50% of this time was spent in direct, [id number] contact. Thank you, PAZ Jones, for allowing me to participate in this patient's care. Further recommendations will depend on the patient's clinical course. Please do not hesitate to contact me if you have any questions or concerns. This medical document was created using an electronic medical record system with [employer] computerized dictation system. Although these documentations are being carefully reviewed, there may still be some phonetic and typographical changes. The errors are purely typographical, due to imperfection on the software program, and do not reflect any compromise in the patient's medical care. Dietary Evaluation Review Comments: 1) TF Vital AF 1.2 Vasquez @ 75ml/hr x 24 hr (goal). Start @ 20ml/hr, increase 10ml/hr Q4H until goal rate is reached. TF at goal volume provides 100% energy & protein needs - 2160 kcal, 135 gm protein, 1460ml free water 2) Water flush 200ml Q6H if allowed 3) TPN if NPO>7 days 4) Monitor BW, lab values and skin integrity Expected Outcomes/Goals: To meet >75% estimated needs lab values to improve Fu 2-3 days Plan discussed with: Other (LUCINDA Alvarado) Critical Care Time(min): 35 NATIVIDAD FLEMING MD Jan 09, 2025 19:42
[2025-01-10] VITALS (70 sets, daily range): BP systolic 118–170; BP diastolic 80–101; PULSE 68–100; RESP 16–51; TEMP 98.8–99.9; O2SAT 90–100
[2025-01-10 04:03] LABS: Basophils # (auto) 0.1 10 ^3/uL (0-0.2); Basophils % (auto) 0.9 % (0.0-2.0); Eosinophils # (auto) 0.2 10 ^3/uL (0-0.8); Eosinophils % (auto) 2.3 % (0.0-7.0); Hematocrit 46.3 % (41.0-53.0); Hemoglobin 15.4 g/dL (13.5-17.5); Lymphocytes # (auto) 1.4 10 ^3/uL (0.4-5.4); Lymphocytes % (auto) 14.6 % (10.0-50.0); Mean Corpuscular Hemoglobin 30.2 pg (28.0-32.0); Mean Corpuscular Hgb Conc. 33.3 g/dL (32.0-36.0); Mean Corpuscular Volume 90.7 fL (80.0-100.0); Monocytes # (auto) 0.7 10 ^3/uL (0-1.3); Monocytes % (auto) 7.2 % (0.0-12.0); Neutrophils # (auto) 7.4 10 ^3/uL (1.6-8.6); Nucleated Red Blood Cells % 0.1 %; Platelet Count (auto) 348 10^3/uL (140-450); Red Blood Cells 5.11 10^6/uL (4.5-5.90); Red Cell Distribution Width 15.2 % (11.8-14.3); White Blood Cell 9.8 10^3/uL (4.4-10.8)
[2025-01-10 04:24] LABS: Alanine Aminotransferase 18 U/L (7-40); Albumin 3.5 g/dL (3.2-4.8); Anion Gap 9 (5-15); Aspartate Aminotransferase 19 U/L (13-40); BUN/Creatinine Ratio 17.8 (10.0-20.0); Bilirubin, Total 0.8 mg/dL (0.2-1.0); Blood Urea Nitrogen 13 mg/dL (9-23); Calcium 8.9 mg/dL (8.7-10.4); Carbon Dioxide 29 mmol/L (20-31); Chloride 100 mmol/L (98-107); Potassium 3.7 mmol/L (3.5-5.1); Sodium 138 mmol/L (136-145); Total Protein 6.6 g/dL (5.7-8.2)
[2025-01-10 04:26] LABS: Alkaline Phosphatase 195 U/L (46-116); Glucose 203 mg/dL (74-106)
--- NOTE | 2025-01-10 05:24 | DVH ---
EXAM: XR Chest, 1 View CLINICAL INDICATION: Trach Placement TECHNIQUE: Frontal view of the chest. COMPARISON: XY CHEST PORTABLE on DOS: 01/09/25, XY CHEST PORTABLE on DOS: 01/09/25, XY CHEST PORTABLE o n DOS: 01/08/25, XY CHEST PORTABLE on DOS: 01/07/25, XY CHEST PORTABLE on DOS: 01/06/25 FINDINGS: LUNGS AND PLEURAL SPACES: Bibasilar atelectasis or pneumonia. No pneumothorax. HEART: Unremarkable. No cardiomegaly. MEDIASTINUM: Unremarkable. Normal mediastinal contour. BONES/JOINTS: Unremarkable. No acute fracture. TUBES, LINES AND DEVICES: Tracheostomy tube in satisfactory position. OTHER FINDINGS: . . . . . IMPRESSION: Bibasilar atelectasis or pneumonia.
[2025-01-10] MEDS: PANTOPRAZOLE 40 MG TAB PO SCH (06:29)
[2025-01-10 08:18] LABS: Base Excess 0.7 mmol/L (-2.0-3.0)
--- NOTE | 2025-01-10 09:04 | DVHPN2 ---
Subjective Patient encephalopathic Reviewed: Care Plan, H&P, Medications, Previous Orders, Radiology, Other (Consultants) Changes from previous H/P or p: No Changes General: Per HPI Objective Vitals Vital Signs Date Time Temp Pulse Resp B/P (MAP) Pulse Ox O2 Delivery O2 Flow Rate FiO2 01/10/25 08:02 79 16 124/93 (103) 97 35 01/10/25 06:00 Mechanical Ventilator+ 01/10/25 04:00 98.8 98.8 Intake/Output Intake and Output 01/10/25 07:00 Intake Total 438 ml Output Total 1280 ml Balance -842 ml Intake Oral 120 ml IV Total 50 ml Tube Feeding 268 ml Output Urine Total 1250 ml Stool Total 30 ml # Bowel Movements 2 General Appearance: mild distress, Other (Intubated and sedated) HEENT: Atraumatic, Other (Pupils equal round reactive to light) Neck: Other (Tracheostomy) Lungs: Normal air movement, Other (Few crackles bilateral lungs with good air entry) Cardiovascular: Regular rate, Normal S1, Normal S2, Other (Junctional rhythm) Abdomen: Soft Neuro: Other (Purposeful movement. Patient with noted decorticate posturing with suctioning.) Skin: Dry, Intact Psych/Mental Status: Other (Unable to assess) Medications Current Medications Medications Dose Ordered Sig/Lj Route Start Time Stop Time Status Last Admin Dose Admin Norepinephrine Bitartrate 250 ml @ 3.75 mls/hr Q24H IV 12/26/24 15:15 01/02/25 21:39 3.75 MLS/HR Dextrose 50 ml UD PRN IV 12/26/24 16:45 Cancel Nitroglycerin 0.4 mg Q5MINP PRN SL 12/26/24 16:45 Morphine Sulfate 2 mg Q30M PRN IV 12/26/24 16:45 Cancel Acetaminophen 650 mg Q6HP PRN NC 12/26/24 17:00 12/29/24 00:35 650 MG Ceftriaxone Sodium 50 ml @ 100 mls/hr DAILY@09 IV 12/27/24 09:00 01/09/25 10:18 100 MLS/HR Aspirin 81 mg DAILY PO 12/30/24 10:00 01/08/25 07:33 81 MG Diagnostic Test (Pha) 1 strip Q6HR 12/30/24 12:00 01/10/25 06:29 1 STRIP Insulin Human Regular Q6HR SC 12/30/24 12:00 01/10/25 06:29 6 UNITS Dextrose 50 ml UD PRN IV 12/30/24 06:30 Dopamine HCl/ Dextrose 250 ml @ 19.875 mls/ hr [id number] IV 01/01/25 16:45 01/02/25 06:09 13.913 MLS/HR Insulin Glargine 10 units HS SC 01/04/25 22:00 01/09/25 22:53 10 UNITS Glycopyrrolate 0.2 mg Q8HPRN PRN IV 01/04/25 22:00 01/10/25 02:26 0.2 MG Enteral Nutritional Formula 1,000 ml 50ML/HR GT 01/05/25 09:00 01/09/25 14:14 1,000 ML Potassium Bicarbonate 50 meq DAILY GT 01/05/25 10:00 01/09/25 13:21 50 MEQ Bisacodyl 10 mg DAILYP PRN [place] 01/06/25 08:15 Pantoprazole Sodium 40 mg DAILY@0600 PO 01/10/25 06:00 01/10/25 06:29 40 MG Laboratory Results Laboratory Tests 01/10/25 03:16 Chemistry Test 01/10/25 03:16 Albumin 3.5 g/dL (3.2-4.8) Calcium Level 8.9 mg/dL (8.7-10.4) Total Protein 6.6 g/dL (5.7-8.2) LFT Test 01/10/25 03:16 Alanine Aminotransferase (ALT) 18 U/L (7-40) Alkaline Phosphatase 195 U/L (46-116) H Aspartate Amino Transferase (AST) 19 U/L (13-40) Total Bilirubin 0.8 mg/dL (0.2-1.0) Urinalysis Test 12/26/24 16:45 Urine Color Yellow (Yellow) Urine Clarity Turbid (Clear) H Urine pH 5.5 (5.0-9.0) Urine Specific [place] 1.025 (1.001-1.035) Urine Protein Trace (Negative) H Urine Ketones 1+ (Negative) H Urine Blood Negative /uL (Negative) Urine Nitrite Negative (Negative) Urine Bilirubin Negative (Negative) Urine Urobilinogen 4 mg/dL (Negative) H Urine Leukocyte Esterase Trace /uL (Negative) Urine RBC 1 /hpf (0 - 3) Urine Microscopic WBC 9 /HPF (0-3) H Urine Squamous Epithelial Cells Few /hpf (<5) Urine Bacteria None seen /hpf (None Seen) Urine Hyaline Casts Mod /lpf (0 - 2) Urine Mucus Moderate (None Seen) Urine Glucose 1+ mg/dL (Normal) H Blood Gas Results Test 01/10/25 08:14 Arterial Blood pH 7.507 (7.350-7.450) FiO2 % 35.0 Microbiology Microbiology Date/Time Source Procedure Growth Status 01/02/25 13:06 Sputum Gram Stain - Final Complete 01/02/25 13:06 Respiratory Culture - Final Staphylococcus aureus Complete 12/28/24 14:50 Nose MRSA Screen - Final Complete 12/26/24 16:45 Voided Urine Urine Culture - Final Complete 12/26/24 15:29 Blood Blood Culture - Final NO GROWTH AFTER 5 DAYS OF INCUBATION. Complete Labs and/or images reviewed: Labs reviewed by me, Image(s) reviewed by me Assessment/Plan Assessment/Plan Impression: -acute hypoxic respiratory failure with mechanical ventilation -toxic metabolic encephalopathy with ETOH and benzodiazepines -history of CAD with previous CABG -history of alcoholism -diabetes mellitus -dyslipidemia -peripheral neuropathy -community-acquired pneumonia with Staphylococcus aureus -anoxic brain injury Plan: Events: Patient hemodynamically stable. Awaiting for GI to place PEG tube. Discussion made with the patient's family yesterday afternoon. Now they wished to speak with other family members regarding disposition of patient. Continue with current plan for LTAC placement with social services designee. -surgical consultation -GI Consult -continue tube feeding -continue current ventilator settings -neurology consultation: Recommendations reviewed -continue full-dose anticoagulation with Lovenox -regular insulin sliding scale -empiric antibiotic therapy -PUD, DVT prophylaxis -repeat labs, chest x-ray, ABG in a.m. Critical care time spent with patient discussing and formulating plan of care: 90 minutes. This does not include time spent performing procedures. This medical document was created using an electronic medical record system with [employer] system. Although this document has been carefully reviewed, there may still be some phonetic and typographical errors. These areas are purely typographical due to imperfections of the software programs, and do not reflect any compromise in the patient's medical care. Plan discussed with: Patient, Other (RN) My Orders Orders - MARLENY MEDINA NP Procedure Category Date Status Time Pantoprazole Tablet PHA 01/10/25 In Process (Protonix Tablet) 06:00 * Gi Dvh Survival Equipment Repairer CONS 01/09/25 Transmitted 10:10 * Tractor Trailer Truck Driver CONS 01/09/25 Transmitted Consult Abg W/ Co-Ox RT 01/10/25 Logged 06:00 Chest Portable XY 01/10/25 Resulted 04:00 Date of Service: Jan 10, 2025 Billing Provider: MARLENY MEDINA NP Common Visit Codes: 18201-[id number] CARE 30-74 MIN MARLENY MEDINA NP Jan 10, 2025 09:04
--- NOTE | 2025-01-10 18:32 | DVH ---
CHEST RADIOGRAPH Indication: OGT PLACEMENT Technique: Single frontal view of the chest was obtained Comparison: XY CHEST PORTABLE on DOS: 01/10/25, XY CHEST PORTABLE on DOS: 01/09/25, XY CHEST PORTABLE on DOS: 01/09/25 FINDINGS: Tracheostomy tube appears to be in satisfactory position. Enteric tube is in satisfactory position. None Lungs: Right lower lung zone opacity. Interstitial prominence. Point like structure overlying the ri ght medial mid lung zone which is most likely external to the patient. Recommend clinical correlatio n. Pleura: No effusion. No pneumothorax. Cardiomediastinal contours: Heart size is within normal limits. Midline sternotomy wires surgical cl ips are noted consistent with prior history of CABG. Bones: No acute osseous abnormality. IMPRESSION: Tracheostomy tube and enteric tube are in satisfactory position. Pulmonary vascular congestion with right lower lung zone pneumonia/atelectasis.
--- NOTE | 2025-01-10 21:49 | DVHPN2 ---
Progress Note - Dictate Date Seen: Jan 10, 2025 Medical Necessity Reason Pt with a Central, PICC or Fol: Yes The following are medically ne: Central Line, Mccormack Catheter Reason for mccormack catheter: Strict I&O Subjective No new complaints Patient is still on ventilator for respiratory failure and sedated Family at bedside S/P tracheostomy yesterday vital signs Vital Sign Date Time Temp Pulse Resp B/P (MAP) Pulse Ox O2 Delivery O2 Flow Rate FiO2 01/10/25 20:40 86 17 138/90 (106) 95 40 01/10/25 18:00 Mechanical Ventilator+ 01/10/25 16:19 99.5 99.5 Total Intake and Output 01/09/25 01/09/25 01/10/25 15:00 23:00 07:00 Intake Total 50 ml 160 ml 228 ml Output Total 430 ml 850 ml Balance 50 ml -270 ml -622 ml medications Current Medications Medications Dose Ordered Sig/Lj Route Start Time Stop Time Status Last Admin Dose Admin Norepinephrine Bitartrate 250 ml @ 3.75 mls/hr Q24H IV 12/26/24 15:15 01/02/25 21:39 3.75 MLS/HR Dextrose 50 ml UD PRN IV 12/26/24 16:45 Cancel Nitroglycerin 0.4 mg Q5MINP PRN SL 12/26/24 16:45 Morphine Sulfate 2 mg Q30M PRN IV 12/26/24 16:45 Cancel Acetaminophen 650 mg Q6HP PRN SD 12/26/24 17:00 12/29/24 00:35 650 MG Ceftriaxone Sodium 50 ml @ 100 mls/hr DAILY@09 IV 12/27/24 09:00 01/10/25 09:14 100 MLS/HR Aspirin 81 mg DAILY PO 12/30/24 10:00 01/08/25 07:33 81 MG Diagnostic Test (Pha) 1 strip Q6HR 12/30/24 12:00 01/10/25 18:41 1 STRIP Insulin Human Regular Q6HR SC 12/30/24 12:00 01/10/25 18:40 3 UNITS Dextrose 50 ml UD PRN IV 12/30/24 06:30 Dopamine HCl/ Dextrose 250 ml @ 19.875 mls/ hr [id number] IV 01/01/25 16:45 01/02/25 06:09 13.913 MLS/HR Insulin Glargine 10 units HS SC 01/04/25 22:00 01/09/25 22:53 10 UNITS Glycopyrrolate 0.2 mg Q8HPRN PRN IV 01/04/25 22:00 01/10/25 02:26 0.2 MG Enteral Nutritional Formula 1,000 ml 50ML/HR GT 01/05/25 09:00 01/09/25 14:14 1,000 ML Potassium Bicarbonate 50 meq DAILY GT 01/05/25 10:00 01/09/25 13:21 50 MEQ Bisacodyl 10 mg DAILYP PRN SD 01/06/25 08:15 Pantoprazole Sodium 40 mg DAILY@0600 PO 01/10/25 06:00 01/10/25 06:29 40 MG objective General: Patient is intubated and sedated Chest: lung negron clear to auscultation Heart: RRR, no murmur Abdomen: non-distended, +BS laboratory and microbiology Laboratory Tests 01/10/25 03:16 Test 01/10/25 03:16 Range/Units Serum Glucose 203 H 74-106 mg/dL Problems(with codes): (1) Alcohol intoxication (2) Metabolic encephalopathy (3) Hypotension (4) Bradycardia (5) Elevated lactic acid level (6) Altered level of consciousness (7) Generalized weakness (8) Acute respiratory failure (9) Malaise and fatigue (10) Depression (11) Hypokalemia Prognosis Plan I was notified by ICU nurse that there was a plan for a family meeting tomorrow morning to decide if they are going to proceed with a PEG tube placement and consideration for an LTAC placement versus a terminal wean or compassionate extubation I will be standing by for a PEG tube placement Patient is currently NPO awaiting confirmation of placement of his NG tube Dietary Evaluation Review Comments: 1) TF Vital AF 1.2 Vasquez @ 75ml/hr x 24 hr (goal). Start @ 20ml/hr, increase 10ml/hr Q4H until goal rate is reached. TF at goal volume provides 100% energy & protein needs - 2160 kcal, 135 gm protein, 1460ml free water 2) Water flush 200ml Q6H if allowed 3) TPN if NPO>7 days 4) Monitor BW, lab values and skin integrity Expected Outcomes/Goals: To meet >75% estimated needs lab values to improve Fu 2-3 days Plan discussed with: Other (ICU Nurse) EMMANUELLE BELCHER MD Jan 10, 2025 21:49
--- NOTE | 2025-01-10 23:12 | DVHPN2 ---
Progress Note - Dictate Date Seen: Jan 10, 2025 Medical Necessity Reason Pt with a Central, PICC or Fol: Yes The following are medically ne: Central Line, Mccormack Catheter Reason for mccormack catheter: Strict I&O Subjective Patient seen and examined at bedside. On mechanical ventilator, s/p trach. Overnight events reviewed. vital signs Vital Sign Date Time Temp Pulse Resp B/P (MAP) Pulse Ox O2 Delivery O2 Flow Rate FiO2 01/10/25 22:32 87 17 97 40 01/10/25 20:19 99.4 99.4 01/10/25 18:00 Mechanical Ventilator+ Total Intake and Output 01/09/25 01/09/25 01/10/25 15:00 23:00 07:00 Intake Total 50 ml 160 ml 228 ml Output Total 430 ml 850 ml Balance 50 ml -270 ml -622 ml medications Current Medications Medications Dose Ordered Sig/Lj Route Start Time Stop Time Status Last Admin Dose Admin Norepinephrine Bitartrate 250 ml @ 3.75 mls/hr Q24H IV 12/26/24 15:15 01/02/25 21:39 3.75 MLS/HR Dextrose 50 ml UD PRN IV 12/26/24 16:45 Cancel Nitroglycerin 0.4 mg Q5MINP PRN SL 12/26/24 16:45 Morphine Sulfate 2 mg Q30M PRN IV 12/26/24 16:45 Cancel Acetaminophen 650 mg Q6HP PRN AL 12/26/24 17:00 12/29/24 00:35 650 MG Ceftriaxone Sodium 50 ml @ 100 mls/hr DAILY@09 IV 12/27/24 09:00 01/10/25 09:14 100 MLS/HR Aspirin 81 mg DAILY PO 12/30/24 10:00 01/08/25 07:33 81 MG Diagnostic Test (Pha) 1 strip Q6HR 12/30/24 12:00 01/10/25 18:41 1 STRIP Insulin Human Regular Q6HR SC 12/30/24 12:00 01/10/25 18:40 3 UNITS Dextrose 50 ml UD PRN IV 12/30/24 06:30 Dopamine HCl/ Dextrose 250 ml @ 19.875 mls/ hr [id number] IV 01/01/25 16:45 01/02/25 06:09 13.913 MLS/HR Insulin Glargine 10 units HS SC 01/04/25 22:00 01/10/25 22:00 10 UNITS Glycopyrrolate 0.2 mg Q8HPRN PRN IV 01/04/25 22:00 01/10/25 22:56 0.2 MG Enteral Nutritional Formula 1,000 ml 50ML/HR GT 01/05/25 09:00 01/09/25 14:14 1,000 ML Potassium Bicarbonate 50 meq DAILY GT 01/05/25 10:00 01/10/25 22:53 50 MEQ Bisacodyl 10 mg DAILYP PRN [place] 01/06/25 08:15 Pantoprazole Sodium 40 mg DAILY@0600 PO 01/10/25 06:00 01/10/25 06:29 40 MG objective Gen.: Patient lying in bed in medical ICU. On mechanical ventilator, s/p trach. Head: Normocephalic, atraumatic. Eyes: PERRLA. Ears: Normal external anatomy. Throat: Endotracheal tube and orogastric tube in place. Neck: Trach in place. Chest: Transmitted breath sounds bilaterally. Decreased air entry bilaterally. No wheezing. Bibasilar crackles. Cardiovascular: Positive S1, positive S2. Regular rate and rhythm. Abdomen: Positive bowel sounds in all 4 quadrants. Soft, nontender, nondistended. : Mccormack in place. Normal external genitalia. Rectal: Deferred. Skin: Warm, dry. Intact. Extremities: 2+ radial pulses bilaterally. No lower extremity edema. Neuro: Off sedation laboratory and microbiology Laboratory Tests 01/10/25 03:16 Test 01/10/25 03:16 Range/Units Serum Glucose 203 H 74-106 mg/dL Assessment/Plan Impression: Acute hypoxemic respiratory failure On mechanical ventilator S/p tracheostomy Acute toxic metabolic encephalopathy Coronary artery disease, s/p CABG. Pneumonia w/ Staph aureus Atelectasis Altered mental status Hypokalemia Hypomagnesemia Marijuana use S/p cardiac arrest Events: Patient seen and examined in the ICU On AC mode with RR 16, VT 500, PEEP 5, FIO2 35% Patient desaturated overnight S/p trach Patient noted to have blood + sputum via trach. Remains off sedation ABG reviewed, notable for alkalemia Chest x-ray at 1829 hours reviewed, demonstrates pulmonary vascular congestion with right lower lung zone pneumonia/atelectasis. Trach care per RT. Pulmonary toileting Continue antibiotics Accu-Cheks, ISS Protonix for GI prophylaxis Tube feeds for nutritional support Monitor renal function Monitor electrolytes; supplement as needed Potassium supplementation Suspected JASON Prognosis very poor Labs and imaging reviewed Plan: On mechanical ventilation s/p cardiac arrest S/p tracheostomy with 5.0 Shiley cuffed trach. Titrate to maintain sats 90% or above Neuro input for JASON Trach care Pulmonary toileting Continue antibiotics F/u cultures Bronchodilators Monitor renal function Monitor electrolytes Supplement as needed Pressors as needed for hemodynamic support To maintain a mean arterial pressure of 65 mmHg Echo report reviewed F/u cardiology Accu-Cheks, ISS Protonix for GI prophylaxis Tube feeds for nutritional support GI/DVT prophylaxis. Prognosis: Poor given patient's multiple co-morbidities. Condition: Critical Rest of plan per hospitalist and other consultants. A total of 35 minutes of critical care time was spent reviewing the patient record, examining the patient, making a diagnostic and therapeutic plan, discussing this plan with the medical personnel, following up on diagnostic studies and following the patient for clinical stability excluding any and all procedures. At least 50% of this time was spent in direct, [id number] contact. Thank you, PAZ Jones, for allowing me to participate in this patient's care. Further recommendations will depend on the patient's clinical course. Please do not hesitate to contact me if you have any questions or concerns. This medical document was created using an electronic medical record system with [employer] dictation system. Although these documentations are being carefully reviewed, there may still be some phonetic and typographical changes. The errors are purely typographical, due to imperfection on the software program, and do not reflect any compromise in the patient's medical care. Dietary Evaluation Review Comments: 1) TF Vital AF 1.2 Vasquez @ 75ml/hr x 24 hr (goal). Start @ 20ml/hr, increase 10ml/hr Q4H until goal rate is reached. TF at goal volume provides 100% energy & protein needs - 2160 kcal, 135 gm protein, 1460ml free water 2) Water flush 200ml Q6H if allowed 3) TPN if NPO>7 days 4) Monitor BW, lab values and skin integrity Expected Outcomes/Goals: To meet >75% estimated needs lab values to improve Fu 2-3 days Plan discussed with: Other (LUCINDA Alvarado) Critical Care Time(min): 35 NATIVIDAD FLEMING MD Jan 10, 2025 23:12
[2025-01-11] VITALS (41 sets, daily range): BP systolic 94–148; BP diastolic 70–120; PULSE 73–94; RESP 16–34; TEMP 98–99.9; O2SAT 82–100
--- NOTE | 2025-01-11 03:12 | DVH ---
CHEST RADIOGRAPH Indication: Tubes and Lines placement verification Technique: Single frontal view of the chest was obtained COMPARISON: XY CHEST PORTABLE on DOS: 01/10/25, XY CHEST PORTABLE on DOS: 01/10/25, XY CHEST PORTABLE on DOS: 01/09/25, XY CHEST PORTABLE on DOS: 01/09/25, XY CHEST PORTABLE on DOS: 01/08/25 FINDINGS: Lines and Tubes: Unchanged. Lungs: Stable persistent diffuse increased prominence of the pulmonary vasculature without evidence o f focal consolidation. Pleura: No effusion. No pneumothorax. Cardiomediastinal contours: Unremarkable Bones: Unremarkable IMPRESSION: 1. Stable diffuse increased prominence of the pulmonary vasculature. 2. Lines and tubes unchanged.
[2025-01-11 03:44] LABS: Basophils # (auto) 0.1 10 ^3/uL (0-0.2); Basophils % (auto) 0.8 % (0.0-2.0); Eosinophils # (auto) 0.2 10 ^3/uL (0-0.8); Eosinophils % (auto) 1.4 % (0.0-7.0); Hematocrit 46.5 % (41.0-53.0); Hemoglobin 15.8 g/dL (13.5-17.5); Lymphocytes # (auto) 2.1 10 ^3/uL (0.4-5.4); Lymphocytes % (auto) 17.9 % (10.0-50.0); Mean Corpuscular Hemoglobin 30.3 pg (28.0-32.0); Mean Corpuscular Hgb Conc. 33.9 g/dL (32.0-36.0); Mean Corpuscular Volume 89.4 fL (80.0-100.0); Monocytes # (auto) 0.9 10 ^3/uL (0-1.3); Neutrophils # (auto) 8.3 10 ^3/uL (1.6-8.6); Neutrophils % (auto) 71.9 % (37.0-80.0); Platelet Count (auto) 356 10^3/uL (140-450); Red Cell Distribution Width 14.9 % (11.8-14.3); White Blood Cell 11.6 10^3/uL (4.4-10.8)
[2025-01-11 03:52] LABS: Alanine Aminotransferase 19 U/L (7-40); Albumin 3.6 g/dL (3.2-4.8); Anion Gap 9 (5-15); Aspartate Aminotransferase 23 U/L (13-40); BUN/Creatinine Ratio 13.2 (10.0-20.0); Bilirubin, Total 1.1 mg/dL (0.2-1.0); Blood Urea Nitrogen 9 mg/dL (9-23); Calcium 8.9 mg/dL (8.7-10.4); Carbon Dioxide 27 mmol/L (20-31); Chloride 102 mmol/L (98-107); Potassium 4.1 mmol/L (3.5-5.1); Sodium 138 mmol/L (136-145); Total Protein 6.9 g/dL (5.7-8.2)
[2025-01-11 04:15] LABS: Alkaline Phosphatase 217 U/L (46-116); Glucose 183 mg/dL (74-106)
[2025-01-11 07:07] LABS: Base Excess 1.1 mmol/L (-2.0-3.0)
--- NOTE | 2025-01-11 10:08 | DVHPN2 ---
Subjective Patient encephalopathic Reviewed: Care Plan, H&P, Medications, Previous Orders, Radiology, Other (Consultants) Changes from previous H/P or p: No Changes General: Per HPI Objective Vitals Vital Signs Date Time Temp Pulse Resp B/P (MAP) Pulse Ox O2 Delivery O2 Flow Rate FiO2 01/11/25 09:37 86 16 122/85 (97) 98 40 01/11/25 06:00 Mechanical Ventilator+ 01/11/25 04:00 99.7 99.7 Intake/Output Intake and Output 01/11/25 07:00 Intake Total 175 ml Output Total 1055 ml Balance -880 ml Intake Oral 60 ml IV Total 50 ml Tube Feeding 65 ml Output Urine Total 1025 ml Stool Total 30 ml General Appearance: mild distress, Other (Intubated and sedated) HEENT: Atraumatic, Other (Pupils equal round reactive to light) Neck: Other (Tracheostomy) Lungs: Normal air movement, Other (Few crackles bilateral lungs with good air entry) Cardiovascular: Regular rate, Normal S1, Normal S2, Other (Junctional rhythm) Abdomen: Soft Neuro: Other (Purposeful movement. Patient with noted decorticate posturing with suctioning.) Skin: Dry, Intact Psych/Mental Status: Other (Unable to assess) Medications Current Medications Medications Dose Ordered Sig/Lj Route Start Time Stop Time Status Last Admin Dose Admin Norepinephrine Bitartrate 250 ml @ 3.75 mls/hr Q24H IV 12/26/24 15:15 01/02/25 21:39 3.75 MLS/HR Dextrose 50 ml UD PRN IV 12/26/24 16:45 Cancel Nitroglycerin 0.4 mg Q5MINP PRN SL 12/26/24 16:45 Morphine Sulfate 2 mg Q30M PRN IV 12/26/24 16:45 Cancel Acetaminophen 650 mg Q6HP PRN IN 12/26/24 17:00 12/29/24 00:35 650 MG Ceftriaxone Sodium 50 ml @ 100 mls/hr DAILY@09 IV 12/27/24 09:00 01/10/25 09:14 100 MLS/HR Aspirin 81 mg DAILY PO 12/30/24 10:00 01/08/25 07:33 81 MG Diagnostic Test (Pha) 1 strip Q6HR 12/30/24 12:00 01/11/25 06:08 1 STRIP Insulin Human Regular Q6HR SC 12/30/24 12:00 01/11/25 06:09 3 UNITS Dextrose 50 ml UD PRN IV 12/30/24 06:30 Dopamine HCl/ Dextrose 250 ml @ 19.875 mls/ hr [id number] IV 01/01/25 16:45 01/02/25 06:09 13.913 MLS/HR Insulin Glargine 10 units HS SC 01/04/25 22:00 01/10/25 22:00 10 UNITS Glycopyrrolate 0.2 mg Q8HPRN PRN IV 01/04/25 22:00 01/10/25 22:56 0.2 MG Enteral Nutritional Formula 1,000 ml 50ML/HR GT 01/05/25 09:00 01/09/25 14:14 1,000 ML Potassium Bicarbonate 50 meq DAILY GT 01/05/25 10:00 01/10/25 22:53 50 MEQ Bisacodyl 10 mg DAILYP PRN IN 01/06/25 08:15 Pantoprazole Sodium 40 mg DAILY@0600 PO 01/10/25 06:00 01/11/25 06:07 40 MG Lorazepam 2 mg Q1HP PRN IV 01/11/25 09:45 UNV Morphine Sulfate 2 mg Q1HP PRN IV 01/11/25 09:45 UNV Laboratory Results Laboratory Tests 01/11/25 03:03 Chemistry Test 01/11/25 03:03 Albumin 3.6 g/dL (3.2-4.8) Calcium Level 8.9 mg/dL (8.7-10.4) Total Protein 6.9 g/dL (5.7-8.2) LFT Test 01/11/25 03:03 Alanine Aminotransferase (ALT) 19 U/L (7-40) Alkaline Phosphatase 217 U/L (46-116) H Aspartate Amino Transferase (AST) 23 U/L (13-40) Total Bilirubin 1.1 mg/dL (0.2-1.0) H Urinalysis Test 12/26/24 16:45 Urine Color Yellow (Yellow) Urine Clarity Turbid (Clear) H Urine pH 5.5 (5.0-9.0) Urine Specific [place] 1.025 (1.001-1.035) Urine Protein Trace (Negative) H Urine Ketones 1+ (Negative) H Urine Blood Negative /uL (Negative) Urine Nitrite Negative (Negative) Urine Bilirubin Negative (Negative) Urine Urobilinogen 4 mg/dL (Negative) H Urine Leukocyte Esterase Trace /uL (Negative) Urine RBC 1 /hpf (0 - 3) Urine Microscopic WBC 9 /HPF (0-3) H Urine Squamous Epithelial Cells Few /hpf (<5) Urine Bacteria None seen /hpf (None Seen) Urine Hyaline Casts Mod /lpf (0 - 2) Urine Mucus Moderate (None Seen) Urine Glucose 1+ mg/dL (Normal) H Blood Gas Results Test 01/11/25 07:02 Arterial Blood pH 7.506 (7.350-7.450) FiO2 % 40.0 Microbiology Microbiology Date/Time Source Procedure Growth Status 01/02/25 13:06 Sputum Gram Stain - Final Complete 01/02/25 13:06 Respiratory Culture - Final Staphylococcus aureus Complete 12/28/24 14:50 Nose MRSA Screen - Final Complete 12/26/24 16:45 Voided Urine Urine Culture - Final Complete 12/26/24 15:29 Blood Blood Culture - Final NO GROWTH AFTER 5 DAYS OF INCUBATION. Complete Labs and/or images reviewed: Labs reviewed by me, Image(s) reviewed by me Assessment/Plan Assessment/Plan Impression: -acute hypoxic respiratory failure with mechanical ventilation -toxic metabolic encephalopathy with ETOH and benzodiazepines -history of CAD with previous CABG -history of alcoholism -diabetes mellitus -dyslipidemia -peripheral neuropathy -community-acquired pneumonia with Staphylococcus aureus -anoxic brain injury Plan: Events: Long discussion made with patient's mother, sister, other family that are now involved with the patient's plan of care. After family meeting, it was decided the patient will be made comfort care. Patient will be compassionately removed from the mechanical ventilation. Comfort measures will also be provided. -surgical consultation -GI Consult -continue tube feeding -continue current ventilator settings -neurology consultation: Recommendations reviewed -continue full-dose anticoagulation with Lovenox -regular insulin sliding scale -empiric antibiotic therapy -PUD, DVT prophylaxis -repeat labs, chest x-ray, ABG in a.m. Critical care time spent with patient discussing and formulating plan of care: 90 minutes. This does not include time spent performing procedures. This medical document was created using an electronic medical record system with [employer] system. Although this document has been carefully reviewed, there may still be some phonetic and typographical errors. These areas are purely typographical due to imperfections of the software programs, and do not reflect any compromise in the patient's medical care. Plan discussed with: Patient, Spouse, Daughter, Other (RN) My Orders Orders - MARLENY MEDINA NP Procedure Category Date Status Time Chest Portable XY 01/10/25 Resulted 14:10 Chest Portable XY 01/11/25 Resulted 04:00 Abg W/ Co-Ox RT 01/11/25 Logged 06:00 Rt To Terminal Wean Pt ORDERS 01/11/25 Transmitted 09:44 Lorazepam 2mg/Ml Inj PHA 01/11/25 Logged (Ativan Inj) 09:45 Morphine Sulfate PHA 01/11/25 Logged Injection 09:45 Date of Service: Jan 11, 2025 Billing Provider: MARLENY MEDINA NP Common Visit Codes: [id number] CARE 30-74 MIN, [id number] CARE-EACH +30MIN MARLENY MEDINA NP Jan 11, 2025 10:08
[2025-01-11] MEDS: LORazepam 2MG/ML-1ML VIAL IV PRN (12:26)
[2025-01-11] MEDS: MORPHINE SULFATE INJ 2 MG/ml SYRG IV PRN (12:26)
[2025-01-11] MEDS: MORPHINE SULFATE 4 MG/ML SYR/VIAL ONE (12:31)
--- NOTE | 2025-01-11 13:32 | DVHPN2 ---
Progress Note - Dictate Date Seen: Jan 11, 2025 Medical Necessity Reason Pt with a Central, PICC or Fol: Yes The following are medically ne: Central Line, Mccormack Catheter Reason for mccormack catheter: Strict I&O Subjective No new complaints Patient is still on ventilator for respiratory failure and sedated Family at bedside S/P tracheostomy vital signs Vital Sign Date Time Temp Pulse Resp B/P (MAP) Pulse Ox O2 Delivery O2 Flow Rate FiO2 01/11/25 12:26 85 33 125/85 01/11/25 12:00 40 01/11/25 12:00 96 Mechanical Ventilator+ 01/11/25 04:00 99.7 99.7 Total Intake and Output 01/10/25 01/10/25 01/11/25 15:00 23:00 07:00 Intake Total 50 ml 0 ml 125 ml Output Total 720 ml 335 ml Balance 50 ml -720 ml -210 ml medications Current Medications Medications Dose Ordered Sig/Lj Route Start Time Stop Time Status Last Admin Dose Admin Norepinephrine Bitartrate 250 ml @ 3.75 mls/hr Q24H IV 12/26/24 15:15 01/02/25 21:39 3.75 MLS/HR Dextrose 50 ml UD PRN IV 12/26/24 16:45 Cancel Nitroglycerin 0.4 mg Q5MINP PRN SL 12/26/24 16:45 Morphine Sulfate 2 mg Q30M PRN IV 12/26/24 16:45 Cancel Acetaminophen 650 mg Q6HP PRN MS 12/26/24 17:00 12/29/24 00:35 650 MG Ceftriaxone Sodium 50 ml @ 100 mls/hr DAILY@09 IV 12/27/24 09:00 01/10/25 09:14 100 MLS/HR Aspirin 81 mg DAILY PO 12/30/24 10:00 01/08/25 07:33 81 MG Diagnostic Test (Pha) 1 strip Q6HR 12/30/24 12:00 01/11/25 06:08 1 STRIP Insulin Human Regular Q6HR SC 12/30/24 12:00 01/11/25 06:09 3 UNITS Dextrose 50 ml UD PRN IV 12/30/24 06:30 Dopamine HCl/ Dextrose 250 ml @ 19.875 mls/ hr [id number] IV 01/01/25 16:45 01/02/25 06:09 13.913 MLS/HR Insulin Glargine 10 units HS SC 01/04/25 22:00 01/10/25 22:00 10 UNITS Glycopyrrolate 0.2 mg Q8HPRN PRN IV 01/04/25 22:00 01/10/25 22:56 0.2 MG Enteral Nutritional Formula 1,000 ml 50ML/HR GT 01/05/25 09:00 01/09/25 14:14 1,000 ML Potassium Bicarbonate 50 meq DAILY GT 01/05/25 10:00 01/10/25 22:53 50 MEQ Bisacodyl 10 mg DAILYP PRN MS 01/06/25 08:15 Pantoprazole Sodium 40 mg DAILY@0600 PO 01/10/25 06:00 01/11/25 06:07 40 MG Lorazepam 2 mg Q1HP PRN IV 01/11/25 09:45 01/11/25 12:26 2 MG Morphine Sulfate 2 mg Q1HP PRN IV 01/11/25 13:15 objective General: Patient is intubated and sedated Chest: lung negron clear to auscultation Heart: RRR, no murmur Abdomen: non-distended, +BS laboratory and microbiology Laboratory Tests 01/11/25 03:03 Test 01/11/25 03:03 Range/Units Serum Glucose 183 H 74-106 mg/dL Problems(with codes): (1) Metabolic encephalopathy (2) Syncope and collapse (3) Altered level of consciousness (4) Acute respiratory failure (5) Malaise and fatigue (6) Depression (7) Alcohol intoxication Prognosis Plan I was notified by ICU nurse that the family has decided to proceed with comfort measures I will hold off on arranging a PEG tube at this time and will be standing by in case the family changes their mind Continue supportive care Prognosis is guarded Dietary Evaluation Review Comments: 1) TF Vital AF 1.2 Vasquez @ 75ml/hr x 24 hr (goal). Start @ 20ml/hr, increase 10ml/hr Q4H until goal rate is reached. TF at goal volume provides 100% energy & protein needs - 2160 kcal, 135 gm protein, 1460ml free water 2) Water flush 200ml Q6H if allowed 3) TPN if NPO>7 days 4) Monitor BW, lab values and skin integrity Expected Outcomes/Goals: To meet >75% estimated needs lab values to improve Fu 2-3 days Plan discussed with: Other (ICU Nurse) EMMANUELLE BELCHER MD Jan 11, 2025 13:31
[2025-01-11] MEDS: MORPHINE SULFATE 4 MG/ML SYR/VIAL IV PRN (13:38)
--- NOTE | 2025-01-11 20:18 | DVHPN2 ---
Progress Note - Dictate Date Seen: Jan 11, 2025 Medical Necessity Reason Pt with a Central, PICC or Fol: Yes The following are medically ne: Central Line, Mccormack Catheter Reason for mccormack catheter: Strict I&O Subjective Patient seen and examined at bedside. On mechanical ventilator, s/p trach. Overnight events reviewed. vital signs Vital Sign Date Time Temp Pulse Resp B/P (MAP) Pulse Ox O2 Delivery O2 Flow Rate FiO2 01/11/25 18:00 80 01/11/25 18:00 22 88 Room Air* 0 21 01/11/25 16:58 134/90 01/11/25 12:20 99.0 99.0 Total Intake and Output 01/10/25 01/10/25 01/11/25 15:00 23:00 07:00 Intake Total 50 ml 0 ml 125 ml Output Total 720 ml 335 ml Balance 50 ml -720 ml -210 ml medications Current Medications Medications Dose Ordered Sig/Lj Route Start Time Stop Time Status Last Admin Dose Admin Dextrose 50 ml UD PRN IV 12/26/24 16:45 Cancel Morphine Sulfate 2 mg Q30M PRN IV 12/26/24 16:45 Cancel Lorazepam 2 mg Q1HP PRN IV 01/11/25 09:45 01/11/25 16:25 2 MG Morphine Sulfate 2 mg Q1HP PRN IV 01/11/25 13:15 01/11/25 16:28 2 MG objective Gen.: Patient lying in bed in medical ICU. On mechanical ventilator, s/p trach. Head: Normocephalic, atraumatic. Eyes: PERRLA. Ears: Normal external anatomy. Throat: Endotracheal tube and orogastric tube in place. Neck: Trach in place. Chest: Transmitted breath sounds bilaterally. Decreased air entry bilaterally. No wheezing. Bibasilar crackles. Cardiovascular: Positive S1, positive S2. Regular rate and rhythm. Abdomen: Positive bowel sounds in all 4 quadrants. Soft, nontender, nondistended. : Mccormack in place. Normal external genitalia. Rectal: Deferred. Skin: Warm, dry. Intact. Extremities: 2+ radial pulses bilaterally. No lower extremity edema. Neuro: Off sedation laboratory and microbiology Laboratory Tests 01/11/25 03:03 Test 01/11/25 03:03 Range/Units Serum Glucose 183 H 74-106 mg/dL Assessment/Plan Impression: Acute hypoxemic respiratory failure On mechanical ventilator S/p tracheostomy Acute toxic metabolic encephalopathy Coronary artery disease, s/p CABG. Pneumonia w/ Staph aureus Atelectasis Altered mental status Hypokalemia Hypomagnesemia Marijuana use S/p cardiac arrest Events: Patient seen and examined in the ICU Mechanical vent support; on AC mode with RR 16, VT 500, PEEP 5, FIO2 40% S/p trach Patient was noted to have blood + sputum via trach. Remains off sedation ABG reviewed, notable for alkalemia Chest x-ray reviewed, demonstrates stable diffuse increased prominence of the pulmonary vasculature. Note, plan to compassionately extubate Family agreed for compassionate extubation and comfort care. Supportive care Pain control Anxiolytic Tube feeds for nutritional support Prognosis very poor Labs and imaging reviewed Plan: On mechanical ventilation s/p cardiac arrest S/p tracheostomy with 5.0 Shiley cuffed trach. Titrate to maintain sats 90% or above Neuro input for JASON Trach care Pulmonary toileting Continue antibiotics F/u cultures Bronchodilators Monitor renal function Monitor electrolytes Supplement as needed Pressors as needed for hemodynamic support To maintain a mean arterial pressure of 65 mmHg Echo report reviewed F/u cardiology Accu-Cheks, ISS Protonix for GI prophylaxis Tube feeds for nutritional support GI/DVT prophylaxis. Prognosis: Poor given patient's multiple co-morbidities. Condition: Critical Rest of plan per hospitalist and other consultants. A total of 35 minutes of critical care time was spent reviewing the patient record, examining the patient, making a diagnostic and therapeutic plan, discussing this plan with the medical personnel, following up on diagnostic studies and following the patient for clinical stability excluding any and all procedures. At least 50% of this time was spent in direct, [id number] contact. Thank you, PAZ Jones, for allowing me to participate in this patient's care. Further recommendations will depend on the patient's clinical course. Please do not hesitate to contact me if you have any questions or concerns. This medical document was created using an electronic medical record system with [employer] dictation system. Although these documentations are being carefully reviewed, there may still be some phonetic and typographical changes. The errors are purely typographical, due to imperfection on the software program, and do not reflect any compromise in the patient's medical care. Dietary Evaluation Review Comments: 1) TF Vital AF 1.2 Vasquez @ 75ml/hr x 24 hr (goal). Start @ 20ml/hr, increase 10ml/hr Q4H until goal rate is reached. TF at goal volume provides 100% energy & protein needs - 2160 kcal, 135 gm protein, 1460ml free water 2) Water flush 200ml Q6H if allowed 3) TPN if NPO>7 days 4) Monitor BW, lab values and skin integrity Expected Outcomes/Goals: To meet >75% estimated needs lab values to improve Fu 2-3 days Plan discussed with: Other (LUCINDA Alvarado) Critical Care Time(min): 35 NATIVIDAD FLEMING MD Jan 11, 2025 20:18
[2025-01-12] VITALS (8 sets, daily range): BP systolic 104–112; BP diastolic 54–84; PULSE 82–105; RESP 24–34; TEMP 98.7–101.8; O2SAT 68–83
--- NOTE | 2025-01-12 15:32 | DVHPN2 ---
Subjective Patient encephalopathic Reviewed: Care Plan, H&P, Medications, Previous Orders, Radiology, Other (Consultants) Changes from previous H/P or p: No Changes General: Per HPI Objective Vitals Vital Signs Date Time Temp Pulse Resp B/P (MAP) Pulse Ox O2 Delivery O2 Flow Rate FiO2 01/12/25 14:14 105 25 113/70 01/12/25 13:12 101.6 101.6 01/12/25 13:00 81 01/12/25 08:00 Room Air* 0 40 Trach Collar 40 General Appearance: severe distress, Other (Intubated and sedated) HEENT: Atraumatic, Other (Pupils equal round reactive to light) Neck: Other (Tracheostomy) Lungs: Normal air movement, Other (Few crackles bilateral lungs with good air entry) Cardiovascular: Regular rate, Normal S1, Normal S2, Other (Junctional rhythm) Abdomen: Soft Neuro: Other (Purposeful movement. Patient with noted decorticate posturing with suctioning.) Skin: Dry, Intact Psych/Mental Status: Other (Unable to assess) Medications Current Medications Medications Dose Ordered Sig/Lj Route Start Time Stop Time Status Last Admin Dose Admin Dextrose 50 ml UD PRN IV 12/26/24 16:45 Cancel Morphine Sulfate 2 mg Q30M PRN IV 12/26/24 16:45 Cancel Lorazepam 2 mg Q1HP PRN IV 01/11/25 09:45 01/12/25 14:13 2 MG Morphine Sulfate 2 mg Q1HP PRN IV 01/11/25 13:15 01/12/25 14:14 2 MG Laboratory Results Laboratory Tests 01/11/25 03:03 Urinalysis Test 12/26/24 16:45 Urine Color Yellow (Yellow) Urine Clarity Turbid (Clear) H Urine pH 5.5 (5.0-9.0) Urine Specific [place] 1.025 (1.001-1.035) Urine Protein Trace (Negative) H Urine Ketones 1+ (Negative) H Urine Blood Negative /uL (Negative) Urine Nitrite Negative (Negative) Urine Bilirubin Negative (Negative) Urine Urobilinogen 4 mg/dL (Negative) H Urine Leukocyte Esterase Trace /uL (Negative) Urine RBC 1 /hpf (0 - 3) Urine Microscopic WBC 9 /HPF (0-3) H Urine Squamous Epithelial Cells Few /hpf (<5) Urine Bacteria None seen /hpf (None Seen) Urine Hyaline Casts Mod /lpf (0 - 2) Urine Mucus Moderate (None Seen) Urine Glucose 1+ mg/dL (Normal) H Microbiology Microbiology Date/Time Source Procedure Growth Status 01/02/25 13:06 Sputum Gram Stain - Final Complete 01/02/25 13:06 Respiratory Culture - Final Staphylococcus aureus Complete 12/28/24 14:50 Nose MRSA Screen - Final Complete 12/26/24 16:45 Voided Urine Urine Culture - Final Complete 12/26/24 15:29 Blood Blood Culture - Final NO GROWTH AFTER 5 DAYS OF INCUBATION. Complete Labs and/or images reviewed: Labs reviewed by me, Image(s) reviewed by me Assessment/Plan Assessment/Plan Impression: -acute hypoxic respiratory failure with mechanical ventilation -toxic metabolic encephalopathy with ETOH and benzodiazepines -history of CAD with previous CABG -history of alcoholism -diabetes mellitus -dyslipidemia -peripheral neuropathy -community-acquired pneumonia with Staphylococcus aureus -anoxic brain injury Plan: Events: Patient is step daughters are at bedside. They are contemplating having oxygen placed on patient. They also verbalized that the ex-, their mother is requesting for an EEG on the patient who was made comfort care yesterday. -continue comfort care with IV morphine and Ativan -social service consultation for possible discharge with hospice -please notify risk management that ex- is requesting a change in the patient's treatment plan. Critical care time spent with patient discussing and formulating plan of care: 90 minutes. This does not include time spent performing procedures. This medical document was created using an electronic medical record system with [employer] dictation system. Although this document has been carefully reviewed, there may still be some phonetic and typographical errors. These areas are purely typographical due to imperfections of the software programs, and do not reflect any compromise in the patient's medical care. Plan discussed with: Patient, Other (RN) My Orders Orders - MARLENY MEDINA NP Procedure Category Date Status Time Code Status CODE 01/11/25 Transmitted 20:21 Communication Order ORDERS 01/12/25 Transmitted 15:26 Date of Service: Jan 12, 2025 Billing Provider: MARLENY MEDINA NP Common Visit Codes: [id number] INP/OBS CARE(MOD) MARLENY MEDINA NP Jan 12, 2025 15:32
--- NOTE | 2025-01-12 23:25 | DVHPN2 ---
Progress Note - Dictate Date Seen: Jan 12, 2025 Medical Necessity Reason Pt with a Central, PICC or Fol: Yes The following are medically ne: Central Line, Mccormack Catheter Reason for mccormack catheter: Strict I&O Subjective Patient seen and examined at bedside. S/p compassionate terminal weaning, currently on room air Overnight events reviewed. vital signs Vital Sign Date Time Temp Pulse Resp B/P (MAP) Pulse Ox O2 Delivery O2 Flow Rate FiO2 01/12/25 22:58 100 24 105/71 01/12/25 21:02 100.4 77 100.4 01/12/25 08:00 Room Air* 0 40 Trach Collar 40 medications Current Medications Medications Dose Ordered Sig/Lj Route Start Time Stop Time Status Last Admin Dose Admin Dextrose 50 ml UD PRN IV 12/26/24 16:45 Cancel Morphine Sulfate 2 mg Q30M PRN IV 12/26/24 16:45 Cancel Lorazepam 2 mg Q1HP PRN IV 01/11/25 09:45 01/12/25 22:57 2 MG Morphine Sulfate 2 mg Q1HP PRN IV 01/11/25 13:15 01/12/25 22:58 2 MG objective Gen.: Patient lying in bed in no apparent distress. Breathing on room air. S/p tracheostomy Head: Normocephalic, atraumatic. Eyes: EOMI/PERRLA. Ears: Normal hearing. Normal anatomy. Neck/trachea: S/p trach. Nose: Normal external anatomy. Mouth: Moist mucous membranes. Chest: Decreased air entry bilaterally. No wheezing or rhonchi. Cardiovascular: Positive S1, positive S2. Regular rate and rhythm. Abdomen: Positive bowel sounds in all 4 quadrants. Soft, non-tender, non- distended. : Deferred. Rectal: Deferred. Skin: Warm, dry. Intact. Extremities: 2+ radial pulses bilaterally. No lower extremity edema. Neuro: Unresponsive. No gross motor or sensory deficits. Cranial nerves II through XII intact. laboratory and microbiology Laboratory Tests 01/11/25 03:03 Test 01/11/25 03:03 Range/Units Serum Glucose 183 H 74-106 mg/dL Assessment/Plan Impression: Acute hypoxemic respiratory failure On mechanical ventilator, s/p terminal wean S/p tracheostomy Acute toxic metabolic encephalopathy Coronary artery disease, s/p CABG. Pneumonia w/ Staph aureus Atelectasis Altered mental status Hypokalemia Hypomagnesemia Marijuana use S/p cardiac arrest Events: Patient seen and examined at bedside. Currently s/p terminal weaning, on room air. O2 sat 81% Comfort care. Trach care Supportive care Pain control Anxiolytic Head of bed elevation Aspiration precautions Prognosis very poor Labs and imaging reviewed Plan: Comfort care, s/p terminal wean from ventilator On room air S/p tracheostomy Neuro input appreciated for JASON Trach care Pulmonary toileting Antibiotics Bronchodilators Monitor renal function Monitor electrolytes Supplement as needed Echo report reviewed Cardiology recs appreciated Tube feeds for nutritional support GI/DVT prophylaxis. Prognosis: Poor given patient's multiple co-morbidities. Rest of plan per hospitalist and other consultants. Thank you, PAZ Jones, for allowing me to participate in this patient's care. Further recommendations will depend on the patient's clinical course. Please do not hesitate to contact me if you have any questions or concerns. This medical document was created using an electronic medical record system with [employer] dictation system. Although these documentations are being carefully reviewed, there may still be some phonetic and typographical changes. The errors are purely typographical, due to imperfection on the software program, and do not reflect any compromise in the patient's medical care. Dietary Evaluation Review Comments: 1) TF Vital AF 1.2 Vasquez @ 75ml/hr x 24 hr (goal). Start @ 20ml/hr, increase 10ml/hr Q4H until goal rate is reached. TF at goal volume provides 100% energy & protein needs - 2160 kcal, 135 gm protein, 1460ml free water 2) Water flush 200ml Q6H if allowed 3) TPN if NPO>7 days 4) Monitor BW, lab values and skin integrity Expected Outcomes/Goals: To meet >75% estimated needs lab values to improve Fu 2-3 days Plan discussed with: Other (LUCINDA Maya) NATIVIDAD FLEMING MD Jan 12, 2025 23:25
[2025-01-13] VITALS (7 sets, daily range): BP systolic 0–120; BP diastolic 0–76; PULSE 0–101; RESP 0–28; TEMP 98.5–100.9; O2SAT 65–77
[2025-01-13] MEDS ORDERED: LORazepam 2MG/ML-1ML VIAL ONE (05:31)
--- NOTE | 2025-01-13 11:56 | DVHPN2 ---
Subjective Patient encephalopathic Reviewed: Care Plan, H&P, Medications, Previous Orders, Radiology, Other (Consultants) Changes from previous H/P or p: No Changes General: Per HPI Objective Vitals Vital Signs Date Time Temp Pulse Resp B/P (MAP) Pulse Ox O2 Delivery O2 Flow Rate FiO2 01/13/25 11:09 99 22 107/68 01/13/25 09:45 65 Room Air 0.0 01/13/25 09:45 21 01/13/25 09:00 99.9 99.9 Intake/Output Intake and Output 01/13/25 07:00 Intake Total 0 ml Output Total 250 ml Balance -250 ml Intake Oral 0 ml Output Urine Total 250 ml General Appearance: severe distress, Other (Intubated and sedated) HEENT: Atraumatic, Other (Pupils equal round reactive to light) Neck: Other (Tracheostomy) Lungs: Normal air movement, Other (Few crackles bilateral lungs with good air entry) Cardiovascular: Regular rate, Normal S1, Normal S2, Other (Junctional rhythm) Abdomen: Soft Neuro: Other (Purposeful movement. Patient with noted decorticate posturing with suctioning.) Skin: Dry, Intact Psych/Mental Status: Other (Unable to assess) Medications Current Medications Medications Dose Ordered Sig/Lj Route Start Time Stop Time Status Last Admin Dose Admin Dextrose 50 ml UD PRN IV 12/26/24 16:45 Cancel Morphine Sulfate 2 mg Q30M PRN IV 12/26/24 16:45 Cancel Lorazepam 2 mg Q1HP PRN IV 01/11/25 09:45 01/13/25 11:09 2 MG Morphine Sulfate 2 mg Q1HP PRN IV 01/11/25 13:15 01/13/25 11:09 2 MG Laboratory Results Laboratory Tests 01/11/25 03:03 Urinalysis Test 12/26/24 16:45 Urine Color Yellow (Yellow) Urine Clarity Turbid (Clear) H Urine pH 5.5 (5.0-9.0) Urine Specific [place] 1.025 (1.001-1.035) Urine Protein Trace (Negative) H Urine Ketones 1+ (Negative) H Urine Blood Negative /uL (Negative) Urine Nitrite Negative (Negative) Urine Bilirubin Negative (Negative) Urine Urobilinogen 4 mg/dL (Negative) H Urine Leukocyte Esterase Trace /uL (Negative) Urine RBC 1 /hpf (0 - 3) Urine Microscopic WBC 9 /HPF (0-3) H Urine Squamous Epithelial Cells Few /hpf (<5) Urine Bacteria None seen /hpf (None Seen) Urine Hyaline Casts Mod /lpf (0 - 2) Urine Mucus Moderate (None Seen) Urine Glucose 1+ mg/dL (Normal) H Microbiology Microbiology Date/Time Source Procedure Growth Status 01/02/25 13:06 Sputum Gram Stain - Final Complete 01/02/25 13:06 Respiratory Culture - Final Staphylococcus aureus Complete 12/28/24 14:50 Nose MRSA Screen - Final Complete 12/26/24 16:45 Voided Urine Urine Culture - Final Complete 12/26/24 15:29 Blood Blood Culture - Final NO GROWTH AFTER 5 DAYS OF INCUBATION. Complete Labs and/or images reviewed: Labs reviewed by me, Image(s) reviewed by me Assessment/Plan Assessment/Plan Impression: -acute hypoxic respiratory failure with mechanical ventilation -toxic metabolic encephalopathy with ETOH and benzodiazepines -history of CAD with previous CABG -history of alcoholism -diabetes mellitus -dyslipidemia -peripheral neuropathy -community-acquired pneumonia with Staphylococcus aureus -anoxic brain injury Plan: Events: No events overnight. Continue with comfort care treatment plan -continue comfort care with IV morphine and Ativan -social service consultation for possible discharge with hospice Total time spent with patient discussing and formulating plan of care: 35 minutes. This medical document was created using an electronic medical record system with [employer] dictation system. Although this document has been carefully reviewed, there may still be some phonetic and typographical errors. These areas are purely typographical due to imperfections of the software programs, and do not reflect any compromise in the patient's medical care. Plan discussed with: Patient, Other (RN) My Orders Orders - MARLENY MEDINA NP Procedure Category Date Status Time Communication Order ORDERS 01/12/25 Transmitted 15:26 * Test Architect CONS 01/12/25 Transmitted Consult Date of Service: Jan 13, 2025 Billing Provider: MARLENY MEDINA NP Common Visit Codes: [id number] INP/OBS CARE(HIGH) MARLENY MEDINA NP Jan 13, 2025 11:56
--- NOTE | 2025-01-13 14:42 | DVHDS2 ---
Discharge Summary Date of Admission December 26, 2024 at 16:36 Date of Discharge: Jan 13, 2025 Admitting Diagnosis Altered level of consciousness Labs/Diagnostic Data: Laboratory Results Test 01/11/25 07:02 01/11/25 06:04 01/11/25 03:03 01/09/25 03:02 Blood Gas Specimen Type Arterial Blood Gas Sample Site Right radial Blood Gas Patient Temperature 37.0 Arterial Blood Date Drawn [id number] Arterial Blood pH 7.506 (7.350-7.450) Arterial Blood Partial Pressure CO2 29.7 mmHg (35.0-48.0) Arterial Blood Partial Pressure O2 84.5 mmHg (83.0-108.0) Arterial Blood HCO3 23.0 mmol/L (21.0-28.0) Arterial Blood Oxygen Saturation 96.3 % (94.0-98.0) Arterial Blood Base Excess 1.1 mmol/L (-2.0-3.0) Arterial Blood Oxyhemoglobin 95.8 % (94.0-98.0) Arterial Blood Carboxyhemoglobin 0.3 % (0.5-1.5) Arterial Blood Methemoglobin 0.2 % (0.0-1.5) Óscar Test Modified Blood Gas Total Hemoglobin 16.20 g/dL (13.5-17.5) Blood Gas Set Respiration Rate 16.0 Blood Gas Modality Vent - ac FiO2 % 40.0 Blood Gas Tidal Volume 500.0 Blood Gas PEEP or CPAP 5.0 POC Glucose 164 mg/dl (70-106) White Blood Count 11.6 10^3/uL (4.4-10.8) Red Blood Count 5.20 10^6/uL (4.5-5.90) Hemoglobin 15.8 g/dL (13.5-17.5) Hematocrit 46.5 % (41.0-53.0) Mean Corpuscular Volume 89.4 fL (80.0-100.0) Mean Corpuscular Hemoglobin 30.3 pg (28.0-32.0) Mean Corpuscular Hemoglobin Concent 33.9 g/dL (32.0-36.0) Red Cell Distribution Width 14.9 % (11.8-14.3) Platelet Count 356 10^3/uL (140-450) Mean Platelet Volume 10.5 fL (6.9-10.8) Neutrophils (%) (Auto) 71.9 % (37.0-80.0) Lymphocytes (%) (Auto) 17.9 % (10.0-50.0) Monocytes (%) (Auto) 8.0 % (0.0-12.0) Eosinophils (%) (Auto) 1.4 % (0.0-7.0) Basophils (%) (Auto) 0.8 % (0.0-2.0) Neutrophils # (Auto) 8.3 10 ^3/uL (1.6-8.6) Lymphocytes # (Auto) 2.1 10 ^3/uL (0.4-5.4) Monocytes # (Auto) 0.9 10 ^3/uL (0-1.3) Eosinophils # (Auto) 0.2 10 ^3/uL (0-0.8) Basophils # (Auto) 0.1 10 ^3/uL (0-0.2) Nucleated Red Blood Cells 0.0 % Sodium Level 138 mmol/L (136-145) Potassium Level 4.1 mmol/L (3.5-5.1) Chloride Level 102 mmol/L (98-107) Carbon Dioxide Level 27 mmol/L (20-31) Anion Gap 9 (5-15) Blood Urea Nitrogen 9 mg/dL (9-23) Creatinine 0.68 mg/dL (0.700-1.30) Glomerular Filtration Rate Calc 109 mL/min (>90) BUN/Creatinine Ratio 13.2 (10.0-20.0) Serum Glucose 183 mg/dL (74-106) Calcium Level 8.9 mg/dL (8.7-10.4) Total Bilirubin 1.1 mg/dL (0.2-1.0) Aspartate Amino Transferase (AST) 23 U/L (13-40) Alanine Aminotransferase (ALT) 19 U/L (7-40) Alkaline Phosphatase 217 U/L (46-116) Total Protein 6.9 g/dL (5.7-8.2) Albumin 3.6 g/dL (3.2-4.8) Prothrombin Time 11.7 sec (9.3-11.8) Prothrombin Time INR 1.12 (0.9-1.15) Activated Partial Thromboplast Time 30.8 SEC (24.5-34.5) Magnesium Level 1.8 mg/dL (1.6-2.6) Test 01/07/25 03:22 01/02/25 03:29 12/29/24 14:48 12/29/24 07:53 Phosphorus Level 3.7 mg/dL (2.4-5.1) B-Type Natriuretic Peptide 111.63 pg/mL (0-100) Troponin I High Sensitivity 721 ng/L (</=54) Blood Gas Spontaneous Rate 26 Test 12/29/24 06:30 12/28/24 15:17 12/28/24 13:14 12/26/24 20:17 Thyroid Stimulating Hormone (TSH) 0.22 uIU/mL (0.55-4.78) Blood Gas Critical Value Read Back Yes Blood Gas Notified Whom Robert burciaga. Blood Gas Notified Time [id number] Blood Gas Notified By Ceci mayorga D-Dimer, Quantitative 22.37 mg/L FEU (0.0-0.49) Lactic Acid Level 2.4 mmol/L (0.4-2.0) Test 12/26/24 16:45 12/26/24 15:20 Urine Color Yellow (Yellow) Urine Clarity Turbid (Clear) Urine pH 5.5 (5.0-9.0) Urine Specific [place] 1.025 (1.001-1.035) Urine Protein Trace (Negative) Urine Ketones 1+ (Negative) Urine Blood Negative /uL (Negative) Urine Nitrite Negative (Negative) Urine Bilirubin Negative (Negative) Urine Urobilinogen 4 mg/dL (Negative) Urine Leukocyte Esterase Trace /uL (Negative) Urine RBC 1 /hpf (0 - 3) Urine Microscopic WBC 9 /HPF (0-3) Urine Squamous Epithelial Cells Few /hpf (<5) Urine Bacteria None seen /hpf (None Seen) Urine Hyaline Casts Mod /lpf (0 - 2) Urine Mucus Moderate (None Seen) Urine Glucose 1+ mg/dL (Normal) Urine Opiates Screen Neg (NEGATIVE) Urine Fentanyl Screen Neg (NEGATIVE) Urine Barbiturates Screen Neg (NEGATIVE) Urine Phencyclidine Screen Neg (NEGATIVE) Urine Amphetamines Screen Neg (NEGATIVE) Urine Benzodiazepines Screen Pos (NEGATIVE) Urine Cocaine Screen Neg (NEGATIVE) Urine Cannabinoids Screen Pos (NEGATIVE) Plasma/Serum Blood Alcohol 276.4 mg/dL (<10) Other Laboratory Tests 01/11/25 03:03 Brief Hx & Hospital Course: History of Present Illness The patient is a 54-year-old male with past medical history of hyperlipidemia and diabetes mellitus who presented to [facility] ED for evaluation of altered level of consciousness. As reported by EMS, patient is from a custodial, was shaking, unresponsive so 911 was called. When EMS arrived on the scene, the patient was bradycardia, hypotensive, and was given 500 cc of normal saline fluid EN route to our facility ED. Patient was seen and evaluated in the ED appears confused, agitated, pulling out his IV line, desaturating on oxygen at 86%, hypotensive 86/40, and was subsequently intubated. Laboratory data shows WBC 8.6, platelets 201, sodium 139, potassium 3.0, BUN 7, creatinine 0.96, GFR 93, glucose 221, D-dimer 0.72, lactic acid 3.1, troponin 4, serum alcohol 276.4, blood pressure improved to 121/83, heart rate 68, temperature 97.6 F, O2 saturation 99% on ventilator. Patient was given banana bag, please see medication orders section in the computer. On my assessment, patient remains fully intubated, no diaphoresis, no vomiting, no diarrhea, no fever, no chills. Patient was admitted for further evaluation and medical management. Course of hospitalization: Patient is clinical status worsened while in the emergency room requiring mechanical ventilation. The patient was started on banana bag, vasopressor therapy, empiric antibiotics. Patient's FiO2 requirements decreased. Patient subsequently underwent full cardiopulmonary arrest with return of spontaneous circulation. Patient's hemodynamic status was stabilized. Sedation was weaned off. Patient had signs of anoxic injury which was verified via EEG, as well as clinical assessment by Neurology. Patient was continued off of sedation while on mechanical ventilation with presentation of probable vegetative state, which was discussed with the family on multiple occasions. Discussion was made with the family conference with the patient's daughter Sophia, as well as to her stepdaughter's as well as the patient's ex-. At that time they wished for all medical modalities including tracheostomy and PEG tube placement. Patient underwent tracheostomy and prior to having PEG placement, 2nd family meeting occurred with the patient's mother, sister, as well as other family members including those and follow up with the 1st meeting. After this meeting they requested to make the patient comfort care only, for which she was taken off mechanical ventilation and treated with IV morphine and Ativan. Patient on 01/13/2025, at 2:30 p.m., with pronouncement of performed by myself. Family was awaiting aware by primary nurse. Total time spent with patient discussing and formulating plan of care: 35 minutes. This medical document was created using an electronic medical record system with [employer] dictation system. Although this document has been carefully reviewed, there may still be some phonetic and typographical errors. These areas are purely typographical due to imperfections of the software programs, and do not reflect any compromise in the patient's medical care. Consults/Reason for consult Cardiology: Ventricular fibrillation. NSTEMI Pulmonology: Respiratory failure Condition at Discharge: Poor Final Diagnosis/Problems List Cardiac arrest Secondary diagnosis: -acute hypoxic respiratory failure with mechanical ventilation -toxic metabolic encephalopathy with ETOH and benzodiazepines -history of CAD with previous CABG -history of alcoholism -diabetes mellitus -dyslipidemia -peripheral neuropathy -community-acquired pneumonia with Staphylococcus aureus -anoxic brain injury Discharge Disposition: at [facility] Discharge Statement: "Patient was advised to return to the ER or call 911 if any headaches, dizziness, shortness of breath, chest pain, abdominal pain, bleeding, fevers, or worsening of medical condition. Patient was counseled about treatment plan, medications, possible side effects, patientverbalized understanding. All questions were answered to the best of my ability. This discharge took greater then 30 minutes in planning, reviewing documentation, counseling the patient, and discussing with other team members." ASSESSMENT ASSESSMENT Assessment Same Date of Service: Jan 13, 2025 Billing Provider: MARLENY MEDINA NP Common Visit Codes: [id number] DISCH DAY >30min MARLENY MEDINA NP Jan 13, 2025 14:42
--- NOTE | 2025-01-13 23:52 | DVHPN2 ---
Progress Note - Dictate Date Seen: Jan 13, 2025 Medical Necessity Reason Pt with a Central, PICC or Fol: Yes The following are medically ne: Central Line, Mccormack Catheter Reason for mccormack catheter: Strict I&O Subjective Patient seen and examined at bedside. S/p compassionate terminal weaning, remains on room air Overnight events reviewed. vital signs Vital Sign Date Time Temp Pulse Resp B/P (MAP) Pulse Ox O2 Delivery O2 Flow Rate FiO2 01/13/25 14:44 0 0 0/0 01/13/25 13:00 100.9 70 100.9 01/13/25 09:45 Room Air 0.0 01/13/25 09:45 21 Total Intake and Output 01/12/25 01/12/25 01/13/25 14:59 22:59 06:59 Intake Total 0 ml Output Total 250 ml Balance -250 ml medications Current Medications Medications Dose Ordered Sig/Lj Route Start Time Stop Time Status Last Admin Dose Admin Dextrose 50 ml UD PRN IV 12/26/24 16:45 Cancel Morphine Sulfate 2 mg Q30M PRN IV 12/26/24 16:45 Cancel objective Gen.: Patient lying in bed in no apparent distress. Breathing on room air. S/p tracheostomy Head: Normocephalic, atraumatic. Eyes: EOMI/PERRLA. Ears: Normal hearing. Normal anatomy. Neck/trachea: S/p trach. Nose: Normal external anatomy. Mouth: Moist mucous membranes. Chest: Decreased air entry bilaterally. No wheezing or rhonchi. Cardiovascular: Positive S1, positive S2. Regular rate and rhythm. Abdomen: Positive bowel sounds in all 4 quadrants. Soft, non-tender, non- distended. : Deferred. Rectal: Deferred. Skin: Warm, dry. Intact. Extremities: 2+ radial pulses bilaterally. No lower extremity edema. Neuro: Unresponsive. No gross motor or sensory deficits. Cranial nerves II through XII intact. laboratory and microbiology Laboratory Tests 01/11/25 03:03 Test 01/11/25 03:03 Range/Units Serum Glucose 183 H 74-106 mg/dL Assessment/Plan Impression: Acute hypoxemic respiratory failure On mechanical ventilator, s/p terminal wean S/p tracheostomy Acute toxic metabolic encephalopathy Coronary artery disease, s/p CABG. Pneumonia w/ Staph aureus Atelectasis Altered mental status Hypokalemia Hypomagnesemia Marijuana use S/p cardiac arrest Events: Patient seen and examined at bedside. Remains on room air. Comfort care. Trach care Supportive care Pain control Anxiolytic Head of bed elevation Aspiration precautions Prognosis very poor High likelihood of demise. Labs and imaging reviewed Plan: Comfort care, s/p terminal wean from ventilator On room air S/p tracheostomy Neuro input appreciated for JASON Trach care Pulmonary toileting Antibiotics Bronchodilators Monitor renal function Monitor electrolytes Supplement as needed Echo report reviewed Cardiology recs appreciated Tube feeds for nutritional support GI/DVT prophylaxis. Prognosis: Poor given patient's multiple co-morbidities. Rest of plan per hospitalist and other consultants. Thank you, RN PROGRESSIVE CARE Robert, for allowing me to participate in this patient's care. Further recommendations will depend on the patient's clinical course. Please do not hesitate to contact me if you have any questions or concerns. This medical document was created using an electronic medical record system with [employer] dictation system. Although these documentations are being carefully reviewed, there may still be some phonetic and typographical changes. The errors are purely typographical, due to imperfection on the software program, and do not reflect any compromise in the patient's medical care. Dietary Evaluation Review Comments: 1) TF Vital AF 1.2 Vasquez @ 75ml/hr x 24 hr (goal). Start @ 20ml/hr, increase 10ml/hr Q4H until goal rate is reached. TF at goal volume provides 100% energy & protein needs - 2160 kcal, 135 gm protein, 1460ml free water 2) Water flush 200ml Q6H if allowed 3) TPN if NPO>7 days 4) Monitor BW, lab values and skin integrity Expected Outcomes/Goals: To meet >75% estimated needs lab values to improve Fu 2-3 days Plan discussed with: Other (LUCINDA Maya) NATIVIDAD FLEMING MD Jan 13, 2025 23:52
== END 2025-01-13 20:35 | DRG 5 ==
LOC: EDBD 14:34 → EDUNIT# 14:34 → ER 14:37 → OVERFLOW 16:36 → ICU WEST 12-28 14:35 → TELE-CENTR 01-11 22:05 → CENTRAL 01-12 03:55
PROVIDERS: ADMIT Nurse Practitioner Acute Care; ATTEND Nurse Practitioner Acute Care
PROC: 5A1955Z Respiratory Ventilation, Greater than 96 Consecutive Hours (ICD-10-PCS; 2024-12-26)
PROC: 0BH17EZ Insertion of Endotracheal Airway into Trachea, Via Natural or Artificial Opening (ICD-10-PCS; 2024-12-26)
PROC: 05HY33Z Insertion of Infusion Device into Upper Vein, Percutaneous Approach (ICD-10-PCS; 2024-12-26)
PROC: 0B9M8ZZ Drainage of Bilateral Lungs, Via Natural or Artificial Opening Endoscopic (ICD-10-PCS; 2025-01-02)
PROC: 0B110Z4 Bypass Trachea to Cutaneous, Open Approach (ICD-10-PCS; principal; 2025-01-09 08:17)
DX: J96.01 Acute respiratory failure with hypoxia (principal); G92.8 Other toxic encephalopathy; F10.221 Alcohol dependence with intoxication delirium; G93.1 Anoxic brain damage, not elsewhere classified; I21.A1 Myocardial infarction type 2; D69.6 Thrombocytopenia, unspecified; E87.4 Mixed disorder of acid-base balance; I82.402 Acute embolism and thrombosis of unspecified deep veins of left lower extremity; I95.9 Hypotension, unspecified; I49.01 Ventricular fibrillation; I46.9 Cardiac arrest, cause unspecified; E11.40 Type 2 diabetes mellitus with diabetic neuropathy, unspecified; Y90.8 Blood alcohol level of 240 mg/100 ml or more; E87.6 Hypokalemia; J98.11 Atelectasis; F17.200 Nicotine dependence, unspecified, uncomplicated; E78.5 Hyperlipidemia, unspecified; F31.9 Bipolar disorder, unspecified; E83.42 Hypomagnesemia; I11.9 Hypertensive heart disease without heart failure; E66.9 Obesity, unspecified; F12.10 Cannabis abuse, uncomplicated; Z68.31 Body mass index [BMI] 31.0-31.9, adult; E11.65 Type 2 diabetes mellitus with hyperglycemia; J81.1 Chronic pulmonary edema; I25.10 Atherosclerotic heart disease of native coronary artery without angina pectoris; K57.30 Diverticulosis of large intestine without perforation or abscess without bleeding; Z51.5 Encounter for palliative care; Z79.84 Long term (current) use of oral hypoglycemic drugs; Z91.148 Patient's other noncompliance with medication regimen for other reason; Z93.0 Tracheostomy status; Z95.1 Presence of aortocoronary bypass graft; Z88.8 Allergy status to other drugs, medicaments and biological substances
CPT/HCPCS: 31500; 36415; 36556; 36600; 70450; 71045; 71275; 74176; 80048; 80053; 80307; 80320; 81001; 82805; 82962; 83605; 83735; 83880; 84100; 84132; 84443; 84484; 85025; 85379; 85610; 85730; 86850; 86900; 86901; 87040; 87070; 87077; 87081; 87086; 87186; 87205; 93005; 93306; 93970; 94002; 94003; 96365; 96375; 99291; G0378; J0171; J1815; J2250; J2405; J2470; J2704; J3480; J7042; J7060; J7131